=== PATIENT | male | born 1940 | race Caucasian/White ===

== ENCOUNTER → 2017-12-03 15:33 | Outpatient (CLI) | payer MEDICARE, SELFPAY ==
--- NOTE | 2017-12-03 | DI.RAD.S_ITS ---
PROCEDURE: XR HIP W PEL IF DONE LT 2V INDICATIONS: LEFT HIP PAIN TECHNIQUE: AP pelvis with lateral view(s) of the left hip. COMPARISON: None. FINDINGS: Bones: No fractures or dislocations. Pelvic ring appears intact. No suspicious bony lesions. Soft tissues: The visualized bowel gas pattern is normal. No suspicious soft tissue calcifications. IMPRESSION: Mild symmetric hip joint osteoarthritis, no trauma found. Dictated by: Torres Marin M.D. on 12/03/2017 at 16:37 Approved by: Torres Marin M.D. on 12/03/2017 at 16:37
== END ==
PROVIDERS: PCP Family Medicine; Visit Provider Family Medicine
DX: M25.552 Pain in left hip (principal); M16.12 Unilateral primary osteoarthritis, left hip
CPT/HCPCS: 73502

== ENCOUNTER 2018-01-06 10:26 | Emergency (ER) | payer MEDICARE, SELFPAY ==
[2018-01-06 10:32] VITALS: BP 128/55; PULSE 58; RESP 15; TEMP 36.5; O2SAT 97; BMI 25.8
--- NOTE | 2018-01-06 11:10 | DI.CT.S_ITS ---
PROCEDURE: CT HEAD/BRAIN WO CON INDICATIONS: confusion, fall 2 days TECHNIQUE: Noncontrast 4.5 mm thick angled axial sections acquired from the foramen magnum to the vertex, with coronal and sagittal reformats. For radiation dose reduction, the following was used: automated exposure control, adjustment of mA and/or kV according to patient size. COMPARISON: None. FINDINGS: Image quality: Excellent. CSF spaces: Basal cisterns are patent. No extra-axial fluid collections. Ventricles are moderately prominent. There is corresponding parenchymal volume loss. Brain: No midline shift. No intracranial masses or hemorrhage. Montesinos-white matter interface is normal. Subtle areas of low attenuation within the periventricular white matter of the supratentorial brain is present. Skull and face: Calvarium and visualized facial bones are intact, without suspicious lesions. Sinuses: Visualized sinuses and mastoids are clear. IMPRESSION: 1. No acute intracranial hemorrhage. 2. Moderate parenchymal volume loss and mild chronic small vessel ischemic changes. Dictated by: Mert Lainez M.D. on 01/06/2018 at 10:22 Approved by: Mert Lainez M.D. on 01/06/2018 at 10:29
[2018-01-06 12:00] LABS: Add Manual Diff / Slide Review NO; Basophils Percent Auto 0.3 % (0-2); Eosinophils Percent Auto 0.3 % (2-4); Hematocrit 45.6 % (41-53); Hemoglobin 15.7 g/dL (13.5-17.5); Lymphocytes Percent Auto 12.8 % (25-40); Mean Corpuscular HGB Conc 34.4 % (30-36); Mean Corpuscular Hemoglobin 31.6 PG (26-34); Mean Corpuscular Volume 91.7 fL (80-100); Monocytes Percent Auto 5.6 % (3-14); Neutrophils Absolute Auto 5700 /uL (3000-5900); Platelet Count 213 X10^3/uL (150-400); Red Blood Cell Count 4.97 X10^6/uL (4.5-5.9); Red Cell Distribution Width 13.2 % (11.6-14.8)
[2018-01-06 12:08] LABS: Alanine Aminotransferase 25 IU/L (21-72); Albumin 4.3 g/dL (3.5-5.0); Albumin Globulin Ratio 1.3 (1.0-2.8); Alkaline Phosphatase 148 U/L (38-126); Aspartate Aminotransferase 28 IU/L (17-59); Bilirubin Total 0.9 mg/dL (0.2-1.3); Blood Urea Nitrogen 23 mg/dL (9-20); Calcium 9.9 mg/dL (8.4-10.2); Carbon Dioxide 28 mmol/L (22-32); Chloride 101 mmol/L (98-107); Estimated Glomerular Filt Rate > 60.0 mL/min (>60); Globulin 3.4 g/dL (1.7-4.1); Glucose 106 mg/dL (80-110); HEMOLYSIS < 15 (0-50); Potassium 4.2 mmol/L (3.4-5.1); Sodium 141 mmol/L (137-145); Total Protein 7.7 g/dL (6.3-8.2)
[2018-01-06 12:33] VITALS: BP 124/71; PULSE 56; RESP 14; O2SAT 97
--- NOTE | 2018-01-06 13:08 | ED_ITS ---
HPI - Altered Mental Status General Chief Complaint: Altered Mental Status Stated Complaint: disoriented/abnormal for him x2 days Time Seen by Provider: 01/06/18 11:25 Source: patient and family Mode of arrival: ambulatory Limitations: no limitations History of Present Illness HPI narrative: Family states the patient has been confused for the last week or so, on and off. Patient was placed on Flexeril last week for a pulled muscle in his groin, and family states that the medication made the patient somewhat confused and less ?with it. They stop the Flexeril that 4 days ago, and patient seem to be a little bit better but then has worsened again over the last day. The family states that the patient is not as active as usual and is saying things that do not make sense. They have not noticed any focal neurologic deficits. Patient has had mildly decreased p.o. intake. Patient denies any complaints. He states he is not hurting and he is not short of breath. He does state that he feels ?strange?. No other complaints at this time. No dysuria. No vomiting or diarrhea. No weakness. Related Data Home Medications Medication Instructions Recorded Confirmed ondansetron 4 mg PO PRN PRN 01/07/18 01/07/18 sulfamethoxazole-trimethoprim 1 tab PO BID 01/07/18 01/07/18 Allergies Allergy/AdvReac Type Severity Reaction Status Date / Time No Known Drug Allergies Allergy Verified 01/07/18 15:17 Review of Systems Review of Systems All systems reviewed & are unremarkable except as noted in HPI and below Constitutional Denies chills, Denies fever(s), Denies lethargy and Denies weakness Eyes Denies change in vision, Denies eye discharge, Denies irritation and Denies loss of vision ENT Ears, Nose, Mouth, and Throat: Denies change in voice, Denies neck pain and Denies sore throat Cardiovascular Denies chest pain, Denies irregular heart rhythm, Denies lightheadedness, Denies palpitations, Denies dyspnea, Denies dyspnea on exertion and Denies orthopnea Respiratory Denies cough, Denies dyspnea, Denies dyspnea on exertion and Denies wheezing Gastrointestinal Gastrointestinal: Denies abdominal pain, Denies change in bowel habits, Denies diarrhea, Denies nausea and Denies vomiting Genitourinary Denies hematuria, Denies flank pain, Denies urinary incontinence and Denies urinary urgency Musculoskeletal Denies neck pain Integumentary/Breasts Denies pruritus, Denies erythema, Denies rash and Denies wounds Neurologic Reports confusion, Denies loss of vision and Denies weakness Psychiatric Denies anxiety, Reports confusion, Denies depression, Denies homicidal ideation and Denies suicidal ideation Endocrine Denies palpitations Hematologic/Lymphatic Denies easy bruising Allergic/Immunologic Denies wheezing Exam Initial Vital Signs Initial Vital Signs: Vital Signs Temperature 97.7 F 01/06/18 10:32 Pulse Rate 58 L 01/06/18 10:32 Respiratory Rate 15 01/06/18 10:32 Blood Pressure 128/55 L 01/06/18 10:32 Pulse Oximetry 97 01/06/18 10:32 Const General: cooperative and well developed Nutritional Appearance: well nourished Orientation: alert, awake, oriented x3 and not confused HENMT Head: normocephalic and atraumatic Ears: external ears normal and TM's normal bilaterally Nose: external nose normal and No nasal discharge Face and sinus: sinuses nontender, face symmetric, no sinus tenderness and No dry mucous membranes Mouth: oral mucosae normal and moist mucous membranes Teeth and gingiva: dentition normal Throat: tonsils normal and uvula midline Eyes General: appearance normal, both eyes and all related structures Eyelids: eyelids normal Conjunctivae: conjunctivae normal Sclera: sclerae normal Pupils: PERRL EOM: EOM intact bilaterally Neck Neck: normal visual inspection, trachea midline, No lymphadenopathy, No midline deformity and No JVD Lymphatic: No lymphedema Chest Chest: normal inspection of the chest Resp Effort & Inspection: normal respiratory effort, able to speak in complete sentences, no respiratory distress and no use of accessory muscles Auscultation: clear to auscultation bilaterally, no rales, no rhonchi and no wheezes Cardio Rate: regular rate Rhythm: regular rhythm Heart Sounds: no click, no gallops, no murmurs and no rubs Pulses: normal peripheral pulses GI Inspection: non-distended Palpation: soft, no hepatosplenomegaly, No guarding, No pulsatile mass and No tender Auscultation: normal bowel sounds Back/Spine/Pelvis Back: No CVA tenderness Cervical Spine: cervical ROM normal and No pain with cervical ROM Thoracic/Lumbar Spine: thoracic and lumbar spine normal to inspection Skin General: no rashes or lesions noted, No jaundice and No petechiae Neuro General: alert, gait normal and no focal motor deficits Cranial Nerves: CN's II-XI intact bilaterally Speech: speech normal Motor: muscle tone normal throughout and strength 5/5 throughout Sensory Exam: no sensory deficits noted Other: Patient is confused. He knows his name and he recognizes his family. He knows he is at the hospital, but thinks that I am a surgeon who operated on him. Extrem General: full ROM, no clubbing, cyanosis or edema, no pedal edema and no calf tenderness Psych Appearance: well kempt Mental Status: mental status grossly normal Attitude: cooperative Thought Content: normal and suicidality Judgment: judgment good Course Course Narrative: Patient was evaluated by myself in the emergency department, and worked up with head CT, labs and urinalysis. Urinalysis was mildly positive , and given the lack of other findings on workup, I felt that the patient should be treated for urinary tract infection, particularly since the symptoms patient is having can go along with this. Patient was started on antibiotics. I have advised the family that the culture will be back in the next 24 hr, and we will know for sure whether UTI the source of the patient's problems. At this point, however, given the patient's confusion and positive UA, antibiotics will be started. Orders Ordered: Discontinued Medications Trimethoprim/Sulfamethoxazole (Bactrim Ds) 1 tab PO NOW ONE Stop: 01/06/18 15:11 Last Admin: 01/06/18 15:31 Dose: 1 tab Vital Signs - 8 hr 01/06/18 10:32 01/06/18 12:33 Temperature 97.7 F Pulse Rate 58 L 56 L Respiratory Rate 15 14 Blood Pressure 128/55 L Blood Pressure [Left Arm] 124/71 Pulse Oximetry 97 97 MDM - Altered Mental Status Medical Records Attestation: I reviewed the patient's medical records. Lab Data Attestation: I reviewed the patient's lab results. Result diagrams: 01/06/18 11:49 01/06/18 11:49 Lab Results 01/06/18 01/06/18 01/06/18 Range/Units 11:49 11:49 13:19 WBC 7.0 (4.5-11.0) X10^3/uL RBC 4.97 (4.5-5.9) X10^6/uL Hgb 15.7 (13.5-17.5) g/dL Hct 45.6 (41-53) % MCV 91.7 (80-100) fL MCH 31.6 (26-34) PG MCHC 34.4 (30-36) % RDW 13.2 (11.6-14.8) % Plt Count 213 (150-400) X10^3/uL Neut % (Auto) 81.0 H (50-75) % Lymph % (Auto) 12.8 L (25-40) % [place] % (Auto) 5.6 (3-14) % Eos % (Auto) 0.3 L (2-4) % Baso % (Auto) 0.3 (0-2) % Neut # (Auto) 5700 (6709-5118) /uL Sodium 141 (137-145) mmol/L Potassium 4.2 (3.4-5.1) mmol/L Chloride 101 (98-107) mmol/L Carbon Dioxide 28 (22-32) mmol/L BUN 23 H (9-20) mg/dL Creatinine 1.00 (0.66-1.25) mg/dL Estimated GFR > 60.0 (>60) mL/min BUN/Creatinine Ratio 23.0 H (6-22) Glucose 106 (80-110) mg/dL Calcium 9.9 (8.4-10.2) mg/dL Total Bilirubin 0.9 (0.2-1.3) mg/dL AST 28 (17-59) IU/L ALT 25 (21-72) IU/L Alkaline Phosphatase 148 H (38-126) U/L Total Protein 7.7 (6.3-8.2) g/dL Albumin 4.3 (3.5-5.0) g/dL Globulin 3.4 (1.7-4.1) g/dL Albumin/Globulin Ratio 1.3 (1.0-2.8) Urine Color Yellow Urine Appearance Clear Urine pH 5.0 (4.5-8.0) Ur Specific [place] >=1.030 H (1.000-1.035) Urine Protein Trace H (Negative) Urine Glucose (UA) Negative (Normal) g/dL Urine Ketones 2+ H (NEGATIVE) Urine Occult Blood 2+ H (Negative) Urine Nitrate Negative (Negative) Urine Bilirubin Negative (NEGATIVE) Urine Urobilinogen 0.2 (0.2) E.U./dL Ur Leukocyte Esterase Negative (NEGATIVE) Urine RBC 5-10/hpf H (0-5/HPF) Urine WBC 5-10/hpf H (0-5/HPF) Ur Squamous Epith Cells 0-1 /hpf Urine Bacteria Few (2-10) H (None) Urine Mucus 3+ H (Negative) Ur Culture Indicated? Specimen cultured Micro UA Comment Not Reportable Imaging Data CT scan - head: Radiologist's impression: PROCEDURE: CT HEAD/BRAIN WO CON INDICATIONS: confusion, fall 2 days TECHNIQUE: Noncontrast 4.5 mm thick angled axial sections acquired from the foramen magnum to the vertex, with coronal and sagittal reformats. For radiation dose reduction, the following was used: automated exposure control, adjustment of mA and/or kV according to patient size. COMPARISON: None. FINDINGS: Image quality: Excellent. CSF spaces: Basal cisterns are patent. No extra-axial fluid collections. Ventricles are moderately prominent. There is corresponding parenchymal volume loss. Brain: No midline shift. No intracranial masses or hemorrhage. Montesinos-white matter interface is normal. Subtle areas of low attenuation within the periventricular white matter of the supratentorial brain is present. Skull and face: Calvarium and visualized facial bones are intact, without suspicious lesions. Sinuses: Visualized sinuses and mastoids are clear. IMPRESSION: 1. No acute intracranial hemorrhage. 2. Moderate parenchymal volume loss and mild chronic small vessel ischemic changes. Dictated by: Mert Lainez M.D. on 01/06/2018 at 10:22 Approved by: Mert Lainez M.D. on 01/06/2018 at 10:29 Discharge Plan Departure Patient Disposition: Home Clinical Impression: Acute UTI Discharge Date/Time: 01/06/18 15:55 Interventions: ED Discharge Assessment Last Done: 01/06/18 15:53 Instructions: DI for Urinary Tract Infection (UTI) Activity Restrictions/Additional Instructions: The labs looked good. The urinalysis was positive for a urinary tract infection , for which you have been started on antibiotics today. Please continue the antibiotics, as directed, until gone. Prescriptions: No Action sulfamethoxazole-trimethoprim 800-160 mg Tablet 1 tab PO BID RF: 0 ondansetron 4 mg Tablet,Disintegrating 4 mg PO PRN PRN (Reason: Nausea) RF: 0 Referrals: Vu Walker MD [Primary Care Provider] -
[2018-01-06 13:09] VITALS: BP 138/67
--- NOTE | 2018-01-06 13:23 | PC.NURSE ---
pt off balance, ambulated with one person assist, I set pt up to give clean catch urine, he used call light as instructed but couldn't figure out how to get his pants up, like he was confused why he was there.
[2018-01-06 13:30] VITALS: PULSE 54; O2SAT 100
[2018-01-06 13:45] LABS: Appearance Urine UA CLEAR; Bilirubin Urine UA NEGATIVE (NEGATIVE); Color Urine UA YELLOW; Glucose Urine UA NEGATIVE (Normal); Ketones Urine UA 2+ (NEGATIVE); Leukocyte Esterase Urine UA NEGATIVE (NEGATIVE); Nitrite Urine UA NEGATIVE (Negative); Occult Blood Urine UA 2+ (Negative); Protein Urine UA TRACE (Negative); Specific Gravity Urine UA >=1.030 (1.000-1.035); Urobilinogen Urine UA 0.2 E.U./dL (0.2)
[2018-01-06 13:53] LABS: Bacteria Urine Few (2-10); Culture Indicated Urine Specimen Cultured; Mucus Urine 3+ (Negative); RBC Urine 5-10/HPF (0-5/HPF); Squamous Epithelial Cell Urine 0-1 /HPF; WBC Urine 5-10/HPF (0-5/HPF)
[2018-01-06 14:37] VITALS: BP 127/77; PULSE 69; RESP 17; O2SAT 98
[2018-01-06 15:24] VITALS: BP 130/96; PULSE 67; RESP 16; O2SAT 99
[2018-01-06] MEDS: TRIMETH/SULFA 160/800 (DS) TABLET 1 TAB PO (15:31)
== END 2018-01-06 15:55 | disposition home or self-care (01) ==
PROVIDERS: Emergency Provider Emergency Medicine; Family Provider Family Medicine; PCP Family Medicine
DX: N39.0 Urinary tract infection, site not specified (principal)
CPT/HCPCS: 36415; 70450; 72195; 80053; 81001; 85025; 87086; 93005; 99283; 99285

== ENCOUNTER → 2018-01-06 15:43 | Outpatient (CLI) | payer MEDICARE, SELFPAY ==
--- NOTE | 2018-01-06 | DI.MRI.S_ITS ---
PROCEDURE: MR PELVIS WO CON INDICATIONS: CHRONIC LEFT GROIN PAIN TECHNIQUE: Noncontrast coronal T1 spin echo and STIR through the bony pelvis. Sagittal T2 FSE with fat saturation, oblique axial PD FSE and T2 FSE with fat saturation through the symphysis pubis. COMPARISON: [facility], CT, IVP (ABD & PEL WWO CONTRAST), 03/14/2015, 13:26. [facility], CR, XR HIP W PEL IF DONE LT 2V, 12/03/2017, 15:20. FINDINGS: Image quality: Excellent. There is diffuse loss of the normal marrow fat signal intensity within the lumbar spine, as well as the pelvis and proximal left femur. There are areas of marrow T2 hyperintensity and edema seen within the iliac wings bilaterally, the sacrum, and proximal left femur as well as lower lumbar spine in keeping with multiple osseous metastases. Abnormal signal may impinge on one of the left sacral neural foramen (image 12 series 6.) There is left-sided mural irregularity of gallbladder, with wall thickening and possible ulceration, which raises the possibility of bladder neoplasm although recommend correlation with cystoscopy. 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 Recommend further evaluation with whole-body bone scan. One of these lesions may impinge on the left sacral neural foramen and recommend correlation with clinical exam findings. Also, there is theoretical increased risk of pathologic fracture. Irregular thickening and possible ulceration of the left bladder wall. Recommend cystoscopy as this is suspicious for bladder neoplasm. Dictated by: Karthikeyan Barlow M.D. on 01/06/2018 at 16:57 Approved by: Karthikeyan Barlow M.D. on 01/06/2018 at 17:09
== END ==
PROVIDERS: Family Provider Family Medicine; PCP Family Medicine; Visit Provider Family Medicine
DX: R10.32 Left lower quadrant pain (principal); G89.29 Other chronic pain
CPT/HCPCS: 72195

== ENCOUNTER 2018-01-07 15:06 | Inpatient (IN) | payer MEDICARE, SELFPAY ==
--- NOTE | 2018-01-07 | DI.MRI.S_ITS ---
PROCEDURE: MR HEAD/BRAIN WO CON INDICATIONS: r/o HSV encephalitis TECHNIQUE: Non-contrast axial T1 spin echo, axial T2 fast spin echo, sagittal and axial FLAIR, coronal T2 fast spin echo, axial gradient echo, axial diffusion and ADC through the brain. COMPARISON: None. FINDINGS: Image quality: Given extreme patient motion artifact, the study is of markedly limited quality. Additionally, the study was terminated early due to patient agitation. CSF spaces: There visualized the ventricles demonstrate symmetric size and shape. There is likely central and peripheral volume loss slightly greater than expected for patient age. Brain: No findings to suggest increased restricted diffusion. There is no definite foci of increased T2/FLAIR signal hyperintensity within the temporal lobes were visualized. No large intracranial masses. Skull and face: Where visualized, the calvarial marrow signal and the orbits have a normal appearance. Sinuses: The sinuses and mastoid air cells are not well characterized but appear grossly clear. IMPRESSION: 1. Markedly limited study given patient's inability to hold still. The study was terminated early. 2. No increased T2/FLAIR signal within the temporal lobes to suggest HSV encephalitis. However, given the limited scope of the study, subtle findings could be missed. 3. No findings to suggest acute or subacute infarct. Dictated by: Archana Najera M.D. on 01/07/2018 at 20:29 Approved by: Archana Najera M.D. on 01/07/2018 at 20:33
[2018-01-07 15:06] VITALS: BP 143/62; PULSE 55; RESP 16; TEMP 37; O2SAT 97; BMI 25.8
--- NOTE | 2018-01-07 15:20 | ED.AMS ---
HPI - Altered Mental Status General Chief Complaint: Altered Mental Status Stated Complaint: SEMI UNRESPONSIVE Time Seen by Provider: 01/07/18 15:16 Source: family Mode of arrival: ambulatory Limitations: altered mental status Related Data Home Medications Medication Instructions Recorded Confirmed ondansetron 4 mg PO PRN PRN 01/07/18 01/07/18 sulfamethoxazole-trimethoprim 1 tab PO BID 01/07/18 01/07/18 Allergies Allergy/AdvReac Type Severity Reaction Status Date / Time No Known Drug Allergies Allergy Verified 01/07/18 15:17 Exam Initial Vital Signs Initial Vital Signs: Vital Signs Temperature 98.6 F 01/07/18 15:06 Pulse Rate 55 L 01/07/18 15:06 Respiratory Rate 16 01/07/18 15:06 Blood Pressure 143/62 H 01/07/18 15:06 Pulse Oximetry 97 01/07/18 15:06 Procedures Lumbar Puncture Patient Position: upright Skin Prep: Povidone-Iodine 1% and 0.5% Chlorhexidine/Alcohol Local Anesthetic: lidocaine 1% Amount of anesthesia used (mL): 4 Spinal Needle Gauge: 20G Interspace Used: L3-L4 Fluid Initially Obtained: clear Complications: none Course Course Narrative: Patient seemed worse today than he had yesterday, and I felt that he should have further investigation as to the cause of his altered mental status. I did confirm that his urine culture had been found to be preliminarily negative. Labs and lumbar puncture were performed to analyze cause of the patient's mental status change. He was given 2 L of normal saline in the emergency department which improved his mental status minimally. His workup As of transfer out of the emergency department was unremarkable, as was his workup yesterday. I spoke with Dr. Rebollar, as I felt the patient should be admitted for observation, and she did agree to admit the patient to her service. Orders Ordered: ED Orders 01/07/18 15:20 Complete Blood Count AUTO DIFF Stat Comprehensive Metabolic Panel Stat Lactate (Lactic Acid) Stat Troponin & CK Cardiac Panel Stat Urinalysis and Microscopic Stat 01/07/18 15:47 Ammonia (NH3) Stat Blood Culture Stat 01/07/18 17:35 [facility] Miscellaneous, Refrig Routine [facility] Miscellaneous, Refrig Routine [facility] Miscellaneous, Refrig Routine [facility] Miscellaneous, Refrig Routine 01/07/18 17:40 CSF culture Stat Cell Count w Diff CSF Stat Glucose CSF Stat Total Protein CSF Stat 01/07/18 18:32 Education, smoking cessation ONGOING 01/08/18 05:00 Complete Blood Count AUTO DIFF Routine Comprehensive Metabolic Panel Routine Prothrombin Time INR Routine Acetaminophen (Tylenol) 650 mg PO Q6HR PRN PRN Reason: As Needed for Fever/Mild Pain Docusate Sodium (Colace) 100 mg PO BID [facility] Enoxaparin Sodium (Lovenox) 40 mg SUBCUT DAILY [facility] Ceftriaxone Sodium/Dextrose (Rocephin) 2 gm in 50 mls @ 100 mls/hr IV Q24H [facility] Acyclovir 790 mg/ Dextrose 100 mls @ 100 mls/hr IV Q8H [facility] Dextrose/Sodium Chloride (Dextrose 5%-0.9% Ns) 1,000 mls @ 100 mls/hr IV CONT [facility] Ibuprofen (Advil) 600 mg PO Q6HR PRN PRN Reason: As Needed for Fever/Mild Pain Ketorolac Tromethamine (Toradol) 30 mg IV Q6HR [facility] Stop: 01/12/18 18:33 Ondansetron HCl (Zofran) 4 mg IV Q8HR PRN PRN Reason: Nausea And Vomiting Sennosides (Senna) 17.2 mg PO BEDTIME [facility] Discontinued Medications Sodium Chloride (Normal Saline 0.9%) 1,000 mls @ 1,000 mls/hr IV BOLUS ONE Stop: 01/07/18 16:19 Last Admin: 01/07/18 15:30 Dose: 1,000 mls/hr Sodium Chloride (Normal Saline 0.9%) 1,000 mls @ 1,000 mls/hr IV BOLUS ONE Stop: 01/07/18 17:48 Last Admin: 01/07/18 17:30 Dose: 1,000 mls/hr Lorazepam (Ativan) 0.5 mg IV NOW ONE Stop: 01/07/18 19:14 Vital Signs - 8 hr 01/07/18 15:06 01/07/18 16:00 01/07/18 17:00 Temperature 98.6 F Pulse Rate 55 L 50 L 55 L Respiratory Rate 16 12 14 Blood Pressure 143/62 H Blood Pressure [Right Arm] 146/71 H 136/64 Pulse Oximetry 97 99 91 01/07/18 18:29 Temperature 98.3 F Pulse Rate 59 L Respiratory Rate 20 Blood Pressure 128/59 L Blood Pressure [Right Arm] Pulse Oximetry 98 MDM - Altered Mental Status Medical Records Attestation: I reviewed the patient's medical records. Lab Data Attestation: I reviewed the patient's lab results. Result diagrams: 01/07/18 15:20 01/07/18 15:20 Lab Results 01/07/18 01/07/18 01/07/18 Range/Units 15:20 15:20 15:20 WBC 7.2 (4.5-11.0) X10^3/uL RBC 5.01 (4.5-5.9) X10^6/uL Hgb 15.6 (13.5-17.5) g/dL Hct 45.6 (41-53) % MCV 91.0 (80-100) fL MCH 31.1 (26-34) PG MCHC 34.2 (30-36) % RDW 13.0 (11.6-14.8) % Plt Count 245 (150-400) X10^3/uL Neut % (Auto) 61.5 (50-75) % Lymph % (Auto) 27.8 (25-40) % [place] % (Auto) 8.4 (3-14) % Eos % (Auto) 1.6 L (2-4) % Baso % (Auto) 0.7 (0-2) % Neut # (Auto) 4400 (6206-6275) /uL Sodium 142 (137-145) mmol/L Potassium 3.9 (3.4-5.1) mmol/L Chloride 102 (98-107) mmol/L Carbon Dioxide 26 (22-32) mmol/L BUN 21 H (9-20) mg/dL Creatinine 1.10 (0.66-1.25) mg/dL Estimated GFR > 60.0 (>60) mL/min BUN/Creatinine Ratio 19.1 (6-22) Glucose 97 (80-110) mg/dL Lactate 1.0 (0.7-2.1) mmol/L Calcium 9.8 (8.4-10.2) mg/dL Total Bilirubin 1.0 (0.2-1.3) mg/dL AST 38 (17-59) IU/L ALT 20 L (21-72) IU/L Alkaline Phosphatase 146 H (38-126) U/L Ammonia (9-30) umol/L Total Creatine Kinase 231 H (55-170) U/L CK-MB (CK-2) 3.58 H (<2.37) ng/mL CK-MB (CK-2) Rel Index 1.5 (1.5-5.0) % Troponin I < 0.012 (0.01-0.034) ng/mL Total Protein 7.6 (6.3-8.2) g/dL Albumin 4.4 (3.5-5.0) g/dL Globulin 3.2 (1.7-4.1) g/dL Albumin/Globulin Ratio 1.4 (1.0-2.8) CSF Tube Number CSF Volume CSF Appearance (Clear) CSF Color (Colorless) CSF WBC (0-5) MONO/uL CSF RBC RBC /uL CSF Glucose (40-70) mg/dL CSF Total Protein (12-60) mg/dL 01/07/18 01/07/18 Range/Units 15:47 17:35 WBC (4.5-11.0) X10^3/uL RBC (4.5-5.9) X10^6/uL Hgb (13.5-17.5) g/dL Hct (41-53) % MCV (80-100) fL MCH (26-34) PG MCHC (30-36) % RDW (11.6-14.8) % Plt Count (150-400) X10^3/uL Neut % (Auto) (50-75) % Lymph % (Auto) (25-40) % [place] % (Auto) (3-14) % Eos % (Auto) (2-4) % Baso % (Auto) (0-2) % Neut # (Auto) (6545-9271) /uL Sodium (137-145) mmol/L Potassium (3.4-5.1) mmol/L Chloride (98-107) mmol/L Carbon Dioxide (22-32) mmol/L BUN (9-20) mg/dL Creatinine (0.66-1.25) mg/dL Estimated GFR (>60) mL/min BUN/Creatinine Ratio (6-22) Glucose (80-110) mg/dL Lactate (0.7-2.1) mmol/L Calcium (8.4-10.2) mg/dL Total Bilirubin (0.2-1.3) mg/dL AST (17-59) IU/L ALT (21-72) IU/L Alkaline Phosphatase (38-126) U/L Ammonia 10.0 (9-30) umol/L Total Creatine Kinase (55-170) U/L CK-MB (CK-2) (<2.37) ng/mL CK-MB (CK-2) Rel Index (1.5-5.0) % Troponin I (0.01-0.034) ng/mL Total Protein (6.3-8.2) g/dL Albumin (3.5-5.0) g/dL Globulin (1.7-4.1) g/dL Albumin/Globulin Ratio (1.0-2.8) CSF Tube Number 4 CSF Volume 1.5 ml CSF Appearance Clear (Clear) CSF Color Colorless (Colorless) CSF WBC 12 H (0-5) MONO/uL CSF RBC 675 RBC /uL CSF Glucose 49 (40-70) mg/dL CSF Total Protein 126 H (12-60) mg/dL Point of Care Testing Glucose POC 84 Discharge Plan Departure Patient Disposition: Admitted As Inpatient Clinical Impression: Altered mental status Discharge Date/Time: 01/07/18 18:50 Interventions: ED Discharge Assessment Last Done: 01/07/18 17:58 Admit Date/Time: 01/07/18 17:42 Admit Provider: Sunitha Rebollar
[2018-01-07] MEDS: SODIUM CHLORIDE 0.9% 1,000 ML 1000 ML IV ×2 (15:30→17:30)
[2018-01-07 15:35] LABS: Add Manual Diff / Slide Review NO; Basophils Percent Auto 0.7 % (0-2); Eosinophils Percent Auto 1.6 % (2-4); Hematocrit 45.6 % (41-53); Hemoglobin 15.6 g/dL (13.5-17.5); Lymphocytes Percent Auto 27.8 % (25-40); Mean Corpuscular HGB Conc 34.2 % (30-36); Mean Corpuscular Hemoglobin 31.1 PG (26-34); Monocytes Percent Auto 8.4 % (3-14); Neutrophils Absolute Auto 4400 /uL (3000-5900); Neutrophils Percent Auto 61.5 % (50-75); Platelet Count 245 X10^3/uL (150-400); Red Blood Cell Count 5.01 X10^6/uL (4.5-5.9); White Blood Cell Count 7.2 X10^3/uL (4.5-11.0)
[2018-01-07 15:48] LABS: Alanine Aminotransferase 20 IU/L (21-72); Albumin 4.4 g/dL (3.5-5.0); Albumin Globulin Ratio 1.4 (1.0-2.8); Alkaline Phosphatase 146 U/L (38-126); Aspartate Aminotransferase 38 IU/L (17-59); BUN Creatinine Ratio 19.1 (6-22); Blood Urea Nitrogen 21 mg/dL (9-20); Calcium 9.8 mg/dL (8.4-10.2); Carbon Dioxide 26 mmol/L (22-32); Chloride 102 mmol/L (98-107); Creatine Kinase 231 U/L (55-170); Estimated Glomerular Filt Rate > 60.0 mL/min (>60); Globulin 3.2 g/dL (1.7-4.1); Glucose 97 mg/dL (80-110); HEMOLYSIS < 15 (0-50); Potassium 3.9 mmol/L (3.4-5.1); Sodium 142 mmol/L (137-145); Total Protein 7.6 g/dL (6.3-8.2)
[2018-01-07 16:00] VITALS: BP 146/71; PULSE 50; RESP 12; O2SAT 99
[2018-01-07 16:04] LABS: CKMB % Relative Index 1.5 % (1.5-5.0); Creatine Kinase MB 3.58 ng/mL (<2.37)
[2018-01-07 16:05] LABS: Troponin I < 0.012 ng/mL (0.01-0.034)
[2018-01-07 17:00] VITALS: BP 136/64; PULSE 55; RESP 14; O2SAT 91
[2018-01-07 18:15] VITALS: BMI 25.8
[2018-01-07 18:29] VITALS: BP 128/59; PULSE 59; RESP 20; TEMP 36.8; O2SAT 98
[2018-01-07 18:29] LABS: Appearance CSF Clear (Clear); CSF Tube Number 4; CSF Tube Volume 1.5 mL; Color CSF Colorless (Colorless)
[2018-01-07 18:30] LABS: Red Blood Cell CSF 675 RBC /uL; White Blood Cell CSF 12 MONO/uL (0-5)
--- NOTE | 2018-01-07 18:35 | PM.HP.1 ---
History of Present Illness Date Patient Seen: 01/07/18 Chief complaint: SEMI UNRESPONSIVE Narrative: Patient is a [age]-year-old male who was admitted to the hospital at this time for altered mental status. Patient was in his usual state of health until about 1 week ago. One month ago he sustained an injury to the groin. He had an x-ray and MRI which was essentially unremarkable. Patient was started on Flexeril about 1 week ago. Since taking the Flexeril he was noted to be more confused. He stopped the Flexeril on Saturday. Despite stopping the Flexeril he has had word-finding difficulty, confusion, been slow to respond, poor appetite, he has been flushed. The family believes he may have been febrile but did not take his temperature. He has had no nausea vomiting or diarrhea. He did have some dark stool. He has not eaten very much for the past 3 days. The patient was evaluated in the emergency room yesterday. He was started on Bactrim for presumed UTI. Urine culture has been negative. Patient was brought back to the hospital today for more confusion. He appears to be getting worse. The patient had a head CT which was negative. His lab studies are essentially unremarkable. The patient underwent a lumbar puncture which was significant for 675 RBCs with clear colorless fluid. He is admitted to the hospital for further evaluation. Patient History Medical History Groin injury (Acute) Family & Social History Tobacco & Substance use: Smoking Status Never smoker alcohol intake frequency other Substance Use Type does not use Meds Home Medications Medication Instructions Recorded Confirmed Type ondansetron 4 mg PO PRN PRN 01/07/18 01/07/18 History sulfamethoxazole-trimethoprim 1 tab PO BID 01/07/18 01/07/18 History Allergies Allergy/AdvReac Type Severity Reaction Status Date / Time No Known Drug Allergies Allergy Verified 01/07/18 15:17 Review of Systems Review of Systems All systems reviewed & are unremarkable except as noted in HPI and below Exam Vital Signs (past 8 hours): - 01/07/18 15:06 01/07/18 16:00 01/07/18 17:00 Temperature 98.6 F Pulse Rate 55 L 50 L 55 L Respiratory Rate 16 12 14 Blood Pressure 143/62 H Blood Pressure [Right Arm] 146/71 H 136/64 Pulse Oximetry 97 99 91 01/07/18 18:29 Temperature 98.3 F Pulse Rate 59 L Respiratory Rate 20 Blood Pressure 128/59 L Blood Pressure [Right Arm] Pulse Oximetry 98 Oxygen Delivery Method Room Air Narrative Exam Narrative: Pleasant male, who appears to be confused. He is slow to respond. HEENT, normocephalic atraumatic, extraocular muscles are intact, oropharynx reveals dry mucous membranes, neck is supple, there is no adenopathy, Lungs are clear to auscultation Cardiac exam: Regular rate and rhythm normal S1 and S2 with a 2/6 systolic ejection murmur Abdomen: Soft nontender nondistended without hepatosplenomegaly Extremities no edema Neuro exam his cranial nerves are intact, strength is symmetric and equal, sensation is grossly intact. The patient knows he is in the hospital, states he is in the emergency room. He knows that Adriano is the president. He know address but thinks it is 2007. He has no tics no obvious hallucination no tremor Objective Labs Result Diagrams: 01/07/18 15:20 01/07/18 15:20 Labs: Laboratory Results - last 24 hr 01/07/18 01/07/18 01/07/18 15:20 15:20 15:20 WBC 7.2 RBC 5.01 Hgb 15.6 Hct 45.6 MCV 91.0 MCH 31.1 MCHC 34.2 RDW 13.0 Plt Count 245 Neut % (Auto) 61.5 Lymph % (Auto) 27.8 [place] % (Auto) 8.4 Eos % (Auto) 1.6 L Baso % (Auto) 0.7 Neut # (Auto) 4400 Sodium 142 Potassium 3.9 Chloride 102 Carbon Dioxide 26 BUN 21 H Creatinine 1.10 Estimated GFR > 60.0 BUN/Creatinine Ratio 19.1 Glucose 97 Lactate 1.0 Calcium 9.8 Total Bilirubin 1.0 AST 38 ALT 20 L Alkaline Phosphatase 146 H Ammonia Total Creatine Kinase 231 H CK-MB (CK-2) 3.58 H CK-MB (CK-2) Rel Index 1.5 Troponin I < 0.012 Total Protein 7.6 Albumin 4.4 Globulin 3.2 Albumin/Globulin Ratio 1.4 CSF Tube Number CSF Volume CSF Appearance CSF Color CSF WBC CSF RBC 01/07/18 01/07/18 15:47 17:35 WBC RBC Hgb Hct MCV MCH MCHC RDW Plt Count Neut % (Auto) Lymph % (Auto) [place] % (Auto) Eos % (Auto) Baso % (Auto) Neut # (Auto) Sodium Potassium Chloride Carbon Dioxide BUN Creatinine Estimated GFR BUN/Creatinine Ratio Glucose Lactate Calcium Total Bilirubin AST ALT Alkaline Phosphatase Ammonia 10.0 Total Creatine Kinase CK-MB (CK-2) CK-MB (CK-2) Rel Index Troponin I Total Protein Albumin Globulin Albumin/Globulin Ratio CSF Tube Number 4 CSF Volume 1.5 ml CSF Appearance Clear CSF Color Colorless CSF WBC 12 H CSF RBC 675 Assessment & Plan (1) Groin injury: Problem details: Continue Tylenol and nonsteroidals Current visit: Yes Status: Acute (2) Acute metabolic encephalopathy: Problem details: Etiology of metabolic encephalopathy is unclear. Lumbar puncture concerning given the number of RBCs. Patient will have a head MRI in the morning. Will start him on IV hydration this evening. The patient will be started empirically on acyclovir and ceftriaxone. Will obtain HSV by PCR, will obtain PCR for bacterial stains as well. Will continue to follow him and monitor him closely. Will obtain ammonia level as well as ABG. Patient is a full code and will note that news record accordingly. Current visit: Yes Status: Acute
[2018-01-07 18:36] LABS: Glucose CSF 49 mg/dL (40-70); Total Protein CSF 126 mg/dL (12-60)
[2018-01-07] MEDS: LORazepam 2 MG/ML SYRINGE 0.5 MG IV (19:19)
[2018-01-07 19:56] LABS: Mononuclear WBC CSF 55 %; Polynuclear WBC CSF 3 %
[2018-01-07] MEDS: DEXTROSE 5%-0.9% NS 1,000 ML 100 ML IV (20:38)
[2018-01-07] MEDS: CEFTRIAXONE 2 GM/50 ML FROZ.PIGGY IV (20:38)
[2018-01-07] MEDS: ACYCLOVIR IV (21:20)
[2018-01-07] MEDS: DEXTROSE 5% IV (21:20)
[2018-01-07] MEDS: WATER IV (21:20)
--- NOTE | 2018-01-07 22:39 | PC.NURSE ---
01/07 2239; pt arrived to floor from ED, alert to self, date, home address and current president. Time, place and situation required re-orientation. Pt hard to redirect, has full strength and motor skills is impulsive and require bed alarm with frequent monitoring. Daughter in law Carrie who is an HEATER HELPER has offered to stay the night and help with 1:1 supervision as she did so the night prior when he was at home. Stating that he was up every 1.5hrs wondering around, trying to find the bathroom in his house. Pt was had a one time dose of Ativan prior MRI, no PO meds administered as pt wont maintain eye contact with arousal and daughter in law is unsure of pts oral capacity. up to bathroom twice this shift, voiding in toilet, needs physical guidance to restroom as pt is severely disoriented.
[2018-01-07 23:30] VITALS: BP 100/60; PULSE 61; RESP 16; TEMP 37.2; O2SAT 95
[2018-01-07] MEDS: KETOROLAC 30 MG/ML VIAL IV (23:39)
[2018-01-07 23:47] LABS: Bacteria Urine None Seen
[2018-01-07 23:58] LABS: Appearance Urine UA CLEAR; Bilirubin Urine UA NEGATIVE (NEGATIVE); Color Urine UA YELLOW; Glucose Urine UA NEGATIVE (Normal); Ketones Urine UA 1+ (NEGATIVE); Leukocyte Esterase Urine UA NEGATIVE (NEGATIVE); Nitrite Urine UA NEGATIVE (Negative); Occult Blood Urine UA 1+ (Negative); Protein Urine UA NEGATIVE (Negative); Specific Gravity Urine UA 1.025 (1.000-1.035); Urobilinogen Urine UA 0.2 E.U./dL (0.2)
[2018-01-08] VITALS (17 sets, daily range): BP systolic 68–116; BP diastolic 38–57; PULSE 45–56; RESP 15–20; TEMP 36.1–36.6; O2SAT 93–98
--- NOTE | 2018-01-08 | DI.MRI.S_ITS ---
PROCEDURE: MR HEAD/BRAIN W CON INDICATIONS: mental status changes, recent finding bone mets. TECHNIQUE: Postcontrast enhanced axial T1 sequences of the brain are performed. COMPARISON: [facility], , MR HEAD/BRAIN WO CON, 01/07/2018, 19:49. FINDINGS: Image quality: Excellent. There are innumerable small regions of nodular enhancement within the bilateral cerebral hemispheres, the right jacob, as well as the bilateral cerebellar hemispheres. There is a 10 mm diameter nodular region of enhancement at the anterior aspect of the right frontal lobe. There is a 10 mm diameter region of enhancement within the right anterolateral frontal calvarium. No midline shift. There is a 12 mm diameter region of enhancement within the right anterior parotid gland. IMPRESSION: 1. Innumerable small cerebral, pontine, and cerebellar metastases. 2. Right frontal calvarial metastases. 3. No midline shift. 4. Right anterior parotid gland mass. Dictated by: Geraldo Gayle M.D. on 01/08/2018 at 15:58 Approved by: Geraldo Gayle M.D. on 01/08/2018 at 16:02
--- NOTE | 2018-01-08 | DI.CT.S_ITS ---
PROCEDURE: CT ABDOMEN PELVIS W CON INDICATIONS: bone mets, looking for source TECHNIQUE: After the administration of oral and intravenous contrast, 5 mm thick sections acquired from the diaphragms to the symphysis. 5 mm thick coronal and sagittal reformats were performed. For radiation dose reduction, the following was used: automated exposure control, adjustment of mA and/or kV according to patient size. COMPARISON: [facility], CT, IVP (ABD & PEL WWO CONTRAST), 03/14/2015, 13:26. FINDINGS: Image quality: Excellent. ABDOMEN: Lung bases: No acute consolidation. There is scattered subsegmental atelectasis and/or scarring 5 mm subpleural posterior left basilar nodular density may represent scarring/atelectasis although indeterminate. Heart size is borderline enlarged. Solid organs: Liver is normal in size and enhancement. Gallbladder unremarkable. Biliary system is non-dilated. Pancreas enhances normally. Spleen is normal in size and enhancement. No adrenal nodules. Kidneys are normal in size and enhancement, without hydronephrosis. There are bilateral renal cysts, right much larger than left although grossly unchanged since 03/14/15. Age-indeterminate bilateral perinephric stranding. Peritoneum and bowel: Stomach, small bowel, and colon loops are normal in caliber and wall thickness. No free fluid or air. Colonic diverticulosis is seen without evidence of acute complication. Nodes and vessels: No retroperitoneal or mesenteric adenopathy. Aorta and inferior vena cava are normal in caliber. Miscellaneous: No ventral hernias. PELVIS: Genitourinary: Circumferential bladder wall thickening again with possible ulceration at the left aspect image 83 series 2. Prostate mildly enlarged. Miscellaneous: No inguinal hernias or adenopathy. Bones: There extensive osseous metastases involving the bony pelvis, visualized spine, left ninth rib (image 20 series 2). No compression fracture seen. IMPRESSION: Circumferential bladder wall thickening with focal left-sided mural lesion and possible ulceration. Findings concerning for bladder malignancy recommend cystoscopic correlation. Widespread osseous metastases. Partially nodular subpleural posterior left lower lobe lesion which is technically indeterminate although recommend attention on followup studies to exclude pulmonary metastasis. Mildly enlarged prostate. Dictated by: Karthikeyan Barlow M.D. on 01/08/2018 at 15:46 Approved by: Karthikeyan Barlow M.D. on 01/08/2018 at 16:03
--- NOTE | 2018-01-08 | DI.NM.S_ITS ---
PROCEDURE: NM BONE SCAN WHOLE BODY RADIOPHARMACEUTICAL: 22.4 mCi Tc-99m MDP IV. INDICATIONS: bone mets found on pelvic MR TECHNIQUE: Delayed whole-body scintigrams were obtained approximately 3-4 hours after intravenous injection of radiotracer. Anterior and posterior views were acquired from vertex to feet. . COMPARISON: [facility], CT, CT HEAD/BRAIN WO CON, 01/06/2018, 10:57. [facility], MR, MR HEAD/BRAIN WO CON, 01/07/2018, 19:49. [facility], MR, MR HEAD/BRAIN W CON, 01/07/2018, 19:49. [facility], MR, MR PELVIS WO CON, 01/06/2018, 15:54. [facility], CT, CT ABDOMEN PELVIS W CON, 01/08/2018, 15:22. FINDINGS: Extensive osseous metastatic disease is seen including calvarial lesions both anteriorly and posteriorly, elevated isotope uptake at the right maxilla, bilateral humeral diaphyseal lesions more easily seen on the left than the right, multiple bilateral rib lesions and probable scapular lesions inferiorly on the right and at the medial mid scapula on the left. Additionally, scattered foci of subtle and more evident elevated isotope uptake within the thoracic spine is present. Mild pelvic foci of elevated isotope uptake are present, and were better seen by pelvic MR examination 01/06/18. Additionally, left greater than right femoral metastatic disease can be seen extending into the distal diaphysis bilaterally. 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 The focus of uptake seen at the right maxilla may represent periodontal disease by positioning. Dictated by: Torres Marin M.D. on 01/10/2018 at 14:32 Approved by: Torres Marin M.D. on 01/10/2018 at 14:43
[2018-01-08 00:17] LABS: Culture Indicated Urine Cult Not Indicated; RBC Urine 1-5/HPF (0-5/HPF); WBC Urine 0-1/HPF (0-5/HPF)
[2018-01-08] MEDS: WATER IV ×2 (05:10→14:17)
[2018-01-08] MEDS: DEXTROSE 5% IV ×2 (05:10→14:17)
[2018-01-08] MEDS: ACYCLOVIR IV ×2 (05:10→14:17)
[2018-01-08] MEDS: KETOROLAC 30 MG/ML VIAL IV ×3 (06:04→19:05)
[2018-01-08 06:06] LABS: Add Manual Diff / Slide Review NO; Basophils Percent Auto 0.9 % (0-2); Hematocrit 39.9 % (41-53); Hemoglobin 13.7 g/dL (13.5-17.5); Lymphocytes Percent Auto 32.6 % (25-40); Mean Corpuscular HGB Conc 34.4 % (30-36); Mean Corpuscular Hemoglobin 31.4 PG (26-34); Mean Corpuscular Volume 91.4 fL (80-100); Monocytes Percent Auto 9.9 % (3-14); Neutrophils Absolute Auto 3300 /uL (3000-5900); Neutrophils Percent Auto 53.6 % (50-75); Platelet Count 205 X10^3/uL (150-400); Red Blood Cell Count 4.37 X10^6/uL (4.5-5.9); White Blood Cell Count 6.1 X10^3/uL (4.5-11.0)
[2018-01-08 06:07] LABS: INR 1.2 (0.9-1.3); Prothrombin Time 12.7 SECONDS (10.1-12.7)
[2018-01-08 06:13] LABS: Alanine Aminotransferase 27 IU/L (21-72); Albumin 3.3 g/dL (3.5-5.0); Albumin Globulin Ratio 1.2 (1.0-2.8); Alkaline Phosphatase 112 U/L (38-126); Aspartate Aminotransferase 30 IU/L (17-59); BUN Creatinine Ratio 16.7 (6-22); Bilirubin Total 0.6 mg/dL (0.2-1.3); Blood Urea Nitrogen 20 mg/dL (9-20); Calcium 8.9 mg/dL (8.4-10.2); Carbon Dioxide 28 mmol/L (22-32); Chloride 106 mmol/L (98-107); Estimated Glomerular Filt Rate 58.7 mL/min (>60); Globulin 2.8 g/dL (1.7-4.1); Glucose 95 mg/dL (80-110); HEMOLYSIS < 15 (0-50); Potassium 3.8 mmol/L (3.4-5.1); Sodium 144 mmol/L (137-145); Total Protein 6.1 g/dL (6.3-8.2)
--- NOTE | 2018-01-08 06:21 | PC.NURSE ---
hourly shift manager overview: 0630 Pt initially very confused at the start of the shift, unable to answer questions and needed a lot of queing, confused on how to use the bathroom and other ADL's. Grimaces with activity and movement, medicated with scheduled Toradol overnight. Pt has been able to rest most of the night. Daughter in law Carrie has stayed overnight. At appr 0445 NIH stroke score 1, noted to have LLE drift slight. Pts daughter in law was please with the improvement. Pt resting at this time, bed alarm on.
[2018-01-08] MEDS: SODIUM CHLORIDE 0.9% 1,000 ML 1000 ML IV ×2 (07:40→09:52)
[2018-01-08 08:55] LABS: Lactate (Lactic Acid) 1.1 mmol/L (0.7-2.1)
[2018-01-08] MEDS: DEXTROSE 5%-0.9% NS 1,000 ML 100 ML IV (08:58)
[2018-01-08 10:14] LABS: Procalcitonin < 0.05 ng/mL (<0.5)
--- NOTE | 2018-01-08 12:44 | PM.PN.1 ---
Subjective Date Patient Seen: 01/08/18 Time Patient Seen: 12:44 Interval history: I am assuming care of this patient at this point. I am his primary care provider and have been looking after him for some time. He has seen me over the last several weeks for a pain that developed in his left groin. Has developed after a swim when he changed his kicking pattern so thought to be more of a muscular strain. Was quite persistent though in quite painful, did an x-ray to see if there was any bony injury and that was pretty normal so after further monitoring arrange for an MRI to be done this last Saturday. Not sure we are looking for but the MR showed evidence of multiple metastatic bone lesions in the pelvis spine and proximal femur. Also a nerve root departing the sacrum was identified as significantly impinged on the left which might explain his more anterior pain. As for current admission he apparently had been seeming a little off for a while his thinks even a matter of weeks he had been a little confused at times but not others and then over the several days prior to admission he has been a little further off not drinking very much just sips here and there but some then over the last couple of days became far more confused. Came to the ER because of this he was markedly impaired. In the ER evaluated extensively with scans labs including LP, nothing standing out as an underlying cause current working diagnosis is a possible viral encephalitis. Overnight he has received IV fluids and is evidently much clearer today than he has been although still quite confused. So I see him for the 1st time around noon today his is present in the room as are his 2 sons so I explain the findings of the MRI and proposed a possible connection between metastasis of the bone and perhaps something in the brain. He did get an MR yesterday but he was moving so much that findings were of little help. One other finding on the MR from Saturday is an irregularity noted on the bladder wall that might suggest a neoplasm there. That could be a source for the bone Mets, they did not feel that there was significant change of the prostate, another possibility. Exam Vital Signs (past 8 hours): - 01/08/18 07:30 01/08/18 07:32 01/08/18 07:36 Temperature 97.6 F Pulse Rate 45 L 45 L 49 L Respiratory Rate 16 Blood Pressure 90/38 L 69/40 L 68/47 L Pulse Oximetry 96 11/21/18 07:40 01/08/18 07:52 01/08/18 08:11 Temperature Pulse Rate 46 L 46 L Respiratory Rate Blood Pressure 80/56 L 101/52 L Pulse Oximetry 94 94 94 01/08/18 08:15 01/08/18 09:01 01/08/18 10:18 Temperature Pulse Rate 46 L 45 L 52 L Respiratory Rate Blood Pressure 96/54 L 113/49 L 111/49 L Pulse Oximetry 95 01/08/18 10:45 01/08/18 11:19 Temperature 97.7 F Pulse Rate 49 L 52 L Respiratory Rate 16 Blood Pressure 91/55 L 103/44 L Pulse Oximetry 98 Oxygen Delivery Method Room Air Oxygen Flow Rate 0 Narrative Exam Narrative: He is awake and alert to sitting up in bed provides appropriate interaction by enlarge although seems a little confused and repetitive. That is not his baseline. HEENT unremarkable number cephalic atraumatic, neck is benign chest clear heart regular without murmur abdomen is soft nontender nondistended normoactive bowel tones extremities benign neurologically seems nonfocal. Objective Labs Result Diagrams: 01/08/18 05:44 01/08/18 05:44 Labs: Laboratory Results - last 24 hr 01/07/18 01/07/18 01/07/18 15:20 15:20 15:20 WBC 7.2 RBC 5.01 Hgb 15.6 Hct 45.6 MCV 91.0 MCH 31.1 MCHC 34.2 RDW 13.0 Plt Count 245 Neut % (Auto) 61.5 Lymph % (Auto) 27.8 [place] % (Auto) 8.4 Eos % (Auto) 1.6 L Baso % (Auto) 0.7 Neut # (Auto) 4400 PT INR Sodium 142 Potassium 3.9 Chloride 102 Carbon Dioxide 26 BUN 21 H Creatinine 1.10 Estimated GFR > 60.0 BUN/Creatinine Ratio 19.1 Glucose 97 Lactate 1.0 Calcium 9.8 Total Bilirubin 1.0 AST 38 ALT 20 L Alkaline Phosphatase 146 H Ammonia Total Creatine Kinase 231 H CK-MB (CK-2) 3.58 H CK-MB (CK-2) Rel Index 1.5 Troponin I < 0.012 Total Protein 7.6 Albumin 4.4 Globulin 3.2 Albumin/Globulin Ratio 1.4 Procalcitonin Urine Color Urine Appearance Urine pH Ur Specific [place] Urine Protein Urine Glucose (UA) Urine Ketones Urine Occult Blood Urine Nitrate Urine Bilirubin Urine Urobilinogen Ur Leukocyte Esterase Urine RBC Urine WBC Urine Bacteria Ur Culture Indicated? Micro UA Comment CSF Tube Number CSF Volume CSF Appearance CSF Color CSF WBC CSF RBC CSF Mononuclear WBCs CSF Polynuclear WBCs CSF Glucose CSF Total Protein 01/07/18 01/07/18 01/07/18 15:47 17:35 23:30 WBC RBC Hgb Hct MCV MCH MCHC RDW Plt Count Neut % (Auto) Lymph % (Auto) [place] % (Auto) Eos % (Auto) Baso % (Auto) Neut # (Auto) PT INR Sodium Potassium Chloride Carbon Dioxide BUN Creatinine Estimated GFR BUN/Creatinine Ratio Glucose Lactate Calcium Total Bilirubin AST ALT Alkaline Phosphatase Ammonia 10.0 Total Creatine Kinase CK-MB (CK-2) CK-MB (CK-2) Rel Index Troponin I Total Protein Albumin Globulin Albumin/Globulin Ratio Procalcitonin Urine Color Yellow Urine Appearance Clear Urine pH 6.0 Ur Specific [place] 1.025 Urine Protein Negative Urine Glucose (UA) Negative Urine Ketones 1+ H Urine Occult Blood 1+ H Urine Nitrate Negative Urine Bilirubin Negative Urine Urobilinogen 0.2 Ur Leukocyte Esterase Negative Urine RBC 1-5/hpf Urine WBC 0-1/hpf Urine Bacteria None seen Ur Culture Indicated? Cult not indicated Micro UA Comment Not Reportable CSF Tube Number 4 CSF Volume 1.5 ml CSF Appearance Clear CSF Color Colorless CSF WBC 12 H CSF RBC 675 CSF Mononuclear WBCs 55 CSF Polynuclear WBCs 3 CSF Glucose 49 CSF Total Protein 126 H 01/08/18 01/08/18 01/08/18 05:44 05:44 05:44 WBC 6.1 RBC 4.37 L Hgb 13.7 Hct 39.9 L MCV 91.4 MCH 31.4 MCHC 34.4 RDW 13.0 Plt Count 205 Neut % (Auto) 53.6 Lymph % (Auto) 32.6 [place] % (Auto) 9.9 Eos % (Auto) 3.0 Baso % (Auto) 0.9 Neut # (Auto) 3300 PT 12.7 INR 1.2 Sodium 144 Potassium 3.8 Chloride 106 Carbon Dioxide 28 BUN 20 Creatinine 1.20 Estimated GFR 58.7 L BUN/Creatinine Ratio 16.7 Glucose 95 Lactate Calcium 8.9 Total Bilirubin 0.6 AST 30 ALT 27 Alkaline Phosphatase 112 Ammonia Total Creatine Kinase CK-MB (CK-2) CK-MB (CK-2) Rel Index Troponin I Total Protein 6.1 L Albumin 3.3 L Globulin 2.8 Albumin/Globulin Ratio 1.2 Procalcitonin Urine Color Urine Appearance Urine pH Ur Specific [place] Urine Protein Urine Glucose (UA) Urine Ketones Urine Occult Blood Urine Nitrate Urine Bilirubin Urine Urobilinogen Ur Leukocyte Esterase Urine RBC Urine WBC Urine Bacteria Ur Culture Indicated? Micro UA Comment CSF Tube Number CSF Volume CSF Appearance CSF Color CSF WBC CSF RBC CSF Mononuclear WBCs CSF Polynuclear WBCs CSF Glucose CSF Total Protein 01/08/18 01/08/18 08:28 08:30 WBC RBC Hgb Hct MCV MCH MCHC RDW Plt Count Neut % (Auto) Lymph % (Auto) [place] % (Auto) Eos % (Auto) Baso % (Auto) Neut # (Auto) PT INR Sodium Potassium Chloride Carbon Dioxide BUN Creatinine Estimated GFR BUN/Creatinine Ratio Glucose Lactate 1.1 Calcium Total Bilirubin AST ALT Alkaline Phosphatase Ammonia Total Creatine Kinase CK-MB (CK-2) CK-MB (CK-2) Rel Index Troponin I Total Protein Albumin Globulin Albumin/Globulin Ratio Procalcitonin < 0.05 Urine Color Urine Appearance Urine pH Ur Specific [place] Urine Protein Urine Glucose (UA) Urine Ketones Urine Occult Blood Urine Nitrate Urine Bilirubin Urine Urobilinogen Ur Leukocyte Esterase Urine RBC Urine WBC Urine Bacteria Ur Culture Indicated? Micro UA Comment CSF Tube Number CSF Volume CSF Appearance CSF Color CSF WBC CSF RBC CSF Mononuclear WBCs CSF Polynuclear WBCs CSF Glucose CSF Total Protein Assessment & Plan (1) Acute metabolic encephalopathy: Problem details: Markedly improved today. Information regarding known evidence of metastatic disease in the bones does raise the question of whether there might be metastasis to the brain as a cause of this problem. Still considering the possibility of infection by bacterial or viral cause remains a possibility. Cultures and PCR for these are pending. Remains on acyclovir and antibacterial. Hydration seems to be helping as well continue that as well. Current visit: Yes Status: Acute (2) Altered mental status: Problem details: As above Qualifiers: Altered mental status type: unspecified Coma depth: Coma timing: Qualified Code(s): R41.82 - Altered mental status, unspecified Current visit: Yes Status: Acute (3) Acute UTI: Problem details: This could be a factor certainly in 1st item but not very clear was treated with antibiotics early on and there is even some question of whether some of the mental status issues were due to a reaction to those medications. Current visit: No Status: Acute (4) Lytic bone lesions on xray: Problem details: It is MRI, fairly extensive in the zone of coverage about the pelvis including the lower spine pelvis and proximal femurs. Has advised well arrange for a bone scan to evaluate this further. Current visit: Yes Status: Acute (5) Groin pain, chronic, left: Problem details: This was ongoing issue and now likely to be due to last item and possibly more of a neuropathic process as noted in that exam. Current visit: Yes Status: Acute (6) History of inguinal hernia repair: Problem details: Distant history Current visit: Yes Status: Acute Plan: Assessment/Plan Narrative: Will arrange for an MRI of the brain with contrast, to look for possible underlying causes of 1st item, will arrange for a CT of the abdomen and chest with contrast to look for possible primaries. Will arrange for a bone scan to look for other sites of metastasis. Will need evaluation by Urology as an outpatient to look at causes of the bladder changes found. Continue to follow labs.
--- NOTE | 2018-01-08 14:34 | PC.NURSE ---
Day Shift Arrived on shift and pt had low BP (see VS). Pt was laying in bed sleepy so attempted to arrouse pt and BP slightly increased however still low (80/56). Called Dr Rebollar and orders for NS bolus and labs obtained. 1L fluid in and BP increased. Spoke with Dr Shirley who took over and additional 1L NS infused as well. Pt also has low HR. EKG obtained and pt placed on tele, SB with prolonged QT. States asymptomatic when in bed. 700 ml urine out this shift. up to BR with 1 person assist. Pt states feels dizzy when up to bathroom. Bed alarm in place and family in room. MD kept informed of situation throughout shift. Per family, mentation greatly improved over yesterday and previously however still not back to baseline.
[2018-01-08] MEDS: ONDANSETRON 4 MG/2 ML INJ IV (16:21)
--- NOTE | 2018-01-08 16:30 | PT.IIE ---
Current Diagnoses Other chronic pain (01/07/18) Metabolic encephalopathy (01/07/18) Disorder of bone, unspecified (01/07/18) Urinary tract infection, site not specified (01/07/18) Left lower quadrant pain (01/07/18) Altered mental status, unspecified (01/07/18) Personal history of other diseases of the digestive system (01/07/18) Other specified postprocedural states (01/07/18) Medical History (Last Updated 01/07/18 @ 18:36 by Sunitha Rebollar MD) Groin injury (Acute) Physical Therapy Inpatient Evaluation/Re-Eval M1 PT/OT-IP Prior Functional Status Start: 01/08/18 16:12 Freq: NEEDED Status: Active Protocol: Document 01/08/18 16:30 AB (Rec: 01/08/18 17:22 AB [id number]) Medical Review Prior Functional Status Medical History Reviewed Yes Communication with confusion but able to make needs known Mobility and Gait per family: pt indpeendent with all mobilities and ambulation wihtout AD Prior Functional Level (Other details) Pt came in with AMS and per doctor's note has acute metabolic encephalopathy. CT shows: Widespread osseous metastases. brain MRI result: 1. Innumerable small cerebral, pontine, and cerebellar metastases. 2. Right frontal calvarial metastases. 3. No midline shift. 4. Right anterior parotid gland mass. Social History Household Members spouse Living Arrangements House Number of Floors (Floors) One Floor Number of Stairs To Enter/Railing? pt and spouse will stay at daughter's house upon d/c. info below is regarding to daughter's house; has ramp to enter and inside the house Home Environment Standard Height Toilet Walk in Shower Ramp Additional Social History Comment has a step in shower M2 PT-IP Current Condition Start: 01/08/18 16:12 Freq: NEEDED Status: Active Protocol: Document 01/08/18 16:30 AB (Rec: 01/08/18 17:22 AB [id number]) Physical Therapy Current Condition Current Condition Evaluation Date 01/08/18 Treatment Diagnosis AMS; difficulty in walking Onset Date 01/07/18 Precautions Other Precautions falls; BP M3 PT-IP Subjective Start: 01/08/18 16:12 Freq: NEEDED Status: Active Protocol: Document 01/08/18 16:30 AB (Rec: 01/08/18 17:22 AB [id number]) Subjective Physical Therapy Visit Type Type Initial Evaluation Visit Start Time 16:30 Visit Stop Time 15:05 Total Visit Minutes 35 Number of IP LITIGATION ASSOCIATE Visits 0 Physical Therapy Visit Comments Patient Comments pt initially refusing PT. family encouraged pt and agreed to do PT. Therapy Pain Assessment Pain Present Pain Present Denied Pain M4 PT-IP Mobility and Gait Start: 01/08/18 16:12 Freq: NEEDED Status: Active Protocol: Document 01/08/18 16:30 AB (Rec: 01/08/18 17:22 AB [id number]) PT-Bed Mobility Assessment Supine to Sit Supine to Sit Standby Assistance Sit to Supine Sit to Supine Standby Assistance Scooting Scooting to Edge of Bed Standby Assistance PT-Transfer Assessment Sit to and From Stand Sit to and from Stand Contact Guard Assistance Equipment Transfer Assistive Device Bed Rail Front Wheeled Walker Orthotic/Prosthetic Devices or Brace: No Transfers Transfer Destination Toilet Transfer Technique pt ambulated to the toilet Gait Assessment Gait Gait Assistance Required: Contact Guard Assist Minimum Assistance Distance (Feet) 12 Able to Maintain Weight Bearing Status Yes During Gait Assistive Devices Assistive Device Gait Belt Front Wheeled Walker Orthotic/Prosthetic Devices or Brace: No Gait Deviations General Gait Pattern Decreased Stride Length Decreased Feet Clearance Factors Limiting Gait Function Factors Limiting Gait Function Decreased Activity Tolerance Decreased Strength Difficulty Following Directions Poor Balance Poor Safety Awareness Comments Gait Comments pt is impulsive and with confusion; inconsistent with following one step commands. Pt ambulated to the toilet using FWW requiring CGA to min A and cues. requires assist with maneuvering FWW. pt completed sit to stand from the toilet CGa to min A using grab bar for assist and required assist with pants management. pt ambulated back in bed using FWW ~ 12 ft CGA to min A and cues. pt presents with unsteady gait with decrease DONATO. PT-Balance Assessment Sitting Balance and Reactions Static Sitting Balance Ability Good Dynamic Sitting Balance Ability Good Standing Balance and Reactions Static Standing Balance Ability Fair Dynamic Standing Balance Ability Fair Device Used FWW M5 PT-IP Objective Assessments Start: 01/08/18 16:12 Freq: NEEDED Status: Active Protocol: Document 01/08/18 16:30 AB (Rec: 01/08/18 17:22 AB [id number]) Orientation Orientation/Cognition Level of Alertness Confusional State Orientation Name Safety Awareness Decreased Safety Awareness Memory Description Short Term Impaired Senior Living Impaired Strength Lower Extremity Strength Assessment Within Functional Limits M6 PT-IP Treatment Start: 01/08/18 16:12 Freq: NEEDED Status: Active Protocol: Document 01/08/18 16:30 AB (Rec: 01/08/18 17:22 AB [id number]) Physical Therapy Treatment Education Education Provided Safety M7 PT-IP Assessment and Plan Start: 01/08/18 16:12 Freq: NEEDED Status: Active Protocol: Document 01/08/18 16:30 AB (Rec: 01/08/18 17:22 AB [id number]) PT Summary Assessment and Plan Potential Rehabilitation Potential Fair Status of Condition at Evaluation Evolving Summary Impairments Balance Cognition Bed Mobility Transfers Gait Assessment Summary pt requiring one person assist with mobility but requires max cues for safety. pt will require 24/7 assist at this time. d/c plan depending on progress and if pt will be able to provide necessary assistance. Caregiver training will be conducted when appropriate. Goals Bed Mobility Goal Standby Assistance Transfer Goal Standby Assistance Front Wheeled Walker Gait Goal Standby Assistance Front Wheel Walker Gait Distance 150 Days to Meet Goals 5 Frequency of Treatment Frequency Of Treatment Once a Day Treatment Plan Physical Therapy Treatment Plan Bed Mobility Training Transfer Training Gait Training Therapeutic Exercise Balance Retraining Discharge Planning Neuromuscular Re-ed Coordination Retraining Other Recommendations and Next Treatment ambulation Focus Recommendations To Nursing Amount of Assist Needed 1 Person Assist Discharge Recommendations PT Discharge Recommendations Home with 24/7 Assist Home Health SNF Rehab Other Discharge Recommendations SNF vs home with 24/7 and HHPT Equipment Needed for Home Before FWW:depending on progress Discharge
--- NOTE | 2018-01-08 18:25 | PM.PN.1 ---
Subjective Date Patient Seen: 01/08/18 Time Patient Seen: 18:26 Interval history: I stopped by to visit the patient and his family after results are available from the MRI of the head and CT of the chest and abdomen to go over those results. Patient is about the same still somewhat confused but awake and alert and appropriate somewhat redundant. I ask in reference to a CT and I found from 2 years ago about a bladder lesion found at that time. The CT was ordered by local urology and had recommended cystoscopy for further evaluation. I I did not find any records from Urology after that was done so I asked the patient and he does not recall a cystoscope being done but does remember the CT. Family includes 2 sons and [id number] believe. Exam Vital Signs (past 8 hours): - 01/08/18 10:45 01/08/18 11:19 01/08/18 16:07 Temperature 97.7 F 97.6 F Pulse Rate 49 L 52 L 54 L Respiratory Rate 16 18 Blood Pressure 91/55 L 103/44 L 116/57 L Pulse Oximetry 98 97 01/08/18 16:17 Temperature Pulse Rate Respiratory Rate Blood Pressure Pulse Oximetry 97 Oxygen Delivery Method Room Air Oxygen Flow Rate 0 Narrative Exam Narrative: No acute distress, I palpate the parotid glands and I do not detect any clear mass, balance is deferred MRI shows ?innumerable small metastasis throughout the brain?, a small lesion also in the right parotid. The CT shows a similar finding in the bladder has the recent MRI suggesting possible malignancy. Other organs and bowel are listed as normal in appearance. They mention a enlarged prostate but without comment of any concern. Objective Labs Result Diagrams: 01/08/18 05:44 01/08/18 05:44 Labs: Laboratory Results - last 24 hr 01/07/18 01/07/18 01/08/18 17:35 23:30 05:44 WBC 6.1 RBC 4.37 L Hgb 13.7 Hct 39.9 L MCV 91.4 MCH 31.4 MCHC 34.4 RDW 13.0 Plt Count 205 Neut % (Auto) 53.6 Lymph % (Auto) 32.6 Dodge % (Auto) 9.9 Eos % (Auto) 3.0 Baso % (Auto) 0.9 Neut # (Auto) 3300 PT INR Sodium Potassium Chloride Carbon Dioxide BUN Creatinine Estimated GFR BUN/Creatinine Ratio Glucose Lactate Calcium Total Bilirubin AST ALT Alkaline Phosphatase Total Protein Albumin Globulin Albumin/Globulin Ratio Procalcitonin Urine Color Yellow Urine Appearance Clear Urine pH 6.0 Ur Specific [place] 1.025 Urine Protein Negative Urine Glucose (UA) Negative Urine Ketones 1+ H Urine Occult Blood 1+ H Urine Nitrate Negative Urine Bilirubin Negative Urine Urobilinogen 0.2 Ur Leukocyte Esterase Negative Urine RBC 1-5/hpf Urine WBC 0-1/hpf Urine Bacteria None seen Ur Culture Indicated? Cult not indicated Micro UA Comment Not Reportable CSF Tube Number 4 CSF Volume 1.5 ml CSF Appearance Clear CSF Color Colorless CSF WBC 12 H CSF RBC 675 CSF Mononuclear WBCs 55 CSF Polynuclear WBCs 3 CSF Glucose 49 CSF Total Protein 126 H 01/08/18 01/08/18 01/08/18 05:44 05:44 08:28 WBC RBC Hgb Hct MCV MCH MCHC RDW Plt Count Neut % (Auto) Lymph % (Auto) [place] % (Auto) Eos % (Auto) Baso % (Auto) Neut # (Auto) PT 12.7 INR 1.2 Sodium 144 Potassium 3.8 Chloride 106 Carbon Dioxide 28 BUN 20 Creatinine 1.20 Estimated GFR 58.7 L BUN/Creatinine Ratio 16.7 Glucose 95 Lactate 1.1 Calcium 8.9 Total Bilirubin 0.6 AST 30 ALT 27 Alkaline Phosphatase 112 Total Protein 6.1 L Albumin 3.3 L Globulin 2.8 Albumin/Globulin Ratio 1.2 Procalcitonin Urine Color Urine Appearance Urine pH Ur Specific [place] Urine Protein Urine Glucose (UA) Urine Ketones Urine Occult Blood Urine Nitrate Urine Bilirubin Urine Urobilinogen Ur Leukocyte Esterase Urine RBC Urine WBC Urine Bacteria Ur Culture Indicated? Micro UA Comment CSF Tube Number CSF Volume CSF Appearance CSF Color CSF WBC CSF RBC CSF Mononuclear WBCs CSF Polynuclear WBCs CSF Glucose CSF Total Protein 01/08/18 08:30 WBC RBC Hgb Hct MCV MCH MCHC RDW Plt Count Neut % (Auto) Lymph % (Auto) [place] % (Auto) Eos % (Auto) Baso % (Auto) Neut # (Auto) PT INR Sodium Potassium Chloride Carbon Dioxide BUN Creatinine Estimated GFR BUN/Creatinine Ratio Glucose Lactate Calcium Total Bilirubin AST ALT Alkaline Phosphatase Total Protein Albumin Globulin Albumin/Globulin Ratio Procalcitonin < 0.05 Urine Color Urine Appearance Urine pH Ur Specific [place] Urine Protein Urine Glucose (UA) Urine Ketones Urine Occult Blood Urine Nitrate Urine Bilirubin Urine Urobilinogen Ur Leukocyte Esterase Urine RBC Urine WBC Urine Bacteria Ur Culture Indicated? Micro UA Comment CSF Tube Number CSF Volume CSF Appearance CSF Color CSF WBC CSF RBC CSF Mononuclear WBCs CSF Polynuclear WBCs CSF Glucose CSF Total Protein Assessment & Plan (1) Metastasis to brain: Problem details: Suspect that this is the primary cause of his altered mental status. Given the relatively negative workup otherwise, will stop the antibiotics. Will need to see if we can find a primary. 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 The total body bone scan is now scheduled for Saturday that may give us a sense of how extensive the bone Mets are. But we also need to identify a site where a biopsy could be done. Consider speaking with Radiology to get their take on options. Current visit: Yes Status: Acute (3) Lesion of bladder: Problem details: This is 1 area that is of some concern. And historically there was a lesion on the bladder 2 years ago and I am unable at this time to determine whether that was evaluated. From what I can tell the lesion now is somewhat more extensive, and could certainly suggest a possible primary for above. Current visit: Yes Status: Acute (4) Parotid mass: Problem details: This may be an incidental finding I could not detected on palpation but certainly another possible primary. There is also a small nodule in the left lung base but I suspect that is less likely to be of some concern. Current visit: Yes Status: Acute (5) Altered mental status: Problem details: Again I believe this most likely is due to the extensive metastasis as above. There are cultures pending for infectious causes but I will stop the antibiotics at this time given the likelihood of no Clear benefit. Qualifiers: Altered mental status type: unspecified Coma depth: Coma timing: Qualified Code(s): R41.82 - Altered mental status, unspecified Current visit: Yes Status: Acute Plan: Assessment/Plan Narrative: An extensive discussion about the above findings was completed with the patient and family all questions answered. Will continue other medications will add a PPI for GI protection especially as he is getting routine Ketoralac, which does seem to be helping his pain, but certainly is a risk factor for GI. Also provide some lorazepam at nursing suggestion in case there is issues of anxiety or agitation. Regrettably given this is the night before Thanksgiving and access to urology records and other information that may be of assistance will be difficult to get at least for 4 days. 45 min spent with patient and family.
[2018-01-08] MEDS: PANTOPRAZOLE 40 MG VIAL IV (19:05)
[2018-01-08] MEDS: DEXTROSE 5%-0.9% NS 1,000 ML 120 ML IV (21:03)
[2018-01-08] MEDS: LORazepam 2 MG/ML SYRINGE 0.5 MG IV (21:03)
--- NOTE | 2018-01-08 21:41 | PC.NURSE ---
Patient is alert and orientated to self, , some of situation and president. Patient believes it to be September but knows Thanksgiving is tomorrow. Patient is having difficulty following commands but can. Increased fidgeting as the benito has cont. Impulsive behavior of getting out of bed w/ needs to urinate. Freq. and urgent urination all evening long, voiding roughly 100-200 each time. Patient has poor PO intake but is receiving IV fluids. Patients ROSELIA (Carrie) is staying over this evening and has been vastly helpful w/ patient and patient care. Patient reports to nurse during shift assessment he is witnessing twinkles when he looks at people, also states floaters, at which resolved after a short while. Roughly around 2100 Patient states that he is witness mult. of this nurse while in room and as I approach closer to DIL standing in room our bodies merge into one. Visual checks done, PLERRA size 3mm. Patient is able to follow penlight half the time but gets distracted w/ talking and stops following. Patient reports witnessing vapor/smoke coming from the top of the penlight during assessment. Call light w/in reach, bed in low pos w/ side rails up and alarm active.
[2018-01-09] VITALS (7 sets, daily range): BP systolic 134–151; BP diastolic 57–86; PULSE 53–76; RESP 15–18; TEMP 36.5–36.9; O2SAT 93–97
[2018-01-09] MEDS: KETOROLAC 30 MG/ML VIAL IV ×3 (00:59→22:00)
--- NOTE | 2018-01-09 01:44 | PC.NURSE ---
NOC pt up to use urinal q1h or so and pt produces about 100-150ml each use. Urine has been straw colored with some sediment x2 and [id number] (Carrie) reports aura red blood in urine during shift change (I did not see it). Patient responds to name, but is unable to appropriately answer questions. Patient will mumble and talk jiberish for most of his answer and then will have moments of clarity. For example, BULMARO silvia reported the pt to be hallucinating after an administration of 0.5mg Ativan, and that pt reportedly saw spiders on the wall. When I asked the patient about his vision he said it's fine, but I see smoke and lots of women when I close my eyes. When asked if he can see the clock clearly he responded yes, but then proceeded to mumble about leaky water and vents. [id number] is concerned about the lack of information being passed down to them and would like copies of medical records; I informed her to have the pt's POA request them for their files. When I mentioned the pt's acute encephalapathy, DIL was concerns greatly since that was never communicated to her. The family is requesting a conversation with the patients doctor to learn more about the situation.
--- NOTE | 2018-01-09 02:26 | PC.NURSE ---
Addendum entered by Bella Tidwell R.N. 01/09/18 04:30: after pt voided 100 into urinal, and minimal stress incontinence into brief, post-void bladder scan resulted in 402ml residual. Patient is denying pain and bladder discomfort at this time. Original Note: BLADDER SCAN pt's DIL reporting new urgency and frequency issues with voiding. Patient's urgency made us too late to successfully measure pre-bladder scan, pt was incontinent in brief with a couple dribbles in urinal, bladder scan post incontinent void was 139ml.
[2018-01-09] MEDS: LORazepam 2 MG/ML SYRINGE 0.5 MG IV (03:01)
[2018-01-09] MEDS: DEXTROSE 5%-0.9% NS 1,000 ML 120 ML IV (05:21)
[2018-01-09 05:50] LABS: Add Manual Diff / Slide Review NO; Basophils Percent Auto 0.6 % (0-2); Eosinophils Percent Auto 3.2 % (2-4); Hematocrit 38.8 % (41-53); Hemoglobin 13.4 g/dL (13.5-17.5); Lymphocytes Percent Auto 20.9 % (25-40); Mean Corpuscular HGB Conc 34.5 % (30-36); Mean Corpuscular Hemoglobin 31.6 PG (26-34); Mean Corpuscular Volume 91.6 fL (80-100); Monocytes Percent Auto 10.9 % (3-14); Neutrophils Absolute Auto 4400 /uL (3000-5900); Neutrophils Percent Auto 64.4 % (50-75); Platelet Count 180 X10^3/uL (150-400); Red Blood Cell Count 4.24 X10^6/uL (4.5-5.9); Red Cell Distribution Width 12.8 % (11.6-14.8); White Blood Cell Count 6.8 X10^3/uL (4.5-11.0)
[2018-01-09 06:02] LABS: Alanine Aminotransferase 22 IU/L (21-72); Albumin 3.2 g/dL (3.5-5.0); Albumin Globulin Ratio 1.2 (1.0-2.8); Alkaline Phosphatase 106 U/L (38-126); Aspartate Aminotransferase 36 IU/L (17-59); Bilirubin Total 0.5 mg/dL (0.2-1.3); Blood Urea Nitrogen 15 mg/dL (9-20); Calcium 8.8 mg/dL (8.4-10.2); Carbon Dioxide 23 mmol/L (22-32); Chloride 111 mmol/L (98-107); Estimated Glomerular Filt Rate 45.4 mL/min (>60); Globulin 2.7 g/dL (1.7-4.1); Glucose 101 mg/dL (80-110); HEMOLYSIS < 15 (0-50); Potassium 3.7 mmol/L (3.4-5.1); Sodium 145 mmol/L (137-145); Total Protein 5.9 g/dL (6.3-8.2)
[2018-01-09] MEDS: DOCUSATE 100 MG CAPSULE PO (08:37)
[2018-01-09] MEDS: ENOXAPARIN 40 MG/0.4 ML SYRINGE SUBCUT (08:37)
[2018-01-09] MEDS: PANTOPRAZOLE 40 MG VIAL IV (09:30)
--- NOTE | 2018-01-09 10:32 | OT.IP.EVAL ---
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) Other chronic pain (01/07/18) Metabolic encephalopathy (01/07/18) Disease of salivary gland, unspecified (01/07/18) Disorder of bone, unspecified (01/07/18) Bladder disorder, unspecified (01/07/18) Urinary tract infection, site not specified (01/07/18) Left lower quadrant pain (01/07/18) Altered mental status, unspecified (01/07/18) Personal history of other diseases of the digestive system (01/07/18) Other specified postprocedural states (01/07/18) Past Medical History (Last Updated 01/07/18 @ 18:36 by Sunitha Rebollar MD) Groin injury (Acute) Occupational Therapy Inpatient Evaluation/Re-Eval M1 PT/OT-IP Prior Functional Status Start: 01/08/18 16:12 Freq: NEEDED Status: Active Protocol: Document 01/09/18 10:32 RUDY (Rec: 01/09/18 11:23 PJM [id number]) Medical Review Prior Functional Status Medical History Reviewed Yes Diet/Fluid Consistency Regular Communication WNL until 1 week ago per daughter in lawCarrie Mobility and Gait Pt independent with all mobilities and ambulation without AD Activities of Daily Living and IADL's Pt independent with all self care, IADLS, driving. 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 Prior Functional Level (Other details) Pt came in with AMS and per doctor's note has acute metabolic encephalopathy. CT shows: Widespread osseous metastases in spine,pelvis, 9th rib. Brain MRI result: 1. Innumerable small cerebral, pontine, and cerebellar metastases. 2. Right frontal calvarial metastases. 3. No midline shift. 4. Right anterior parotid gland mass. Primary source for mets to be determined: bladder vs parotid vs lung (less likely) Social History Household Members spouse Living Arrangements House Number of Floors (Floors) One Floor Number of Stairs To Enter/Railing? Pt and spouse will stay at son, daughter in law's house upon d/c. Info below is regarding to son's house; has ramp to enter Home Environment Standard Height Toilet Walk in Shower Ramp Employment Status Self-Employed M2 OT-IP Current Condition Start: 01/09/18 10:42 Freq: Status: Active Protocol: Document 01/09/18 10:32 PJM (Rec: 01/09/18 11:23 PJM [id number]) Occupational Therapy Current Condition Current Condition Evaluation Date 01/09/18 Treatment Diagnosis decreased self care,mobility, cognition w/new dx of cancer, primary source ? Diagnosis Onset Date 01/07/18 Post Operative Precautions Other Precautions high fall risk, impulsive, confusion, bone mets M3 OT- IP Subjective and Pain Start: 01/09/18 10:42 Freq: Status: Active Protocol: Document 01/09/18 10:32 PJM (Rec: 01/09/18 11:23 PJM [id number]) OT- Subjective Occupational Therapy Visit Type Type Initial Evaluation Visit Start Time 09:45 Visit Stop Time 10:32 Total Visit Minutes 47 Notes Pt's daughter in law, Carrie, observing this session and providing info re: prior level of function. Occupational Therapy Visit Comments Patient Comments Where is my other bed? I want to go there. Patient/Caregiver Goals unable to verbalize goal due to confusion OT Pain Assessment Pain When Pain Assessed After Treatment Pain Present Pain Present Denied Pain M4 OT- IP ADL's Start: 01/09/18 10:42 Freq: Status: Active Protocol: Document 01/09/18 10:32 PJM (Rec: 01/09/18 11:23 PJM [id number]) OT VNP-Bpsn-Ujoassd General Evaluation Self-Feeding Ability Minimal Assistance Areas Needing Assistance Bringing Utensil to Mouth Cutting Food Drinking From Cup/Glass Opening Containers Comments OT Self-Feeding Comments Daughter in law reports pt ate for first time in several days this AM. Pt able to feed self after set up with close SBA to min assist due to poor self monitoring with min to mod spilling noted. OT ADL-Grooming General Evaluation Grooming Ability Minimal Assistance Areas Needing Assistance Retrieving/Set-up of Grooming Items Combing/Brushing Hair Comments OT Grooming Comments Close CGA for balance while standing at sink with FWW to brush hair with fair thoroughness. OT ADL-Oral Care General Eval Oral Care Ability Minimal Assistance Areas of Assistance Brushing Teeth Devices Oral Care Devices Toothbrush Comments Oral Care Comments Standing at sink with close CGA, pt needing mod verbal cues and min assist with toothbrush setup. Difficulty problem solving and sequencing task in unfamiliar environment noted. OT ADL-Dressing General Eval Upper Body Dressing Ability Moderate Assistance Areas Needing Assistance Socks Comments OT Dressing Comments Pt needing verbal cues to identify which end of sock to start over foot. Needs assist to start sock over toe. Able to reach feet with difficulty seated EOB and needing close CGA for dynamic sitting balance EOB. OT ADL-Toileting Comments OT Toileting Comments did not occur this session OT ADL-Bathing Bathing Type Bathing Type Sponge Bath General Evaluation Bathing Ability Total Assistance Comments OT Bathing Comments by CONCRETE PIPE MAKING MACHINE OPERATOR M5 OT- IP IADL's Start: 01/09/18 10:42 Freq: Status: Active Protocol: Document 01/09/18 10:32 PJM (Rec: 01/09/18 11:23 PJ [id number]) OT-Instrumental Activities of Daily Living Deficits IADL Deficits Identified Deficits Home Safety Awareness Awareness of Need for Assistance at Home Decreased Awareness Ability to Problem Solve Emergency Unable to Problem Solve Situations Medication Management Medication Management Comments Pt took no RX meds prior to admit. Pt now needs total assist with medication management. Money Management Money Management Caregiver Provides Assistance Money Management Comments Pt independent and running his own business prior to admit. Pt now needs total assist. Meal Preparation Meal Preparation Comments total assist Rail Tractor Operator Rail Tractor Operator Comments total assist Driving Driving Comments total assist M6 OT- IP Functional Cognition Start: 01/09/18 10:42 Freq: Status: Active Protocol: Document 01/09/18 10:32 PJM (Rec: 01/09/18 11:23 PJ [id number]) Cognitive Factors Limiting Selfcare Function Cognitive Ability Level of Alertness Confusional State Patient Orientation Name Birthday Ability to Follow Commands Able to Follow One Step Commands with Increased Time Able to Follow One Step Commands with Repetition Memory Description Immediate Impaired Short Term Impaired Working Impaired Safety Awareness Decreased Recall of Precautions Decreased Ability to Apply Precautions Underestimates Need for Assistance Problem Solving Ability Unable to Identify Errors Needs Assist to Identify Solutions Executive Function Ability Unable to Hold Focus Unable to Switch Focus Unable to Filter Distractions Unable to Make Plans Unable to Organize Plans Unable to Remember Details Abstract Thinking Ability Unable to Make Generalizations Unable to Understand Generalizations Unable to Draw Logical Conclusions Unable to Apply Concepts to New Surroundings Cognitive Comments Cognitive Assessment Comments Pt drowsy when therapist arrived; apparently did not sleep much last night per daughter in law who was here with him. Pt oriented to self and family members names only. Pt generally cooperative and following one step commands with repetition and increased time; but unable to follow 2 step commands. Perseverative features and significantly impaired problem solving and sequencing noted during simple self care tasks. Pt impulsive with low frustration tolerance noted. OT- Vision and Hearing OT- Hearing Assessment OT- Hearing Assessment WFL OT- Vision Assessment Visual Acuity Glasses For Reading No Vision Aides At Hospital Visual Attentiveness Impaired Occular Pursuits Impaired Horizontal Visual Rincon WFL Diplopia Absent Vision Assessment Comments Pt has difficulty tracking in all planes due to decreased visual attentivenss. No nystagmus noted. Unable to formally test visual rincon due to confusion. No obvious visual spatial neglect noted. Pt denies diplopia. Pt able to read 1/2 print at 24 distance after significant processing delay. Pt unable to read wall clock due to confusion. No visual hallucinations reported this session; although these have been noted in the chart. Visual Perception: Pt able to name 3/5 simple shapes, confusing triangle and owen. Pt able to copy 1/5 (sen[place]) with impaired constructional praxis noted. Clock drawing severely impaired with pt unable to space numbers appropriately or draw hands. M7 OT- IP Mobility and Balance Start: 01/09/18 10:42 Freq: Status: Active Protocol: Document 01/09/18 10:32 PJM (Rec: 01/09/18 11:23 PJM [id number]) OT- Bed Mobility Assessment Rolling Type of Rolling Roll to Left Level of Assistance Contact Guard Assistance 1 Person Assistance Head of Bed Elevated Bedrails Supine to Sit Supine to Sit Assist Contact Guard Assistance 1 Person Assistance Head of Bed Elevated Bedrails Sit to Supine Sit to Supine Assist Contact Guard Assistance 1 Person Assistance Scooting Scooting to Edge of Bed Standby Assistance 1 Person Assistance OT-Transfer Assessment Sit to and From Stand Sit to and from Stand Contact Guard Assistance 1 Person Assistance Transfers Transfer Ability Contact Guard Assistance 1 Person Assistance Technique Transfer Destination Bed Transfer Technique Stand Step Pivot Devices Transfer Assistive Devices Gait Belt Front Wheeled Walker Comments Mobility Comments SBA of second person to assist with IV pole due to pt confusion OT- Gait Assessment Gait Gait Assistance Required: Contact Guard Assist Distance (Feet) 15 Assistive Devices Assistive Device Gait Belt Front Wheeled Walker Comments Gait Ability Comments unsteady with difficulty maneuvering FWW on turns and in tight spaces; tends to pick FWW up OT- Balance Assessment Sitting Balance and Reactions Static Sitting Balance Ability Fair Dynamic Sitting Balance Ability Poor Standing Balance and Reactions Static Standing Balance Ability Fair Dynamic Standing Balance Ability Poor M8 OT- IP Objective Assessments Start: 01/09/18 10:42 Freq: Status: Active Protocol: Document 01/09/18 10:32 PJM (Rec: 01/09/18 11:23 PJM [id number]) OT Gross Range of Motion Upper Extremity Range of Motion Assessment Within Functional Limits OT Strength Upper Extremity Strength Assessment Within Functional Limits Hand Forest Fire Prevention Manager Strength Hand Dominance Right Comments Strength Comments No obvious focal weakness. OT- Coordination Assessment Upper Extremity Finger to Nose Test Left UE Impaired Finger Tapping Test Left UE Impaired Comments Coordination Comments LUE gross and fine motor XOCHILT's significantly slower on L compared to R. R handwriting exhibits micrographia and is <25% legible. OT-Muscle Tone Assessment Muscle Tone WNL Yes OT Sensation Assessment Comments Summary Comments Difficult to formally assess due to confusion but pt detects light touch throughout BUE/hands. Edema Edema Absent M9 OT- IP Assessment and Plan Start: 01/09/18 10:42 Freq: Status: Active Protocol: Document 01/09/18 10:32 PJM (Rec: 01/09/18 11:23 PJM [id number]) OT Summary Assessment and Plan Potential Rehabilitation Potential Fair Analytic Complexity at Evaluation Moderate Summary OT Impairments Balance Coordination Functional Cognition Functional Mobility Self-Feeding Grooming Dressing Toileting Bathing Toilet Transfers Shower Transfers Assessment Summary Moderate complexity OT assessment completed due to pts complex medical status with further work up in progress regarding new cancer diagnosis. Pt has severely impaired functional cognition as noted above which results in performance deficits in all self care tasks and safety with all mobility. He requires constant 24/7 supervision at present. Recommend SNF at discharge due to high burden of care at present. Daughter in law reports pt's has health issues and cannot assist pt physically. Goals Self-Feeding Goal Standby Assistance Grooming Goal Standby Assistance Dressing Goal Standby Assistance Toileting Goal Standby Assistance Bathing Goal Minimal Assistance Toilet Transfer Goal Contact Guard Assistance Shower Transfer Goal Contact Guard Assistance Patient/Caregiver Education Goal Caregiver Independent Assisting Patient Days to Meet Goals 7 Frequency of Treatment Frequency Of Treatment Once a Day Treatment Plan OT Treatment Plan ADL Training Functional Cognition Training Functional Mobility Patient/Family Education Discharge Planning Discharge Recommendations OT Discharge Recommendations SNF Rehab
--- NOTE | 2018-01-09 11:42 | CM.DANOTE ---
Discharge Planning/Care Management DCP: assessment: case received yesterday, EMR reviewed. Due to caseload triage needs further assessment planned for today. Met now with pt, his son Arnoldo and his daughter in law Carrie (Carrie's will be in later.) Introduced self and role. Pt is a 77 year old male who admitted in the evening/01/07 to care of hospitalist team. Dr. Rebollar did the H&P. PCP: Dr. Walker. Payer: Medicare. Dr. Shirley/hospitalist yesterday and Dr. Walker conferred and noted that case should have been assigned to Dr. Walker. His extensive progress notes are now reviewed. Pt with a CT showing metastases to bone and brain/primary site unknown at this time. Bone scan is scheduled for tomorrow. Pt is having some confusion. Carrie confirms that his Malinda is the POA. She has some joint and back pain issues and pt was her primary caregiver. She reports [place] not be returning to the [place]. aCrrie notes there is a lot of family support. She has extensive experience with the hospice program and is aware that this may be one of the options but cautions that all this is so new, the whole family is reeling..... Assured her this was entirely appropriate and understandable and that the role of dc planning team would be to follow closely as the POC unfolded, taking direction from Dr. Walker and assisting with d/c issues and options. Requested that when the family is gathered a primary contact be assigned with name and contact number on white board in room. She was very agreeable to same. P: follow closely to assist as per above. CM Discharge Assessment Start: 01/09/18 11:40 Freq: Status: Active Protocol: Document 01/09/18 11:40 ITV (Rec: 01/09/18 11:42 ITV [id number]) Discharge Planning Assessment History Provided By Family Member Medical Record Prior Living Arrangements House Comment on [place] with his . Per family, they will not be returning there Household Members spouse Independent with ADL's Yes Is patient alert and oriented? Yes Whiteboard Updated in Patient Room with Yes name and ext. # of Tmr Teacher Review Status In Process Next Review Type Continued Stay Review
--- NOTE | 2018-01-09 12:04 | PT.IPTN ---
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) Other chronic pain (01/07/18) Metabolic encephalopathy (01/07/18) Disease of salivary gland, unspecified (01/07/18) Disorder of bone, unspecified (01/07/18) Bladder disorder, unspecified (01/07/18) Urinary tract infection, site not specified (01/07/18) Left lower quadrant pain (01/07/18) Altered mental status, unspecified (01/07/18) Personal history of other diseases of the digestive system (01/07/18) Other specified postprocedural states (01/07/18) Physical Therapy Treatment Note M2 PT-IP Current Condition Start: 01/08/18 16:12 Freq: NEEDED Status: Active Protocol: Document 01/08/18 16:30 AB (Rec: 01/08/18 17:22 AB [id number]) Physical Therapy Current Condition Current Condition Evaluation Date 01/08/18 Treatment Diagnosis AMS; difficulty in walking Onset Date 01/07/18 Precautions Other Precautions falls; BP M3 PT-IP Subjective Start: 01/08/18 16:12 Freq: NEEDED Status: Active Protocol: Document 01/09/18 11:58 [facility] (Rec: 01/09/18 12:04 [facility] [id number]) Subjective Physical Therapy Visit Type Type Treatment Note Visit Start Time 11:30 Visit Stop Time 11:53 Total Visit Minutes 23 Number of CALENDER ROLL OPERATOR Visits 0 Physical Therapy Visit Comments Patient Comments Agrees to get up Therapy Pain Assessment Pain Present Pain Present Denied Pain M4 PT-IP Mobility and Gait Start: 01/08/18 16:12 Freq: NEEDED Status: Active Protocol: Document 01/09/18 11:58 [facility] (Rec: 01/09/18 12:04 [facility] [id number]) PT-Bed Mobility Assessment Supine to Sit Supine to Sit Standby Assistance Scooting Scooting to Edge of Bed Standby Assistance PT-Transfer Assessment Sit to and From Stand Sit to and from Stand Standby Assistance Equipment Transfer Assistive Device Gait Belt Front Wheeled Walker Orthotic/Prosthetic Devices or Brace: No Comments Mobility Comments Pt stood to ambulate then stood again from chair to readjust Gait Assessment Gait Gait Assistance Required: Contact Guard Assist Minimum Assistance Distance (Feet) 300 Able to Maintain Weight Bearing Status Yes During Gait Assistive Devices Assistive Device Gait Belt Front Wheeled Walker Factors Limiting Gait Function Factors Limiting Gait Function Decreased Strength Poor Balance Poor Safety Awareness Comments Gait Comments Pt amb with FWW with max cueing to avoid computers in toribio and hitting his hands on wall as he ambulated. Cueing required to stay inside FWW and had one instance he tripped on FWW and required min A to maintain balance. He amb aout 5 ft in room without AD with 1 hand hold and CGA and pt reached for counter & bed during short amb period. PT-Balance Assessment Sitting Balance and Reactions Static Sitting Balance Ability Good Dynamic Sitting Balance Ability Good Standing Balance and Reactions Static Standing Balance Ability Fair Dynamic Standing Balance Ability Fair M5 PT-IP Objective Assessments Start: 01/08/18 16:12 Freq: NEEDED Status: Active Protocol: Document 01/08/18 16:30 AB (Rec: 01/08/18 17:22 AB [id number]) Orientation Orientation/Cognition Level of Alertness Confusional State Orientation Name Safety Awareness Decreased Safety Awareness Memory Description Short Term Impaired Sports Management Professor Impaired Strength Lower Extremity Strength Assessment Within Functional Limits M6 PT-IP Treatment Start: 01/08/18 16:12 Freq: NEEDED Status: Active Protocol: Document 01/09/18 11:58 [facility] (Rec: 01/09/18 12:04 [facility] [id number]) Physical Therapy Treatment Education Education Provided Safety M7 PT-IP Assessment and Plan Start: 01/08/18 16:12 Freq: NEEDED Status: Active Protocol: Document 01/09/18 11:58 [facility] (Rec: 01/09/18 12:04 [facility] [id number]) PT Summary Assessment and Plan Summary Progress Towards Goals Progressing Toward Goals Assessment Summary Pt is progressing towards goals, but is not safe to amb without someone with him at all times d/t poor safety awareness, dec balance & dec spacial awareness. Pt will require significant assistance for safety at d/c and would benefit from SNF rehab for balance & safety training. Frequency of Treatment Frequency Of Treatment Once a Day Treatment Plan Physical Therapy Treatment Plan Gait Training Therapeutic Exercise Balance Retraining Discharge Planning Neuromuscular Re-ed Other Recommendations and Next Treatment Standing balance & gait Focus Recommendations To Nursing Amount of Assist Needed 1 Person Assist Discharge Recommendations PT Discharge Recommendations SNF Rehab
--- NOTE | 2018-01-09 12:50 | PC.NURSE ---
Pt is hallucinating and seeing water on the ceiling and thinks that fruit tonyie is moving on tray. Pt has voided well. He has voided about 400cc this shift. Bladder scanned earlier and pt had about 150cc in his bladder. He is surrounded by family as is talking to family now.
--- NOTE | 2018-01-09 13:07 | P.PN_ITS ---
Subjective Date Patient Seen: 01/09/18 Time Patient Seen: 12:59 Interval history: Patient has had progressive hallucinations since last night and today. He has been and urinating frequently getting up every 15-30 minutes last night and urinating 125 cc with 90-350 cc postvoid residual. He is doing better today in terms of urination. He received Ativan last night in the evening as well as in the middle the night and it is felt that this is worsening. From a mental status point he was doing better yesterday morning and was clear and able to answer questions. He is now having visual and auditory hallucinations. He is having in on solicited startle response at times. This is new. He is a 1 person assist to get up. He is not having any pain. His antibiotics and antivirals were stopped last night when it was discovered that he had innumeral metastases to his brain. His cultures thus far are negative. He has a bone scan scheduled for the morning. He is working with physical therapy. He has not been eating but is now eating more regularly. Twelve point review of systems is otherwise negative No difficulty breathing No chest pain Exam Vital Signs (past 8 hours): - 01/09/18 06:05 01/09/18 07:35 Temperature 98.4 F Pulse Rate 53 L 76 Respiratory Rate 16 15 Blood Pressure 148/76 H 134/57 L Pulse Oximetry 94 96 Oxygen Delivery Method Room Air Oxygen Flow Rate 0 Narrative Exam Narrative: Afebrile, vital signs are stable The patient is unable to answer questions directly. He is able to describe the hallucinations that he is having and is easily redirected. He is not combative. HEENT is unremarkable Neck: Supple without adenopathy or thyromegaly or masses Chest: Clear to auscultation without wheezes rhonchi or crackles Cor: Regular rate and rhythm without murmur Abdomen: Positive bowel sounds, soft, nontender, nondistended Extremities: No edema, pulses intact Objective Labs Result Diagrams: 01/09/18 05:29 01/09/18 05:29 Labs: Laboratory Results - last 24 hr 01/09/18 01/09/18 05:29 05:29 WBC 6.8 RBC 4.24 L Hgb 13.4 L Hct 38.8 L MCV 91.6 MCH 31.6 MCHC 34.5 RDW 12.8 Plt Count 180 Neut % (Auto) 64.4 Lymph % (Auto) 20.9 L [place] % (Auto) 10.9 Eos % (Auto) 3.2 Baso % (Auto) 0.6 Neut # (Auto) 4400 Sodium 145 Potassium 3.7 Chloride 111 H Carbon Dioxide 23 BUN 15 Creatinine 1.50 H Estimated GFR 45.4 L BUN/Creatinine Ratio 10.0 Glucose 101 Calcium 8.8 Total Bilirubin 0.5 AST 36 ALT 22 Alkaline Phosphatase 106 Total Protein 5.9 L Albumin 3.2 L Globulin 2.7 Albumin/Globulin Ratio 1.2 Assessment & Plan Plan: Assessment/Plan Narrative: 77-year-old male admitted for metabolic encephalopathy of unclear etiology what appears to be secondary to metastatic cancer of unknown primary. Plan: Bone scan in a.m. Will discuss with Radiology and Urology to determine the best way to get a biopsy and then at that point will discuss with Oncology. Will stop Ativan as this seems to be causing more agitation and will give a trial of resperidone. Urine, blood, CSF cultures were all negative thus far. We will continue off antibiotics. We will continue off antivirals. Pending discussion tomorrow we will consider steroid for brain swelling and see if this helps with hallucinations. Family wanted to wait on this at this time. Will continue to monitor for infection. Assessment 2. Urinary difficulties Plan: Patient will not tolerate a Dill catheter He seems to be doing better today. We will stop his IV fluids. We will consider Flomax if his symptoms persist. We discussed code status and at this time they want him to be a full code but will discuss it further now that they have more information regarding the metastatic cancer.
[2018-01-09] MEDS: risperiDONE 0.25 MG TABLET PO ×2 (17:32→23:05)
[2018-01-09] MEDS: HALOPERIDOL 5 MG/ML VIAL 2.5 MG IV (23:51)
[2018-01-10 00:07] VITALS: BP 151/77; PULSE 96; RESP 16; TEMP 36.7; O2SAT 91
[2018-01-10] MEDS: KETOROLAC 30 MG/ML VIAL IV (05:28)
[2018-01-10 05:42] LABS: Add Manual Diff / Slide Review NO; Basophils Percent Auto 0.9 % (0-2); Hematocrit 38.4 % (41-53); Hemoglobin 13.2 g/dL (13.5-17.5); Lymphocytes Percent Auto 26.5 % (25-40); Mean Corpuscular HGB Conc 34.4 % (30-36); Mean Corpuscular Hemoglobin 31.2 PG (26-34); Mean Corpuscular Volume 90.8 fL (80-100); Monocytes Percent Auto 9.3 % (3-14); Neutrophils Absolute Auto 4000 /uL (3000-5900); Neutrophils Percent Auto 60.3 % (50-75); Platelet Count 178 X10^3/uL (150-400); Red Blood Cell Count 4.23 X10^6/uL (4.5-5.9); White Blood Cell Count 6.7 X10^3/uL (4.5-11.0)
[2018-01-10 05:48] LABS: Alanine Aminotransferase 25 IU/L (21-72); Albumin 3.4 g/dL (3.5-5.0); Albumin Globulin Ratio 1.3 (1.0-2.8); Alkaline Phosphatase 108 U/L (38-126); Aspartate Aminotransferase 37 IU/L (17-59); BUN Creatinine Ratio 8.6 (6-22); Bilirubin Total 0.8 mg/dL (0.2-1.3); Blood Urea Nitrogen 12 mg/dL (9-20); Calcium 8.9 mg/dL (8.4-10.2); Carbon Dioxide 25 mmol/L (22-32); Chloride 110 mmol/L (98-107); Estimated Glomerular Filt Rate 49.1 mL/min (>60); Globulin 2.7 g/dL (1.7-4.1); Glucose 90 mg/dL (80-110); HEMOLYSIS < 15 (0-50); Potassium 3.5 mmol/L (3.4-5.1); Sodium 144 mmol/L (137-145); Total Protein 6.1 g/dL (6.3-8.2)
[2018-01-10 06:00] VITALS: PULSE 55; RESP 18
[2018-01-10] MEDS: ENOXAPARIN 40 MG/0.4 ML SYRINGE SUBCUT (08:23)
[2018-01-10] MEDS: risperiDONE 0.25 MG TABLET PO (08:23)
[2018-01-10] MEDS: DOCUSATE 100 MG CAPSULE PO ×2 (08:23→22:42)
[2018-01-10] MEDS: PANTOPRAZOLE 40 MG VIAL IV (08:26)
[2018-01-10 09:35] VITALS: BP 137/66; PULSE 62; RESP 16; TEMP 36.4; O2SAT 96
--- NOTE | 2018-01-10 09:49 | PT.IPTN ---
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) Other chronic pain (01/07/18) Metabolic encephalopathy (01/07/18) Disease of salivary gland, unspecified (01/07/18) Disorder of bone, unspecified (01/07/18) Bladder disorder, unspecified (01/07/18) Urinary tract infection, site not specified (01/07/18) Left lower quadrant pain (01/07/18) Altered mental status, unspecified (01/07/18) Personal history of other diseases of the digestive system (01/07/18) Other specified postprocedural states (01/07/18) Physical Therapy Treatment Note M2 PT-IP Current Condition Start: 01/08/18 16:12 Freq: NEEDED Status: Active Protocol: Document 01/08/18 16:30 AB (Rec: 01/08/18 17:22 AB [id number]) Physical Therapy Current Condition Current Condition Evaluation Date 01/08/18 Treatment Diagnosis AMS; difficulty in walking Onset Date 01/07/18 Precautions Other Precautions falls; BP M3 PT-IP Subjective Start: 01/08/18 16:12 Freq: NEEDED Status: Active Protocol: Document 01/10/18 09:12 LJ (Rec: 01/10/18 09:49 LJ [id number]) Subjective Physical Therapy Visit Type Type Treatment Note Visit Start Time 09:12 Visit Stop Time 09:38 Total Visit Minutes 26 Notes Family in room with patient. Physical Therapy Visit Comments Patient Comments Pt states he will go out to the hallway and ambulate. Therapy Pain Assessment Pain Present Pain Present Allowed to Sleep M4 PT-IP Mobility and Gait Start: 01/08/18 16:12 Freq: NEEDED Status: Active Protocol: Document 01/10/18 09:12 LJ (Rec: 01/10/18 09:49 LJ [id number]) PT-Bed Mobility Assessment Supine to Sit Supine to Sit Standby Assistance Scooting Scooting to Edge of Bed Standby Assistance PT-Transfer Assessment Sit to and From Stand Sit to and from Stand Standby Assistance Equipment Transfer Assistive Device Gait Belt Front Wheeled Walker Orthotic/Prosthetic Devices or Brace: No Comments Mobility Comments Pt able to perform all bed mobility with SBA for cues and directions. Gait Assessment Gait Gait Assistance Required: Contact Guard Assist Minimum Assistance Distance (Feet) 420 Able to Maintain Weight Bearing Status Yes During Gait Assistive Devices Assistive Device Gait Belt Front Wheeled Walker Orthotic/Prosthetic Devices or Brace: No Gait Deviations General Gait Pattern Decreased Stride Length Decreased Feet Clearance Factors Limiting Gait Function Factors Limiting Gait Function Decreased Strength Poor Balance Poor Safety Awareness Comments Gait Comments Pt ambulates with mod cues to avoid computers and corners. Confusion on directional changes. States he is slightly dizzy when standing up which resolves quickly. Daughter-in- law followed with WC. Pt able to return to bed w/SBA for cueing directions. 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 Strength Lower Extremity Strength Assessment Within Functional Limits M6 PT-IP Treatment Start: 01/08/18 16:12 Freq: NEEDED Status: Active Protocol: Document 01/10/18 09:12 LJ (Rec: 01/10/18 09:49 LJ [id number]) Physical Therapy Treatment Education Education Provided Safety M7 PT-IP Assessment and Plan Start: 01/08/18 16:12 Freq: NEEDED Status: Active Protocol: Document 01/10/18 09:12 LJ (Rec: 01/10/18 09:49 LJ [id number]) PT Summary Assessment and Plan Potential Rehabilitation Potential Fair Status of Condition at Evaluation Evolving Summary Progress Towards Goals Progressing Toward Goals Assessment Summary Pt is progressing towards goals, but is not safe to amb without someone with him at all times d/t poor safety awareness, dec balance & dec spacial awareness. Pt will require significant assistance for safety at d/c and would benefit from SNF rehab for balance & safety training. Frequency of Treatment Frequency Of Treatment Once a Day Treatment Plan Physical Therapy Treatment Plan Gait Training Therapeutic Exercise Balance Retraining Discharge Planning Neuromuscular Re-ed Other Recommendations and Next Treatment Standing balance & gait Focus Recommendations To Nursing Amount of Assist Needed 1 Person Assist 2 Person Assist
--- NOTE | 2018-01-10 10:15 | OT.IP.TRT ---
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) Other chronic pain (01/07/18) Metabolic encephalopathy (01/07/18) Disease of salivary gland, unspecified (01/07/18) Disorder of bone, unspecified (01/07/18) Bladder disorder, unspecified (01/07/18) Urinary tract infection, site not specified (01/07/18) Left lower quadrant pain (01/07/18) Altered mental status, unspecified (01/07/18) Personal history of other diseases of the digestive system (01/07/18) Other specified postprocedural states (01/07/18) Occupational Therapy Treatment Note M2 OT-IP Current Condition Start: 01/09/18 10:42 Freq: Status: Active Protocol: Document 01/09/18 10:32 PJM (Rec: 01/09/18 11:23 PJM [id number]) Occupational Therapy Current Condition Current Condition Evaluation Date 01/09/18 Treatment Diagnosis decreased self care,mobility, cognition w/new dx of cancer, primary source ? Diagnosis Onset Date 01/07/18 Post Operative Precautions Other Precautions high fall risk, impulsive, confusion, bone mets M3 OT- IP Subjective and Pain Start: 01/09/18 10:42 Freq: Status: Active Protocol: Document 01/10/18 10:15 PJM (Rec: 01/10/18 10:18 PJM [id number]) OT- Subjective Occupational Therapy Visit Type Type Administrative Note Visit Start Time 10:15 Notes OT attempt. RN just giving pt Haldol prior to bone scan and requested OT hold at this time. Will attempt again as schedule and pt status permits M
[2018-01-10] MEDS: HALOPERIDOL 5 MG/ML VIAL 2.5 MG IV (10:17)
[2018-01-10 10:24] VITALS: O2SAT 97
--- NOTE | 2018-01-10 10:41 | PC.NURSE ---
Pt is mostly calm and does not appear to be hallucinating. Preparing for bone scan at 1100 hours - given haldol at 10:15 to make sure he can keep still for the scan.
--- NOTE | 2018-01-10 12:45 | CM.DPC ---
DCP: continued: Checked in with pt's family today and met his Malinda. DPOA paperwork is being prepared today and pt has had periods of lucidity where family feel he would be appropriate to sign the needed documents. Family asked about a notary. Spoke with Lupe in [facility]. She will be here today until 1500 and said she would be happy to come during those hours to assist pt and family with the notary process. Family was updated re this earlier but then pt did go down for bone scan. Family are aware that [facility] staff will not be available over the weekend but they have a backup with a aniyahtalawrence who lives in [place]. does say that they discussed ? of CPR with Dr. Srivastava and have now identified No CPR as best choice for pt. They are provided a POLST form for Dr. Bhatia to complete with them and they plan to let her know they would like No CPR to be in place in hospital [facility]. JESIKA Small is updated and will followup with Dr. Srivastava today. chaplain Deb Jeffers did stop by briefly to see family and patient and will continue to stop in prn and offer support as it seems appropriate. DCP team will continue to follow as the POC unfolds.
[2018-01-10 15:00] LABS: Carcinoembryonic Antigen 7.5 ng/mL (0.1-3.0)
--- NOTE | 2018-01-10 15:44 | PM.PN.1 ---
Subjective Date Patient Seen: 01/10/18 Time Patient Seen: 15:44 Interval history: Patient had severe agitation last night but responded well to Haldol 2.5 mg. He received another 2.5 mg today prior to his bone scan. He is doing much better. He is still urinating frequently but this did not interfere with his sleep last night once he receives the Haldol. He ate a full meal today which is the 1st time he has eaten this way and several days to possibly weeks. He is not complaining of any pain the groin area or any place else in his body. He denies any shortness of breath he denies any chest pain he denies any cough or problems with his bowels. [employer] systems is negative other than above No hematuria No blood loss from the intestines No headache No visual changes Still with visual hallucinations but less so than yesterday and less agitated and less auditory hallucinations as well. Less of a startle reflex. Exam Vital Signs (past 8 hours): - 01/10/18 09:35 01/10/18 10:24 Temperature 97.6 F Pulse Rate 62 Respiratory Rate 16 Blood Pressure 137/66 Pulse Oximetry 96 97 Oxygen Delivery Method Room Air Oxygen Flow Rate 0 Narrative Exam Narrative: Patient is alert and oriented to person and place but not to time. He is lying comfortably in hospital bed he is able to answer questions to some extent but certainly is not lucid. HEENT: Unremarkable Neck: Supple without adenopathy Chest: Clear to auscultation without wheezes Rhonchi or crackles Cor: Regular rate and rhythm without murmur Abdomen: Positive bowel sounds, soft, nontender, nondistended Extremities: No edema, pulses intact, DTRs are intact Objective Labs Result Diagrams: 01/10/18 05:23 01/10/18 05:23 Labs: Laboratory Results - last 24 hr 01/10/18 01/10/18 01/10/18 05:23 05:23 14:08 WBC 6.7 RBC 4.23 L Hgb 13.2 L Hct 38.4 L MCV 90.8 MCH 31.2 MCHC 34.4 RDW 13.0 Plt Count 178 Neut % (Auto) 60.3 Lymph % (Auto) 26.5 [place] % (Auto) 9.3 Eos % (Auto) 3.0 Baso % (Auto) 0.9 Neut # (Auto) 4000 Sodium 144 Potassium 3.5 Chloride 110 H Carbon Dioxide 25 BUN 12 Creatinine 1.40 H Estimated GFR 49.1 L BUN/Creatinine Ratio 8.6 Glucose 90 Calcium 8.9 Total Bilirubin 0.8 AST 37 ALT 25 Alkaline Phosphatase 108 Total Protein 6.1 L Albumin 3.4 L Globulin 2.7 Albumin/Globulin Ratio 1.3 Carcinoembryonic Ag 7.5 H Prostate Specific Ag 2.890 Assessment & Plan Plan: Assessment/Plan Narrative: 77-year-old male admitted for acute delirium who is presenting with 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 Patient's delirium has improved with the use of Risperdal and Haldol. Discussed since with Dr. Archana telles from Radiology and Dr. Romero from Medical Oncology see as well as Dr Penaloza from urology were done today. In reviewing the chart from the urologist in 2015, March patient underwent a cystoscopy which was normal and urine cytology which was negative. His digital rectal exam was normal at that time but there is no findings of a PSA. He did not have further follow-up there. Dr. Larry felt that he needed a biopsy to prove what type of cancer. He did not think it was likely bladder cancer but more likely of prostate cancer. He recommended discussing with Medical Oncology. I then discussed the case with Dr. Romero and during this time PSA came back normal and CEA was minimally elevated. He felt that there was likely a lesion in the sacrum that could be biopsied but Dr Najera but did not feel this was an appropriate spot to biopsy bc of adjacent nerves and vessels. So at this point we discussed transferred to [facility] continuing to manage here. After discussion with Dr. Lucas CURRY at she states that they would not do a biopsy over the weekend regardless. So at this point we will continue working to stabilize the delirium and plan for Oncology consult on Saturday with possible biopsy at that time. In the meantime I will increase his Risperdal to 0.5 mg twice daily. His pain is well controlled. His urine symptoms are well controlled since we stopped that a IV. Will consider Flomax to help with his urine symptoms if they progress or persist. Greater than 60 min spent in coordination of care with reviewing his chart, meeting with the patient and talking with the family and talking with multiple other physicians to determine a plan. We also discussed his code status and they prefer for him to be DNR and so we will change this in his chart as well. He will continue same other medications
[2018-01-10 19:02] VITALS: BP 148/65; PULSE 55; RESP 19; TEMP 36.8; O2SAT 97
--- NOTE | 2018-01-10 22:39 | PC.NURSE ---
SHFIT NOTE Received pt sleeping, pt's family at bedside prefers to allow pt to rest. assessment and VS deferred until pt awake. Ox1, pleasant and cooperative with care. pt does not appear to be hallucinating this shift. 1PA with FWW top ambulate to the bathroom. pt denies pain. bed alrm fro safety. son at bedside to assist with care and orientation. danilo light within reach.
[2018-01-10] MEDS: SODIUM CHLORIDE 0.9% FLUSH 10 ML IV (22:42)
[2018-01-10] MEDS: risperiDONE 0.25 MG TABLET 0.5 MG PO (22:42)
[2018-01-10] MEDS: SENNOSIDES 8.6 MG TABLET 17.2 MG PO (22:42)
[2018-01-10 22:48] VITALS: BP 148/75; PULSE 72; RESP 19; TEMP 36.6; O2SAT 95
[2018-01-11] VITALS (8 sets, daily range): BP systolic 138–159; BP diastolic 61–86; PULSE 49–75; RESP 16–18; TEMP 36.6–37.1; O2SAT 92–97
--- NOTE | 2018-01-11 | DI.CT.S_ITS ---
PROCEDURE: CT CHEST WO CON INDICATIONS: metastatic cancer, unknown primary TECHNIQUE: Noncontrast 5 mm thick sections acquired from the pulmonary apices to the posterior costophrenic angles. 7 mm thick coronal and sagittal MIP reformats were then acquired. For radiation dose reduction, the following was used: automated exposure control, adjustment of mA and/or kV according to patient size. COMPARISON: None. FINDINGS: Image quality: Excellent. Lungs and pleura: No acute air space opacities. No pneumothorax. Small right pleural effusion. 34 mm diameter spiculated density within the right apex. Mild air space opacity within the right upper lung. Central and peripheral airways are patent and normal in caliber. Mediastinum: Heart size is normal. Calcification of the coronary vasculature. No pericardial effusion. No mediastinal adenopathy by size criteria. Thoracic aorta and central pulmonary arteries are normal in size. Esophagus is normal in caliber. No hiatal hernia. Bones and chest wall: Multiple sclerotic foci within the mid and lower thoracic spine. No vertebral body compression fractures. No axillary or supraclavicular adenopathy by size criteria. Thyroid gland within normal limits on noncontrast imaging. Abdomen: Visualized upper abdominal solid organs and bowel loops appear normal in the absence of contrast. IMPRESSION: 1. Findings consistent with a right apical primary neoplasm, with surrounding post obstructive phenomenon. Small right pleural effusion. 2. Coronary artery disease. 3. Bony metastases. Dictated by: Geraldo Gayle M.D. on 01/11/2018 at 14:41 Approved by: Geraldo Gayle M.D. on 01/11/2018 at 14:42
[2018-01-11] MEDS: KETOROLAC 30 MG/ML VIAL IV (01:26)
[2018-01-11] MEDS: SODIUM CHLORIDE 0.9% FLUSH 10 ML IV ×3 (01:27→19:18)
[2018-01-11] MEDS: risperiDONE 0.25 MG TABLET 0.5 MG PO ×2 (09:27→19:17)
[2018-01-11] MEDS: ENOXAPARIN 40 MG/0.4 ML SYRINGE SUBCUT (09:28)
[2018-01-11] MEDS: PANTOPRAZOLE 40 MG VIAL IV (09:28)
--- NOTE | 2018-01-11 09:43 | PT.IPTN ---
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) Other chronic pain (01/07/18) Metabolic encephalopathy (01/07/18) Disease of salivary gland, unspecified (01/07/18) Disorder of bone, unspecified (01/07/18) Bladder disorder, unspecified (01/07/18) Urinary tract infection, site not specified (01/07/18) Left lower quadrant pain (01/07/18) Altered mental status, unspecified (01/07/18) Personal history of other diseases of the digestive system (01/07/18) Other specified postprocedural states (01/07/18) Physical Therapy Treatment Note M2 PT-IP Current Condition Start: 01/08/18 16:12 Freq: NEEDED Status: Active Protocol: Document 01/08/18 16:30 AB (Rec: 01/08/18 17:22 AB [id number]) Physical Therapy Current Condition Current Condition Evaluation Date 01/08/18 Treatment Diagnosis AMS; difficulty in walking Onset Date 01/07/18 Precautions Other Precautions falls; BP M3 PT-IP Subjective Start: 01/08/18 16:12 Freq: NEEDED Status: Active Protocol: Document 01/11/18 09:15 LJ (Rec: 01/11/18 09:43 LJ [id number]) Subjective Physical Therapy Visit Type Type Treatment Note Visit Start Time 09:08 Visit Stop Time 09:30 Total Visit Minutes 22 Notes Family in room. Physical Therapy Visit Comments Patient Comments Pt states he is not in any pain and is willing to ambulate Therapy Pain Assessment Pain When Pain Assessed During Mobility Pain Present Pain Present Denied Pain M4 PT-IP Mobility and Gait Start: 01/08/18 16:12 Freq: NEEDED Status: Active Protocol: Document 01/11/18 09:15 LJ (Rec: 01/11/18 09:43 LJ [id number]) PT-Bed Mobility Assessment Supine to Sit Supine to Sit Independent Scooting Scooting to Edge of Bed Independent PT-Transfer Assessment Sit to and From Stand Sit to and from Stand Standby Assistance Comments Mobility Comments Pt independent with all bed mobility. SBA for sit<>stand. Gait Assessment Gait Gait Assistance Required: Contact Guard Assist Distance (Feet) 340 Able to Maintain Weight Bearing Status Yes During Gait Assistive Devices Assistive Device Gait Belt Front Wheeled Walker Orthotic/Prosthetic Devices or Brace: No Gait Deviations General Gait Pattern Decreased Stride Length Decreased Feet Clearance Factors Limiting Gait Function Factors Limiting Gait Function Decreased Strength Poor Balance Comments Gait Comments Pt ambulates at normal pace w/ FWW. Improved navigation around obstacles. Pt advised to slow pace for safety M5 PT-IP Objective Assessments Start: 01/08/18 16:12 Freq: NEEDED Status: Active Protocol: Document 01/08/18 16:30 AB (Rec: 01/08/18 17:22 AB [id number]) Orientation Orientation/Cognition Level of Alertness Confusional State Orientation Name Safety Awareness Decreased Safety Awareness Memory Description Short Term Impaired [place] Impaired Strength Lower Extremity Strength Assessment Within Functional Limits M6 PT-IP Treatment Start: 01/08/18 16:12 Freq: NEEDED Status: Active Protocol: Document 01/11/18 09:15 LJ (Rec: 01/11/18 09:43 LJ [id number]) Physical Therapy Treatment Exercises Exercises Gluteal Sets Quad Sets Heel Slides Straight Leg Raises Education Education Provided Safety Other Treatments Other Treatment Performed mini sit ups in reclined position in bed. M7 PT-IP Assessment and Plan Start: 01/08/18 16:12 Freq: NEEDED Status: Active Protocol: Document 01/11/18 09:15 LJ (Rec: 01/11/18 09:43 LJ [id number]) PT Summary Assessment and Plan Potential Rehabilitation Potential Fair Status of Condition at Evaluation Evolving Summary Progress Towards Goals Progressing Toward Goals Assessment Summary Pt demonstrates improved navigation and safety awareness during ambulation. Returned to bed independently positioning himself. Left with son in room. Goals Bed Mobility Goal Standby Assistance Transfer Goal Standby Assistance Front Wheeled Walker Gait Goal Standby Assistance Front Wheel Walker Gait Distance 150 Days to Meet Goals 5 Frequency of Treatment Frequency Of Treatment Once a Day Treatment Plan Physical Therapy Treatment Plan Gait Training Therapeutic Exercise Balance Retraining Discharge Planning Neuromuscular Re-ed Other Recommendations and Next Treatment Standing balance-static and Focus dynamic. Recommendations To Nursing Amount of Assist Needed Standby Assistance Discharge Recommendations PT Discharge Recommendations SNF Rehab
--- NOTE | 2018-01-11 11:36 | OT.IP.TRT ---
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) Other chronic pain (01/07/18) Metabolic encephalopathy (01/07/18) Disease of salivary gland, unspecified (01/07/18) Disorder of bone, unspecified (01/07/18) Bladder disorder, unspecified (01/07/18) Urinary tract infection, site not specified (01/07/18) Left lower quadrant pain (01/07/18) Altered mental status, unspecified (01/07/18) Personal history of other diseases of the digestive system (01/07/18) Other specified postprocedural states (01/07/18) Occupational Therapy Treatment Note M2 OT-IP Current Condition Start: 01/09/18 10:42 Freq: Status: Active Protocol: Document 01/09/18 10:32 PJM (Rec: 01/09/18 11:23 PJM [id number]) Occupational Therapy Current Condition Current Condition Evaluation Date 01/09/18 Treatment Diagnosis decreased self care,mobility, cognition w/new dx of cancer, primary source ? Diagnosis Onset Date 01/07/18 Post Operative Precautions Other Precautions high fall risk, impulsive, confusion, bone mets M3 OT- IP Subjective and Pain Start: 01/09/18 10:42 Freq: Status: Active Protocol: Document 01/11/18 11:36 PJM (Rec: 01/11/18 11:59 PJM [id number]) OT- Subjective Occupational Therapy Visit Type Type Treatment Note Visit Start Time 11:22 Visit Stop Time 11:36 Total Visit Minutes 14 Notes Pt awake in recliner with multiple family members present. Occupational Therapy Visit Comments Patient/Caregiver Goals none verbalized this session OT Pain Assessment Pain When Pain Assessed After Treatment Pain Present Pain Present Denied Pain M4 OT- IP ADL's Start: 01/09/18 10:42 Freq: Status: Active Protocol: Document 01/11/18 11:36 PJM (Rec: 01/11/18 11:59 PJM [id number]) OT ADL-Grooming General Evaluation Grooming Ability Standby Assistance Areas Needing Assistance Retrieving/Set-up of Grooming Items Applying Deodorant Combing/Brushing Hair Shaving Comments OT Grooming Comments brought in pt's electric razor and pt able to use with min cues to turn on and off. Pt stood for total of 5 min at sink. Fair thoroughness with shaving. OT ADL-Oral Care General Eval Oral Care Ability Standby Assistance Areas of Assistance Retrieving/Set-Up of Items Devices Oral Care Devices Toothbrush Comments Oral Care Comments pt able to brush teeth with SBA at sink; no difficulty with sequencing today. OT ADL-Toileting Comments OT Toileting Comments pt declined this session M6 OT- IP Functional Cognition Start: 01/09/18 10:42 Freq: Status: Active Protocol: Document 01/11/18 11:36 PJM (Rec: 01/11/18 12:01 PJ [id number]) Cognitive Factors Limiting Selfcare Function Cognitive Ability Level of Alertness Alert Attention Span Ability Capable of Focused Attention Capable of Sustained Attention Ability to Follow Commands Able to Follow One Step Commands Cognitive Comments Cognitive Assessment Comments Pt alert with much improved attention/concentration and sequencing of self care tasks today. Pt much less impulsive. Demeanor calm and very cooperative. M7 OT- IP Mobility and Balance Start: 01/09/18 10:42 Freq: Status: Active Protocol: Document 01/11/18 11:36 PJM (Rec: 01/11/18 11:59 [facility] [id number]) OT-Transfer Assessment Sit to and From Stand Sit to and from Stand Standby Assistance 1 Person Assistance Transfers Transfer Ability Contact Guard Assistance 1 Person Assistance Technique Transfer Destination Chair Transfer Technique Stand Step Pivot Devices Transfer Assistive Devices Gait Belt Front Wheeled Walker Comments Mobility Comments Needs min cues to reach back for arm of chair when sitting. OT- Gait Assessment Gait Gait Assistance Required: Contact Guard Assist Distance (Feet) 15 Assistive Devices Assistive Device Gait Belt Front Wheeled Walker Comments Gait Ability Comments to sink and back with FWW with no LOB, less impulsive OT- Balance Assessment Sitting Balance and Reactions Static Sitting Balance Ability Good Standing Balance and Reactions Static Standing Balance Ability Good M9 OT- IP Assessment and Plan Start: 01/09/18 10:42 Freq: Status: Active Protocol: Document 01/11/18 11:36 PJM (Rec: 01/11/18 11:59 [facility] [id number]) OT Summary Assessment and Plan Summary OT Impairments Balance Functional Cognition Functional Mobility Dressing Toileting Bathing Toilet Transfers Shower Transfers Assessment Summary Per RN, pt on new medication strategy which appears effective as pt much calmer with much improved attention/concentration during self care tasks today. Pt much less impulsive. He denies any vision deficits or hallucinations. Pt CGA to close SBA for functional mobility and transfers with FWW. Fair thoroughness with shaving, good throughness with oral care. Pt requesting short session due to many family members present, some here from out of state. Will continue tx as per plan of care. Note that per chart notes, pt has biopsy pending for Saturday 01/13. Goals Self-Feeding Goal Standby Assistance Grooming Goal Standby Assistance Dressing Goal Standby Assistance Toileting Goal Standby Assistance Bathing Goal Minimal Assistance Toilet Transfer Goal Contact Guard Assistance Shower Transfer Goal Contact Guard Assistance Patient/Caregiver Education Goal Caregiver Independent Assisting Patient Days to Meet Goals 4 Frequency of Treatment Frequency Of Treatment Once a Day Treatment Plan OT Treatment Plan ADL Training Functional Cognition Training Functional Mobility Patient/Family Education Discharge Planning Discharge Recommendations OT Discharge Recommendations SNF Rehab
--- NOTE | 2018-01-11 12:06 | CM.DPC ---
DCP Cont: Met with patient and introduced self, pleasant. Had family in room who are supportive, has had friends visiting as well. Made self readily available should any resources be needed. was in room as well. Placed name on whiteboard in room. P: DCP to follow closely as plan unfolds. Will be available for resources if needed before discharge. Shelbi Landa RN/Supervisor [employer]
--- NOTE | 2018-01-11 13:40 | PM.PN.1 ---
Subjective Date Patient Seen: 01/11/18 Time Patient Seen: 13:41 Interval history: Patient is doing much better today. He had an uneventful night. He did not receive any as needed Haldol. He was able to sleep without difficulty. He is still urinating frequently every 2 hr but this is much improved from what it was previously. He is eating well and taking in fluids without difficulty. He denies any pain in the left groin. He denies any pain at all. He denies any difficulty breathing or chest pain or headaches or visual changes Twelve point review of systems is negative other than above Exam Vital Signs (past 8 hours): - 01/11/18 07:55 01/11/18 10:20 Temperature 97.8 F Pulse Rate 50 L Respiratory Rate 17 Blood Pressure 143/61 H Pulse Oximetry 96 94 Oxygen Delivery Method Room Air Oxygen Flow Rate 0 Narrative Exam Narrative: He is alert and oriented to person and place but not to time. He is more lucid and better able to follow conversation but still with word-finding difficulty and responses do not always pertain to subject matter that is being discussed HEENT: Unremarkable, mucous membranes moist and pink Neck: Supple without adenopathy, no thyromegaly, no bruit, no jugular venous distention Chest: Clear to auscultation bilaterally Cor: Regular rate and rhythm without murmur Abdomen: Positive bowel sounds, soft, nontender, nondistended, no hepatosplenomegaly Extremities: No edema, pulses intact, DTRs are intact Skin: No rashes Objective Labs Result Diagrams: 01/10/18 05:23 01/10/18 05:23 Labs: Laboratory Results - last 24 hr 01/10/18 14:08 Carcinoembryonic Ag 7.5 H Prostate Specific Ag 2.890 Assessment & Plan Plan: Assessment/Plan Narrative: 77-year-old male admitted due to acute delirium in which is thought to be secondary to 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 Unknown primary at this time. He has marked improvement with PT and OT and Risperdal. He is more lucid and less agitated. Plan: Continue same Risperdal with as needed Haldol if necessary although he has not needed that. Will continue with PT and OT Plan is that oncology will see him on Saturday We will discuss with Radiology about biopsy of 1 of the osseous metastases and if we are unable to do here at [facility] we will transferred to [facility] for biopsy on Saturday. Of note his PSA is negative which rules out the possibility of prostate cancer. He is not having any pain and we will stop the Toradol. We will reassess labs in a.m.. Assessment 2. Continue on same DVT prophylaxis Assessment 3. Continue on same GI prophylaxis Assessment 4. BPH Plan: Symptoms much better since we stopped IV fluids. Time Spent With Patient Time with patient: 25 - 35 minutes
--- NOTE | 2018-01-11 13:46 | P.PN_ITS ---
Subjective Date Patient Seen: 01/11/18 Time Patient Seen: 13:41 Interval history: Patient is doing much better today. He had an uneventful night. He did not receive any as needed Haldol. He was able to sleep without difficulty. He is still urinating frequently every 2 hr but this is much improved from what it was previously. He is eating well and taking in fluids without difficulty. He denies any pain in the left groin. He denies any pain at all. He denies any difficulty breathing or chest pain or headaches or visual changes Twelve point review of systems is negative other than above Exam Vital Signs (past 8 hours): - 01/11/18 07:55 01/11/18 10:20 Temperature 97.8 F Pulse Rate 50 L Respiratory Rate 17 Blood Pressure 143/61 H Pulse Oximetry 96 94 Oxygen Delivery Method Room Air Oxygen Flow Rate 0 Narrative Exam Narrative: He is alert and oriented to person and place but not to time. He is more lucid and better able to follow conversation but still with word- finding difficulty and responses do not always pertain to subject matter that is being discussed HEENT: Unremarkable, mucous membranes moist and pink Neck: Supple without adenopathy, no thyromegaly, no bruit, no jugular venous distention Chest: Clear to auscultation bilaterally Cor: Regular rate and rhythm without murmur Abdomen: Positive bowel sounds, soft, nontender, nondistended, no hepatosplenomegaly Extremities: No edema, pulses intact, DTRs are intact Skin: No rashes Objective Labs Result Diagrams: 01/10/18 05:23 01/10/18 05:23 Labs: Laboratory Results - last 24 hr 01/10/18 14:08 Carcinoembryonic Ag 7.5 H Prostate Specific Ag 2.890 Assessment & Plan Plan: Assessment/Plan Narrative: 77-year-old male admitted due to acute delirium in which is thought to be secondary to 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 Unknown primary at this time. He has marked improvement with PT and OT and Risperdal. He is more lucid and less agitated. Plan: Continue same Risperdal with as needed Haldol if necessary although he has not needed that. Will continue with PT and OT Plan is that oncology will see him on Saturday We will discuss with Radiology about biopsy of 1 of the osseous metastases and if we are unable to do here at [facility] we will transferred to [facility] for biopsy on Saturday. Of note his PSA is negative which rules out the possibility of prostate cancer. He is not having any pain and we will stop the Toradol. We will reassess labs in a.m.. Assessment 2. Continue on same DVT prophylaxis Assessment 3. Continue on same GI prophylaxis Assessment 4. BPH Plan: Symptoms much better since we stopped IV fluids. Time Spent With Patient Time with patient: 25 - 35 minutes
[2018-01-11] MEDS: DOCUSATE 100 MG CAPSULE PO (19:18)
[2018-01-11] MEDS: SENNOSIDES 8.6 MG TABLET 17.2 MG PO (19:18)
[2018-01-11] MEDS: IBUPROFEN 600 MG TABLET PO (21:59)
[2018-01-12] VITALS (9 sets, daily range): BP systolic 125–146; BP diastolic 60–93; PULSE 48–83; RESP 16–20; TEMP 36.7–37.6; O2SAT 92–96
[2018-01-12 06:16] LABS: Add Manual Diff / Slide Review NO; Basophils Percent Auto 0.9 % (0-2); Eosinophils Percent Auto 5.5 % (2-4); Hematocrit 38.3 % (41-53); Hemoglobin 13.3 g/dL (13.5-17.5); Lymphocytes Percent Auto 30.7 % (25-40); Mean Corpuscular HGB Conc 34.7 % (30-36); Mean Corpuscular Hemoglobin 31.6 PG (26-34); Mean Corpuscular Volume 91.2 fL (80-100); Monocytes Percent Auto 8.4 % (3-14); Neutrophils Absolute Auto 3400 /uL (3000-5900); Neutrophils Percent Auto 54.5 % (50-75); Platelet Count 193 X10^3/uL (150-400); Red Cell Distribution Width 13.1 % (11.6-14.8); White Blood Cell Count 6.2 X10^3/uL (4.5-11.0)
[2018-01-12 06:46] LABS: BUN Creatinine Ratio 14.2 (6-22); Blood Urea Nitrogen 17 mg/dL (9-20); Calcium 8.8 mg/dL (8.4-10.2); Carbon Dioxide 26 mmol/L (22-32); Chloride 109 mmol/L (98-107); Estimated Glomerular Filt Rate 58.7 mL/min (>60); Glucose 91 mg/dL (80-110); HEMOLYSIS < 15 (0-50); Potassium 3.6 mmol/L (3.4-5.1); Sodium 144 mmol/L (137-145)
[2018-01-12] MEDS: DOCUSATE 100 MG CAPSULE PO ×2 (08:41→20:54)
[2018-01-12] MEDS: ENOXAPARIN 40 MG/0.4 ML SYRINGE SUBCUT (08:41)
[2018-01-12] MEDS: risperiDONE 0.25 MG TABLET 0.5 MG PO ×2 (08:41→20:54)
[2018-01-12] MEDS: SODIUM CHLORIDE 0.9% FLUSH 10 ML IV ×2 (08:42→20:54)
[2018-01-12] MEDS: PANTOPRAZOLE 40 MG VIAL IV (08:42)
--- NOTE | 2018-01-12 09:49 | PT.IPTN ---
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) Other chronic pain (01/07/18) Metabolic encephalopathy (01/07/18) Disease of salivary gland, unspecified (01/07/18) Disorder of bone, unspecified (01/07/18) Bladder disorder, unspecified (01/07/18) Urinary tract infection, site not specified (01/07/18) Left lower quadrant pain (01/07/18) Altered mental status, unspecified (01/07/18) Personal history of other diseases of the digestive system (01/07/18) Other specified postprocedural states (01/07/18) Physical Therapy Treatment Note M2 PT-IP Current Condition Start: 01/08/18 16:12 Freq: NEEDED Status: Active Protocol: Document 01/08/18 16:30 AB (Rec: 01/08/18 17:22 AB [id number]) Physical Therapy Current Condition Current Condition Evaluation Date 01/08/18 Treatment Diagnosis AMS; difficulty in walking Onset Date 01/07/18 Precautions Other Precautions falls; BP M3 PT-IP Subjective Start: 01/08/18 16:12 Freq: NEEDED Status: Active Protocol: Document 01/12/18 09:05 CLB (Rec: 01/12/18 09:49 CLB [id number]) Subjective Physical Therapy Visit Type Type Treatment Note Visit Start Time 09:05 Visit Stop Time 09:20 Total Visit Minutes 15 Number of DELTA SYSTEM F[employer]ER Visits 3 Physical Therapy Visit Comments Patient Comments Pt agreeable to ambulate Therapy Pain Assessment Pain When Pain Assessed During Mobility Pain Present Pain Present Denied Pain M4 PT-IP Mobility and Gait Start: 01/08/18 16:12 Freq: NEEDED Status: Active Protocol: Document 01/12/18 09:05 CLB (Rec: 01/12/18 09:49 CLB [id number]) PT-Transfer Assessment Sit to and From Stand Sit to and from Stand Standby Assistance Equipment Transfer Assistive Device Gait Belt Front Wheeled Walker Orthotic/Prosthetic Devices or Brace: No Gait Assessment Gait Gait Assistance Required: Contact Guard Assist Distance (Feet) 340 Able to Maintain Weight Bearing Status Yes During Gait Assistive Devices Assistive Device Gait Belt Front Wheeled Walker Orthotic/Prosthetic Devices or Brace: No Gait Deviations General Gait Pattern Decreased Stride Length Decreased Feet Clearance Factors Limiting Gait Function Factors Limiting Gait Function Decreased Strength Poor Balance Comments Gait Comments Pt ambulated CGA with good pace and safety awareness. 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 M7 PT-IP Assessment and Plan Start: 01/08/18 16:12 Freq: NEEDED Status: Active Protocol: Document 01/12/18 09:05 CLB (Rec: 01/12/18 09:49 CLB [id number]) PT Summary Assessment and Plan Potential Rehabilitation Potential Fair Status of Condition at Evaluation Evolving Summary Progress Towards Goals Progressing Toward Goals Assessment Summary Pt continues to improve with balance and safety awareness when ambulating in toribio. Pt able to navigate hallway and find his way back to correct room. Goals Bed Mobility Goal Standby Assistance Transfer Goal Standby Assistance Front Wheeled Walker Gait Goal Standby Assistance Front Wheel Walker Gait Distance 150 Days to Meet Goals 5 Frequency of Treatment Frequency Of Treatment Once a Day Treatment Plan Physical Therapy Treatment Plan Gait Training Therapeutic Exercise Balance Retraining Discharge Planning Neuromuscular Re-ed Other Recommendations and Next Treatment Standing balance-static and Focus dynamic. Recommendations To Nursing Amount of Assist Needed Standby Assistance Discharge Recommendations PT Discharge Recommendations SNF Rehab
--- NOTE | 2018-01-12 12:22 | PM.PN.1 ---
Subjective Date Patient Seen: 01/12/18 Time Patient Seen: 12:23 Interval history: Patient in resting comfortably in bed with son at bedside. He had an uneventful night. He did have difficulty getting asleep and was not able to go to sleep until 3:00 a.m.. He has not had any visual or auditory hallucinations for probably greater than 18 hr. He has been taking Risperdal 0.5 mg twice daily and has not needed additional Haldol. He is: He is not agitated. He is getting more steady with ambulation with a walker and is wanting to get up and move. He is eating much better. He is stooling and urinating without problems. Twelve point review of systems is otherwise negative. Exam Vital Signs (past 8 hours): - 01/12/18 07:50 Temperature 98.7 F Pulse Rate 48 L Respiratory Rate 18 Blood Pressure 146/82 H Pulse Oximetry 96 Oxygen Delivery Method Room Air Oxygen Flow Rate 0 Narrative Exam Narrative: Patient is alert and oriented x3. He is sitting in hospital bed in no apparent distress Neck is supple without adenopathy or thyromegaly Chest: Clear to auscultation without wheezes rhonchi or crackles Cor: Regular rate and rhythm without murmur Extremities: No edema pulses intact Neurologic exam nonfocal Objective Labs Result Diagrams: 01/12/18 05:22 01/12/18 05:22 Labs: Laboratory Results - last 24 hr 01/12/18 01/12/18 05:22 05:22 WBC 6.2 RBC 4.20 L Hgb 13.3 L Hct 38.3 L MCV 91.2 MCH 31.6 MCHC 34.7 RDW 13.1 Plt Count 193 Neut % (Auto) 54.5 Lymph % (Auto) 30.7 [place] % (Auto) 8.4 Eos % (Auto) 5.5 H Baso % (Auto) 0.9 Neut # (Auto) 3400 Sodium 144 Potassium 3.6 Chloride 109 H Carbon Dioxide 26 BUN 17 Creatinine 1.20 Estimated GFR 58.7 L BUN/Creatinine Ratio 14.2 Glucose 91 Calcium 8.8 Assessment & Plan Plan: Assessment/Plan Narrative: 77-year-old male with metastatic cancer now with CT showing possible primary lung cancer. Metastases to the bone diffusely. Patient with mental status changes and encephalopathy secondary to metastases to the brain. Patient is showing marked improvement with Risperdal 0.5 mg twice daily. We will continue the same plan. Oncology has been consulted and will see him tomorrow hopefully in the morning. I have attempted to get in touch with Radiology to discuss possibility of biopsy but we will all me and discussed tomorrow to determine the plan. In the meantime will continue with the same medications . He will continue on the same Lovenox for DVT prophylaxis He will continue with the same Protonix for GI prophylaxis He will continue with the same Risperdal. He is not having any pain. He is continue with the same OT and PT
--- NOTE | 2018-01-12 12:48 | PC.NURSE ---
Day shift 0815: Pt assessed. Pt oriented to self and place. Pleasant at this time. Pt has a 1 cm red area on his right heel. Denies pain at this time.
--- NOTE | 2018-01-12 19:18 | PC.NURSE ---
1500- assumed care of pt from outgoing shift. Pt awake and alert. some disorientation with date/year. pt cooperative and uses call light. has family at bedside. up with sba with fww to br. pt does has minimal incontinence of bladder at this time. pt bed alarm on. side rails upx3 belongings and call light within reach. denies pain. will continue to monitor pt for safety.
--- NOTE | 2018-01-12 23:49 | PC.NURSE ---
Addendum entered by Tonya Villalobos R.N. 01/13/18 05:14: Denies any pain this morning. [id number] reports he fell asleep around 0130 tonight. Original Note: Addendum entered by Tonya Villalobos R.N. 01/13/18 00:58: Complains of 2/10 low back pain with movement; medicated with Ibuprofen. Original Note: Patient is alert and oriented except to day of week and year. Breath sounds CTA with RA sat of 94%. HRR but bradycardic at 54 bpm and elevated BP of 144/93. Denies nausea. BT present and abdomen is soft. Reports urinary frequency and sometimes urgency with incontinence so is wearing a brief but does use urinal to void. Up with walker and 1 assist. Independent with bed mobility. Denies any pain. Fall risk score is high and bed alarm is activated.
[2018-01-13] VITALS (9 sets, daily range): BP systolic 139–171; BP diastolic 61–80; PULSE 46–64; RESP 14–20; TEMP 36.9–37.1; O2SAT 94–98
--- NOTE | 2018-01-13 | DI.CT.S_ITS ---
PROCEDURE: CT BIOPSY BONE DEEP Sedation analgesia was not utilized. INDICATIONS: Metastatic cancer, likley from lung primry TECHNIQUE: The indications, alternatives, benefits, risks, and possible complications of the procedure were communicated to the patient. Informed written consent from the patient was obtained and placed in the chart. Continuous EKG and hemodynamic monitoring was started by trained personnel. The patient was brought to the CT suite and goldbeater spiral CT imaging was performed with localization grid. The appropriate site for percutaneous access to the biopsy target was marked, was prepped and draped sterilely, and was infused with local anaesthesia. Under CT guidance, a core biopsy trocar and needle set was advanced to the biopsy target, and specimen(s) were obtained. The trocar and needle were then removed, and the patient was sent for post-procedure monitoring. COMPARISON: [facility], , MR PELVIS WO CON, 01/06/2018, 15:54. FINDINGS: Biopsy site: Lateral border of the left sacral ala, abutting the posterior margin of the middle third of the left sacroiliac joint. Needle: 20 gauge Temno biopsy needle with introducer trocar. Number of passes: 5 Medications: None utilized Complications: None. IMPRESSION: Successful CT-guided biopsy of osteolytic lesion involving the posterolateral border of the left sacroiliac from posterior approach. The metastatic mass in that area, enhancing, was best visualized on prior recent CT and MR pelvic imaging. Samples were placed directly into formalin, and were provided to the clinical laboratory for histologic analysis and also immune marker analysis by the pathology department at the request of the oncologist caring for the patient.. Dictated by: Torres Marin M.D. on 01/13/2018 at 15:29 Approved by: Torres Marin M.D. on 01/13/2018 at 15:35
--- NOTE | 2018-01-13 | PATH_ITS ---
[facility] Accession Number: [id number] . 01 Material submitted: . SACROILI/RUL . 01 Clinical history: . RUL LUNG MASS, MANY METS, BX FROM L SI JOINT MARGIN OF SOFT TISSUE MET ERODING L SACRAL ALA. . 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 Please see comment. MRV/01/16/2018 . 02 Comment: As part of routine quality assurance manager, Dr. Suhas Terry also reviewed this case and agrees with the diagnosis. Dr. Turner gave preliminary results to Dr. Mohr on 01/15/[address] Walker regarding final results on 01/16/2018. Molecular studies will be ordered per the request of Dr. Mohr and the results reported as an addendum. . 02 Electronically signed: . Marielos Turner MD, Pathologist NPI- [id number] . 01 Gross description: . Received one formalin-filled container labeled with the patient's name and designated RUL lung mass are multiple conner-cerrato cylindrical shaped portions of tissue with average diameter of 0.1 cm and range in length from 0.1 to 0.3 cm. The specimen is filtered, wrapped and entirely submitted in one cassette. ([facility]:[id number]) /[facility] . 02 Microscopic: . Immunohistochemical stains were performed in order to characterize the cells of interest. All control stains showed appropriate reactivity. . RESULTS: Cytokeratin LAXMI: Positive. S100: Negative. Melan-A: Negative. GATA3: Negative. PSA: Negative. CDX2: Negative. Villin: Negative. CK7: Positive. CK20: Negative. TTF1: Positive. Napsin-A: Positive. . 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 . * This test was developed and its performance characteristics determined by [facility]. It has not been cleared or approved by the U.S. Food and Drug Administration. The FDA has determined that such clearance or approval is not necessary. This test is used for clinical purposes. It should not be regarded as investigational or for research. . 02 Pathologist provided ICD-10: C79.51 . 02 CPT . 832491, W75154, B31355 Specimen Comment: A duplicate report has been generated due to demographic updates. Performed at: [facility] [address] [address], [place], [place] [id number] MD Twan Dong MD Phone: [phone] Performed at: [facility] [address] [place] [id number] MD Marielos Turner MD Phone: [phone]
[2018-01-13] MEDS: IBUPROFEN 600 MG TABLET PO (00:56)
--- NOTE | 2018-01-13 09:01 | ONC.CONS ---
History of Present Illness - Data of Consult Patient: new to practice Consult date: 01/13/18 Requesting Physician: Gloria Mackenzie MD Primary Care Provider: Vu Walker MD - Consult Narrative Reason for consult: Metastatic cancer, most likely lung cancer Narrative: Ze Lord is a 77 year old male. I saw the patient in the Hospital at the request of Dr. Gloria Srivastava to evaluate the newly diagnosed metastatic cancer. Patient's son and patient's were present at the time of my encounter. According to patient and patient's family, patient had sustained a groin pull while swimming about 3 months ago. He had a lot of left groin pain since. Patient was having problems walking with unsteadiness at the time. The pain has been in the range of 8/10 in severity. Patient however is using only ibuprofen or Aleve for the pain control. About probably 1-2 weeks ago patient started to have confusion symptoms. Patient's son said his father seemed always dizzy and uneasy. He gait has been unstead, and had to hold on to things in order to keep balance. Patient denies any headache. Patient had a fall accident recently which unfortunately was unwitnessed. Patient had additional symptoms including hallucination, for example, stars over people's head, porcupine and auditory hallucination. He was admitted to the hospital on 01/07/2108 due to altered mental status. The head CT on the day of admission showed no acute intracranial hemorrhage but showed moderate parenchymal volume loss and mild chronic small vessel ischemic changes. MRI of the hip without contrast showed multiple marrow signal abnormalities in keeping with osseous metastasis involving the lower lumbar spine, pelvis and proximal femur. On 01/07/2018 patient underwent brain MRI with contrast. It showed innumerable small cerebral, pontine, cerebellar metastasis, as well as right frontal calvarial metastasis without midline shift, and a right anterior parotid gland mass. Bone scan showed extensive osseous metastatic disease involving the axial and appendicular skeleton. The focus of uptake seen at the right maxilla may represent periodontal disease by positioning. On 01/08/[address] scan of the abdomen and pelvis. It showed circumferential bladder wall thickening with focal left sided wll lesion and possible ulceration. It also showed the known widespread osseus metastasis. On 01/11/[address] scan of the chest without contrast. The scan showed a 34 mm diameter spiculated density within the right apex. No mediastinal adenopathy was noted. It showed bony metastasis. After hospitalization, patient was given Risperdal and Haldol. Patient's mental status has improved. Patient denies any fever or chills. He denies any headache throughout. He denies any shortness breath or chest pain. No nausea no vomiting. No diarrhea and no constipation. Patient did report gross hematuria in the past. Patient has been evaluated by urologist. Patient reports pain?: Yes - Pain Details Pain Intensity: 2 Pain Scale Used: Numeric (1 - 10) Home Medications and Allergies Home Medications Medication Instructions Recorded Confirmed Type ondansetron 4 mg PO PRN PRN 01/07/18 01/07/18 History sulfamethoxazole-trimethoprim 1 tab PO BID 01/07/18 01/07/18 History Allergies Allergy/AdvReac Type Severity Reaction Status Date / Time No Known Drug Allergies Allergy Verified 01/07/18 15:17 Medical History - Medical, Surgical, Family History Medical History: Medical History (Last Reviewed 01/13/18 @ 13:07 by Ryne Mohr MD) Urinary retention Groin injury Family History: Family History Mother Cancer Father Subdural hematoma - Social History Smoking Status: Never smoker Review of Systems All systems PM: reviewed and no additional remarkable complaints except as stated Exam Vital signs: Last Vital Signs Temp 98.6 F 01/13/18 07:45 Pulse 46 L 01/13/18 07:45 Resp 16 01/13/18 07:45 BP 153/67 H 01/13/18 07:45 Pulse Ox 98 01/13/18 07:45 ECOG 1 - Constitutional positive no acute distress, positive average body habitus, positive cooperative - Routine HEENT Exam Head: Present: normocephalic, atraumatic Eye: Present: EOMI, PERRL, normal accommodation. Absent: conjunctival icterus ENT: Present: mucous membranes moist - Routine Neck Exam Present: supple, full ROM. Absent: lymphadenopathy, thyromegaly - Routine Respiratory Exam Present: Clear to auscultation bilaterally. Absent: wheezes - Routine Cardiovascular Exam Present: RRR, S1, S2. Absent: murmur, gallop, rubs, S3 - Routine Abdominal Exam Present: soft, normoactive bowel sounds. Absent: tenderness, distended - Routine Extremities Exam Absent: edema, tenderness, joint swelling - Routine Neurological Exam Present: alert, oriented X3, CN II-XII intact. Absent: sensory deficit, motor deficit - Routine Psychiatric Exam Present: normal affect, normal thought process, cooperative, good insight, good judgment Results - Labs Laboratory Last Values WBC 6.2 X10^3/uL (4.5-11.0) 01/12/18 05:22 RBC 4.20 X10^6/uL (4.5-5.9) L 01/12/18 05:22 Hgb 13.3 g/dL (13.5-17.5) L 01/12/18 05:22 Hct 38.3 % (41-53) L 01/12/18 05:22 MCV 91.2 fL (80-100) 01/12/18 05:22 MCH 31.6 PG (26-34) 01/12/18 05:22 MCHC 34.7 % (30-36) 01/12/18 05:22 RDW 13.1 % (11.6-14.8) 01/12/18 05:22 Plt Count 193 X10^3/uL (150-400) 01/12/18 05:22 Neut % (Auto) 54.5 % (50-75) 01/12/18 05:22 Lymph % (Auto) 30.7 % (25-40) 01/12/18 05:22 [place] % (Auto) 8.4 % (3-14) 01/12/18 05:22 Eos % (Auto) 5.5 % (2-4) H 01/12/18 05:22 Baso % (Auto) 0.9 % (0-2) 01/12/18 05:22 Neut # (Auto) 3400 /uL (4825-2089) 01/12/18 05:22 PT 12.7 SECONDS (10.1-12.7) 01/08/18 05:44 INR 1.2 (0.9-1.3) 01/08/18 05:44 Sodium 144 mmol/L (137-145) 01/12/18 05:22 Potassium 3.6 mmol/L (3.4-5.1) 01/12/18 05:22 Chloride 109 mmol/L (98-107) H 01/12/18 05:22 Carbon Dioxide 26 mmol/L (22-32) 01/12/18 05:22 BUN 17 mg/dL (9-20) 01/12/18 05:22 Creatinine 1.20 mg/dL (0.66-1.25) 01/12/18 05:22 Estimated GFR 58.7 mL/min (>60) L 01/12/18 05:22 BUN/Creatinine Ratio 14.2 (6-22) 01/12/18 05:22 Glucose 91 mg/dL (80-110) 01/12/18 05:22 Lactate 1.1 mmol/L (0.7-2.1) 01/08/18 08:28 Calcium 8.8 mg/dL (8.4-10.2) 01/12/18 05:22 Total Bilirubin 0.8 mg/dL (0.2-1.3) 01/10/18 05:23 AST 37 IU/L (17-59) 01/10/18 05:23 ALT 25 IU/L (21-72) 01/10/18 05:23 Alkaline Phosphatase 108 U/L (38-126) 01/10/18 05:23 Ammonia 10.0 umol/L (9-30) 01/07/18 15:47 Total Creatine Kinase 231 U/L (55-170) H 01/07/18 15:20 CK-MB (CK-2) 3.58 ng/mL (<2.37) H 01/07/18 15:20 CK-MB (CK-2) Rel Index 1.5 % (1.5-5.0) 01/07/18 15:20 Troponin I < 0.012 ng/mL (0.01-0.034) 01/07/18 15:20 Total Protein 6.1 g/dL (6.3-8.2) L 01/10/18 05:23 Albumin 3.4 g/dL (3.5-5.0) L 01/10/18 05:23 Globulin 2.7 g/dL (1.7-4.1) 01/10/18 05:23 Albumin/Globulin Ratio 1.3 (1.0-2.8) 01/10/18 05:23 Carcinoembryonic Ag 7.5 ng/mL (0.1-3.0) H 01/10/18 14:08 Prostate Specific Ag 2.890 ng/mL (0.10-4.00) 01/10/18 14:08 Procalcitonin < 0.05 ng/mL (<0.5) 01/08/18 08:30 Urine Color Yellow 01/07/18 23:30 Urine Appearance Clear 01/07/18 23:30 Urine pH 6.0 (4.5-8.0) 01/07/18 23:30 Ur Specific Luck 1.025 (1.000-1.035) 01/07/18 23:30 Urine Protein Negative (Negative) 01/07/18 23:30 Urine Glucose (UA) Negative g/dL (Normal) 01/07/18 23:30 Urine Ketones 1+ (NEGATIVE) H 01/07/18 23:30 Urine Occult Blood 1+ (Negative) H 01/07/18 23:30 Urine Nitrate Negative (Negative) 01/07/18 23:30 Urine Bilirubin Negative (NEGATIVE) 01/07/18 23:30 Urine Urobilinogen 0.2 E.U./dL (0.2) 01/07/18 23:30 Ur Leukocyte Esterase Negative (NEGATIVE) 01/07/18 23:30 Urine RBC 1-5/hpf (0-5/HPF) 01/07/18 23:30 Urine WBC 0-1/hpf (0-5/HPF) 01/07/18 23:30 Urine Bacteria None seen (None) 01/07/18 23:30 Ur Culture Indicated? Cult not indicated 01/07/18 23:30 Micro UA Comment Not Reportable 01/07/18 23:30 CSF Tube Number 4 01/07/18 17:35 CSF Volume 1.5 ml 01/07/18 17:35 CSF Appearance Clear (Clear) 01/07/18 17:35 CSF Color Colorless (Colorless) 01/07/18 17:35 CSF WBC 12 MONO/uL (0-5) H 01/07/18 17:35 CSF RBC 675 RBC /uL 01/07/18 17:35 CSF Mononuclear WBCs 55 % 01/07/18 17:35 CSF Polynuclear WBCs 3 % 01/07/18 17:35 CSF Glucose 49 mg/dL (40-70) 01/07/18 17:35 CSF Total Protein 126 mg/dL (12-60) H 01/07/18 17:35 - Imaging Additional studies: Procedures CATARAC PHACOEMULS/ASPIR (08/16/09) INSERT LENS AT CATAR EXT (08/16/09) Phacoemulsification and aspiration of cataract (08/05/12) Assessment and Plan (1) Primary cancer of right upper lobe of lung Problem details: Presented with left groin pain x 3 months and confusion x 1-2 weeks and hospitalizaed. MRI pelvis on 01/07/2108: marrow signal abnormalities (osseous metastasis) involving the lower lumbar spine, pelvis and proximal femur. Brain MRI 01/07/2018: innumerable small cerebral, pontine, cerebellar metastasis, as well as right frontal calvarial metastasis without midline shift, and a right anterior parotid gland mass. Bone scan: extensive osseous metastatic disease involving the axial and appendicular skeleton. CT AP 01/08/2018: circumferential bladder wall thickening with focal left sided wall lesion and possible ulceration. It also showed the known widespread osseus metastasis. CT chest 01/11/2018: 34 mm diameter spiculated density within the right apex. No mediastinal adenopathy was noted. It showed bony metastasis. Assessment: The clinical presentation and the imaging studies are consistent with primary right upper lung malignancy with metastasis involving the multiple skeletal sites as well as brain. Patient has never smoked. Thus most likely the lung cancer is adenocarcinoma. I agree that the first step is tissue diagnosis. I explained to the patient and patient's son and the that the tissue diagnosis will provide us with more information regarding the prognosis and help guide treatment. For patient was never smoked, the likelihood of adenocarcinoma is high and it may harbor what we call targets. I talked with the patient that if there is any molecular target, it is possible to treat with tyrosine kinase inhibitors. Usually patient will respond to the treatment well. I also discussed with Dr. Phipps about the best route for biopsy. We reviewed the CT scan images on the computer screen The right upper lung lesion is at a location where it poses significant risk for biopsy. Therefore we agree that the left sacrum soft tissue mass could be the best site for obtaining tissue diagnosis. I also touched base with Dr. Srivastava and we both agree that the first step is to proceed with tissue diagnosis. I recommended that we start the patient on low-dose steroids dexamethasone 2 mg Q12H. And schedule follow-up with with me after discharge. Plan: 1. CT guided biopsy of sacrum lesion 2. Follow up with me after discharge (2) Altered mental status Assessment: The mental status changes most likely is related to the white spread intracranial metastasis, which is characterized by small but multiple lesions. No midline shift. Clinically he does not have headache symptoms. I think patient will benefit from low-dose dexamethasone for symptomatic treatment. I do not think that patient will need urgent radiation treatment. If the molecular studies for biopsy revealed any molecular targets, the brain metastasis will respond to targeted therapy. If no targets identified, he may respond to immunotherapy (check point inhibitor). However patient if develops significant symptoms, patient may need urgent radiation palliative therapy. Plan: Recommend dexamethasone 2 mg po q12h (3) Lesion of bladder Problem details: On CT scan, it showed wall thickening and a left bladder wall lesion. He also has past medical history of hematuira and urinary retention. Assessment and Plan: The bladder lesion needs further evaluation by urologist. It is somewhat concerning given the CT imaging report. But the evaluation with cystoscopy can be done as an outpatient in my opinion. (4) Parotid mass Assessment and Plan: Not sure the exact etiology and the relationship to the widely metastatic cancer as well as the bladder lesion. Patient will need continued active surveillance.
--- NOTE | 2018-01-13 09:36 | PT.IPTN ---
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) Other chronic pain (01/07/18) Metabolic encephalopathy (01/07/18) Disease of salivary gland, unspecified (01/07/18) Disorder of bone, unspecified (01/07/18) Bladder disorder, unspecified (01/07/18) Urinary tract infection, site not specified (01/07/18) Left lower quadrant pain (01/07/18) Altered mental status, unspecified (01/07/18) Personal history of other diseases of the digestive system (01/07/18) Other specified postprocedural states (01/07/18) Physical Therapy Treatment Note M2 PT-IP Current Condition Start: 01/08/18 16:12 Freq: NEEDED Status: Active Protocol: Document 01/08/18 16:30 AB (Rec: 01/08/18 17:22 AB [id number]) Physical Therapy Current Condition Current Condition Evaluation Date 01/08/18 Treatment Diagnosis AMS; difficulty in walking Onset Date 01/07/18 Precautions Other Precautions falls; BP M3 PT-IP Subjective Start: 01/08/18 16:12 Freq: NEEDED Status: Active Protocol: Document 01/13/18 09:10 CLB (Rec: 01/13/18 09:36 CLB [id number]) Subjective Physical Therapy Visit Type Type Treatment Note Visit Start Time 09:10 Visit Stop Time 09:25 Total Visit Minutes 15 Notes Son present 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 Physical Therapy Visit Comments Patient Comments Pt agreeable to ambulate Therapy Pain Assessment Pain When Pain Assessed During Mobility Pain Present Pain Present Denied Pain M4 PT-IP Mobility and Gait Start: 01/08/18 16:12 Freq: NEEDED Status: Active Protocol: Document 01/13/18 09:10 CLB (Rec: 01/13/18 09:36 CLB [id number]) PT-Bed Mobility Assessment Supine to Sit Supine to Sit Independent Sit to Supine Sit to Supine Independent Scooting Scooting to Edge of Bed Independent Scooting Up and Down in Bed Independent PT-Transfer Assessment Sit to and From Stand Sit to and from Stand Standby Assistance Equipment Transfer Assistive Device Gait Belt Front Wheeled Walker Orthotic/Prosthetic Devices or Brace: No Gait Assessment Gait Gait Assistance Required: Contact Guard Assist Distance (Feet) 420 Able to Maintain Weight Bearing Status Yes During Gait Assistive Devices Assistive Device Gait Belt Front Wheeled Walker Orthotic/Prosthetic Devices or Brace: No Gait Deviations General Gait Pattern Decreased Stride Length Decreased Feet Clearance Factors Limiting Gait Function Factors Limiting Gait Function Decreased Strength Poor Balance Comments Gait Comments Pt less steady today with lateral lean and minor LOB to right side during left turn in toribio. M5 PT-IP Objective Assessments Start: 01/08/18 16:12 Freq: NEEDED Status: Active Protocol: Document 01/08/18 16:30 AB (Rec: 01/08/18 17:22 AB [id number]) Orientation Orientation/Cognition Level of Alertness Confusional State Orientation Name Safety Awareness Decreased Safety Awareness Memory Description Short Term Impaired Skilled Nursing Impaired Strength Lower Extremity Strength Assessment Within Functional Limits M6 PT-IP Treatment Start: 01/08/18 16:12 Freq: NEEDED Status: Active Protocol: Document 01/11/18 09:15 LJ (Rec: 01/11/18 09:43 LJ [id number]) Physical Therapy Treatment Exercises Exercises Gluteal Sets Quad Sets Heel Slides Straight Leg Raises Education Education Provided Safety Other Treatments Other Treatment Performed mini sit ups in reclined position in bed. M7 PT-IP Assessment and Plan Start: 01/08/18 16:12 Freq: NEEDED Status: Active Protocol: Document 01/13/18 09:10 CLB (Rec: 01/13/18 09:36 CLB [id number]) PT Summary Assessment and Plan Potential Rehabilitation Potential Fair Status of Condition at Evaluation Evolving Summary Progress Towards Goals Progressing Toward Goals Assessment Summary Pt with minor LOB to right with left turn needing cues for posture and watching obstacles on right side. Goals Bed Mobility Goal Standby Assistance Transfer Goal Standby Assistance Front Wheeled Walker Gait Goal Standby Assistance Front Wheel Walker Gait Distance 150 Frequency of Treatment Frequency Of Treatment Once a Day Treatment Plan Physical Therapy Treatment Plan Gait Training Therapeutic Exercise Balance Retraining Discharge Planning Neuromuscular Re-ed Other Recommendations and Next Treatment Standing balance & gait Focus Recommendations To Nursing Amount of Assist Needed Standby Assistance Discharge Recommendations PT Discharge Recommendations SNF Rehab
[2018-01-13] MEDS: ENOXAPARIN 40 MG/0.4 ML SYRINGE SUBCUT (09:47)
[2018-01-13] MEDS: risperiDONE 0.25 MG TABLET 0.5 MG PO ×2 (09:48→20:34)
[2018-01-13] MEDS: DOCUSATE 100 MG CAPSULE PO ×2 (09:48→20:34)
[2018-01-13] MEDS: SODIUM CHLORIDE 0.9% FLUSH 10 ML IV (09:50)
--- NOTE | 2018-01-13 10:51 | PC.NURSE ---
Pt denies pain, appears calm with almost-baseline mentation (according to family). Seen by oncologist, Dr Mohr who is recommending biopsy of the pelvic region and to start on dexamethasone. Follow up with him as outpatient. O2 sats = 98% on RA. Bed alarm on and family in room with pt.
--- NOTE | 2018-01-13 12:45 | CM.DPC ---
DCP: continued: Case received, EMR for last 2 days reviewed and met with pt and his family. Oncologist Dr. Mohr had just been here and he is recommending a tissues biopsy: he notes that the primary source of the cancer is likely lung and that the type of cancer may tanisha itself to treatment. He and Dr. Srivastava will be discussing this today. DPOA paperwork has been completed, a notary/Lupe from [employer] Records was summoned and graciously agreed to come to the room and notarize the document. : Malinda is POA # 1. If she is unable to serve in this capacity POA #2 is son Arnoldo Lord. Original plus copies are now given to Malinda, one is to Medical Records. The other is placed into red folder/hard copy chart. Spoke then to Arnoldo and Malinda to get an idea of the eventual d/c disposition. They both said that a plan move in with family was not being considered at this time. Arnoldo acknowledges that at this point much is not known but at this point [facility] would be the preferred setting. (a family member is working now at [employer]) Explained the Medicare snf benefit and the financial issues with Medicare without a supplement. Arnoldo does not seem concerned and is very reassuring with his mother. Agreed to put in a referral to [facility]/done: Mirta will be reviewing with her team and will get back to us. P: remains in process and dependent on POC decisions: will continue to follow closely.
--- NOTE | 2018-01-13 13:40 | OT.IP.TRT ---
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) Other chronic pain (01/07/18) Metabolic encephalopathy (01/07/18) Disease of salivary gland, unspecified (01/07/18) Disorder of bone, unspecified (01/07/18) Bladder disorder, unspecified (01/07/18) Urinary tract infection, site not specified (01/07/18) Left lower quadrant pain (01/07/18) Altered mental status, unspecified (01/07/18) Personal history of other diseases of the digestive system (01/07/18) Other specified postprocedural states (01/07/18) Occupational Therapy Treatment Note M2 OT-IP Current Condition Start: 01/09/18 10:42 Freq: Status: Active Protocol: Document 01/09/18 10:32 PJM (Rec: 01/09/18 11:23 PJM [id number]) Occupational Therapy Current Condition Current Condition Evaluation Date 01/09/18 Treatment Diagnosis decreased self care,mobility, cognition w/new dx of cancer, primary source ? Diagnosis Onset Date 01/07/18 Post Operative Precautions Other Precautions high fall risk, impulsive, confusion, bone mets M3 OT- IP Subjective and Pain Start: 01/09/18 10:42 Freq: Status: Active Protocol: Document 01/13/18 13:43 PJM (Rec: 01/13/18 13:44 PJM [id number]) OT- Subjective Occupational Therapy Visit Type Type Administrative Note Visit Start Time 13:40 Notes OT attempt. Pt off floor at procedure. Will attempt again as schedule and pt status permit. No charge.
--- NOTE | 2018-01-13 14:54 | PC.NURSE ---
Pt went for bone biopsy and is now in bed lying flat as per instructions until 1600. Denies pain. Bed alarm activated.
--- NOTE | 2018-01-13 18:01 | PM.PN.1 ---
Subjective Date Patient Seen: 01/13/18 Time Patient Seen: 18:01 Interval history: Patient is resting in bed peacefully without any complaints well family is around bedside. Since I last saw the patient I have discussed with Oncology and Torres Marin in Radiology and they have spoken to each other and Oncology has consulted on patient. He subsequently underwent a biopsy of the sacral area and results are pending. It is suspected that he has a primary lung cancer and we will do molecular studies to check for sensitivities. Dr. unger is hopeful that he should respond well to treatment and patient is willing to consider this option. He continues to be unsteady and impulsive. He is not safe to be alone because of this. He needs assistance. Twelve point review of systems is otherwise negative No shortness of breath, no cough no dyspnea on exertion No lightheadedness No chest pain He is eating well without difficulty Normal stooling and urinating Exam Vital Signs (past 8 hours): - 01/13/18 10:38 01/13/18 13:28 01/13/18 14:23 Temperature 98.8 F Pulse Rate 57 L 64 Respiratory Rate 14 18 Blood Pressure 141/70 H 147/61 H Pulse Oximetry 98 96 96 01/13/18 16:17 Temperature 98.4 F Pulse Rate 54 L Respiratory Rate 18 Blood Pressure 139/79 Pulse Oximetry 94 Oxygen Delivery Method Room Air Oxygen Flow Rate 0 Narrative Exam Narrative: Alert and oriented x3 HEENT: Unremarkable Neck: Supple Chest: Clear to auscultation without wheezes rhonchi or crackles Cor: Regular rate and rhythm without murmur Abdomen: Positive bowel sounds, soft, nontender, nondistended Extremities: No edema pulses intact Objective Labs Result Diagrams: 01/12/18 05:22 01/12/18 05:22 Labs: Laboratory Results - last 24 hr 01/07/18 17:35 Ref Test (Refrig) Assessment & Plan Plan: Assessment/Plan Narrative: 77-year-old male with presumed primary lung cancer with widespread metastases to bone of the pelvis femur and innumerable metastases to the brain Plan: Appreciate Oncology and Radiology input Will await pathology results to determine treatment. Patient will follow up with Dr. unger next week in his office Based on his recommendations we will start dexamethasone 2 mg by mouth every 12 hr to see if this helps with some of the delirium and instability. Assessment 2. Delirium and hallucination secondary to metastases to the brain and well controlled with Risperdal Plan: Will continue Risperdal Will start dexamethasone. We discussed side effects and intended goal of treatment Assessment 3. DVT prophylaxis Plan: Continue Lovenox Assessment 4. GI prophylaxis Plan: Continue on pantoprazole Assessment 5. Disposition Anticipate discharge to skilled care facility for strengthening and help with balance. Patient's family is very supportive and they plan to stay with him while he is at the care facility but they do not feel it would be safe for him to go home to be with them because of risk for falls. The hopes will be after beginning treatment to get him back to his home [facility]. This however would be the long-term plan. In the short time he does need further physical therapy for strengthening and balance
[2018-01-13] MEDS: SENNOSIDES 8.6 MG TABLET 17.2 MG PO (20:34)
[2018-01-14] VITALS (8 sets, daily range): BP systolic 114–171; BP diastolic 58–83; PULSE 59–82; RESP 14–19; TEMP 36.4–37.2; O2SAT 91–97
[2018-01-14] MEDS: IBUPROFEN 600 MG TABLET PO (00:51)
--- NOTE | 2018-01-14 08:37 | PC.NURSE ---
Patient did not sleep well last night. Patients son asked me not to wake him. I left the breakfast tray in the room on the bedside table, let the son know that when his father woke up I could get him some food. RN notified. -RITA Conrad
[2018-01-14] MEDS: DEXAMETHASONE 1 MG TABLET 2 MG PO ×2 (10:10→17:19)
[2018-01-14] MEDS: ENOXAPARIN 40 MG/0.4 ML SYRINGE SUBCUT (10:11)
[2018-01-14] MEDS: PANTOPRAZOLE 40 MG TABLET PO (10:11)
[2018-01-14] MEDS: DOCUSATE 100 MG CAPSULE PO ×2 (10:11→21:22)
[2018-01-14] MEDS: risperiDONE 0.25 MG TABLET 0.5 MG PO ×2 (10:11→21:22)
--- NOTE | 2018-01-14 10:22 | PC.NURSE ---
Day shift son at bedside, pt sleeping this morning and son requested to let him sleep. around 1000b pt up and assisted to bathroom, sitting up in chair eating breakfast, son reports he was a little confused this morning after waking up but is clearning a little better now. alert to self and place. call light within reach and bed alarm for safety.
--- NOTE | 2018-01-14 10:58 | OT.IP.TRT ---
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 (01/07/18) Other chronic pain (01/07/18) Metabolic encephalopathy (01/07/18) Disease of salivary gland, unspecified (01/07/18) Disorder of bone, unspecified (01/07/18) Bladder disorder, unspecified (01/07/18) Urinary tract infection, site not specified (01/07/18) Left lower quadrant pain (01/07/18) Altered mental status, unspecified (01/07/18) Personal history of other diseases of the digestive system (01/07/18) Other specified postprocedural states (01/07/18) Occupational Therapy Treatment Note M2 OT-IP Current Condition Start: 01/09/18 10:42 Freq: Status: Active Protocol: Document 01/09/18 10:32 PJM (Rec: 01/09/18 11:23 PJM [id number]) Occupational Therapy Current Condition Current Condition Evaluation Date 01/09/18 Treatment Diagnosis decreased self care,mobility, cognition w/new dx of cancer, primary source ? Diagnosis Onset Date 01/07/18 Post Operative Precautions Other Precautions high fall risk, impulsive, confusion, bone mets M3 OT- IP Subjective and Pain Start: 01/09/18 10:42 Freq: Status: Active Protocol: Document 01/14/18 10:58 PJM (Rec: 01/14/18 17:05 PJM [id number]) OT- Subjective Occupational Therapy Visit Type Type Treatment Note Visit Start Time 10:38 Visit Stop Time 10:58 Total Visit Minutes 20 Notes Pt awake and alert in bed with son present. Occupational Therapy Visit Comments Patient Comments What would you like me to do? Patient/Caregiver Goals none verbalized this session OT Pain Assessment Pain When Pain Assessed After Treatment Pain Present Pain Present Denied Pain M4 OT- IP ADL's Start: 01/09/18 10:42 Freq: Status: Active Protocol: Document 01/14/18 10:58 PJM (Rec: 01/14/18 17:05 PJM [id number]) OT ADL-Grooming General Evaluation Grooming Ability Standby Assistance Areas Needing Assistance Combing/Brushing Hair Shaving OT ADL-Oral Care Comments Oral Care Comments pt decline this session OT ADL-Dressing General Eval Lower Body Dressing Ability Standby Assistance Areas Needing Assistance Socks Comments OT Dressing Comments Pt needs SBA for dynamic balance when reaching down to M6 OT- IP Functional Cognition Start: 01/09/18 10:42 Freq: Status: Active Protocol: Document 01/14/18 10:58 PJM (Rec: 01/14/18 17:05 [facility] [id number]) Cognitive Factors Limiting Selfcare Function Cognitive Ability Level of Alertness Alert Patient Orientation Name Place Attention Span Ability Capable of Focused Attention Ability to Follow Commands Able to Follow One Step Commands Safety Awareness Decreased Recall of Precautions Decreased Ability to Apply Precautions Underestimates Need for Assistance Cognitive Comments Cognitive Assessment Comments Pt alert pleasant and cooperative, but having trouble problem solving use of unfamiliar razor case and operating zipper on case. Performs very slowly with this task. OT- Vision and Hearing OT- Vision Assessment Visual Acuity WFL Glasses For Reading Vision Assessment Comments Pt able to read wall clock accurately this session without glasses. No obvious hallucinations. M7 OT- IP Mobility and Balance Start: 01/09/18 10:42 Freq: Status: Active Protocol: Document 01/14/18 10:58 PJM (Rec: 01/14/18 17:05 [facility] NR) OT- Bed Mobility Assessment Rolling Type of Rolling Roll to Left Level of Assistance Standby Assistance, flat bed, no rails 1 Person Assistance Supine to Sit Supine to Sit Assist Standby Assistance 1 Person Assistance Scooting Scooting to Edge of Bed Standby Assistance 1 Person Assistance OT-Transfer Assessment Sit to and From Stand Sit to and from Stand Contact Guard Assistance 1 Person Assistance Devices Transfer Assistive Devices Gait Belt Front Wheeled Walker OT- Gait Assessment Gait Gait Assistance Required: Contact Guard Assist Distance (Feet) 8 Assistive Devices Assistive Device Gait Belt Front Wheeled Walker Comments Gait Ability Comments Pt ambulated to sink, then P.T. arrived to walk with pt once he finished at sink. OT- Balance Assessment Sitting Balance and Reactions Static Sitting Balance Ability Good Dynamic Sitting Balance Ability Fair Standing Balance and Reactions Static Standing Balance Ability Good Dynamic Standing Balance Ability Fair M9 OT- IP Assessment and Plan Start: 01/09/18 10:42 Freq: Status: Active Protocol: Document 01/14/18 10:58 PJM (Rec: 01/14/18 17:05 [facility] [id number]) OT Summary Assessment and Plan Summary OT Impairments Balance Functional Cognition Functional Mobility Dressing Toileting Bathing Toilet Transfers Shower Transfers Assessment Summary Pt pleasant and cooperative today with no obvious hallucinations. Pt SBA with flat bed mobility, no rails and and SBA, but slow, with seated lower body dressing. Pt able to complete grooming standing at sink with close SBA and CGA for functional mobility. No loss of balance noted, but remains mildly unsteady. Pt performs all tasks slowly with decreased problem solving noted during simple self care tasks such as use of zipper on unfamiliar razor case. Pt needs min verbal cues to ensure task completion. Pt needs 24/ supervision for safety. Goals Self-Feeding Goal Standby Assistance Grooming Goal Standby Assistance Dressing Goal Standby Assistance Toileting Goal Standby Assistance Bathing Goal Minimal Assistance Toilet Transfer Goal Contact Guard Assistance Shower Transfer Goal Contact Guard Assistance Patient/Caregiver Education Goal Caregiver Independent Assisting Patient Days to Meet Goals 4 Frequency of Treatment Frequency Of Treatment Once a Day Treatment Plan OT Treatment Plan ADL Training Functional Cognition Training Functional Mobility Patient/Family Education Discharge Planning Discharge Recommendations OT Discharge Recommendations SNF Rehab
--- NOTE | 2018-01-14 11:43 | CM.DPC ---
Addendum entered by Milvia Tate LPN 01/14/18 17:08: Spoke with Dr. Walker this afternoon after he met with pt and the family. He is updated re the POC issues and options. [facility] is still considering and Rina will meet tomorrow at some point with DAVON Petty and Arnoldo, pt and any other family members for further discussion. Kriss GUTIERREZ has been identified as a Plan B at request of other son who stopped in for a tour. Discussed referral with their victim witness administrator Alexys as he has not been aware of what might be needed as part of their acceptance process in terms of financial issues related to Medicare and oncology treatment. Spoke also with Mirta [facility]. She says there is a type of billing that can occur if pt is under oncology chemotherapy treatment. Dr. Walker says any determination of treatment will be left to oncology (family had understood from Dr. Srivastava that pt might just go on oral agent treatment). DCP team will continue to follow. DAVON contact info in now on the WB in room. Arnoldo's cell: [phone] Original Note: DCP: continued. Discussed case with Mirta/DANIE now and went over Dr. Srivastava's note of yesterday 1800 with her. The [facility] team has not made a final decision re acceptance, they are also looking for the oncology plan so that they understand what the snf responsibilities might be to pt and his POC. Asked about an onsite visit by their DNS Rina and she agreed this would be helpful to see the pt in person and also to discuss the plan and various options with the family. P: remains in process. It would be helpful to discuss this case with the physician team but rounds have been primarily outside of CM hours thus far.
--- NOTE | 2018-01-14 13:35 | PM.PN.1 ---
Subjective Date Patient Seen: 01/14/18 Time Patient Seen: 13:36 Interval history: Met with patient, , and 2 sons this afternoon. They have remained very attentive they are spending every night with the patient and are very concerned about his status and prognosis, and treatment. Continues to be fairly confused although provided a pretty good a conversation for us today, and there is some concern about his safety being up and around being somewhat impulsive and unsteady with a risk for falls. So we are awaiting decision from local SNF as far as placement, but still no results yet time pathology from lesion biopsy from yesterday. So still little up in the air as far as where her going. Has also been noticing some vision changes describing times where it seems that his central vision blacks out, seeing something peripherally that disappears when he turns towards it. But also some rather vivid dreams Exam Vital Signs (past 8 hours): - 01/14/18 06:54 01/14/18 07:00 01/14/18 07:33 Temperature 98.2 F 98.2 F Pulse Rate 82 59 L Respiratory Rate 18 14 Blood Pressure 171/83 H 142/64 H Pulse Oximetry 97 93 95 01/14/18 11:34 Temperature 97.6 F Pulse Rate 61 Respiratory Rate 16 Blood Pressure 114/67 Pulse Oximetry 94 Oxygen Delivery Method Room Air Oxygen Flow Rate 0 Narrative Exam Narrative: Lying quietly in bed awake and alert appropriately interactive although at times somewhat confused. HEENT unremarkable pupils equal round and reactive to light. Neck is benign chest is clear heart regular without murmur abdomen soft nontender nondistended normoactive bowel tones extremities benign neurologically nonfocal except as above Objective Labs Result Diagrams: 01/12/18 05:22 01/12/18 05:22 Assessment & Plan (1) Primary cancer of right upper lobe of lung: Problem details: Current presumption of source of extensive metastasis. Awaiting pathology of a pelvic bone biopsy. Current visit: Yes Status: Acute (2) Metastasis to bone: Problem details: Presumed metastasis from above with path pending. No current pain issues. Current visit: No Status: Acute (3) Metastasis to brain: Problem details: Also assumed metastasis from 1st item, and still suspecting this as cause of his mental status. Current visit: No Status: Acute (4) Altered mental status: Problem details: Again I believe this most likely is due to the extensive metastasis as above. There was some concern it 1st that this might be infectious however cultures have all been negative and item above is more suspicious Qualifiers: Altered mental status type: unspecified Coma depth: Coma timing: Qualified Code(s): R41.82 - Altered mental status, unspecified Current visit: Yes Status: Acute (5) Lesion of bladder: Problem details: And this was a existing issue of some time ago not clear if it has contributed to above issues or not. Current visit: No Status: Acute (6) Parotid mass: Problem details: incidental findings on imaging. Current visit: No Status: Acute Plan: Assessment/Plan Narrative: For now awaiting pathology for a next step in treatment. Spoke with care management to indicate SNF placement is pending the cancer strategy somehow so placement is pending as well. Hopefully will have more information tomorrow to decide where to go from here. No other changes today. 45 min spent with the patient and family this afternoon.
--- NOTE | 2018-01-14 14:08 | PT.IPTN ---
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 (01/07/18) Other chronic pain (01/07/18) Metabolic encephalopathy (01/07/18) Disease of salivary gland, unspecified (01/07/18) Disorder of bone, unspecified (01/07/18) Bladder disorder, unspecified (01/07/18) Urinary tract infection, site not specified (01/07/18) Left lower quadrant pain (01/07/18) Altered mental status, unspecified (01/07/18) Personal history of other diseases of the digestive system (01/07/18) Other specified postprocedural states (01/07/18) Physical Therapy Treatment Note M2 PT-IP Current Condition Start: 01/08/18 16:12 Freq: NEEDED Status: Active Protocol: Document 01/08/18 16:30 AB (Rec: 01/08/18 17:22 AB [id number]) Physical Therapy Current Condition Current Condition Evaluation Date 01/08/18 Treatment Diagnosis AMS; difficulty in walking Onset Date 01/07/18 Precautions Other Precautions falls; BP M3 PT-IP Subjective Start: 01/08/18 16:12 Freq: NEEDED Status: Active Protocol: Document 01/14/18 10:55 CLB (Rec: 01/14/18 14:07 CLB [email or web address]) Subjective Physical Therapy Visit Type Type Treatment Note Visit Start Time 10:55 Visit Stop Time 11:13 Total Visit Minutes 18 Notes Pt up at sink with OT upon arrival. Number of WAREHOUSE ORDER PICKER Visits 5 Physical Therapy Visit Comments Patient Comments Pt agreeable to ambulate Therapy Pain Assessment Pain When Pain Assessed During Mobility Pain Present Pain Present Denied Pain M4 PT-IP Mobility and Gait Start: 01/08/18 16:12 Freq: NEEDED Status: Active Protocol: Document 01/14/18 10:55 CLB (Rec: 01/14/18 14:07 CLB [email or web address]) PT-Bed Mobility Assessment Sit to Supine Sit to Supine Independent Scooting Scooting Up and Down in Bed Independent PT-Transfer Assessment Sit to and From Stand Sit to and from Stand Standby Assistance Equipment Transfer Assistive Device Gait Belt Front Wheeled Walker Orthotic/Prosthetic Devices or Brace: No Gait Assessment Gait Gait Assistance Required: Contact Guard Assist Distance (Feet) 280 Able to Maintain Weight Bearing Status Yes During Gait Assistive Devices Assistive Device Gait Belt Front Wheeled Walker Orthotic/Prosthetic Devices or Brace: No Gait Deviations General Gait Pattern Decreased Stride Length Decreased Feet Clearance Factors Limiting Gait Function Factors Limiting Gait Function Decreased Strength Poor Balance Comments Gait Comments Pt required CGA with ambulation and cues to watch obstacles in toribio on left side . Pt ambulated w/o LOB. M5 PT-IP Objective Assessments Start: 01/08/18 16:12 Freq: NEEDED Status: Active Protocol: Document 01/08/18 16:30 AB (Rec: 01/08/18 17:22 AB [id number]) Orientation Orientation/Cognition Level of Alertness Confusional State Orientation Name Safety Awareness Decreased Safety Awareness Memory Description Short Term Impaired Web Programmer Impaired Strength Lower Extremity Strength Assessment Within Functional Limits M6 PT-IP Treatment Start: 01/08/18 16:12 Freq: NEEDED Status: Active Protocol: Document 01/14/18 10:55 CLB (Rec: 01/14/18 14:07 CLB [email or web address]) Physical Therapy Treatment Exercises Exercises Gluteal Sets Quad Sets Heel Slides Straight Leg Raises Education Education Provided Safety Other Treatments Other Treatment Performed Standing balance WBS EO/EC, NBS EO/EC, perturbation at shoulders, hips. M7 PT-IP Assessment and Plan Start: 01/08/18 16:12 Freq: NEEDED Status: Active Protocol: Document 01/14/18 10:55 CLB (Rec: 01/14/18 14:07 CLB [email or web address]) PT Summary Assessment and Plan Potential Rehabilitation Potential Fair Status of Condition at Evaluation Evolving Summary Progress Towards Goals Progressing Toward Goals Assessment Summary Pt required CGA and verbal cues to watch obstacles on left side with ambulation. Pt needs SBA for sit<>stand and is independent with bed mobility. Goals Bed Mobility Goal Standby Assistance Transfer Goal Standby Assistance Front Wheeled Walker Gait Goal Standby Assistance Front Wheel Walker Gait Distance 150 Days to Meet Goals 5 Frequency of Treatment Frequency Of Treatment Once a Day Treatment Plan Physical Therapy Treatment Plan Gait Training Therapeutic Exercise Balance Retraining Discharge Planning Neuromuscular Re-ed Other Recommendations and Next Treatment Standing balance & gait Focus Recommendations To Nursing Amount of Assist Needed Standby Assistance Discharge Recommendations PT Discharge Recommendations SNF Rehab
[2018-01-15] VITALS (9 sets, daily range): BP systolic 114–149; BP diastolic 58–76; PULSE 54–79; RESP 15–20; TEMP 36.5–36.8; O2SAT 94–99
[2018-01-15] MEDS: risperiDONE 0.25 MG TABLET 0.5 MG PO ×2 (08:16→20:27)
[2018-01-15] MEDS: IBUPROFEN 600 MG TABLET PO ×2 (08:16→20:27)
[2018-01-15] MEDS: PANTOPRAZOLE 40 MG TABLET PO (08:17)
[2018-01-15] MEDS: DOCUSATE 100 MG CAPSULE PO ×2 (08:17→20:27)
[2018-01-15] MEDS: ENOXAPARIN 40 MG/0.4 ML SYRINGE SUBCUT (08:17)
[2018-01-15] MEDS: DEXAMETHASONE 1 MG TABLET 2 MG PO ×2 (08:17→18:01)
--- NOTE | 2018-01-15 09:20 | OT.IP.TRT ---
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 (01/07/18) Other chronic pain (01/07/18) Metabolic encephalopathy (01/07/18) Disease of salivary gland, unspecified (01/07/18) Disorder of bone, unspecified (01/07/18) Bladder disorder, unspecified (01/07/18) Urinary tract infection, site not specified (01/07/18) Left lower quadrant pain (01/07/18) Altered mental status, unspecified (01/07/18) Personal history of other diseases of the digestive system (01/07/18) Other specified postprocedural states (01/07/18) Occupational Therapy Treatment Note M2 OT-IP Current Condition Start: 01/09/18 10:42 Freq: Status: Active Protocol: Document 01/09/18 10:32 PJM (Rec: 01/09/18 11:23 PJM [id number]) Occupational Therapy Current Condition Current Condition Evaluation Date 01/09/18 Treatment Diagnosis decreased self care,mobility, cognition w/new dx of cancer, primary source likely lung, biopsy results pending Diagnosis Onset Date 01/07/18 Post Operative Precautions Other Precautions high fall risk, impulsive, confusion, bone mets M3 OT- IP Subjective and Pain Start: 01/09/18 10:42 Freq: Status: Active Protocol: Document 01/15/18 10:20 PJM (Rec: 01/15/18 13:34 PJM [id number]) OT- Subjective Occupational Therapy Visit Type Type Treatment Note Visit Start Time 09:41 Visit Stop Time 10:20 Total Visit Minutes 39 Notes Pt awake and alert in bed with 2 sons and present this session. Occupational Therapy Visit Comments Patient Comments What are you here to do with me? OT Pain Assessment Pain When Pain Assessed After Treatment Pain Present Pain Present Pain Reported Location Lower Back Intensity 1 Description Aching Acute M4 OT- IP ADL's Start: 01/09/18 10:42 Freq: Status: Active Protocol: Document 01/15/18 10:20 PJM (Rec: 01/15/18 13:34 PJM [id number]) OT ADL-Grooming General Evaluation Grooming Ability Standby Assistance Areas Needing Assistance Retrieving/Set-up of Grooming Items Applying Deodorant Combing/Brushing Hair Comments OT Grooming Comments Pt needs intermittent min cues for next step of task to ensure completion. OT ADL-Oral Care General Eval Oral Care Ability Standby Assistance Areas of Assistance Brushing Teeth Devices Oral Care Devices Toothbrush Comments Oral Care Comments Pt needs max verbal cues and repetition x3 to understand function of unfamiliar faucet with electronic on/off switch. Pt began process of brushing teeth again after just completing task, until reminded he just finished that task. M6 OT- IP Functional Cognition Start: 01/09/18 10:42 Freq: Status: Active Protocol: Document 01/15/18 10:20 PJM (Rec: 01/15/18 13:34 PJ [id number]) Cognitive Factors Limiting Selfcare Function Cognitive Ability Level of Alertness Alert Patient Orientation Name Place Attention Span Ability Capable of Focused Attention Ability to Follow Commands Able to Follow One Step Commands Memory Description Immediate Impaired Short Term Impaired Safety Awareness Decreased Ability to Apply Precautions Problem Solving Ability Unable to Identify Errors Needs Assist to Identify Solutions Executive Function Ability Unable to Filter Distractions Unable to Organize Plans Unable to Remember Details Unable to Integrate Past Experience With Present Action Cognitive Comments Cognitive Assessment Comments Pt able to name 4/5 simple shapes and copied all of them accurately today. Pt able to draw clock with accurate number and hand placement today. Both these tasks are much improved compared to last assessment on 01/09/18 prior to start of Risperadol use. Pt able to write name with 90% legibility today. When asked to write his current address, he wrote his address from 30 yrs ago per . With min cues, pt able to recall current address . Mod cues for phone number. Perseverative features noted in writing. OT- Vision and Hearing OT- Vision Assessment Visual Acuity Glasses For Reading M7 OT- IP Mobility and Balance Start: 01/09/18 10:42 Freq: Status: Active Protocol: Document 01/15/18 10:20 PJM (Rec: 01/15/18 13:34 [facility] [id number]) OT- Bed Mobility Assessment Rolling Type of Rolling Roll to Left Level of Assistance Standby Assistance Supine to Sit Supine to Sit Assist Standby Assistance Scooting Scooting to Edge of Bed Standby Assistance OT-Transfer Assessment Sit to and From Stand Sit to and from Stand Contact Guard Assistance Transfers Transfer Ability Contact Guard Assistance Technique Transfer Destination Chair Devices Transfer Assistive Devices Gait Belt Front Wheeled Walker OT- Gait Assessment Gait Gait Assistance Required: Contact Guard Assist Distance (Feet) 15 Assistive Devices Assistive Device Gait Belt Front Wheeled Walker OT- Balance Assessment Sitting Balance and Reactions Static Sitting Balance Ability Good Dynamic Sitting Balance Ability Good Standing Balance and Reactions Static Standing Balance Ability Good M8 OT- IP Objective Assessments Start: 01/09/18 10:42 Freq: Status: Active Protocol: Document 01/09/18 10:32 PJM (Rec: 01/09/18 11:23 PJM [id number]) OT Gross Range of Motion Upper Extremity Range of Motion Assessment Within Functional Limits OT Strength Upper Extremity Strength Assessment Within Functional Limits Hand Inpatient Services Director Strength Hand Dominance Right Comments Strength Comments No obvious focal weakness. OT- Coordination Assessment Upper Extremity Finger to Nose Test Left UE Impaired Finger Tapping Test Left UE Impaired Comments Coordination Comments LUE gross and fine motor XOCHILT's significantly slower on L compared to R. R handwriting exhibits micrographia and is < 25% legible on 01/09/18. Improved to 90% legible on 01/15/18. OT-Muscle Tone Assessment Muscle Tone WNL Yes OT Sensation Assessment Comments Summary Comments Difficult to formally assess due to confusion but pt detects light touch throughout BUE/hands. Edema Edema Absent M9 OT- IP Assessment and Plan Start: 01/09/18 10:42 Freq: Status: Active Protocol: Document 01/15/18 10:20 PJM (Rec: 01/15/18 13:34 PJM [id number]) OT Summary Assessment and Plan Summary OT Impairments Balance Functional Cognition Functional Mobility Grooming Dressing Toileting Bathing Toilet Transfers Shower Transfers Assessment Summary Pt alert, pleasant and cooperative. Compared to pt status on 01/09/18, he demonstrates much improved performance today on simple constructional praxis task, copying 5/5 shapes accurately. Clock drawing now essentially intact. Handwriting improved from <25% to 90% legible. He is asking appropriate questions about his current medical status. However, pt still presents with significant immediate, short term and intermediate memory deficits that interfere with completion of simple self care tasks as noted above. Pt currently needs 24 hr assist for safety and supervision/cueing for all self care tasks and functional mobility. Recommend SNF at d/c for further subacute rehab services. Goals Self-Feeding Goal Standby Assistance Grooming Goal Standby Assistance Dressing Goal Standby Assistance Toileting Goal Standby Assistance Bathing Goal Minimal Assistance Toilet Transfer Goal Contact Guard Assistance Shower Transfer Goal Contact Guard Assistance Patient/Caregiver Education Goal Caregiver Independent Assisting Patient Days to Meet Goals 3 Frequency of Treatment Frequency Of Treatment Once a Day Treatment Plan OT Treatment Plan ADL Training Functional Cognition Training Functional Mobility Patient/Family Education Discharge Planning Discharge Recommendations OT Discharge Recommendations SNF Rehab
--- NOTE | 2018-01-15 09:25 | PM.PN.1 ---
Subjective Date Patient Seen: 01/15/18 Time Patient Seen: 09:25 Interval history: Seen again with and 2 sons, feels well, some pain at the biopsy site, but not otherwise. Reviewed PT and OT notes seems to be making some progress also reviewed the CM notes indicating 2 possibilities for SNF placement, which is pending treatment strategies per Oncology it seems, which is pending pathology which is pending. Reviewed all this with family and no changes made. They have had a chance to look at both possible SNF facilities and feel comfortable either way. Exam Vital Signs (past 8 hours): - 01/15/18 05:00 01/15/18 08:00 Temperature 97.7 F 98.2 F Pulse Rate 79 57 L Respiratory Rate 19 18 Blood Pressure 149/76 H 149/76 H Pulse Oximetry 96 94 Oxygen Delivery Method Room Air Oxygen Flow Rate 0 Narrative Exam Narrative: Awake alert and appropriate, no evident distress. Chest is clear heart regular without murmur abdomen extremities benign. Neurologically nonfocal. Objective Labs Result Diagrams: 01/12/18 05:22 01/12/18 05:22 Assessment & Plan (1) Primary cancer of right upper lobe of lung: Problem details: Current presumption of source of extensive metastasis. Still Awaiting pathology of a pelvic bone biopsy. Current visit: Yes Status: Acute (2) Metastasis to brain: Problem details: Also assumed metastasis from 1st item, and still suspecting this as cause of his mental status. Current visit: No Status: Acute (3) Metastasis to bone: Problem details: Presumed metastasis from above with path pending. No current pain issues. Current visit: No Status: Acute (4) Lytic bone lesions on xray: Problem details: Bone scan does indicate extensive lesions both upper and lower extremities. Current visit: No Status: Acute (5) Altered mental status: Problem details: Again I believe this most likely is due to the extensive metastasis as above. There was some concern it 1st that this might be infectious however cultures have all been negative and item above is more suspicious Qualifiers: Altered mental status type: unspecified Coma depth: Coma timing: Qualified Code(s): R41.82 - Altered mental status, unspecified Current visit: Yes Status: Acute (6) Parotid mass: Problem details: incidental findings on imaging. Current visit: No Status: Acute (7) Lesion of bladder: Problem details: I understand now that the lesion 1st noted 2 years ago had been evaluated and thought to be benign, still worth monitoring I believe. Current visit: No Status: Acute Plan: Assessment/Plan Narrative: At this point we are pending pathology report which would then guide Oncology, and with that information SNF can determine if this is an appropriate situation for them. Will check labs in the morning but no other changes at this time.
--- NOTE | 2018-01-15 10:40 | CM.DPC ---
Addendum entered by Shelbi Landa R.N. 01/15/18 11:28: Mirta and Ashly are here from [facility]. Discussed residential plan. Will be seeing patient now. Original Note: DCP Cont: Met with patient and family at bedside. Other family member had spent the night with patient. Did call [facility] prior to going into room, to get a time of arrival. Mirta stated that she would call this bottle caser back with time. Let family know this, since nurse will be coming over to evaluate patient. P: DCP to continue to follow closely. Will collaborate with [facility]. If he does not get accepted, will reach out to [facility], since they have referral as well. Shelbi Landa RN/Forensic Toxicologist
--- NOTE | 2018-01-15 11:10 | PT.IPTN ---
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 (01/07/18) Other chronic pain (01/07/18) Metabolic encephalopathy (01/07/18) Disease of salivary gland, unspecified (01/07/18) Disorder of bone, unspecified (01/07/18) Bladder disorder, unspecified (01/07/18) Urinary tract infection, site not specified (01/07/18) Left lower quadrant pain (01/07/18) Altered mental status, unspecified (01/07/18) Personal history of other diseases of the digestive system (01/07/18) Other specified postprocedural states (01/07/18) Physical Therapy Treatment Note M2 PT-IP Current Condition Start: 01/08/18 16:12 Freq: NEEDED Status: Active Protocol: Document 01/08/18 16:30 AB (Rec: 01/08/18 17:22 AB [id number]) Physical Therapy Current Condition Current Condition Evaluation Date 01/08/18 Treatment Diagnosis AMS; difficulty in walking Onset Date 01/07/18 Precautions Other Precautions falls; BP M3 PT-IP Subjective Start: 01/08/18 16:12 Freq: NEEDED Status: Active Protocol: Document 01/15/18 11:10 GGD (Rec: 01/15/18 11:31 GGD [id number]) Subjective Physical Therapy Visit Type Type Treatment Note Visit Start Time 10:45 Visit Stop Time 11:10 Total Visit Minutes 15 Number of AREA LOSS PREVENTION MANAGER Visits 6 Physical Therapy Visit Comments Patient Comments Pt want's to walk M4 PT-IP Mobility and Gait Start: 01/08/18 16:12 Freq: NEEDED Status: Active Protocol: Document 01/15/18 11:10 GGD (Rec: 01/15/18 11:31 GGD [id number]) PT-Transfer Assessment Sit to and From Stand Sit to and from Stand Standby Assistance Equipment Transfer Assistive Device Gait Belt Front Wheeled Walker Orthotic/Prosthetic Devices or Brace: No Transfers Transfer Destination Chair Transfer Ability Level of Assist Standby Assistance Gait Assessment Gait Gait Assistance Required: Contact Guard Assist Distance (Feet) 560 Able to Maintain Weight Bearing Status Yes During Gait Assistive Devices Assistive Device Gait Belt Front Wheeled Walker Orthotic/Prosthetic Devices or Brace: No Gait Deviations General Gait Pattern Decreased Stride Length Decreased Feet Clearance Lateral Trunk Lean Factors Limiting Gait Function Factors Limiting Gait Function Decreased Strength Poor Balance Comments Gait Comments Pt ambulated 500 feet with FWW and then 10 without assistive device with CGA. M5 PT-IP Objective Assessments Start: 01/08/18 16:12 Freq: NEEDED Status: Active Protocol: Document 01/08/18 16:30 AB (Rec: 01/08/18 17:22 AB [id number]) Orientation Orientation/Cognition Level of Alertness Confusional State Orientation Name Safety Awareness Decreased Safety Awareness Memory Description Short Term Impaired Configuration Release Manager Impaired Strength Lower Extremity Strength Assessment Within Functional Limits M6 PT-IP Treatment Start: 01/08/18 16:12 Freq: NEEDED Status: Active Protocol: Document 01/15/18 11:10 GGD (Rec: 01/15/18 11:31 GGD [id number]) Physical Therapy Treatment Exercises Exercises Ankle Pumps Gluteal Sets Seated Knee Flexion/Extension Education Education Provided Safety Other Treatments Other Treatment Performed Standing balance WBS EO/EC, NBS EO/EC, head turns M7 PT-IP Assessment and Plan Start: 01/08/18 16:12 Freq: NEEDED Status: Active Protocol: Document 01/15/18 11:10 GGD (Rec: 01/15/18 11:31 GGD [id number]) PT Summary Assessment and Plan Summary Assessment Summary Pt improving with mobility. He need cues to be aware of left side during gait. He had mild unsteadiness and increase DONATO with gait without assistive device. Frequency of Treatment Frequency Of Treatment Once a Day Treatment Plan Other Recommendations and Next Treatment Standing balance & gait Focus Recommendations To Nursing Amount of Assist Needed Standby Assistance Discharge Recommendations PT Discharge Recommendations SNF Rehab
--- NOTE | 2018-01-15 12:40 | CM.DPC ---
DCP Cont: Spoke to Mirta from [facility], regarding visit with her and DNS, Ashly. Stated that they could accept patient, could go tomorrow, but would be of advantage to know the treatment plan from oncology. Stated that this was discussed with family during visit. Stated that they could not provide chemo meds as well. Did state that patient could go to [facility] before pathology results are in. Stated that they would continue to look at notes. P: DCP to continue to follow closely, and look at treatment options. Can go to [facility] tomorrow, before biopsy results are in. Will collaborate with nursing as well to see when oncologist will be in to see patient. Shelbi Landa RN/Hearing Stenographer
--- NOTE | 2018-01-15 13:48 | CM.DPC ---
Addendum entered by Shelbi Landa R.N. 01/15/18 14:32: Met with and other son. They toured [facility], and liked the facility. They already received a phone call from [facility] stating that they could not accept with out a full treatment plan, so [facility] is their choice. Will be in touch with Dr. Walker regarding discharge. Original Note: DCP Cont: Met with patient's son regarding plan. Stated that he had a good meeting with [facility] staff. Discussed biopsy, as is still pending, along with treatment plan. Stated that patient could potentially go to [facility] tomorrow, but may depend on biopsy and treatment as well. Patient's son stated that Dr. Walker may have biopsy results today. P: DCP to continue to follow and collaborate with family on plan. Could potentially be discharged tomorrow to [facility] depending upon treatment plan. Shelbi Landa RN/Shipping Services Sales Representative
--- NOTE | 2018-01-15 16:51 | PC.NURSE ---
Student Nurse Mare Note: 1600: Patient is back in bed from sitting in the recliner. Patient is up with a one person assist, gait belt, and front wheel walker. Family in the room assisting with getting patient up to the bathroom when needed. Patient consumed guyanese fries that family brought in. Patient seemed slightly confused. When asked what year it was, patient stated it was 1979. Patient reports no pain at the moment. Resting comfortably in bed, bed is in low position, bed alarm on for patient safety, call light is within reach. Patient calls appropriately and is cooperative.
[2018-01-16 05:53] LABS: Add Manual Diff / Slide Review NO; Basophils Percent Auto 0.4 % (0-2); Eosinophils Percent Auto 0.5 % (2-4); Hematocrit 39.8 % (41-53); Hemoglobin 13.6 g/dL (13.5-17.5); Lymphocytes Percent Auto 20.8 % (25-40); Mean Corpuscular HGB Conc 34.2 % (30-36); Mean Corpuscular Hemoglobin 31.6 PG (26-34); Mean Corpuscular Volume 92.5 fL (80-100); Monocytes Percent Auto 6.2 % (3-14); Neutrophils Absolute Auto 6900 /uL (3000-5900); Neutrophils Percent Auto 72.1 % (50-75); Platelet Count 197 X10^3/uL (150-400); Red Cell Distribution Width 13.3 % (11.6-14.8); White Blood Cell Count 9.6 X10^3/uL (4.5-11.0)
[2018-01-16 05:58] LABS: Alanine Aminotransferase 37 IU/L (21-72); Albumin 3.6 g/dL (3.5-5.0); Albumin Globulin Ratio 1.2 (1.0-2.8); Alkaline Phosphatase 119 U/L (38-126); Aspartate Aminotransferase 29 IU/L (17-59); Bilirubin Total 0.4 mg/dL (0.2-1.3); Blood Urea Nitrogen 19 mg/dL (9-20); Calcium 9.1 mg/dL (8.4-10.2); Carbon Dioxide 24 mmol/L (22-32); Chloride 107 mmol/L (98-107); Estimated Glomerular Filt Rate > 60.0 mL/min (>60); Globulin 2.9 g/dL (1.7-4.1); Glucose 112 mg/dL (80-110); HEMOLYSIS < 15 (0-50); Potassium 4.2 mmol/L (3.4-5.1); Sodium 142 mmol/L (137-145); Total Protein 6.5 g/dL (6.3-8.2)
[2018-01-16 07:00] VITALS: BP 139/50; PULSE 54; RESP 18; TEMP 36.4; O2SAT 94
[2018-01-16 09:00] VITALS: O2SAT 94
--- NOTE | 2018-01-16 09:05 | P.DS_ITS ---
History of Present Illness Date Patient Seen: 01/16/18 Time Patient Seen: 09:04 Chief complaint: SEMI UNRESPONSIVE Narrative: See H&P. Was admitted due to altered mental status, however admitting physicians were unaware of a recent finding on MRI of the pelvis showing diffuse bony metastasis. So workup was for causes of altered mental status including labs, lumbar puncture, imaging, with the assumption that it was an infectious process. Discharge Providers Date of admission: 01/07/18 17:42 Primary care physician: Vu Walker MD Consults: 01/08/18 13:03 Consult to Physical Therapy Evaluate & Treat Comment: Physician Instructions: Evaluate and Treat 01/08/18 13:04 Consult to Occupational Therapy Evaluate & Treat Comment: Physician Instructions: Evaluate and treat 01/11/18 13:39 Consult to Oncology Routine Comment: Consulting Provider: Ryne Mohr Reason for consultation: metastatic cancer with unknown primary Has provider been notified: Yes Discharge provider: Vu Walker MD Discharge Date: 01/16/18 Summary Discharge Diagnosis: Presumed primary lung neoplasm Metastatic bone disease Metastatic brain disease Altered mental status presumed due to last item Urinary tract infection Bladder lesion found again with history of prior evaluation that found benign. Hospital Course: Was admitted initially with infectious treatment planned with both viral and bacterial coverage. Initial CT showed no evident changes in the head there is also an initial MRI of the head but due to movement artifact was of no real value. The 2nd hospital day though and another MRI was done which did show diffuse metastatic disease. A chest and abdomen CT also showed mass in the left upper quadrant of the lung which is suspected as the primary. Also a finding of urinary tract infection incidentally, which was treated. He had cleared mentally quite a bit by the 1st morning but still quite confused. About midway through the hospitalization he was started on dexamethasone to see if that might help with any brain issues, also on Risperdal to help with some behavioral issues, and has since really been quite stable still little confused still some issues with memory but maintaining appropriate interactions, and seemingly fairly nonfocal. He was visited by Oncology who have assisted in the workup. With the radiology's assistance a biopsy of the sacrum was done however results are still pending. So until results are available of further treatment is on hold and we have been waiting that process in anticipation of need to transfer to SNF for ongoing therapy. Patient's family has been very involved I believe someone staying with him every night, very attentive looking into nursing facilities and other factors to assist. One other thing was a history of bladder lesion from 2 years ago that was also considered as a possible contributor to his current hospitalization we have done some research into that in so far as we can tell that was evaluated 2 years ago thought to be benign, but may require some additional evaluation at some point. At this point patient is still rather weak and unsteady a little impulsive has been working with both physical and occupational therapy with some improvement over time. Anticipate continued same and likely home after short stay. Status at Discharge Cognitive/behavioral status at discharge: Improved from admission Functional status at discharge: uses cane/walker Overall status at discharge: patient is not back to baseline Time Spent with Patient Greater than 30 minutes Exam Vital Signs (past 8 hours): - 01/16/18 07:00 Temperature 97.6 F Pulse Rate 54 L Respiratory Rate 18 Blood Pressure 139/50 L Pulse Oximetry 94 Oxygen Delivery Method Room Air Oxygen Flow Rate 0 Objective Labs Result Diagrams: 01/16/18 05:14 01/16/18 05:14 Labs: Laboratory Results - last 24 hr 01/07/18 01/07/18 01/07/18 17:35 17:35 17:35 WBC RBC Hgb Hct MCV MCH MCHC RDW Plt Count Neut % (Auto) Lymph % (Auto) Cedar % (Auto) Eos % (Auto) Baso % (Auto) Neut # (Auto) Sodium Potassium Chloride Carbon Dioxide BUN Creatinine Estimated GFR BUN/Creatinine Ratio Glucose Calcium Total Bilirubin AST ALT Alkaline Phosphatase Total Protein Albumin Globulin Albumin/Globulin Ratio Ref Test (Refrig) 01/07/18 01/16/18 01/16/18 17:35 05:14 05:14 WBC 9.6 RBC 4.30 L Hgb 13.6 Hct 39.8 L MCV 92.5 MCH 31.6 MCHC 34.2 RDW 13.3 Plt Count 197 Neut % (Auto) 72.1 Lymph % (Auto) 20.8 L Cedar % (Auto) 6.2 Eos % (Auto) 0.5 L Baso % (Auto) 0.4 Neut # (Auto) 6900 H Sodium 142 Potassium 4.2 Chloride 107 Carbon Dioxide 24 BUN 19 Creatinine 1.00 Estimated GFR > 60.0 BUN/Creatinine Ratio 19.0 Glucose 112 H Calcium 9.1 Total Bilirubin 0.4 AST 29 ALT 37 Alkaline Phosphatase 119 Total Protein 6.5 Albumin 3.6 Globulin 2.9 Albumin/Globulin Ratio 1.2 Ref Test (Refrig) Discharge Plan Discharge Plan Patient Disposition: SNF Transfer to: [facility] Under care of provider: tigist Transportation: Wheelchair Consult as needed: Dental, Hearing, Mental health, Podiatry and Vision Discharge comment: fair health pending diagnosis and treatment of metastatic disease I certify the postop hospital snf care is medically necessary on a continuing basis for any conditions for which he/ she received care during this hospitalization.: Yes The receiving facility has agreed to accept transfer and provide medical treatment.: Yes Discharge Med Rec/Prescriptions Prescriptions: New acetaminophen 325 mg Tablet 650 mg PO Q6HR PRN (Reason: As Needed For Fever/Mild Pain) Qty: 50 RF: 0 risperidone [Risperdal] 0.25 mg Tablet 0.5 mg PO BID Qty: 60 RF: 0 dexamethasone 1 mg Tablet 2 mg PO BIDWM Qty: 60 RF: 0 pantoprazole 40 mg Tablet,Delayed Release (Dr/Ec) 40 mg PO 0900 Qty: 30 RF: 0 docusate sodium 100 mg Capsule 100 mg PO BID Qty: 60 RF: 0 ibuprofen 600 mg Tablet 600 mg PO Q6HR PRN (Reason: As Needed For Fever/Mild Pain) Qty: 60 RF: 0 Discontinued sulfamethoxazole-trimethoprim 800-160 mg Tablet 1 tab PO BID RF: 0 ondansetron 4 mg Tablet,Disintegrating 4 mg PO PRN PRN (Reason: Nausea) RF: 0 Follow up/Referrals: Vu Walker MD [Primary Care Provider] - Discharge Health Status Multidrug resistant organism: No MDRO MDRO Verified by culture: Yes Precautions: [place] Provider Discharge Instructions Diet: Diet as Tolerated Liquid consistency: Normal/Thin Food texture: Regular Other treatments: per oncology [facility] Reason for rehabilitation: Other Rehab type: Physical therapy and Occupational therapy Discharge Data Primary Care Provider: Vu Walker Attending Provider: Vu Walker Admit Date/Time: 01/07/18 17:42
[2018-01-16] MEDS: risperiDONE 0.25 MG TABLET 0.5 MG PO (09:07)
[2018-01-16] MEDS: PANTOPRAZOLE 40 MG TABLET PO (09:07)
[2018-01-16] MEDS: ENOXAPARIN 40 MG/0.4 ML SYRINGE SUBCUT (09:07)
[2018-01-16] MEDS: DEXAMETHASONE 1 MG TABLET 2 MG PO (09:08)
[2018-01-16 11:00] VITALS: BP 142/62; PULSE 60; RESP 18; TEMP 36.6; O2SAT 95
--- NOTE | 2018-01-16 11:30 | PT.IPTN ---
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 (01/07/18) Other chronic pain (01/07/18) Metabolic encephalopathy (01/07/18) Disease of salivary gland, unspecified (01/07/18) Disorder of bone, unspecified (01/07/18) Bladder disorder, unspecified (01/07/18) Urinary tract infection, site not specified (01/07/18) Left lower quadrant pain (01/07/18) Altered mental status, unspecified (01/07/18) Personal history of other diseases of the digestive system (01/07/18) Other specified postprocedural states (01/07/18) Physical Therapy Treatment Note M2 PT-IP Current Condition Start: 01/08/18 16:12 Freq: NEEDED Status: Active Protocol: Document 01/08/18 16:30 AB (Rec: 01/08/18 17:22 AB [id number]) Physical Therapy Current Condition Current Condition Evaluation Date 01/08/18 Treatment Diagnosis AMS; difficulty in walking Onset Date 01/07/18 Precautions Other Precautions falls; BP M3 PT-IP Subjective Start: 01/08/18 16:12 Freq: NEEDED Status: Active Protocol: Document 01/16/18 11:30 GGD (Rec: 01/16/18 12:13 GGD [id number]) Subjective Physical Therapy Visit Type Type Treatment Note Visit Start Time 11:15 Visit Stop Time 11:30 Total Visit Minutes 15 Number of INSTRUCTIONAL SUPPORT SPECIALIST Visits 7 Physical Therapy Visit Comments Patient Comments Pt states he is leaving today. M4 PT-IP Mobility and Gait Start: 01/08/18 16:12 Freq: NEEDED Status: Active Protocol: Document 01/16/18 11:30 GGD (Rec: 01/16/18 12:13 GGD [id number]) PT-Bed Mobility Assessment Supine to Sit Supine to Sit Independent Sit to Supine Sit to Supine Independent Scooting Scooting to Edge of Bed Independent Scooting Up and Down in Bed Independent PT-Transfer Assessment Sit to and From Stand Sit to and from Stand Standby Assistance Equipment Transfer Assistive Device Gait Belt Front Wheeled Walker Orthotic/Prosthetic Devices or Brace: No Transfers Transfer Destination Chair Transfer Ability Level of Assist Standby Assistance Gait Assessment Gait Gait Assistance Required: Contact Guard Assist Distance (Feet) 430 Able to Maintain Weight Bearing Status Yes During Gait Assistive Devices Assistive Device Gait Belt Front Wheeled Walker Orthotic/Prosthetic Devices or Brace: No Gait Deviations General Gait Pattern Decreased Stride Length Decreased Feet Clearance Lateral Trunk Lean Factors Limiting Gait Function Factors Limiting Gait Function Decreased Strength Poor Balance Comments Gait Comments Pt need CGA and mod cues for FWW management and unsteadiness with turns. M5 PT-IP Objective Assessments Start: 01/08/18 16:12 Freq: NEEDED Status: Active Protocol: Document 01/08/18 16:30 AB (Rec: 01/08/18 17:22 AB [id number]) Orientation Orientation/Cognition Level of Alertness Confusional State Orientation Name Safety Awareness Decreased Safety Awareness Memory Description Short Term Impaired Detention Impaired Strength Lower Extremity Strength Assessment Within Functional Limits M6 PT-IP Treatment Start: 01/08/18 16:12 Freq: NEEDED Status: Active Protocol: Document 01/16/18 11:30 GGD (Rec: 01/16/18 12:13 GGD [id number]) Physical Therapy Treatment Education Education Provided Safety Other Treatments Other Treatment Performed Standing balance WBS EO/EC, NBS EO/EC, head turns M7 PT-IP Assessment and Plan Start: 01/08/18 16:12 Freq: NEEDED Status: Active Protocol: Document 01/16/18 11:30 GGD (Rec: 01/16/18 12:13 GGD [id number]) PT Summary Assessment and Plan Summary Assessment Summary Pt had increase in unsteadiness with gait with turns. He is easily distracted and has increase in unsteadiness. Frequency of Treatment Frequency Of Treatment Once a Day Treatment Plan Other Recommendations and Next Treatment Standing balance & gait Focus Recommendations To Nursing Amount of Assist Needed Standby Assistance Discharge Recommendations PT Discharge Recommendations SNF Rehab
--- NOTE | 2018-01-16 15:14 | PC.NURSE ---
discharge Pt left in w/c with transporter from [facility]. Family presesnt and took pt's belongings with him as they also went over to [facility] with pt. Pt did not have IV in place this shift. Report called to [facility] prior to pt transfer. Pt left around 1520.
== END 2018-01-16 15:20 | DRG 478 ==
LOC: ED 15:16 → AC 17:42
PROVIDERS: Family Medicine; Internal Medicine; Admitting Provider Internal Medicine; Emergency Provider Emergency Medicine; Family Provider Family Medicine; PCP Family Medicine; Visit Provider Family Medicine
DX: C79.51 Secondary malignant neoplasm of bone (principal); C34.11 Malignant neoplasm of upper lobe, right bronchus or lung; C79.31 Secondary malignant neoplasm of brain; R44.3 Hallucinations, unspecified; N39.0 Urinary tract infection, site not specified; R40.2362 Coma scale, best motor response, obeys commands, at arrival to emergency department; R40.2132 Coma scale, eyes open, to sound, at arrival to emergency department; R40.2242 Coma scale, best verbal response, confused conversation, at arrival to emergency department; G89.3 Neoplasm related pain (acute) (chronic); R39.198 Other difficulties with micturition; N32.89 Other specified disorders of bladder
CPT/HCPCS: 20225; 36415; 36591; 62270; 70450; 70551; 70552; 71250; 72195; 74177; 77012; 78306; 80048; 80053; 81001; 82140; 82378; 82550; 82553; 82945; 82962; 83605; 84145; 84153; 84157; 84484; 85025; 85610; 87040; 87070; 87086; 87205; 88307; 88341; 88342; 89051; 93005; 96360; 96361; 97110; 97116; 97127; 97162; 97166; 97530; 97535; 99283; 99284; 99285; A9503; A9579; C9113; J0696; J1630; J1650; J1885; J2060; J2405; Q9967

== ENCOUNTER → 2018-01-20 08:35 | Outpatient (REF) | payer SELFPAY ==
[2018-01-07 18:15] VITALS: BMI 25.8
[2018-01-20 09:13] LABS: Add Manual Diff / Slide Review NO; Basophils Percent Auto 0.4 % (0-2); Eosinophils Percent Auto 1.9 % (2-4); Hematocrit 42.2 % (41-53); Hemoglobin 14.5 g/dL (13.5-17.5); Lymphocytes Percent Auto 26.4 % (25-40); Mean Corpuscular HGB Conc 34.3 % (30-36); Mean Corpuscular Hemoglobin 31.7 PG (26-34); Mean Corpuscular Volume 92.5 fL (80-100); Monocytes Percent Auto 8.1 % (3-14); Neutrophils Absolute Auto 5700 /uL (3000-5900); Neutrophils Percent Auto 63.2 % (50-75); Platelet Count 229 X10^3/uL (150-400); Red Blood Cell Count 4.57 X10^6/uL (4.5-5.9); Red Cell Distribution Width 13.4 % (11.6-14.8)
[2018-01-20 09:55] LABS: BUN Creatinine Ratio 18.2 (6-22); Blood Urea Nitrogen 20 mg/dL (9-20); Calcium 9.5 mg/dL (8.4-10.2); Carbon Dioxide 28 mmol/L (22-32); Chloride 102 mmol/L (98-107); Estimated Glomerular Filt Rate > 60.0 mL/min (>60); Glucose 90 mg/dL (80-110); HEMOLYSIS < 15 (0-50); Potassium 4.3 mmol/L (3.4-5.1); Sodium 142 mmol/L (137-145)
== END ==
LOC: LAB 08:35
PROVIDERS: Family Provider Family Medicine; PCP Family Medicine; Visit Provider Hospitalist
DX: C34.90 Malignant neoplasm of unspecified part of unspecified bronchus or lung (principal)
CPT/HCPCS: 36415; 80048; 85025; 99215

== ENCOUNTER 2018-02-20 11:50 | Day surgery (SDC) | payer MEDICARE, OTHER, SELFPAY ==
[2018-02-20] VITALS (7 sets, daily range): BP systolic 83–153; BP diastolic 48–76; PULSE 44–61; RESP 12–16; TEMP 36–36.7; O2SAT 98–99
--- NOTE | 2018-02-20 | DI.RAD.S_ITS ---
PROCEDURE: XR CHEST 1V INDICATIONS: PORT A CATH INSERTION TECHNIQUE: One view of the chest was acquired. COMPARISON: None. FINDINGS: Surgical changes and devices: Left chest wall Port-A-Cath tip is in SVC/right atrium. Lungs and pleura: No pleural effusions or pneumothorax. Mild pulmonary vascular congestion and mild interstitial pulmonary edema is seen. Underlying small patchy infiltrates in bilateral lung rincon cannot be excluded. Mediastinum: Mediastinal contours appear normal. Heart size is enlarged. Bones and chest wall: No suspicious bony lesions. Overlying soft tissues appear unremarkable. IMPRESSION: Port-A-Cath tip is in SVC/right atrium. Congestive changes and mild pulmonary edema, cannot rule out underlying patchy infiltrates. No pleural effusion or pneumothorax. Dictated by: Jayden Ordoñez M.D. on 02/20/2018 at 15:27 Approved by: Jayden Ordoñez M.D. on 02/20/2018 at 15:27
--- NOTE | 2018-02-20 12:35 | SUR.OPER ---
Supine on padded OR bed, head on pillow, arm padded and tucked at side, legs uncrossed, safety belt at thigh, tape over blanket over lower legs .
[2018-02-20] MEDS: LACTATED RINGERS 1,000 ML 42 ML IV (13:03)
--- NOTE | 2018-02-20 13:10 | PM.HP.1 ---
History of Present Illness Date Patient Seen: 02/20/18 Time Patient Seen: 13:10 Chief complaint: port cath placement [id number] Narrative: The patient is a gentleman with non-small cell cancer involving his right lung with mets to his brain. He has had a decrease in his mental function and is presently on dexamethasone. That helped initially but is no longer helping. He is to start some form of therapy and I have been asked to place a port. He is right-hand dominant. Tumor is on the right. Patient History Medical History Lung cancer metastatic to brain (Acute) Arthritis (Acute) Bradycardia (Acute) Cataract fragments in both eyes following surgery (Acute) Change in mental status (Acute) Constipation (Acute) Enlarged prostate (Acute) Groin injury (Acute) Headache (Acute) Hypotension (Acute) Nausea (Acute) Urinary retention (Acute) Surgical History H/O hernia repair (Acute ~2009) History of appendectomy (Acute ~1956) Family & Social History Family History: Reviewed 02/20/18 by Tyler Tinsley MD Social History: household members spouse Tobacco & Substance use: Smoking Status Never smoker alcohol intake current alcohol intake frequency a few times a week Substance Use Type does not use Meds Home Medications Medication Instructions Recorded Confirmed Type acetaminophen 650 mg PO Q6HR PRN #50 tab 01/16/18 02/20/18 Rx docusate sodium 100 mg PO BID #60 cap 01/16/18 02/20/18 Rx ibuprofen 600 mg PO Q6HR PRN #60 tab 01/16/18 02/20/18 Rx pantoprazole 40 mg PO 0900 #30 tab 01/16/18 02/20/18 Rx risperidone [Risperdal] 0.5 mg PO BID #60 tab 01/16/18 02/20/18 Rx magnesium hydroxide [Milk Of 30 ml PO DAILY PRN 01/23/18 02/20/18 History Magnesia Concentrated] nystatin 200,000 unit BUCCAL QID 01/23/18 02/20/18 History sennosides [senna] 4.3 mg PO BID 01/23/18 02/20/18 History prochlorperazine maleate 10 mg PO Q4H PRN 02/06/18 02/17/18 History [Compazine] dexamethasone 4 mg PO Q12H 02/17/18 02/20/18 History polyethylene glycol 3350 [Miralax] 17 g PO DAILY 02/17/18 02/20/18 History lactulose 20 g PO TID PRN #120 ml 02/20/18 Rx Allergies Allergy/AdvReac Type Severity Reaction Status Date / Time No Known Drug Allergies Allergy Verified 02/17/18 10:55 Review of Systems Review of Systems Discrete scarred [place]. No chest pain. Had had a cough. No black or bloody bowel movements. Exam Vital Signs (past 8 hours): - 02/20/18 12:35 Temperature 96.8 F L Pulse Rate 44 L Respiratory Rate 14 Blood Pressure 125/58 L Pulse Oximetry 98 Oxygen Delivery Method Room Air Narrative Exam Narrative: Around by wheelchair. Does not follow simple commands. Lungs are clear to auscultation. Heart regular rate and rhythm no murmur gallop. Abdomen is soft nontender without mass. No rashes on his chest wall. Neck is without mass. Assessment & Plan Plan: Assessment/Plan Narrative: Plan Port-A-Cath. I have discussed the rationale for the procedure and risks of bleeding, infection (which is an ongoing risk), DVT, arm swelling, pulmonary embolism , pneumothorax. All questions were answered. gave consent to proceed.
[2018-02-20] MEDS: CEFAZOLIN 2 GM/100 ML FROZ.PIGGY IV (13:17)
--- NOTE | 2018-02-20 13:17 | PM.PREOP ---
Pre-operative Note Interval Note History & Physical reviewed/Exam performed by Physician: Yes Changes to H&P: No
--- NOTE | 2018-02-20 13:19 | SUR.PREOP ---
pt to opd in w/c, assisted with getting dressed by nurses aide, transferred to bed with peter lift, assessment completed with help of sons and spouse, pt very sleepy, unable to answer most questions, pillow under knees , iv patent off to or
[2018-02-20] MEDS: LIDOCAINE 1% 30 ML INJ INJ (13:55)
[2018-02-20] MEDS: HEPARIN 5,000 UNIT, SODIUM CHLORIDE 0.9% 50 ML IV (13:58)
--- NOTE | 2018-02-20 14:33 | PM.OP.1 ---
Operative Date/Time/Diagnoses Date of procedure: 02/20/18 Time of procedure: 14:33 Pre-op diagnosis: Non-small cell lung cancer with metastatic disease to the brain Post-op diagnosis: same Procedure & Clinicians Procedure: Port-A-Cath placement left subclavian Same procedure as scheduled: Yes Indications: Need for IV access and blood draw potential Surgeon: Tyler Tinsley Click Yes if Unassisted: Yes Anesthesia Type: MAC +/- Operative Notes Closure Type: primary Specimen(s): none sent Implants & Drains: Port low-profile Estimated Blood Loss (mL): 20 Procedure in detail: Patient is placed supine on the operating room table and underwent monitored anesthesia care. He was felt to be high risk for general anesthesia. Patient was prepped and draped in the usual fashion. Local anesthetic was infiltrated in field block fashion beneath the left clavicle. A transverse incision was made and carried in the subcu and above the muscle. Needle was inserted on 1st attempt into the subclavian vein. Guidewire was passed the needle removed. Pocket was created to house the port. The port was placed in the pocket and tapered to what appeared to be appropriate length. The dilator and introducer were passed over the guidewire. The guidewire and dilator removed leaving the introducer in place. The catheter was passed through the introducer and peeled away leaving the catheter in the patient. Because the catheter appeared to be in a little bit far into the atrium I dissected further down on the pocket and moved the port down a little further before securing it to the chest wall with 2 0 silk. The subcu was closed with interrupted 3 0 Vicryl. The skin was closed running 4 0 Vicryl subcuticular stitches and exofil. Patient tolerated the procedure well. Chest x-ray ordered for the recovery area. Complications: none Condition: stable Disposition: PACU Plan for aftercare: Follow-up is needed
--- NOTE | 2018-02-20 15:52 | SUR.PHASEII ---
pt to ,opd at 1455 from pacu, family at side , no co's of pain or nausea, surgical site dci, daughter in law assisted patient with dressing at 1535, transferred to w/c with assistance at 1540
== END 2018-02-20 15:40 | disposition home or self-care (01) ==
PROVIDERS: PCP Family Medicine; Visit Provider Specialist
PROC: (CPT 36561; principal; 2018-02-20 12:45)
DX: C79.31 Secondary malignant neoplasm of brain (principal); Z45.2 Encounter for adjustment and management of vascular access device
CPT/HCPCS: 36561; 71045; 76000; 99215; C1788; J0690; J1644; J2704

== ENCOUNTER → 2018-03-03 15:00 | Oncology outpatient (ONC) | payer MEDICARE, OTHER, SELFPAY ==
--- NOTE | 2018-01-23 16:58 | P.PNONC_ITS ---
PN -Subjective Interval history: Mr. Ze Medina is, 77-year-old male was recently hospitalized at [facility] In Dec 2017 because of mental status changes with the manifestation of confusion, hallucination, and unsteadiness. MRI of the brain on 01/07/2018 showed innumerable small cerebral, pontine, cerebral a metastasis as well as right frontal calvarium metastasis without midline shift and a right anterior parotid gland mass. Bone scan showed extensive osseous metastatic disease involving the axial and appendicular skeleton. The focus of the uptake seen at the right maxilla was thought to represent periodontal disease by positioning. On 01/08/[address] scan of the abdomen pelvis that showed a circumferential bladder wall thickening with focal left-sided wall lesion and possible ulceration. It also showed the known widespread osseus metastasis. On 01/11/[address] of the chest without contrast. The scan showed a 34 mm diameter spiculated density within the right apex. No mediastinal lymphadenopathy was noted. Again it showed the known bony metastasis. I was consulted on 01/13/2018. After discussing with the radiologist Dr. Phipps we decided to proceed with sacrum lesion biopsy that was actually done on December. 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 Patient presented here today for post discharge follow-up. At present patient is SNIF. Patient came in here today accompanied by his , his son, and his daughter-in -law. The [id number] all happens to be a registered nurse. Patient is complaining of headache, every 5-6 days, not really frequent and 5/10 in intensity. He is having nausea and vomiting. He is taking zofran 4 mg q8h. He is also complaining of constipation. He is having a little shortness of breath, a little cough, but denies chest pain. He has some pain in the bones, including left femur and pelvis, more so after biopsy. His appetite is not good. After discharge, he has been more active and is getting PT/OT and is able to walk 200 feet. He is here today at the clinic in wheelchair. - Additional ROS All systems PM: reviewed and no additional remarkable complaints except as stated Home Medications and Allergies Home Medications Medication Instructions Recorded Confirmed Type acetaminophen 650 mg PO Q6HR PRN #50 tab 01/16/18 01/23/18 Rx dexamethasone 2 mg PO BIDWM #60 tab 01/16/18 01/23/18 Rx docusate sodium 100 mg PO BID #60 cap 01/16/18 01/23/18 Rx ibuprofen 600 mg PO Q6HR PRN #60 tab 01/16/18 01/23/18 Rx pantoprazole 40 mg PO 0900 #30 tab 01/16/18 01/23/18 Rx risperidone [Risperdal] 0.5 mg PO BID #60 tab 01/16/18 01/23/18 Rx acetaminophen 650 mg PO Q6H PRN 01/23/18 01/23/18 History magnesium hydroxide [Milk Of 30 ml PO DAILY PRN 01/23/18 01/23/18 History Magnesia Concentrated] nystatin 200,000 unit BUCCAL QID 01/23/18 01/23/18 History ondansetron HCl [Zofran] 4 mg PO TID PRN 01/23/18 01/23/18 History sennosides [senna] 4.3 mg PO BID 01/23/18 01/23/18 History Allergies Allergy/AdvReac Type Severity Reaction Status Date / Time No Known Drug Allergies Allergy Verified 01/07/18 15:17 Exam Vital signs: Last Vital Signs Temp 98.6 F 01/23/18 17:01 ECOG 1 Narrative: Constitutional: WDWN, NAD, average body habitus, well groomed, pleasant and cooperative. HEENT: NCAT, EOMI, PERRLA, anicteric sclera, no hearing difficulty; Oral mucus membrane moist and without ulcers. Neck: Supple, symmetrical, and tracheal midline; No palpable thyromegaly and no palpable lymph nodes. Respiratory: No use of accessory muscles. Clear to auscultation, and no wheezes or rales or rubs. Cardiovascular: Regular rate and rhythm, S1 and S2 normal, no murmurs gallops or rubs. No JVD. No pitting edema of lower extremities. Abdomen: Soft, nontender, non-distended, bowel sounds normal, no palpable organomegaly, no hernia, no palpable masses. Lower extremities: No palpable pedal edema. Lymphatic: no palpable lymph nodes in the neck, axillae, or groins. Musculoskeletal: normal gait and station, no clubbing, no cyanosis, no pitting edema. Skin: no rashes, no ulcers, no petechiae Neurological: Awake, and alert and oriented x3. But during conversation, he is not able to concentrate on the topic, and off-topic frequently. He is not able to answer questions correctly. CN II-XII grossly intact. No focal motor or sensory deficit. Results - Labs Reviewed. - Imaging Additional studies: Procedures CATARAC PHACOEMULS/ASPIR (08/16/09) Excision of Sacrum, Percutaneous Approach, Diagnostic (01/07/18) INSERT LENS AT CATAR EXT (08/16/09) Phacoemulsification and aspiration of cataract (08/05/12) Assessment and Plan (1) Non-small cell lung cancer with metastasis Problem details: Never smoker. Presented with after mental status with confusion and hallucination in 12/2017. Evidence of multiple brain metastasis on MRI of the brain 01/07/2018. Evidence of right upper lung spiculated 24 mm leison in the right apex on CT scan of the chest 01/12/2108. Widespresed osseous metasatis on CT/MRI. Biopsy of sacral lesion was consistnet with for primary lung cancer 01/13/2018. Assessment: I spent at least 30 min discussing with the patient, patient's son patient's and patient's [id number] who happens to be a registered nurse. 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 I explained that for patients who have never smoked, this is the most common type of lung cancer. And it is likelyh that his lung cancer may be positive for EGFR, ALK, ROS1, or other molecular mutations. We have already send off the biopsy sample for OmniSeq. The results are still pending. The molecular profiling will probably be available in about 1-2 weeks. I explained that the molecular profiling is critical in terms of treatment selection. If there is any molecular target, patient will be treated with tyrosine kinase inhibitors, and they usually work better than traditional standard chemotherapy. In adddition, the the molecular profiling will also help us decide if the patient is a good candidate for immunomonotherapy or combined immunochemotherapy. Patient and patient's family or voiced understanding. For bone metastasis, I talked with patient about the Xgeva is usually indicated. I talked with the patient and instructed them to see his dentist for clearance. I explained that Xgeva is associated with increased risk of osteonecrosis of the jaw. I also talked with the patient about the need for possible port for chemotherapy. However if the molecular study comes back positive, the port will not be necessary. Eventually we agreed that is better to have the port placed in preparation for possible chemotherapy. Patient currently resides in [facility]. Patient is having some headache I believe that is probably related to the intracranial metastasis as well as probably related to Zofran use patient has also constipation. I recommended that we stop Zofran and start using Compazine. Plan: 1. Pending molecular study OmniSeq of the sacral biopsy sample 2. Continue dexamethasone 2 mg q12h 3. Dental clearance for Xgeva 120 mg subQ monthly 4. Stop Zofran; Recommend Olanzapin 10 mg x30#, 1# daily for nausea or vomiting 5. Port placement referral 6. RTC in 2 week for follow up visit (2) Lesion of bladder Problem details: Had hematuria in the past. The bladder lesion noted for 2 years ago and had been evaluated be benign. However still need continued monitoring. Assessment and rosangela: Recommend further evaluation by urologist.
[2018-01-23 17:01] VITALS: TEMP 37
--- NOTE | 2018-01-27 13:18 | ONC.SCHED ---
JESSENIA [id number] [facility]
--- NOTE | 2018-01-28 13:35 | ONC.NAV ---
Description: Xsylviava Financial Assistance Activity: This AGRICULTURAL LENDER applied for co-pay financial assistance for pt through the [employer], however pt made too much money to qualify. Called and left a message for pt's , Juanis, explaining this. Encouraged her to call anytime should they need assistance.
--- NOTE | 2018-01-30 14:01 | PC.NURSE ---
PATH PROGRESS: OmniSeq Advanced Assay testing requisition was faxed on 01/17/18 after receiving an email from Dr. Turner on 01/16/[address] Mohr order the OmnVIRxSYS Advanced test based on the limited tissue available for testing. Today at 1235 I spoke with Antonietta at [facility] who informed me that they had [facility]. [facility] then suggested I call [employer] service (at [phone]) to check the status of the specimen. When I called [employer] service, I spoke with Yaneth who informed me that the patient isn't in the system. I then proceeded to call Dr. Turner at [phone] in which I informed her about the situation stated above. After talking with Dr. Turner, she suggested I email Isael Fuentes, our [facility]/OmniSeq testing rep and inform him of the situation.
--- NOTE | 2018-02-04 14:39 | PC.NURSE ---
PATH PROGRESS: I received an email from Isael Fuentes on Saturday (01/31) stating the OmniSeq results should be back the week of 02/10.
[2018-02-06 11:36] LABS: Add Manual Diff / Slide Review NO; Basophils Percent Auto 0.3 % (0-2); Hematocrit 44.9 % (41-53); Hemoglobin 15.4 g/dL (13.5-17.5); Lymphocytes Percent Auto 12.7 % (25-40); Mean Corpuscular HGB Conc 34.3 % (30-36); Mean Corpuscular Hemoglobin 31.6 PG (26-34); Mean Corpuscular Volume 92.3 fL (80-100); Neutrophils Absolute Auto 8800 /uL (1500-7000); Platelet Count 179 X10^3/uL (150-400); Red Blood Cell Count 4.87 X10^6/uL (4.5-5.9); Red Cell Distribution Width 14.1 % (11.6-14.8); White Blood Cell Count 10.9 X10^3/uL (4.5-11.0)
[2018-02-06 11:43] LABS: Alanine Aminotransferase 66 IU/L (21-72); Albumin Globulin Ratio 1.3 (1.0-2.8); Alkaline Phosphatase 154 U/L (38-126); Aspartate Aminotransferase 65 IU/L (17-59); Bilirubin Total 0.6 mg/dL (0.2-1.3); Blood Urea Nitrogen 24 mg/dL (9-20); Calcium 9.4 mg/dL (8.4-10.2); Carbon Dioxide 29 mmol/L (22-32); Chloride 99 mmol/L (98-107); Estimated Glomerular Filt Rate > 60.0 mL/min (>60); Glucose 122 mg/dL (80-110); HEMOLYSIS < 15 (0-50); Potassium 4.2 mmol/L (3.4-5.1); Sodium 139 mmol/L (137-145)
[2018-02-06 11:52] VITALS: BP 123/75; PULSE 55; RESP 18; TEMP 36.8; O2SAT 99
--- NOTE | 2018-02-06 12:28 | ONC.PN ---
PN -Subjective Interval history: 77-year-old gentleman with newly diagnosed metastatic adenocarcinoma of the lung. Metastasis involving brain as well as bone systems. He presents here today for scheduled follow-up visit. This case was discussed at our tumor board next Saturday. And the tumor board consensus is to follow-up on the OmniSeq molecular study results. If there is molecular target, patient should be treated with tyrosine kinase inhibitor. If no targets, patient is a good candidate for immuno/chemotherapy. And the Board agrees that the whole brain radiation should be reserved at this moment. Patient came in here today accompanied by his , his son, and his [id number]. Patient's family said that they have already got the dental clearance for treatment with Xgeva. Patient clinically is stable except that the mental status according to the patient's family is in and out and fluctuating quite a bit. He has a little bit more confused. Oncology History Mr. Ze Medina is, 77-year-old male was recently hospitalized at [facility] In Dec 2017 because of mental status changes with the manifestation of confusion, hallucination, and unsteadiness. MRI of the brain on 01/07/2018 showed innumerable small cerebral, pontine, cerebral a metastasis as well as right frontal calvarium metastasis without midline shift and a right anterior parotid gland mass. Bone scan showed extensive osseous metastatic disease involving the axial and appendicular skeleton. The focus of the uptake seen at the right maxilla was thought to represent periodontal disease by positioning. On 01/08/[address] scan of the abdomen pelvis that showed a circumferential bladder wall thickening with focal left-sided wall lesion and possible ulceration. It also showed the known widespread osseus metastasis. On 01/11/[address] of the chest without contrast. The scan showed a 34 mm diameter spiculated density within the right apex. No mediastinal lymphadenopathy was noted. Again it showed the known bony metastasis. I was consulted on 01/13/2018. After discussing with the radiologist Dr. Phipps we decided to proceed with sacrum lesion biopsy that was actually done on December. 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 - Patient Self-Reported Symptoms SR eye issues: Vision changes SR Cardiovascular issues: Dizzy/lightheaded SR Gastrointestinal issues: Nausea SR Genitourinary issues: Frequent urination, Incontinence SR Musculoskeletal issues: Joint pain or swelling, Muscle weakness, Muscle pain or cramps, Back or neck pain, Difficulty walking, Bone pain SR Neuro issues: Headache, Lightheaded/dizzy, Numbness or tingling, Tremors or shaking, Difficulty balancing - Additional ROS All systems PM: reviewed and no additional remarkable complaints except as stated Home Medications and Allergies Home Medications Medication Instructions Recorded Confirmed Type acetaminophen 650 mg PO Q6HR PRN #50 tab 01/16/18 01/23/18 Rx docusate sodium 100 mg PO BID #60 cap 01/16/18 01/23/18 Rx ibuprofen 600 mg PO Q6HR PRN #60 tab 01/16/18 01/23/18 Rx pantoprazole 40 mg PO 0900 #30 tab 01/16/18 01/23/18 Rx risperidone [Risperdal] 0.5 mg PO BID #60 tab 01/16/18 01/23/18 Rx acetaminophen 650 mg PO Q6H PRN 01/23/18 01/23/18 History magnesium hydroxide [Milk Of 30 ml PO DAILY PRN 01/23/18 01/23/18 History Magnesia Concentrated] nystatin 200,000 unit BUCCAL QID 01/23/18 01/23/18 History sennosides [senna] 4.3 mg PO BID 01/23/18 01/23/18 History dexamethasone 4 mg PO Q12H #60 tab 02/06/18 Rx prochlorperazine maleate PRN 02/06/18 History [Compazine] Allergies Allergy/AdvReac Type Severity Reaction Status Date / Time No Known Drug Allergies Allergy Verified 01/07/18 15:17 Exam Vital signs: Last Vital Signs Temp 98.2 F 02/06/18 11:52 Pulse 55 L 02/06/18 11:52 Resp 18 02/06/18 11:52 BP 123/75 02/06/18 11:52 Pulse Ox 99 02/06/18 11:52 ECOG 1 Narrative: Constitutional: WDWN, NAD, average body habitus, well groomed, cooperative, in wheelchair HEENT: NCAT, EOMI, PERRLA, anicteric sclera, no hearing difficulty; Oral mucus membrane moist and without ulcers. Neck: Supple, symmetrical, and tracheal midline; No palpable thyromegaly and no palpable lymph nodes. Respiratory: No use of accessory muscles. Clear to auscultation, and no wheezes or rales or rubs. Cardiovascular: Regular rate and rhythm, S1 and S2 normal, no murmurs gallops or rubs. No JVD. No pitting edema of lower extremities. Abdomen: Soft, nontender, non-distended, bowel sounds normal, no palpable organomegaly, no hernia, no palpable masses. Lower extremities: No palpable pedal edema. Lymphatic: no palpable lymph nodes in the neck, axillae, or groins. Musculoskeletal: normal gait and station, no clubbing, no cyanosis, no pitting edema. Skin: no rashes, no ulcers, no petechiae Neurological: Awake, and alert. During today's encounter, he was able to follow verbal commands most of the time. Again, off-topic frequently. CN II-XII grossly intact. No focal motor or sensory deficit. Results - Labs Laboratory Last Values WBC 10.9 X10^3/uL (4.5-11.0) 02/06/18 11:24 RBC 4.87 X10^6/uL (4.5-5.9) 02/06/18 11:24 Hgb 15.4 g/dL (13.5-17.5) 02/06/18 11:24 Hct 44.9 % (41-53) 02/06/18 11:24 MCV 92.3 fL (80-100) 02/06/18 11:24 MCH 31.6 PG (26-34) 02/06/18 11:24 MCHC 34.3 % (30-36) 02/06/18 11:24 RDW 14.1 % (11.6-14.8) 02/06/18 11:24 Plt Count 179 X10^3/uL (150-400) 02/06/18 11:24 Neut % (Auto) 80.0 % (50-75) H 02/06/18 11:24 Lymph % (Auto) 12.7 % (25-40) L 02/06/18 11:24 [place] % (Auto) 6.0 % (3-14) 02/06/18 11:24 Eos % (Auto) 1.0 % (2-4) L 02/06/18 11:24 Baso % (Auto) 0.3 % (0-2) 02/06/18 11:24 Neut # (Auto) 8800 /uL (7473-9189) H 02/06/18 11:24 Sodium 139 mmol/L (137-145) 02/06/18 11:24 Potassium 4.2 mmol/L (3.4-5.1) 02/06/18 11:24 Chloride 99 mmol/L (98-107) 02/06/18 11:24 Carbon Dioxide 29 mmol/L (22-32) 02/06/18 11:24 BUN 24 mg/dL (9-20) H 02/06/18 11:24 Creatinine 1.00 mg/dL (0.66-1.25) 02/06/18 11:24 Estimated GFR > 60.0 mL/min (>60) 02/06/18 11:24 BUN/Creatinine Ratio 24.0 (6-22) H 02/06/18 11:24 Glucose 122 mg/dL (80-110) H 02/06/18 11:24 Calcium 9.4 mg/dL (8.4-10.2) 02/06/18 11:24 Total Bilirubin 0.6 mg/dL (0.2-1.3) 02/06/18 11:24 AST 65 IU/L (17-59) H 02/06/18 11:24 ALT 66 IU/L (21-72) 02/06/18 11:24 Alkaline Phosphatase 154 U/L (38-126) H 02/06/18 11:24 Total Protein 7.0 g/dL (6.3-8.2) 02/06/18 11:24 Albumin 4.0 g/dL (3.5-5.0) 02/06/18 11:24 Globulin 3.0 g/dL (1.7-4.1) 02/06/18 11:24 Albumin/Globulin Ratio 1.3 (1.0-2.8) 02/06/18 11:24 - Imaging Additional studies: Procedures CATARAC PHACOEMULS/ASPIR (08/16/09) Excision of Sacrum, Percutaneous Approach, Diagnostic (01/07/18) INSERT LENS AT CATAR EXT (08/16/09) Phacoemulsification and aspiration of cataract (08/05/12) Assessment and Plan (1) Non-small cell lung cancer with metastasis Problem details: Never smoker. Presented with after mental status with confusion and hallucination in 12/2017. Evidence of multiple brain metastasis on MRI of the brain 01/07/2018. Evidence of right upper lung spiculated 24 mm leison in the right apex on CT scan of the chest 01/12/2108. Widespresed osseous metasatis on CT/MRI. Biopsy of sacral lesion was consistnet with for primary lung cancer 01/13/2018. Assessment: Today once again, I spent at least 20-30 minutes and discussed with the patient and patient's family about the importance of molecular studies. Patient is a never smoker and was diagnosed with adenocarcinoma of the lung with metastasis. It is highly likely that his cancer will harbor some molecular targets. And it will be worthwhile to wait for the final molecular study results. Patient said that he has already had the dental clearance, I will proceed with Xgeva injection today. Patient has already scheduled port placement on 02/20/2018. I talked with the patient that if the molecular study does not show any targets, patient will be a good candidate for chemoimmunotherapy. I talked about the chemoimmunotherapy with carboplatin/pemetrexed/pembrolizumab. I have tentatively schedule the chemotherapy to be started on 02/24/2018 unless the molecular study shows targetable molecular changes. I also talked about the role of whole brain radiation treatment. The current guidelines recommends that we delay the radiation of the whole brain as long as we can due to the devastating cognitive decline after the whole brain radiation treatment. Patient and patient's family or voiced understanding. Plan: 1. Pending molecular study OmniSeq of the sacral biopsy sample 2. Increase dexamethasone to 4 mg q12h 3. Xgeva 120 mg subQ x1 today 4. Vitamin B12 1000 mcg subQ x1 today 5. Port placement as scheduled 6. RTC 02/24/2018 for carbo/pem/pembro C1D1 (tentatively), CBC, CMP, TSH. (2) Lesion of bladder Problem details: Had hematuria in the past. The bladder lesion noted for 2 years ago and had been evaluated be benign. However still need continued monitoring. Assessment and rosangela: Recommend further evaluation by urologist.
[2018-02-06] MEDS: CYANOCOBALAMIN 1,000 MCG/ML VIAL 1000 MCG SUBCUT (12:36)
[2018-02-06] MEDS: DENOSUMAB 120 MG/1.7 ML VIAL SUBCUT (12:36)
--- NOTE | 2018-02-06 14:37 | ONC.SCHED ---
Treatment-Carboplatin/Pembrolizumab/Pemetrexed-Passes code correct with no LCD edits.
--- NOTE | 2018-02-10 08:39 | PC.NURSE ---
PATH PROGRESS: I spoke with Marine at [facility] this morning who informed me that the Innov-X SystemsiSeq Advance Assay results should be back between 02/17-02/20. I will call back next to week to verify this, as the patient has a follow-up here early to mid February.
--- NOTE | 2018-02-14 12:39 | ONC.NAV ---
Description: T/C re: cost of Xgeva Activity: Called pt's , Juanis, and left a message re: the out of pocket cost for Xgeva once Medicare had paid their portion, which at this time will be $4000 per month. Encouraged Juanis to call this AUTOMOTIVE PAINT TECHNICIAN to coordinate and assist with their financial concerns, as well as assist with any other resource/support needs that they may have.
[2018-02-20 11:01] VITALS: BP 104/65; PULSE 44; RESP 16; TEMP 36.8; O2SAT 100
--- NOTE | 2018-02-20 13:04 | ONC.NAV ---
Description: POLST, Financial Assistance Activity: Assisted pt/spouse with completing his POLST form, which he has indicated as NO CODE/NO CPR. Pt is scheduled to have his port placed directly after his provider visit today, however he is now demonstrating significant cognitive decline, presented as mostly flat in affect and was not able to follow the conversation that this COMP[employer]ER [employer] was having with his family-pt has known brain mets. Pt's provided 2-receipts for travel reimbursement, which this COMP[employer]ER [employer] will obtain checks for and send via mail by early next week. No additional needs indicated at this time. Updated the EMR with pt's code status.
--- NOTE | 2018-02-20 13:12 | ONC.APRN.PN ---
PN -Subjective Interval history: 77-year-old gentleman with newly diagnosed metastatic adenocarcinoma of the lung. Metastasis involving brain as well as bone systems. He presents here today for scheduled follow-up visit. This case was discussed at our tumor board next Saturday. And the tumor board consensus is to follow-up on the OmniSeq molecular study results. If there is molecular target, patient should be treated with tyrosine kinase inhibitor. If no targets, patient is a good candidate for immuno/chemotherapy. And the Board agrees that the whole brain radiation should be reserved at this moment. Patient came in here today accompanied by his and 2 sons. They are reporting deteriorating mental status?. Specifically they report increased fatigue he sleeps all day unless they wake him. Appetite has been very poor he also has difficulty swallowing. He has had some incontinence of bladder and bowel this is new. Family also reports he is not talking much. They are also requesting pain medication for bad headaches reporting they note the patient will be holding his head in his hands and looking uncomfortable. When asked he admits to headache. Currently he is receiving Tylenol 650 mg a.m. and p.m. along with dexamethasone 4 mg a.m. and p.m.. No nausea. No vomiting. Bowel movements have been in frequent he is taking daily EDEN and [place] family reports a BM maybe every 4-5 days. Fluid intake has been poor as well. Pt cannot ambulate alone he requires assistance. uses a walker in the house with a 2 person assist as well. Completely dependent upon others for all care, can follow simple commands. The patient is in a wheelchair. He is asleep for most of the visit. He does wake when I called his name. When I ask where he is he response ?hospital?. When I ask does he know why he is here today he response ?I have cancer?. When I ask if he has a headache now the patient states ?yes?. When I ask him to tell me is it a mild headache or a severe headache the patient shrugs his shoulders. When I ask the patient if he is hungry he does not respond. When I ask if he is thirsty he does not respond. he is able to tell me his and sons are present in the room today. He is scheduled to have port placed this afternoon, chemo scheduled to begin , we are still waiting for more specific molecular studies which will further guide his chemotherapy. Specifically we are waiting for Omniseq molecular studies results which might help identifying a targeted therapy. I have confimred today these results are not yet available. Family reports pt has not had any falls, no dizziness or lightheadedness. No seizures. No fainting episodes. No unexplained bleeding or bruising. Oncology History Mr. Ze Medina is, 77-year-old male was recently hospitalized at [facility] In Dec 2017 because of mental status changes with the manifestation of confusion, hallucination, and unsteadiness. MRI of the brain on 01/07/2018 showed innumerable small cerebral, pontine, cerebral a metastasis as well as right frontal calvarium metastasis without midline shift and a right anterior parotid gland mass. Bone scan showed extensive osseous metastatic disease involving the axial and appendicular skeleton. The focus of the uptake seen at the right maxilla was thought to represent periodontal disease by positioning. On 01/08/[address] scan of the abdomen pelvis that showed a circumferential bladder wall thickening with focal left-sided wall lesion and possible ulceration. It also showed the known widespread osseus metastasis. On 01/11/[address] of the chest without contrast. The scan showed a 34 mm diameter spiculated density within the right apex. No mediastinal lymphadenopathy was noted. Again it showed the known bony metastasis. I was consulted on 01/13/2018. After discussing with the radiologist Dr. Phipps we decided to proceed with sacrum lesion biopsy that was actually done on December. 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 - Patient Self-Reported Symptoms SR Constitution: Weight loss/gain, Fatigue/Malaise SR eye issues: Vision changes SR ears, nose, mouth, throat issues: Cough, Difficulty swallowing SR Cardiovascular issues: Dizzy/lightheaded SR Gastrointestinal issues: Constipation SR Genitourinary issues: Incontinence SR Musculoskeletal issues: Muscle weakness, Difficulty walking SR Neuro issues: Headache, Lightheaded/dizzy, Numbness or tingling, Tremors or shaking, Difficulty balancing Home Medications and Allergies Home Medications Medication Instructions Recorded Confirmed Type acetaminophen 650 mg PO Q6HR PRN #50 tab 01/16/18 02/20/18 Rx docusate sodium 100 mg PO BID #60 cap 01/16/18 02/20/18 Rx ibuprofen 600 mg PO Q6HR PRN #60 tab 01/16/18 02/20/18 Rx pantoprazole 40 mg PO 0900 #30 tab 01/16/18 02/20/18 Rx risperidone [Risperdal] 0.5 mg PO BID #60 tab 01/16/18 02/20/18 Rx magnesium hydroxide [Milk Of 30 ml PO DAILY PRN 01/23/18 02/20/18 History Magnesia Concentrated] nystatin 200,000 unit BUCCAL QID 01/23/18 02/20/18 History sennosides [senna] 4.3 mg PO BID 01/23/18 02/20/18 History prochlorperazine maleate 10 mg PO Q4H PRN 02/06/18 02/17/18 History [Compazine] dexamethasone 4 mg PO Q12H 02/17/18 02/20/18 History polyethylene glycol 3350 [Miralax] 17 g PO DAILY 02/17/18 02/20/18 History lactulose 20 g PO TID PRN #120 ml 02/20/18 Rx Allergies Allergy/AdvReac Type Severity Reaction Status Date / Time No Known Drug Allergies Allergy Verified 02/17/18 10:55 Exam - Constitutional positive no acute distress, positive chronically ill appearing, positive somnolent - Routine HEENT Exam Head: Present: normocephalic, atraumatic. Absent: facial swelling Eye: Present: EOMI, PERRL, normal accommodation, conjunctivae pink. Absent: conjunctival icterus, scleral injection, nystagmus ENT: Present: mucous membranes moist, oropharynx clear - Routine Neck Exam Present: supple. Absent: lymphadenopathy - Routine Respiratory Exam Present: Clear to auscultation bilaterally. Absent: rales, rhonchi, wheezes - Routine Cardiovascular Exam Present: RRR, S1, S2, bradycardia. Absent: murmur, gallop, rubs, JVD Comments: HR 45 at time of exam. - Routine Abdominal Exam Present: soft, normoactive bowel sounds. Absent: tenderness, distended, organomegaly - Routine Extremities Exam Absent: edema, calf tenderness - Routine Skin Exam Present: intact, normal turgor - Routine Neurological Exam Present: moving all extremities, facial asymmetry somnolent - Routine Psychiatric Exam Present: cooperative Results - Labs Laboratory Last Values WBC 10.9 X10^3/uL (4.5-11.0) 02/06/18 11:24 RBC 4.87 X10^6/uL (4.5-5.9) 02/06/18 11:24 Hgb 15.4 g/dL (13.5-17.5) 02/06/18 11:24 Hct 44.9 % (41-53) 02/06/18 11:24 MCV 92.3 fL (80-100) 02/06/18 11:24 MCH 31.6 PG (26-34) 02/06/18 11:24 MCHC 34.3 % (30-36) 02/06/18 11:24 RDW 14.1 % (11.6-14.8) 02/06/18 11:24 Plt Count 179 X10^3/uL (150-400) 02/06/18 11:24 Neut % (Auto) 80.0 % (50-75) H 02/06/18 11:24 Lymph % (Auto) 12.7 % (25-40) L 02/06/18 11:24 [place] % (Auto) 6.0 % (3-14) 02/06/18 11:24 Eos % (Auto) 1.0 % (2-4) L 02/06/18 11:24 Baso % (Auto) 0.3 % (0-2) 02/06/18 11:24 Neut # (Auto) 8800 /uL (4747-2545) H 02/06/18 11:24 Sodium 139 mmol/L (137-145) 02/06/18 11:24 Potassium 4.2 mmol/L (3.4-5.1) 02/06/18 11:24 Chloride 99 mmol/L (98-107) 02/06/18 11:24 Carbon Dioxide 29 mmol/L (22-32) 02/06/18 11:24 BUN 24 mg/dL (9-20) H 02/06/18 11:24 Creatinine 1.00 mg/dL (0.66-1.25) 02/06/18 11:24 Estimated GFR > 60.0 mL/min (>60) 02/06/18 11:24 BUN/Creatinine Ratio 24.0 (6-22) H 02/06/18 11:24 Glucose 122 mg/dL (80-110) H 02/06/18 11:24 Calcium 9.4 mg/dL (8.4-10.2) 02/06/18 11:24 Total Bilirubin 0.6 mg/dL (0.2-1.3) 02/06/18 11:24 AST 65 IU/L (17-59) H 02/06/18 11:24 ALT 66 IU/L (21-72) 02/06/18 11:24 Alkaline Phosphatase 154 U/L (38-126) H 02/06/18 11:24 Total Protein 7.0 g/dL (6.3-8.2) 02/06/18 11:24 Albumin 4.0 g/dL (3.5-5.0) 02/06/18 11:24 Globulin 3.0 g/dL (1.7-4.1) 02/06/18 11:24 Albumin/Globulin Ratio 1.3 (1.0-2.8) 02/06/18 11:24 - Imaging Additional studies: Procedures CATARAC PHACOEMULS/ASPIR (08/16/09) Excision of Sacrum, Percutaneous Approach, Diagnostic (01/07/18) INSERT LENS AT CATAR EXT (08/16/09) Phacoemulsification and aspiration of cataract (08/05/12) Assessment and Plan (1) Non-small cell lung cancer with metastasis Problem details: Never smoker. Presented with after mental status with confusion and hallucination in 12/2017. Evidence of multiple brain metastasis on MRI of the brain 01/07/2018. Evidence of right upper lung spiculated 24 mm leison in the right apex on CT scan of the chest 01/12/2108. Widespresed osseous metasatis on CT/MRI. Biopsy of sacral lesion was consistnet with for primary lung cancer 01/13/2018. Assessment: Patient is a 77-year-old male with recently confirmed metastatic adenocarcinoma of the lung. He has widespread metastases involving brain as well as bone. No organ involvement at this point. Family brings him today for acute urgent visit reporting progressively worsening cognitive decline. Specifically fatigue, talking less, reduced appetite. No longer able to ambulate on his own he requires 2 person assist. Completely dependent in all ADLs. No nausea, no vomiting. No vision changes. Family reports he admits to head pain and this does seem to be getting worse they would like pain medications increased. I do not think there is anything reversible on exam today and fortunately this is disease progression. Currently he is taking Tylenol 650 mg twice daily also dexamethasone 4 mg twice daily. I discussed with the patient I am happy to start him on morphine I do think it is appropriate in this case however this may cause further worsening fatigue. I do not think at this point in time decreasing dexamethasone will provide significant pain relief. Patient is opiate naive we will start morphine 5 mg every 4-6 hours as needed. Patient has Compazine at home if needed for nausea. Patient has an appointment this afternoon for implanted port placement appointment to initiate chemotherapy February 24, 2018. As noted previous we are still awaiting OmniSeq molecular studies, it would be very beneficial to this patient if we identified a specific target. Plan: 1. For worsening head pain increase tylenol to 1000mg BID. Cont Dex 4mg BID. Add morphine 5mg oral concentrate Q4-6 hrs PRN severe head pain. Add lactulose up to three times daily for constipation. I have reviewed possible side effects of morphine with the family. 1. Pending molecular study OmniSeq of the sacral biopsy sample 3. Xgeva 120 mg subQ monthly first dose was 02/06/2018 4. Vitamin B12 1000 mcg subQ first dose was 02/06/2018 5. Port placement scheduled for later today. 6. RTC 02/24/2018 for carbo/pem/pembro C1D1 (tentatively), CBC, CMP, TSH. (2) Lesion of bladder Problem details: Had hematuria in the past. The bladder lesion noted for 2 years ago and had been evaluated be benign. However still need continued monitoring. Assessment and rosangela: Recommend further evaluation by urologist. (3) Bradycardia Current visit: Yes Status: Acute Heart rate at time of exam today 45. Rhythm and rate are regular. Previous visit heart rate was 50-55. Medication list reviewed no obvious offenders. Patient is scheduled to have port placed today I placed a phone call to the OR informing them of bradycardia as patient was already late for surgical appointment and they did not want to initiate further evaluation here in the clinic. Family denies any cardiac history. As noted above no dizziness, lightheadedness, syncope, near syncope. - Time Spent with Patient 35 face to face w pt and family 10 mins review of notes consult imaging labs 5 mins dictation
--- NOTE | 2018-02-20 15:44 | PC.NURSE ---
PATH PROGRESS: Per Isael Fuentes at [facility], the testing required a variant confirmation and he expected the results would be back today. I emailed Isael just a few moments ago who informed me that the results are not yet back. He said he would check first thing tomorrow morning. I called Juanis (Ze' ) and informed her that I did not have the results, but they should be back tomorrow. I will give her a call tomorrow and let her know if we have the results.
--- NOTE | 2018-02-21 13:53 | PC.NURSE ---
PATH PROGRESS: Received the OmniSeq results today, I gave them to Letty to scan into the computer and put into Dr. Mohr's box. Also, I just got off the phone with Juanis, (Ze's ) informing her that we just received the OmniSeq results and that she can have a copy of them after Ze's appointment on Saturday.
--- NOTE | 2018-02-21 15:13 | ONC.SCHED ---
TREATMENT-RECHECKED PASSES CODE CORRECT WITH NO LCD EDITS
--- NOTE | 2018-02-24 08:38 | ONC.PN ---
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 He presents here today for scheduled follow-up visit. He presented with confusion, hallucination, and unsteadiness. MRI of the brain on 01/07/2018 showed innumerable small cerebral, pontine, cerebral a metastasis as well as right frontal calvarium metastasis without midline shift and a right anterior parotid gland mass. Bone scan showed extensive osseous metastatic disease involving the axial and appendicular skeleton. The focus of the uptake seen at the right maxilla was thought to represent periodontal disease by positioning. On 01/08/[address] scan of the abdomen pelvis that showed a circumferential bladder wall thickening with focal left-sided wall lesion and possible ulceration. It also showed the known widespread osseus metastasis. On 01/11/[address] of the chest without contrast. The scan showed a 34 mm diameter spiculated density within the right apex. No mediastinal lymphadenopathy was noted. Again it showed the known bony metastasis. I was consulted on 01/13/2018. After discussing with the radiologist Dr. Phipps we decided to proceed with sacrum lesion biopsy that was actually done on December. The pathology showed metastatic carcinoma, poorly differentiated, with an immunophenotype consistent with metastasis from primary pulmonary adenocarcinoma. This case was discussed at our tumor board next Saturday. And the tumor board consensus is to follow-up on the OmniSeq molecular study results. If there is molecular target, patient should be treated with tyrosine kinase inhibitor. If no targets, patient is a good candidate for immuno/chemotherapy. And the Board agrees that the whole brain radiation should be reserved at this moment. Today, he is in wheelchair accompanied by his two sons and his . Patient himself was not able to provide any meaningful information. Per patient's family, patient's cognitive functions are declining. Patient is not able to communicate with family members. However patient can selectively understand some of the commands. At home, patient is not able to walk by himself. But he is able to walk with a walker and assistance. During the day, he seems to be comfortable; however during the night patient tossed and turned. Family interpreted as the patient is in pain. Patient also has decreased p.o. intake. Family member is giving the patient protein shakes for nutritional support. Per family member, patient has had low-grade fever. 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 - Patient Self-Reported Symptoms SR Constitution: Weight loss/gain, Fatigue/Malaise SR eye issues: Vision changes SR ears, nose, mouth, throat issues: Cough, Difficulty swallowing SR Cardiovascular issues: Dizzy/lightheaded SR Gastrointestinal issues: Constipation SR Genitourinary issues: Incontinence SR Musculoskeletal issues: Muscle weakness, Difficulty walking SR Neuro issues: Headache, Lightheaded/dizzy, Numbness or tingling, Tremors or shaking, Difficulty balancing - Additional ROS All systems PM: reviewed and no additional remarkable complaints except as stated Home Medications and Allergies Home Medications Medication Instructions Recorded Confirmed Type acetaminophen 650 mg PO Q6HR PRN #50 tab 01/16/18 02/24/18 Rx docusate sodium 100 mg PO BID #60 cap 01/16/18 02/24/18 Rx ibuprofen 600 mg PO Q6HR PRN #60 tab 01/16/18 02/24/18 Rx pantoprazole 40 mg PO 0900 #30 tab 01/16/18 02/24/18 Rx risperidone [Risperdal] 0.5 mg PO BID #60 tab 01/16/18 02/24/18 Rx magnesium hydroxide [Milk Of 30 ml PO DAILY PRN 01/23/18 02/24/18 History Magnesia Concentrated] nystatin 200,000 unit BUCCAL QID 01/23/18 02/24/18 History sennosides [senna] 4.3 mg PO BID 01/23/18 02/24/18 History prochlorperazine maleate 10 mg PO Q4H PRN 02/06/18 02/24/18 History [Compazine] dexamethasone 4 mg PO Q12H 02/17/18 02/24/18 History polyethylene glycol 3350 [Miralax] 17 g PO DAILY 02/17/18 02/24/18 History lactulose 20 g PO TID PRN #120 ml 02/20/18 02/24/18 Rx oxycodone 5 mg PO Q4-6H PRN #10 tab 02/20/18 02/24/18 Rx morphine 5 mg PO Q4H PRN 02/24/18 02/24/18 History osimertinib 80 mg PO DAILY 30 Days #30 tab 02/24/18 Rx Allergies Allergy/AdvReac Type Severity Reaction Status Date / Time No Known Drug Allergies Allergy Verified 02/17/18 10:55 Exam Vital signs: Last Vital Signs Temp 98.2 F 02/20/18 11:01 Pulse 48 L 02/24/18 11:30 Resp 16 02/24/18 11:30 BP 131/87 02/24/18 11:30 Pulse Ox 100 02/24/18 11:30 ECOG 2 Narrative: Constitutional: WDWN, NAD, average body habitus, well groomed, cooperative, in wheelchair HEENT: NCAT, EOMI, PERRLA, anicteric sclera, no hearing difficulty; Oral mucus membrane DRY and without ulcers. Neck: Supple, symmetrical, and tracheal midline; No palpable thyromegaly and no palpable lymph nodes. Respiratory: No use of accessory muscles. Clear to auscultation, and no wheezes or rales or rubs. Cardiovascular: Regular rate and rhythm, S1 and S2 normal, no murmurs gallops or rubs. No JVD. No pitting edema of lower extremities. Abdomen: Soft, nontender, non-distended, bowel sounds normal, no palpable organomegaly, no hernia, no palpable masses. Lower extremities: No palpable pedal edema. Lymphatic: no palpable lymph nodes in the neck, axillae, or groins. Musculoskeletal: normal gait and station, no clubbing, no cyanosis, no pitting edema. Skin: no rashes, no ulcers, no petechiae Neurological: Awake, and alert. CN II-XII grossly intact. No focal motor or sensory deficit. unable to answer questions. follow verbal commands most of the time. Results - Labs Laboratory Last Values WBC 10.9 X10^3/uL (4.5-11.0) 02/06/18 11:24 RBC 4.87 X10^6/uL (4.5-5.9) 02/06/18 11:24 Hgb 15.4 g/dL (13.5-17.5) 02/06/18 11:24 Hct 44.9 % (41-53) 02/06/18 11:24 MCV 92.3 fL (80-100) 02/06/18 11:24 MCH 31.6 PG (26-34) 02/06/18 11:24 MCHC 34.3 % (30-36) 02/06/18 11:24 RDW 14.1 % (11.6-14.8) 02/06/18 11:24 Plt Count 179 X10^3/uL (150-400) 02/06/18 11:24 Neut % (Auto) 80.0 % (50-75) H 02/06/18 11:24 Lymph % (Auto) 12.7 % (25-40) L 02/06/18 11:24 [place] % (Auto) 6.0 % (3-14) 02/06/18 11:24 Eos % (Auto) 1.0 % (2-4) L 02/06/18 11:24 Baso % (Auto) 0.3 % (0-2) 02/06/18 11:24 Neut # (Auto) 8800 /uL (1746-0483) H 02/06/18 11:24 Sodium 139 mmol/L (137-145) 02/06/18 11:24 Potassium 4.2 mmol/L (3.4-5.1) 02/06/18 11:24 Chloride 99 mmol/L (98-107) 02/06/18 11:24 Carbon Dioxide 29 mmol/L (22-32) 02/06/18 11:24 BUN 24 mg/dL (9-20) H 02/06/18 11:24 Creatinine 1.00 mg/dL (0.66-1.25) 02/06/18 11:24 Estimated GFR > 60.0 mL/min (>60) 02/06/18 11:24 BUN/Creatinine Ratio 24.0 (6-22) H 02/06/18 11:24 Glucose 122 mg/dL (80-110) H 02/06/18 11:24 Calcium 9.4 mg/dL (8.4-10.2) 02/06/18 11:24 Total Bilirubin 0.6 mg/dL (0.2-1.3) 02/06/18 11:24 AST 65 IU/L (17-59) H 02/06/18 11:24 ALT 66 IU/L (21-72) 02/06/18 11:24 Alkaline Phosphatase 154 U/L (38-126) H 02/06/18 11:24 Total Protein 7.0 g/dL (6.3-8.2) 02/06/18 11:24 Albumin 4.0 g/dL (3.5-5.0) 02/06/18 11:24 Globulin 3.0 g/dL (1.7-4.1) 02/06/18 11:24 Albumin/Globulin Ratio 1.3 (1.0-2.8) 02/06/18 11:24 - Imaging Additional studies: Procedures CATARAC PHACOEMULS/ASPIR (08/16/09) Excision of Sacrum, Percutaneous Approach, Diagnostic (01/07/18) INSERT LENS AT CATAR EXT (08/16/09) Phacoemulsification and aspiration of cataract (08/05/12) Assessment and Plan (1) Non-small cell lung cancer with metastasis Problem details: Never smoker. Presented with after mental status with confusion and hallucination in 12/2017. Evidence of multiple brain metastasis on MRI of the brain 01/07/2018. Evidence of right upper lung spiculated 24 mm leison in the right apex on CT scan of the chest 01/12/2108. Widespresed osseous metasatis on CT/MRI. Biopsy of sacral lesion was consistnet with for primary lung cancer 01/13/2018. 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 Activating EGFR L858R mutation is identified. I talked with the patient that per guidelines, patient is a good candidate for small molecule inhibitor treatment. Immunotherapy is generally considered not effective in patients with EGFR mutations, and maybe detrimental. Cytoxic chemotherapy is less effective than targeted tyrosine kinase inhibitor. However patient may need chemotherapy if he is not responding to TKIs. Patient has intracranial metastasis. I would choose Osimertinib because it can cross the blood-brain barrier, and studies have shown good intracranial activity. Patient's declining mental status may be related to the progression of his intracranial disease. With treatment, he may get better. Meanwhile patient needs to continue dexamethasone at 4 mg every 12 hr. I do not think higher dosage of dexamethasone is needed at this moment. Plan: 1. NS 1000 cc iv one hour, patient has very poor po intake with slightly rising BUN level 2. Osimertinib 80 mg po daily, 30# with 12 refills. 3. Continue Xgeva 120 mg subQ monthly, first dose was 02/06/2018, next due 03/09/2018 4. Stop Vitamin B12 1000 mcg subQ which was started on 02/06/2018 (first dose) 5. RTC in 2 weeks for follow up visit, CBC, CMP. (2) Lesion of bladder Problem details: Had hematuria in the past. The bladder lesion noted for 2 years ago and had been evaluated be benign. However still need continued monitoring. Assessment and rosangela: Patient has already scheduled for cystoscopy. (3) Bradycardia Assessment and Plan: May be related to intracranial metastasis with elevated intracranial pressure. Patient currently is on dexamethasone that may be of some value. Patient does not have any chest pain or shortness of breath at this moment. I will continue current active surveillance.
[2018-02-24 10:39] LABS: Add Manual Diff / Slide Review NO; Basophils Percent Auto 0.5 % (0-2); Eosinophils Percent Auto 0.5 % (2-4); Hematocrit 48.1 % (41-53); Hemoglobin 16.7 g/dL (13.5-17.5); Lymphocytes Percent Auto 15.6 % (25-40); Mean Corpuscular HGB Conc 34.8 % (30-36); Mean Corpuscular Hemoglobin 32.2 PG (26-34); Mean Corpuscular Volume 92.8 fL (80-100); Monocytes Percent Auto 5.6 % (3-14); Neutrophils Absolute Auto 7300 /uL (1500-7000); Neutrophils Percent Auto 77.8 % (50-75); Platelet Count 155 X10^3/uL (150-400); Red Blood Cell Count 5.18 X10^6/uL (4.5-5.9); Red Cell Distribution Width 15.2 % (11.6-14.8); White Blood Cell Count 9.4 X10^3/uL (4.5-11.0)
[2018-02-24 10:51] LABS: Alanine Aminotransferase 31 IU/L (21-72); Albumin 3.9 g/dL (3.5-5.0); Albumin Globulin Ratio 1.3 (1.0-2.8); Alkaline Phosphatase 133 U/L (38-126); Aspartate Aminotransferase 24 IU/L (17-59); BUN Creatinine Ratio 26.7 (6-22); Bilirubin Total 0.9 mg/dL (0.2-1.3); Blood Urea Nitrogen 24 mg/dL (9-20); Calcium 8.5 mg/dL (8.4-10.2); Carbon Dioxide 26 mmol/L (22-32); Chloride 101 mmol/L (98-107); Estimated Glomerular Filt Rate > 60.0 mL/min (>60); Globulin 3.1 g/dL (1.7-4.1); Glucose 86 mg/dL (80-110); HEMOLYSIS < 15 (0-50); Potassium 4.5 mmol/L (3.4-5.1); Sodium 135 mmol/L (137-145)
[2018-02-24 11:30] VITALS: BP 131/87; PULSE 48; RESP 16; O2SAT 100
[2018-02-24] MEDS: SODIUM CHLORIDE 0.9% 1,000 ML 1000 ML IV (12:22)
--- NOTE | 2018-02-27 14:34 | ONC.NAV ---
Description: Financial Assistance: [employer] Activity: Faxed completed application forms to taper printed circuit layout for free medication request. Will update family once a determination of approval or denial has been made.
[2018-03-03] MEDS: SODIUM CHLORIDE 0.9% 1,000 ML 1000 ML IV (15:18)
[2018-03-03 15:25] VITALS: BP 122/67; PULSE 52; RESP 18; TEMP 36.6
--- NOTE | 2018-03-03 16:40 | PC.NURSE ---
PATIENT IN FOR FLUIDS DUE TO DECLINING CONDITION WITH DIFFICULTY SWALLOWING, DECREASED FLUID INTAKE AND CONCENTRATED URINE. IT WAS COMMUNICATED TO PATIENTS THAT THERE IS NOW A STANDING ORDER FOR FLUIDS UP TO 3X PER WEEK IF NEEDED AND THAT THEY SHOULD JUST CALL IN FOR AN APPOINTMENT. ALSO INFORMED PATIENT THAT WITH URGENT QUESTIONS FOR TRIAGE SHE SHOULD ASK [employer] APPRENTICE TO PUT HER ON HOLD AND PAGE THE TRIAGE NURSE. SHE WAS ALSO INFORMED THAT TRIAGE [email or web address] WILL BE CONTACTING THE DRUG COMPANY TO FIND OUT HOW PILL CAN BE TAKEN IN PATIENT WITH SWALLOWING DIFFICULTIES.
--- NOTE | 2018-03-04 12:07 | PC.NURSE ---
Called pt to instruct on how to take oral osimertinib. Left instructions on voicemail for Juanis and instructed her to call if she has any questions. Information for how to take medication was taken from [facility].
--- NOTE | 2018-03-07 14:44 | PC.NURSE ---
called to say that pt was still inpatient and was just coming back from OR after having a peg tube placed. He is scheduled to see Dr Mohr on Saturday but thought he would still be inpatient at that time and if they did D/C him they did not want to bring him back out for this appt. Dr. Mohr has agreed to see him today (03/07) after his last pt at 1600
== END ==
PROVIDERS: Family Provider Family Medicine; PCP Family Medicine; Visit Provider Internal Medicine Hematology & Oncology
DX: C34.11 Malignant neoplasm of upper lobe, right bronchus or lung (principal)
CPT/HCPCS: 36415; 80053; 84443; 85025; 96360; 96372; 99215; J0897; J3420

== ENCOUNTER 2018-03-04 15:32 | Inpatient (IN) | payer MEDICARE, OTHER, SELFPAY ==
[2018-03-04] VITALS (8 sets, daily range): BP systolic 114–140; BP diastolic 56–88; PULSE 51–88; RESP 13–18; TEMP 36.1–36.9; O2SAT 95–100; BMI 22.4
--- NOTE | 2018-03-04 15:46 | DI.RAD.S_ITS ---
PROCEDURE: XR PELVIS 1-2V INDICATIONS: pain, known cancer TECHNIQUE: Single frontal view of the pelvis acquired. COMPARISON: [facility], CT, CT BIOPSY BONE DEEP, 01/13/2018, 13:29. FINDINGS: Bones: No fractures or dislocations. No suspicious bony lesions. Soft tissues: Visualized bowel gas pattern is normal. No suspicious soft tissue calcifications. IMPRESSION: No trauma foun, no osteoblastic or lytic lesion seen. Depending on the clinical status followup by a nuclear medicine bone scan may be warranted in this clinical circumstance. Colon bowel loops overlying significant portions of the pelvis producing radiolucencies which could easily obscure visualization of an osteolytic lesion in the sacrum or iliac wings, greater on the left than the right. Dictated by: Torres Marin M.D. on 03/04/2018 at 16:28 Approved by: Torres Marin M.D. on 03/04/2018 at 16:29
--- NOTE | 2018-03-04 15:46 | DI.CT.S_ITS ---
PROCEDURE: CT HEAD/BRAIN WO CON INDICATIONS: change in consciousness, known mets to brain TECHNIQUE: Noncontrast 4.5 mm thick angled axial sections acquired from the foramen magnum to the vertex, with coronal and sagittal reformats. For radiation dose reduction, the following was used: automated exposure control, adjustment of mA and/or kV according to patient size. COMPARISON: [facility], MR, MR HEAD/BRAIN W CON, 01/07/2018, 19:49. [facility], CT, CT HEAD/BRAIN WO CON, 01/06/2018, 10:57. FINDINGS: Image quality: Diagnostic. CSF spaces: Basal cisterns are patent. No extra-axial fluid collections. The ventricles have increased in size in the interim. Specifically, the 3rd ventricle measures 1.5 cm in diameter (previously measuring 1.1 cm in diameter. The cerebral aqueduct appears to be patent. The 4th ventricle is within normal limits. Mild interval increase in prominence of lateral ventricles is also identified. There is corresponding parenchymal volume loss. Brain: No midline shift. No intracranial masses or hemorrhage. Montesinos-white matter interface is normal. The patient's known parenchymal metastases are not clearly evident on this exam. However, there is a subtle focus of increased density evident involving the right inferior frontal lobe (image 20, series 2). Areas of low-attenuation are seen within the periventricular and deep white matter of the supratentorial brain. Skull and face: Calvarium and visualized facial bones are intact, without suspicious lesions. Sinuses: Visualized sinuses and mastoids are clear. IMPRESSION: 1. No acute intracranial hemorrhage. 2. The patient's known metastatic lesions are not clearly evident on CT. 3. Moderate interval increase in size of the lateral and 3rd ventricles and is of uncertain etiology. MRI of the brain may be helpful for better evaluation. 4. Parenchymal volume loss and chronic small vessel ischemic changes. Dictated by: Mert Lainez M.D. on 03/04/2018 at 15:27 Approved by: Mert Lainez M.D. on 03/04/2018 at 15:31
--- NOTE | 2018-03-04 15:47 | DI.RAD.S_ITS ---
PROCEDURE: XR CHEST 1V INDICATIONS: short of breath known lung ca TECHNIQUE: One view of the chest was acquired. COMPARISON: [facility], CT, CT CHEST WO CON, 01/11/2018, 14:23. [facility], CR, XR CHEST 1V, 02/20/2018, 15:14. FINDINGS: Surgical changes and devices: Stable, Port-A-Cath from a left-sided approach extends into the atrial caval junction. Lungs and pleura: No pleural effusions or pneumothorax. Lungs are abnormal with a reduced inspiratory volume but also what appears to be a right mid and upper lobe pneumonia pattern, versus radiation pneumonitis. Superimposed at the right apex is a mass lesion previously documented by CT scanning. Mediastinum: Mediastinal contours appear normal. Heart size is normal. Bones and chest wall: No suspicious bony lesions. Overlying soft tissues appear unremarkable. IMPRESSION: Right mid and upper lobe pneumonia pattern, versus radiation pneumonitis. Please correlate clinically. This is the general area of a previously documented malignant mass measuring up to 3.4 cm at the right apex. Dominant Dictated by: Torres Marin M.D. on 03/04/2018 at 16:29 Approved by: Torres Marin M.D. on 03/04/2018 at 16:31
[2018-03-04] MEDS: SODIUM CHLORIDE 0.9% 1,000 ML 200 ML IV ×2 (16:06→22:38)
[2018-03-04] MEDS: MORPHINE 2 MG/ML INJ IV ×2 (16:07→18:43)
[2018-03-04 16:09] LABS: Add Manual Diff / Slide Review NO; Basophils Absolute Auto 0 /uL (0-100); Basophils Percent Auto 0.1 % (0-2); Eosinophils Absolute Auto 0 /uL (0-450); Eosinophils Percent Auto 0.1 % (2-4); Hematocrit 45.1 % (41-53); Hemoglobin 15.5 g/dL (13.5-17.5); Lymphocytes Absolute Auto 800 /uL (1100-4500); Mean Corpuscular HGB Conc 34.3 % (30-36); Mean Corpuscular Hemoglobin 31.9 PG (26-34); Mean Corpuscular Volume 93.1 fL (80-100); Monocytes Absolute Auto 400 /uL (0-900); Monocytes Percent Auto 4.7 % (3-14); Neutrophils Absolute Auto 8200 /uL (1500-7000); Neutrophils Percent Auto 87.1 % (50-75); Platelet Count 122 X10^3/uL (150-400); Red Blood Cell Count 4.84 X10^6/uL (4.5-5.9); Red Cell Distribution Width 15.4 % (11.6-14.8); White Blood Cell Count 9.5 X10^3/uL (4.5-11.0)
[2018-03-04 16:17] LABS: Prothrombin Time 11.6 SECONDS (10.1-12.7)
[2018-03-04 16:19] LABS: PTT Partial Thromboplastin Tim 23 SECONDS (26.4-36.2)
[2018-03-04 16:21] LABS: Alanine Aminotransferase 47 IU/L (21-72); Albumin 3.2 g/dL (3.5-5.0); Albumin Globulin Ratio 1.2 (1.0-2.8); Alkaline Phosphatase 126 U/L (38-126); Aspartate Aminotransferase 30 IU/L (17-59); BUN Creatinine Ratio 41.4 (6-22); Bilirubin Total 0.7 mg/dL (0.2-1.3); Blood Urea Nitrogen 29 mg/dL (9-20); Carbon Dioxide 24 mmol/L (22-32); Chloride 105 mmol/L (98-107); Estimated Glomerular Filt Rate > 60.0 mL/min (>60); Globulin 2.7 g/dL (1.7-4.1); Glucose 113 mg/dL (80-110); HEMOLYSIS < 15 (0-50); Potassium 4.5 mmol/L (3.4-5.1); Sodium 136 mmol/L (137-145); Total Protein 5.9 g/dL (6.3-8.2)
[2018-03-04 16:46] LABS: Lactate (Lactic Acid) 1.2 mmol/L (0.7-2.1)
[2018-03-04 16:47] LABS: Procalcitonin 0.06 ng/mL (<0.5)
--- NOTE | 2018-03-04 17:08 | DI.CT.S_ITS ---
PROCEDURE: CT ANGIO CHEST PE PROTOCOL INDICATIONS: hypoxia RUL pneumonia vs mass, known CA TECHNIQUE: After the administration of intravenous contrast, 2 mm thick sections acquired from the pulmonary apices to the posterior costophrenic angles. 3-dimensional maximum intensity projection (MIP) coronal and sagittal reformats were then acquired through the thorax. For radiation dose reduction, the following was used: automated exposure control, adjustment of mA and/or kV according to patient size. COMPARISON: [facility], CR, XR CHEST 1V, 03/04/2018, 16:01. [facility], CT, CT CHEST WO CON, 01/11/2018, 14:23. FINDINGS: Image quality: Excellent. Pulmonary arteries: There are small filling defects within segmental and segmental pulmonary arteries in the left lower lobe consistent with pulmonary embolism. No definite enlargement of the main pulmonary artery. There is slight leftward deviation of the interventricular septum which may reflect right heart strain. Lungs and pleura: Within the right upper lobe, there is a spiculated mass measuring up to approximately 3.1 x 2.5 cm, similar in size compared to the prior CT. There is increased adjacent septal thickening in the right upper lobe. There are also a few patchy peripheral indistinct airspace opacities in the right upper lobe which are increased from the prior study. There is a small pleural-based nodule anteriorly along the right middle lobe measuring up to 0.5 cm which appears slightly increased in prominence compared to the prior study although this may represent differences in slice acquisition. There is mild dependent atelectasis bilaterally. Indistinct on glass opacities with mild septal thickening are also noted diffusely suggestive of mild pulmonary edema. There are small bilateral pleural effusions. The trachea and central airways appear grossly patent. Mediastinum: Heart size is borderline enlarged, without pericardial effusion. Thoracic aorta is normal in caliber and enhancement. There are a few mildly enlarged mediastinal lymph nodes including a right paratracheal node measuring up to 1.2 cm as well as a large confluent right hilar lymph nodes. The findings appear slightly increased in prominence compared to the prior study although evaluation of the right hilum is limited on the previous CT secondary to absence of intravenous contrast. Esophagus is normal in caliber, with a small hiatal hernia. Bones and chest wall: Multiple lytic lesions are demonstrated within the visualized osseous structures including within the ribs, spine, left scapula, and right humerus. These appear slightly increased in size compared to the prior study. Ribs and thoracic spine appear intact throughout. Thyroid gland demonstrates no definite dominant nodules are. No axillary or supraclavicular adenopathy. Abdomen: Visualized upper abdomen demonstrates nodularity of hepatic contour. IMPRESSION: 1. Pulmonary embolism demonstrated within segmental and subsegmental pulmonary arteries in the left lower lobe. 2. Spiculated right apical mass consistent with history of lung cancer appears similar in size compared to the prior study. There is increased adjacent septal thickening which may represent lymphangitic carcinomatosis or possibly post radiation pneumonitis. Recommend correlation with clinical history. 3. Right hilar and mediastinal lymphadenopathy appears similar to slightly increased compared to the prior study. Findings are suggestive of metastatic disease. 4. Small bilateral pleural effusions. 5. Suggestion of mild pulmonary edema. 6. Diffuse osseous metastases appear increased compared to the prior study. Findings discussed with Dr. Roman on 03/04/18 at 5:55 PM. Dictated by: Twan Carey M.D. on 03/04/2018 at 17:44 Approved by: Twan Carey M.D. on 03/04/2018 at 17:57
--- NOTE | 2018-03-04 17:43 | ED_ITS ---
HPI - Neuro Symptoms/Deficit General Chief Complaint: Neuro Symptoms/Deficit Stated Complaint: Decreased LOC Time Seen by Provider: 03/04/18 15:46 Source: family and EMS Mode of arrival: EMS Limitations: no limitations History of Present Illness HPI Narrative: Patient is a 77-year-old male with known metastatic lung cancer. Presenting with significant decline in mental status. He was seen at oncology yesterday where he received IV fluids according to the daughter he was hungry and ate partial a hamburger last night. However today he has significant decline in mental status low-grade fever and not able to eat or drink anything today. Minimally arousable. He is a DNR. His she has noticed that his oxygen level has decreased slightly at home as well. 90-93% at rest. Also productive cough but unable to get much sputum out. Daughter is also notice some pain in his pelvis of well transferring him. Onset (ago): hour(s) Related Data Home Medications Medication Instructions Recorded Confirmed magnesium hydroxide [Milk Of 30 ml PO DAILY PRN 01/23/18 03/04/18 Magnesia Concentrated] nystatin 200,000 unit BUCCAL QID 01/23/18 03/04/18 sennosides [senna] 4.3 mg PO BID 01/23/18 03/04/18 prochlorperazine maleate 10 mg PO Q4H PRN 02/06/18 03/04/18 [Compazine] dexamethasone 4 mg PO Q12H 02/17/18 03/04/18 polyethylene glycol 3350 [Miralax] 17 g PO DAILY 02/17/18 03/04/18 Cbd 1 dose PO PRN PRN 03/04/18 03/04/18 acetaminophen 650 mg AL Q4H PRN 03/04/18 03/04/18 morphine 5 mg PO Q4H PRN 03/04/18 03/04/18 risperidone 0.5 mg PO BID 03/04/18 03/04/18 Previous Rx's Medication Instructions Recorded acetaminophen 650 mg PO Q6HR PRN #50 tab 01/16/18 docusate sodium 100 mg PO BID #60 cap 01/16/18 ibuprofen 600 mg PO Q6HR PRN #60 tab 01/16/18 pantoprazole 40 mg PO 0900 #30 tab 01/16/18 oxycodone 5 mg PO Q4-6H PRN #10 tab 02/20/18 osimertinib 80 mg PO DAILY 30 Days #30 tab 02/24/18 lactulose 20 g PO TID PRN #120 ml 02/25/18 morphine 5 mg PO Q4H PRN #60 ml 02/25/18 Allergies Allergy/AdvReac Type Severity Reaction Status Date / Time No Known Drug Allergies Allergy Verified 03/04/18 15:42 Review of Systems Review of Systems ROS Unobtainable: All systems reviewed & are unremarkable except as noted in HPI and below Constitutional Reports daytime sleepiness, Reports fatigue, Reports fever(s) and Reports poor appetite ENT Ears, Nose, Mouth, and Throat: Reports dry mouth Cardiovascular Denies chest pain, Denies irregular heart rhythm, Denies lightheadedness, Denies palpitations and Denies orthopnea Respiratory Reports as per HPI Gastrointestinal Gastrointestinal: Denies abdominal pain, Denies change in bowel habits, Denies diarrhea, Denies nausea and Denies vomiting Musculoskeletal Denies deformity and Denies numbness Comments: Pelvis and hip pain per daughter Integumentary/Breasts Denies pruritus, Denies erythema, Denies rash and Denies wounds Neurologic Denies numbness Endocrine Reports fatigue and Denies palpitations Hematologic/Lymphatic Denies easy bruising PFSH Medical History Arthritis (Acute) Bradycardia (Acute) Cataract fragments in both eyes following surgery (Acute) Change in mental status (Acute) Constipation (Acute) Enlarged prostate (Acute) Groin injury (Acute) Headache (Acute) Hypotension (Acute) Lung cancer metastatic to brain (Acute) Nausea (Acute) Urinary retention (Acute) Surgical History H/O hernia repair (Acute ~2009) History of appendectomy (Acute ~1956) Family History Mother Cancer Father Subdural hematoma Social History household members: spouse Smoking Status: Never smoker alcohol intake: current Exam Initial Vital Signs Initial Vital Signs: Vital Signs Temperature 98.5 F 03/04/18 15:42 Pulse Rate 58 L 03/04/18 15:42 Respiratory Rate 16 03/04/18 15:42 Blood Pressure 119/56 L 03/04/18 15:42 Pulse Oximetry 95 03/04/18 15:42 Const General: cooperative, No diaphoretic, frail appearing and ill appearing (Weak, minimally responsive to voice) Nutritional Appearance: malnourished Orientation: alert and awake Limitations: altered mental status [facility] Head: normal to inspection and normocephalic Eyes General: appearance normal, both eyes and all related structures Chest Chest: normal inspection of the chest and normal palpation of entire chest wall Resp Effort & Inspection: normal respiratory effort, decreased respiratory effort and not labored Auscultation: rales bilaterally, no rhonchi and no wheezes Cardio Rate: regular rate Rhythm: regular rhythm Heart Sounds: no click, no gallops, no murmurs and no rubs Pulses: normal peripheral pulses Skin General: no rashes or lesions noted, No jaundice and No petechiae Neuro General: alert and awake Course Orders Ordered: ED Orders 03/04/18 15:45 Complete Blood Count AUTO DIFF Stat Comprehensive Metabolic Panel Stat Partial Thromboplastin Time Stat Procalcitonin Stat Prothrombin Time INR Stat 03/04/18 15:46 CT head/brain wo con Stat XR pelvis 1-2V Stat 03/04/18 15:47 XR chest 1V Stat 03/04/18 16:25 Blood Culture Stat 03/04/18 16:28 Lactate (Lactic Acid) Stat 03/04/18 17:08 CT angio chest PE protocol Stat 03/04/18 18:19 Influenza A and B by PCR Rapid Stat 03/04/18 19:05 Urine Microscopic Stat Sodium Chloride (Normal Saline 0.9%) 1,000 mls @ 200 mls/hr IV CONT ERICA Last Admin: 03/04/18 16:06 Dose: 200 mls/hr Heparin Sodium/Dextrose (Heparin Drip) 25,000 unit in 500 mls @ 24.821 mls/hr IV CONT ERICA; Protocol Last Admin: 03/04/18 18:44 Dose: 18 units/kg/hr, 24.821 mls/hr Vancomycin HCl/Dextrose (Vancomycin) 1,000 mg in 200 mls @ 200 mls/hr IV NOW ONE Stop: 03/04/18 20:12 Piperacillin/Tazobactam/Dextrose (Zosyn) 3.375 gm in 50 mls @ 100 mls/hr IV NOW ONE Stop: 03/04/18 19:42 Discontinued Medications Morphine Sulfate (Morphine) 2 mg IV NOW ONE Stop: 03/04/18 16:07 Last Admin: 03/04/18 16:07 Dose: 2 mg Morphine Sulfate (Morphine) 2 mg IV NOW ONE Stop: 03/04/18 18:42 Last Admin: 03/04/18 18:43 Dose: 2 mg Vital Signs - 8 hr 03/04/18 15:42 03/04/18 16:30 03/04/18 18:11 Temperature 98.5 F Pulse Rate 58 L 51 L 57 L Respiratory Rate 16 Blood Pressure 119/56 L Blood Pressure [Left Arm] 114/56 L 124/70 Pulse Oximetry 95 97 98 03/04/18 18:40 Temperature Pulse Rate 88 Respiratory Rate 13 Blood Pressure Blood Pressure [Left Arm] 124/88 Pulse Oximetry 96 MDM - Neuro Symptoms/Deficit Lab Data Attestation: I reviewed the patient's lab results. Result diagrams: 03/04/18 15:45 03/04/18 15:45 Lab Results 03/04/18 03/04/18 03/04/18 Range/Units 15:45 15:45 15:45 WBC 9.5 (4.5-11.0) X10^3/uL RBC 4.84 (4.5-5.9) X10^6/uL Hgb 15.5 (13.5-17.5) g/dL Hct 45.1 (41-53) % MCV 93.1 (80-100) fL MCH 31.9 (26-34) PG MCHC 34.3 (30-36) % RDW 15.4 H (11.6-14.8) % Plt Count 122 L (150-400) X10^3/uL Neut % (Auto) 87.1 H (50-75) % Lymph % (Auto) 8.0 L (25-40) % Maverick % (Auto) 4.7 (3-14) % Eos % (Auto) 0.1 L (2-4) % Baso % (Auto) 0.1 (0-2) % Neut # (Auto) 8200 H (1301-9902) /uL Lymph # (Auto) 800 L (0181-1065) /uL Maverick # (Auto) 400 (0-900) /uL Eos # (Auto) 0 (0-450) /uL Baso # (Auto) 0 (0-100) /uL PT 11.6 (10.1-12.7) SECONDS INR 1.0 (0.9-1.3) APTT 23 L (26.4-36.2) SECONDS Sodium (137-145) mmol/L Potassium (3.4-5.1) mmol/L Chloride (98-107) mmol/L Carbon Dioxide (22-32) mmol/L BUN (9-20) mg/dL Creatinine (0.66-1.25) mg/dL Estimated GFR (>60) mL/min BUN/Creatinine Ratio (6-22) Glucose (80-110) mg/dL Lactate (0.7-2.1) mmol/L Calcium (8.4-10.2) mg/dL Total Bilirubin (0.2-1.3) mg/dL AST (17-59) IU/L ALT (21-72) IU/L Alkaline Phosphatase (38-126) U/L Total Protein (6.3-8.2) g/dL Albumin (3.5-5.0) g/dL Globulin (1.7-4.1) g/dL Albumin/Globulin Ratio (1.0-2.8) Procalcitonin 0.06 (<0.5) ng/mL 03/04/18 03/04/18 Range/Units 15:45 16:28 WBC (4.5-11.0) X10^3/uL RBC (4.5-5.9) X10^6/uL Hgb (13.5-17.5) g/dL Hct (41-53) % MCV (80-100) fL MCH (26-34) PG MCHC (30-36) % RDW (11.6-14.8) % Plt Count (150-400) X10^3/uL Neut % (Auto) (50-75) % Lymph % (Auto) (25-40) % Maverick % (Auto) (3-14) % Eos % (Auto) (2-4) % Baso % (Auto) (0-2) % Neut # (Auto) (8397-7382) /uL Lymph # (Auto) (4603-2445) /uL Maverick # (Auto) (0-900) /uL Eos # (Auto) (0-450) /uL Baso # (Auto) (0-100) /uL PT (10.1-12.7) SECONDS INR (0.9-1.3) APTT (26.4-36.2) SECONDS Sodium 136 L (137-145) mmol/L Potassium 4.5 (3.4-5.1) mmol/L Chloride 105 (98-107) mmol/L Carbon Dioxide 24 (22-32) mmol/L BUN 29 H (9-20) mg/dL Creatinine 0.70 (0.66-1.25) mg/dL Estimated GFR > 60.0 (>60) mL/min BUN/Creatinine Ratio 41.4 H (6-22) Glucose 113 H (80-110) mg/dL Lactate 1.2 (0.7-2.1) mmol/L Calcium 8.0 L (8.4-10.2) mg/dL Total Bilirubin 0.7 (0.2-1.3) mg/dL AST 30 (17-59) IU/L ALT 47 (21-72) IU/L Alkaline Phosphatase 126 (38-126) U/L Total Protein 5.9 L (6.3-8.2) g/dL Albumin 3.2 L (3.5-5.0) g/dL Globulin 2.7 (1.7-4.1) g/dL Albumin/Globulin Ratio 1.2 (1.0-2.8) Procalcitonin (<0.5) ng/mL Urine Dip Bedside Urine Glucose Negative Bedside Urine Bilirubin - Negative Bedside Urine Ketone - Negative Urine Specific Draper 1.025 Bedside Urine Occult Blood + Bedside Urine pH 6.0 Bedside Urine Protein +/- 15 Bedside Urine Urobilinogen +/- 1mg Bedside Urine Nitrite - Negative Bedside Urine Leukocytes +/- [address] scan - head: Radiologist's impression: PROCEDURE: CT HEAD/BRAIN WO CON INDICATIONS: change in consciousness, known mets to brain TECHNIQUE: Noncontrast 4.5 mm thick angled axial sections acquired from the foramen magnum to the vertex, with coronal and sagittal reformats. For radiation dose reduction, the following was used: automated exposure control, adjustment of mA and/or kV according to patient size. COMPARISON: [facility], MR, MR HEAD/BRAIN W CON, 01/07/2018, 19:49. [facility], CT, CT HEAD/BRAIN WO CON, 01/06/2018, 10:57. FINDINGS: Image quality: Diagnostic. CSF spaces: Basal cisterns are patent. No extra-axial fluid collections. The ventricles have increased in size in the interim. Specifically, the 3rd ventricle measures 1.5 cm in diameter (previously measuring 1.1 cm in diameter. The cerebral aqueduct appears to be patent. The 4th ventricle is within normal limits. Mild interval increase in prominence of lateral ventricles is also identified. There is corresponding parenchymal volume loss. Brain: No midline shift. No intracranial masses or hemorrhage. Montesinos-white matter interface is normal. The patient's known parenchymal metastases are not clearly evident on this exam. However, there is a subtle focus of increased density evident involving the right inferior frontal lobe (image 20, series 2). Areas of low-attenuation are seen within the periventricular and deep white matter of the supratentorial brain. Skull and face: Calvarium and visualized facial bones are intact, without suspicious lesions. Sinuses: Visualized sinuses and mastoids are clear. IMPRESSION: 1. No acute intracranial hemorrhage. 2. The patient's known metastatic lesions are not clearly evident on CT. 3. Moderate interval increase in size of the lateral and 3rd ventricles and is of uncertain etiology. MRI of the brain may be helpful for better evaluation. 4. Parenchymal volume loss and chronic small vessel ischemic changes. Dictated by: Mert Lainez M.D. on 03/04/2018 at 15:27 Chest x-ray: Radiologist's impression: PROCEDURE: XR CHEST 1V INDICATIONS: short of breath known lung ca TECHNIQUE: One view of the chest was acquired. COMPARISON: [facility], CT, CT CHEST WO CON, 01/11/2018, 14:23. [facility], CR, XR CHEST 1V, 02/20/2018, 15:14. FINDINGS: Surgical changes and devices: Stable, Port-A-Cath from a left-sided approach extends into the atrial caval junction. Lungs and pleura: No pleural effusions or pneumothorax. Lungs are abnormal with a reduced inspiratory volume but also what appears to be a right mid and upper lobe pneumonia pattern, versus radiation pneumonitis. Superimposed at the right apex is a mass lesion previously documented by CT scanning. Mediastinum: Mediastinal contours appear normal. Heart size is normal. Bones and chest wall: No suspicious bony lesions. Overlying soft tissues appear unremarkable. IMPRESSION: Right mid and upper lobe pneumonia pattern, versus radiation pneumonitis. Please correlate clinically. This is the general area of a previously documented malignant mass measuring up to 3.4 cm at the right apex. Dominant Dictated by: Torres Marin M.D. on 03/04/2018 at 16:29 pelvis XR: Radiologist's impression: PROCEDURE: XR PELVIS 1-2V INDICATIONS: pain, known cancer TECHNIQUE: Single frontal view of the pelvis acquired. COMPARISON: [facility], CT, CT BIOPSY BONE DEEP, 01/13/2018, 13:29. FINDINGS: Bones: No fractures or dislocations. No suspicious bony lesions. Soft tissues: Visualized bowel gas pattern is normal. No suspicious soft tissue calcifications. IMPRESSION: No trauma foun, no osteoblastic or lytic lesion seen. Depending on the clinical status followup by a nuclear medicine bone scan may be warranted in this clinical circumstance. Colon bowel loops overlying significant portions of the pelvis producing radiolucencies which could easily obscure visualization of an osteolytic lesion in the sacrum or iliac wings, greater on the left than the right. Dictated by: Torres Marin M.D. on 03/04/2018 at 16:28 CT PE: Radiologist's impression: PROCEDURE: CT ANGIO CHEST PE PROTOCOL INDICATIONS: hypoxia RUL pneumonia vs mass, known CA TECHNIQUE: After the administration of intravenous contrast, 2 mm thick sections acquired from the pulmonary apices to the posterior costophrenic angles. 3-dimensional maximum intensity projection (MIP) coronal and sagittal reformats were then acquired through the thorax. For radiation dose reduction, the following was used: automated exposure control, adjustment of mA and/or kV according to patient size. COMPARISON: [facility], CR, XR CHEST 1V, 03/04/2018, 16:01. [facility], CT, CT CHEST WO CON, 01/11/2018, 14:23. FINDINGS: Image quality: Excellent. Pulmonary arteries: There are small filling defects within segmental and segmental pulmonary arteries in the left lower lobe consistent with pulmonary embolism. No definite enlargement of the main pulmonary artery. There is slight leftward deviation of the interventricular septum which may reflect right heart strain. Lungs and pleura: Within the right upper lobe, there is a spiculated mass measuring up to approximately 3.1 x 2.5 cm, similar in size compared to the prior CT. There is increased adjacent septal thickening in the right upper lobe. There are also a few patchy peripheral indistinct airspace opacities in the right upper lobe which are increased from the prior study. There is a small pleural-based nodule anteriorly along the right middle lobe measuring up to 0.5 cm which appears slightly increased in prominence compared to the prior study although this may represent differences in slice acquisition. There is mild dependent atelectasis bilaterally. Indistinct on glass opacities with mild septal thickening are also noted diffusely suggestive of mild pulmonary edema. There are small bilateral pleural effusions. The trachea and central airways appear grossly patent. Mediastinum: Heart size is borderline enlarged, without pericardial effusion. Thoracic aorta is normal in caliber and enhancement. There are a few mildly enlarged mediastinal lymph nodes including a right paratracheal node measuring up to 1.2 cm as well as a large confluent right hilar lymph nodes. The findings appear slightly increased in prominence compared to the prior study although evaluation of the right hilum is limited on the previous CT secondary to absence of intravenous contrast. Esophagus is normal in caliber, with a small hiatal hernia. Bones and chest wall: Multiple lytic lesions are demonstrated within the visualized osseous structures including within the ribs, spine, left scapula, and right humerus. These appear slightly increased in size compared to the prior study. Ribs and thoracic spine appear intact throughout. Thyroid gland demonstrates no definite dominant nodules are. No axillary or supraclavicular adenopathy. Abdomen: Visualized upper abdomen demonstrates nodularity of hepatic contour. IMPRESSION: 1. Pulmonary embolism demonstrated within segmental and subsegmental pulmonary arteries in the left lower lobe. 2. Spiculated right apical mass consistent with history of lung cancer appears similar in size compared to the prior study. There is increased adjacent septal thickening which may represent lymphangitic carcinomatosis or possibly post radiation pneumonitis. Recommend correlation with clinical history. 3. Right hilar and mediastinal lymphadenopathy appears similar to slightly increased compared to the prior study. Findings are suggestive of metastatic disease. 4. Small bilateral pleural effusions. 5. Suggestion of mild pulmonary edema. 6. Diffuse osseous metastases appear increased compared to the prior study. Findings discussed with Dr. Roman on 03/04/18 at 5:55 PM. Dictated by: Twan Carey M.D. on 03/04/2018 at 17:44 MDM Narrative Medical decision making narrative: Patient is really not awake enough to swallow take any medications by mouth. She will need to be admitted for hydration and anticoagulation at this time. Still awaiting urinalysis. Family at bedside. Updated patient's test results. Agree with treatment plan. Dr. Mcduffie agrees with admission. Discharge Plan Departure Patient Disposition: Admitted As Inpatient Clinical Impression: Pulmonary embolism
[2018-03-04] MEDS: HEPARIN DRIP 25,000 UNIT/500 ML IV.SOLN 24.821 UNIT IV (18:44)
--- NOTE | 2018-03-04 19:07 | PC.NURSE ---
per daughter pt having decreased level of consciousness. [facility] recie[facility] iv fluids and ate part of a cheeseburger, as the day progressed pt became more tired, and less responsive. today pt unable to bear weight, pt not eating, pt not talking.
[2018-03-04] MEDS: PIPERACILLIN-TAZO 3.375 GM/50 ML FROZ.PIGGY IV (19:27)
[2018-03-04 19:41] LABS: Bacteria Urine Occasional (0-1); Culture Indicated Urine Specimen Cultured; RBC Urine 5-10/HPF (0-5/HPF); Squamous Epithelial Cell Urine 0-1 /HPF; WBC Urine 1-5/HPF (0-5/HPF)
[2018-03-04] MEDS: VANCOMYCIN 1,000 MG/200 ML FROZ.PIGGY 200 MG IV (19:58)
[2018-03-04 22:31] LABS: PTT Partial Thromboplastin Tim 63 SECONDS (26.4-36.2)
[2018-03-04] MEDS: DEXAMETHASONE 4 MG/ML VIAL IV (22:31)
[2018-03-04] MEDS: HEPARIN 5,000 UNIT/ML VIAL 5500 UNIT IV (22:33)
[2018-03-04 22:49] LABS: Influenza A and B by PCR Rapid Negative (Negative)
--- NOTE | 2018-03-04 23:49 | PC.NURSE ---
2030- Pt arrived to room 219 from ED via stretcher and transfer to bed via sliding board. Pt awake, but non responsive except for twice able to understand this writers question and answered with a head nod no. 91% 2L, desated to 88%, increased to 3L for 92%. Left upper chest deanna cath with NS @ 200 and heparin drip per protocol, LAC SL for ABO's. Inc B/B changed on arrival, daughter Carrie, reports inc loose stool at home x 2 days, scrotum dark pink, barrier cream to lo area. Q- 2hr turns. Carrie rooming in. Bed alarm on.
[2018-03-05] VITALS (8 sets, daily range): BP systolic 101–122; BP diastolic 45–62; PULSE 46–52; RESP 12–18; TEMP 36.2–36.7; O2SAT 95–98
--- NOTE | 2018-03-05 | DI.MRI.S_ITS ---
PROCEDURE: MR HEAD/BRAIN WO/W CON INDICATIONS: followup brain mets TECHNIQUE: Noncontrast axial T1 spin echo, axial T2 fast spin echo, sagittal and axial FLAIR, coronal T2 fast spin echo, axial gradient echo, axial diffusion and ADC through the brain. After the administration of contrast, axial and coronal T1 spin echo with fat saturation through the brain. COMPARISON: [facility], CT, CT BIOPSY BONE DEEP, 01/13/2018, 13:29. [facility], NM, NM BONE SCAN WHOLE BODY, 01/10/2018, 11:12. [facility], MR, MR HEAD/BRAIN WO CON, 01/07/2018, 19:49. [facility], MR, MR HEAD/BRAIN W CON, 01/07/2018, 19:49. FINDINGS: Image quality: Excellent. CSF spaces: Basal cisterns are patent. No extra-axial fluid collections. Ventricles are normal in size and shape. Brain: There are innumerable foci of abnormal enhancement involving both cerebral hemispheres and cerebellar hemispheres, as well as midbrain and jacob, consistent with intracranial metastases. Compared to the last exam on 01/07/2018, existing lesions are minimally changed in size. There are, however, multiple new lesions identified. No midline shift. No intracranial bleeds or masses. No abnormal intracranial enhancement. There is moderate cerebral volume loss for age. There is minimal periventricular white matter chronic small vessel ischemic change. The brainstem appears normal. Diffusion-weighted images demonstrate no acute ischemic insults. No chronic ischemic insults. Normal intravascular flow voids are present. Skull and face: There are several enhancing nodules in calvarium, consistent with worsening of osseous metastasis, minimally increased in size. For example, a 1.3 cm enhancing nodule in the right frontal bone previously measured 1.1 cm. Orbits appear normal. Sinuses: Sinuses and mastoids appear clear. IMPRESSION: 1. Slight interval progression of intracranial metastases. 2. Slight worsening of osseous metastases. Dictated by: Sachi Hoover M.D. on 03/05/2018 at 16:30 Approved by: Sachi Hoover M.D. on 03/05/2018 at 16:42
[2018-03-05] MEDS: SODIUM CHLORIDE 0.9% 1,000 ML 200 ML IV ×2 (02:02→07:15)
[2018-03-05 04:37] LABS: Hematocrit 41.6 % (41-53); Hemoglobin 14.3 g/dL (13.5-17.5)
[2018-03-05 04:38] LABS: Platelet Count 105 X10^3/uL (150-400)
[2018-03-05 04:59] LABS: PTT Partial Thromboplastin Tim > 400 SECONDS (26.4-36.2)
--- NOTE | 2018-03-05 05:20 | PC.NURSE ---
Shift note: Notified by lab that pt's PTT was >400. Called Dr Mcduffie to notify him of critical lab value and to get further instructions d/t value being larger than hospital protocol. He ordered that the drip be stopped for 2 hours ([id number]) and then be restarted 500 U/hr less which would be 14.8 U/hr when restarted. Information verified with coordinator and entered into orders. Heparin paused on APR and will be restarted at 0700. Dr Mcduffie also ordered a BMP to be done as well. Pt at this time appears to be resting comfortably.
[2018-03-05 05:33] LABS: BUN Creatinine Ratio 31.7 (6-22); Blood Urea Nitrogen 19 mg/dL (9-20); Carbon Dioxide 22 mmol/L (22-32); Chloride 107 mmol/L (98-107); Estimated Glomerular Filt Rate > 60.0 mL/min (>60); Glucose 120 mg/dL (80-110); HEMOLYSIS < 15 (0-50); Potassium 4.2 mmol/L (3.4-5.1); Sodium 134 mmol/L (137-145)
--- NOTE | 2018-03-05 09:37 | P.HP_ITS ---
History of Present Illness Date Patient Seen: 03/05/18 Time Patient Seen: 09:23 Chief complaint: Decreased LOC Narrative: 77-year-old male with a recent diagnosis of non-small cell lung carcinoma has been seen by Oncology, had a Port-A-Cath placed, and is anticipating treatment for the cancer. He had been up and around and be feeling fairly well and so the last several days and apparently became more weaker. It was still up and around some but yesterday morning was found to be really too weak and his mental status had declined so his route to the emergency room. Here he was evaluated and found to have a pulmonary embolus although maintaining oxygenation, not apparently complaining of any pain. Was found to be fairly unresponsive. So referred for further evaluation and treatment. I asked him today about code status he indicates a preference for attempted code, however in the past he has indicated with family's consent that no code status is preferred. Will need to review that. Family history does not contribute to the current hospitalization. Social history, retired well- supported by extended family. Patient History Medical History Arthritis (Acute) Bradycardia (Acute) Constipation (Acute) Enlarged prostate (Acute) Groin injury (Acute) Headache (Acute) Hypotension (Acute) Lung cancer metastatic to brain (Acute) Nausea (Acute) Urinary retention (Acute) Cataract fragments in both eyes following surgery (Chronic) Change in mental status (Inactive) Surgical History H/O hernia repair (Inactive ~2009) History of appendectomy (Inactive ~1956) Family & Social History Family History Mother Cancer Father Subdural hematoma Social History: household members spouse Safety & Behavioral: Feels Safe in Current Yes Environment Been Physically Hurt or No Threatened By a Person Suicidal Ideation Description None Tobacco & Substance use: Smoking Status Never smoker alcohol intake former alcohol intake frequency holiday/special occasion Substance Use Type does not use Meds Home Medications Medication Instructions Recorded Confirmed Type acetaminophen 650 mg PO Q6HR PRN #50 tab 01/16/18 03/04/18 Rx docusate sodium 100 mg PO BID #60 cap 01/16/18 03/04/18 Rx ibuprofen 600 mg PO Q6HR PRN #60 tab 01/16/18 03/04/18 Rx pantoprazole 40 mg PO 0900 #30 tab 01/16/18 03/04/18 Rx magnesium hydroxide [Milk Of 30 ml PO DAILY PRN 01/23/18 03/04/18 History Magnesia Concentrated] nystatin 200,000 unit BUCCAL QID 01/23/18 03/04/18 History sennosides [senna] 4.3 mg PO BID 01/23/18 03/04/18 History prochlorperazine maleate 10 mg PO Q4H PRN 02/06/18 03/04/18 History [Compazine] dexamethasone 4 mg PO Q12H 02/17/18 03/04/18 History polyethylene glycol 3350 [Miralax] 17 g PO DAILY 02/17/18 03/04/18 History oxycodone 5 mg PO Q4-6H PRN #10 tab 02/20/18 03/04/18 Rx osimertinib 80 mg PO DAILY 30 Days #30 tab 02/24/18 03/04/18 Rx lactulose 20 g PO TID PRN #120 ml 02/25/18 03/04/18 Rx morphine 5 mg PO Q4H PRN #60 ml 02/25/18 03/04/18 Rx Cbd 1 dose PO PRN PRN 03/04/18 03/04/18 History acetaminophen 650 mg CA Q4H PRN 03/04/18 03/04/18 History morphine 5 mg PO Q4H PRN 03/04/18 03/04/18 History risperidone 0.5 mg PO BID 03/04/18 03/04/18 History Allergies Allergy/AdvReac Type Severity Reaction Status Date / Time No Known Drug Allergies Allergy Verified 03/04/18 15:42 Review of Systems Review of Systems Patient is barely arousable but denies any pain, breathing issues nausea or other problems except generalized weakness. All systems reviewed & are unremarkable except as noted in HPI and below Constitutional Constitutional: Reports weakness Neurologic Neurologic: Reports confusion, Reports memory loss and Reports weakness Psychiatric Psychiatric: Reports confusion and Reports memory loss Exam Vital Signs (past 8 hours): - 03/05/18 05:35 03/05/18 07:25 03/05/18 07:40 Temperature 98.1 F Pulse Rate 52 L Respiratory Rate 16 Blood Pressure 117/62 Pulse Oximetry 98 96 97 03/05/18 07:45 Temperature 97.3 F L Pulse Rate 48 L Respiratory Rate 12 Blood Pressure 101/45 L Pulse Oximetry 95 Fraction of Inspired Oxygen 21 Oxygen Delivery Method Nasal Cannula Oxygen Flow Rate 0 Narrative Exam Narrative: Resting quietly in bed when I arrive eyes open to voice provides minimal responses the although appropriate. HEENT normocephalic atraumatic neck benign without jugular venous distention or bruit chest shows variable breath sounds diffusely heart regular somewhat slow but without murmur abdomen is soft nontender nondistended normoactive bowel tones extremities without edema pulses intact neurologically nonfocal. Objective Labs Result Diagrams: 03/05/18 04:20 03/05/18 04:20 Labs: Laboratory Results - last 24 hr 03/04/18 03/04/18 03/04/18 15:45 15:45 15:45 WBC 9.5 RBC 4.84 Hgb 15.5 Hct 45.1 MCV 93.1 MCH 31.9 MCHC 34.3 RDW 15.4 H Plt Count 122 L Neut % (Auto) 87.1 H Lymph % (Auto) 8.0 L [place] % (Auto) 4.7 Eos % (Auto) 0.1 L Baso % (Auto) 0.1 Neut # (Auto) 8200 H Lymph # (Auto) 800 L [place] # (Auto) 400 Eos # (Auto) 0 Baso # (Auto) 0 PT 11.6 INR 1.0 APTT 23 L Sodium Potassium Chloride Carbon Dioxide BUN Creatinine Estimated GFR BUN/Creatinine Ratio Glucose Lactate Calcium Total Bilirubin AST ALT Alkaline Phosphatase Total Protein Albumin Globulin Albumin/Globulin Ratio Procalcitonin 0.06 Urine RBC Urine WBC Ur Squamous Epith Cells Urine Bacteria Ur Culture Indicated? Influenza A & B (PCR) 03/04/18 03/04/18 03/04/18 15:45 16:28 18:50 WBC RBC Hgb Hct MCV MCH MCHC RDW Plt Count Neut % (Auto) Lymph % (Auto) [place] % (Auto) Eos % (Auto) Baso % (Auto) Neut # (Auto) Lymph # (Auto) [place] # (Auto) Eos # (Auto) Baso # (Auto) PT INR APTT Sodium 136 L Potassium 4.5 Chloride 105 Carbon Dioxide 24 BUN 29 H Creatinine 0.70 Estimated GFR > 60.0 BUN/Creatinine Ratio 41.4 H Glucose 113 H Lactate 1.2 Calcium 8.0 L Total Bilirubin 0.7 AST 30 ALT 47 Alkaline Phosphatase 126 Total Protein 5.9 L Albumin 3.2 L Globulin 2.7 Albumin/Globulin Ratio 1.2 Procalcitonin Urine RBC 5-10/hpf H Urine WBC 1-5/hpf Ur Squamous Epith Cells 0-1 /hpf Urine Bacteria Occasional (0-1) Ur Culture Indicated? Specimen cultured Influenza A & B (PCR) 03/04/18 03/04/18 03/05/18 22:00 22:11 04:20 WBC RBC Hgb Hct MCV MCH MCHC RDW Plt Count Neut % (Auto) Lymph % (Auto) [place] % (Auto) Eos % (Auto) Baso % (Auto) Neut # (Auto) Lymph # (Auto) [place] # (Auto) Eos # (Auto) Baso # (Auto) PT INR APTT 63 H D > 400 H* D Sodium Potassium Chloride Carbon Dioxide BUN Creatinine Estimated GFR BUN/Creatinine Ratio Glucose Lactate Calcium Total Bilirubin AST ALT Alkaline Phosphatase Total Protein Albumin Globulin Albumin/Globulin Ratio Procalcitonin Urine RBC Urine WBC Ur Squamous Epith Cells Urine Bacteria Ur Culture Indicated? Influenza A & B (PCR) Negative 03/05/18 03/05/18 04:20 04:20 WBC RBC Hgb 14.3 Hct 41.6 MCV MCH MCHC RDW Plt Count 105 L Neut % (Auto) Lymph % (Auto) [place] % (Auto) Eos % (Auto) Baso % (Auto) Neut # (Auto) Lymph # (Auto) [place] # (Auto) Eos # (Auto) Baso # (Auto) PT INR APTT Sodium 134 L Potassium 4.2 Chloride 107 Carbon Dioxide 22 BUN 19 Creatinine 0.60 L Estimated GFR > 60.0 BUN/Creatinine Ratio 31.7 H Glucose 120 H Lactate Calcium 7.0 L Total Bilirubin AST ALT Alkaline Phosphatase Total Protein Albumin Globulin Albumin/Globulin Ratio Procalcitonin Urine RBC Urine WBC Ur Squamous Epith Cells Urine Bacteria Ur Culture Indicated? Influenza A & B (PCR) Assessment & Plan (1) Lung cancer metastatic to brain: Problem details: This is problem 2., now believed to be a non-small cell also I believe with abdominal metastasis. Has Port-A-Cath in place with treatment plan. Uncertain fpc prognosis Current visit: No Status: Acute (2) Bradycardia: Problem details: Chronic. Current visit: No Status: Acute (3) Hypotension: Problem details: Runs some low chronically Current visit: No Status: Acute (4) Change in mental status: Problem details: Known brain Mets, CT yesterday did not show significant change our in the past MRI was required for that. Current visit: No Status: Inactive (5) History of appendectomy: Current visit: No Status: Inactive (6) H/O hernia repair: Current visit: No Status: Inactive (7) Cataract fragments in both eyes following surgery: Current visit: No Status: Chronic (8) Enlarged prostate: Current visit: No Status: Acute (9) Arthritis: Current visit: No Status: Acute (10) Pulmonary embolism: Problem details: This is diagnosis 1.. Acute onset minimal impact on oxygenation no apparent chest pain but perhaps triggered acute change in mental status. Anticoagulation has been started. Qualifiers: Acute cor pulmonale presence: without acute cor pulmonale Chronicity: acute Pulmonary embolism type: unspecified Qualified Code(s): I26.99 - Other pulmonary embolism without acute cor pulmonale Current visit: Yes Status: Acute (11) Metastasis to brain: Problem details: Also assumed metastasis from 1st item, and still suspecting this as cause of his mental status. Current visit: No Status: Acute (12) Metastasis to bone: Problem details: Presumed metastasis from above.. Current visit: No Status: Acute Plan: Assessment/Plan Narrative: Start treatment for pulmonary embolus, inform Oncology of his admission, need to review code status with patient and family. Quality VTE Deep Vein Thrombosis/Pulmonary Embolism Present on Admission: Yes
[2018-03-05] MEDS: DEXTROSE 5%-0.9% NS 1,000 ML 100 ML IV ×2 (11:42→22:57)
[2018-03-05] MEDS: MORPHINE 2 MG/ML INJ IV ×3 (11:49→22:58)
[2018-03-05 12:20] LABS: PTT Partial Thromboplastin Tim 154 SECONDS (26.4-36.2)
--- NOTE | 2018-03-05 13:58 | CM.DPNOTE ---
Brief Assessment Note: Patient is a 77 year old male who was admitted on 03/04/18 for Decreased LOC. Pt has MCR for insurance and his PCP is Dr. Walker. EMR was reviewed. Per MD, pt is an Oncology patient at baseline with brain, lung, and bone cancer with mets and ordered CONFIGURATION SPECIALIST swallow eval. Per ST, recommending pt remain NPO at this time due to his swallow issues and risks. Per RN, family pursuing tx options at this time and somewhat overwhelmed. SW attempted bedside assessment and d/c planning discussion but family overwhelmed by pt's medical needs and discussions for his plan of care and request SW to come back tomorrow once they have had a chance to further discuss pt's status. Pt was last admitted to [facility] in Dec [address] [facility] rehab at that time after brief discussion about possible Hospice and family and pt decided to pursue treatment at that time. SW needs unclear at this time. Goals of Care discussion with MD and Oncology and family/pt could be beneficial towards determining course of treatment or option of comfort. Plan: SW to follow closely tomorrow for discussion with family and pt and possible Goals of Care mtg to determine if pt would like to pursue treatment vs possible Comfort Care options. MARY Vega
--- NOTE | 2018-03-05 16:35 | ST.IPIE ---
Care Team Visit Care Team Role Provider Type Ryne Mohr MD Other Providers Physician Specialty: Oncology Address: [address] [place] [address], [id number] Email: Vu Walker MD Family Provider Physician Primary Care Provider Specialty: [facility] Practice Address: [address] [place] [address], [address] Email: [email or web address] Priscilla Roman DO Emergency Provider Physician Specialty: Emergency Medicine Address: [address] [place] [address], [id number] Email: Daniel Mcduffie MD Admit Provider Physician Attending Provider Specialty: [facility] Address: [address] [place] [address], [id number] Email: [email or web address] Current Diagnoses Malignant neoplasm of unspecified part of unspecified bronchus or lung (03/04/18) Secondary malignant neoplasm of brain (03/04/18) Secondary malignant neoplasm of bone (03/04/18) Cataract (lens) fragments in eye following cataract surgery, bilateral (03/04/18) Other pulmonary embolism without acute cor pulmonale (03/04/18) Hypotension, unspecified (03/04/18) Unspecified osteoarthritis, unspecified site (03/04/18) Benign prostatic hyperplasia without lower urinary tract symptoms (03/04/18) Bradycardia, unspecified (03/04/18) Altered mental status, unspecified (03/04/18) Personal history of other diseases of the digestive system (03/04/18) Acquired absence of other specified parts of digestive tract (03/04/18) Other specified postprocedural states (03/04/18) Past Medical History (Last Reviewed 03/04/18 @ 17:37 by Priscilla Roman DO) Arthritis (Acute Medical) Bradycardia (Acute Medical) Chronic. Constipation (Acute Medical) Enlarged prostate (Acute Medical) Groin injury (Acute Medical) Continue Tylenol and nonsteroidals Headache (Acute Medical) Hypotension (Acute Medical) Runs some low chronically Lung cancer metastatic to brain (Acute Medical) This is problem 2., now believed to be a non-small cell also I believe with abdominal metastasis. Has Port-A-Cath in place with treatment plan. Uncertain manager intermediate prognosis Nausea (Acute Medical) Urinary retention (Acute Medical) Cataract fragments in both eyes following surgery (Chronic Medical) Change in mental status (Inactive Medical) Known brain Mets, CT yesterday did not show significant change our in the past MRI was required for that. ST IP Initial Evaulation Report FORMER HAND Clinical Swallow Evaluation Start: 03/05/18 15:09 Freq: Status: Active Protocol: Document 03/05/18 15:09 DOLLY (Rec: 03/05/18 15:41 DOLLY [email or web address]) Clinical Swallow Evaluation Session Time Visit Start Time 13:05 Visit Stop Time 13:40 Total Visit Minutes [address] Vu Walker Reason for Referral Swallow evaluation Setting Assessment Location Acute Care Visit Type Note Type Initial Evaluation Next Note Type Next Note Type Treatment Note Patient Information Identification Type Name ID Card History 77-yr-old male with lung cancer metastatic to brain and possible abdominal metastasis . Pt has been followed by Home Health Speech Pathology until recently, when he was discharged from all skilled interventions but nursing, per family report. He had been consuming nectar-thick liquids and small amounts of pureed textures, mostly applesauce and pudding, most recently at home. Per family report, the pt has required much prompting for oral intake in the last few weeks and exhibits frequent coughing with intake, at which point the family stops intake and provides a break for the pt. Subjective Observations The pt was somnolent upon FORMER HAND' s arrival but did awake to verbal stimuli. His son and were present throughout the evaluation. The pt was mostly non-verbal until the end of the session when he did speak two 1- to 3-word utterances; otherwise, he communicated with head nod/ shake for yes/no. The pt agreed to trials of liquid and applesauce. Evaluation Liquids Trialed Acres Green Solids Trialed Puree Administration Type Tea Spoon Dependent Feeding Oral Impairment Severely Impaired Oral Phase Comments Unable to perform oral peripheral exam d/t pt weakness and inability to follow directions. Asked pt to open mouth for visual inspection, and pt opened and closed lips as if to take bolus from spoon. Pt does have natural dentition which appear to be in adequate condition for age. Palpation of larynx during swallow revealed delayed but complete hyolaryngeal elevation and excursion. Oral Prep Phase: Pt slowly but appropriately accepted trials from tsp. Occasional minimal interlabial escape observed without progression to anterior lip. Slow bolus manipulation and a/p propulsion secondary to significant general weakness, including oral musculature and overall alertness and attentiveness. Pt exhibited significant holding of both NTL and applesauce, perseverative munching observed with applesauce before and after swallow. Oral Swallow Phase: Swallow trigger delayed >30 sec, requiring multiple verbal prompts for swallow. Strongly suspect spillage to pharynx prior to swallow trigger, which places pt at high risk of aspiration. No significant oral residue observed with minimal 1/2 to 1 tsp size trials. Pharyngeal Impairment Severely Impaired Pharyngeal Phase Comments No immediate cough or throat clearing observed. Expiratory wheezing and audible/gurgly inhalation observed after trials. The pt exhibited significant wet cough ~5 minutes after intake. Silent aspiration is a strong possibility and cannot be ruled out without instrumental evaluation. The pt's cough was moderately strong but not productive. Findings Dysphagia Type Severe oropharyngeal Rehabilitation Potential Poor Impressions Dysphagia secondary to overall weakness and comorbidities. The pt is at very high risk of aspiration and not safe for oral intake at this time. Silent aspiration is a strong possibility and cannot be ruled out without instrumental evaluation, which the pt may not tolerate well at this time d/t weakness. Diet Recommendations Liquids Order NPO Diet Order NPO/Alternative Means of Nutrition/Hydration Medication Recommendations Not Recommended by Mouth Treatment Plan Appropriate for Therapy Yes Therapy Recommendations Ongoing assessment and pt/ family education Dysphagia Goals The pt will demonstrate swallow function/safety adequate to resume oral intake .
[2018-03-05] MEDS: DEXAMETHASONE 4 MG/ML VIAL IV (17:06)
--- NOTE | 2018-03-05 17:54 | PC.NURSE ---
Addendum entered by Katy Malone R.N. 03/05/18 22:05: Patient continue on RA, 97%. NO respiratory distress noted. Clear lung sounds to Left Upper and lower lobes, diminished to right. Continue on Heparin, obtained PTT results, please see Heparin Infusion Flow record. Administered 2000 Unit bolus and increased rate to 10 ml/hr (500 units/hr) as per protocol. No s/sx of bleeding. Dr. Kunz called regarding families concern regarding chemotherapy PO medication patient and the possibility to place NGT to admin medication. NO new orders obtained, continue NPO and aspiration precautions maintained. Daughter at bedside providing supportive care. Original Note: Mare shift note: Patient return from MRI of the head at 1550, upon arrival had an emesis episode, was placed on side position and suctioned orally. Transferred from rcarencro to bed, placed in high fowlers. High aspiration precautions continue. No change in respiratory effort, lung sounds, or saturation post event. Patient is attempting to answer questions asked but unable, noted very weak. Able to follow simple commands, such as squeeze hands. Unable to move upper and lower extremities but can wiggle fingers. Heparin drip infusing as ordered, PTT at 2000 to follow. continue NPO. Updated family regarding plan of care. Call light within reach. Monitoring closely.
[2018-03-05 20:19] LABS: PTT Partial Thromboplastin Tim 60 SECONDS (26.4-36.2)
[2018-03-05] MEDS: HEPARIN 5,000 UNIT/ML VIAL 2000 UNIT IV (20:57)
[2018-03-06] VITALS (10 sets, daily range): BP systolic 100–122; BP diastolic 48–63; PULSE 44–52; RESP 14–19; TEMP 36.1–36.7; O2SAT 91–97; BMI 22.4
--- NOTE | 2018-03-06 00:33 | DI.RAD.S_ITS ---
PROCEDURE: XR CHEST 1V INDICATIONS: Possible aspiration TECHNIQUE: One view of the chest was acquired. COMPARISON: [facility], CT, CT CHEST WO CON, 01/11/2018, 14:23. [facility], CT, CT ANGIO CHEST PE PROTOCOL, 03/04/2018, 17:16. [facility], CR, XR CHEST 1V, 03/04/2018, 16:01. [facility], CR, XR CHEST 1V, 02/20/2018, 15:14. FINDINGS: Surgical changes and devices: There is a Port-A-Cath on the left with the tip in the right atrium. Lungs and pleura: The right apical mass is not well seen probably partially obscured by the right medial clavicular head. There is right upper lobe infiltrate. There is interstitial infiltrates bilaterally. No pleural effusions or pneumothorax. Lungs are clear. Mediastinum: Mediastinal contours appear normal. Heart size is normal. Bones and chest wall: No suspicious bony lesions. Overlying soft tissues appear unremarkable. IMPRESSION: 1. Right upper lobe infiltrate may be pneumonia or pneumonitis. 2. Bilateral interstitial infiltrates suggesting a degree of pulmonary edema. 3. Right upper lobe mass seen on CT is poorly visualized, probably partially obscured by the right medial clavicular head. Dictated by: Sachi Hoover M.D. on 03/06/2018 at 8:58 Approved by: Sachi Hoover M.D. on 03/06/2018 at 9:03
[2018-03-06] MEDS: DEXAMETHASONE 4 MG/ML VIAL IV ×4 (00:37→18:35)
--- NOTE | 2018-03-06 01:48 | PC.NURSE ---
Shift note: Received pt from evening shift, pt reported to have diminished breath sounds on the right and had an episode of emesis post-MRI. During assessment found patient to be very course in upper airway and upper lobes. Pt unable to clear secretions on own as this RN was unable to wake pt to cough. ROSELIA Butler at bedside was concerned for the possibility of aspiration and that pt sounds wet when he breathes. Called Dr Kunz and reported findings and concerns of pt family member and requested atropine drops SL, a chest x-ray to r/o aspiration, Dr Kunz ordered both drops and x-ray and also ordered oxygen to be titrated for support. Atropine drops were not available in night pharmacy but will pass the order onto dayshift to make available to pt for increased secretions. Pt was unable to pass swallow study done yesterday so there is concern for ability to protect own airway. Currently using FLACC scale for pain, pt cannot make needs known but pt does respond to painful stimuli and will become restless. Will continue to monitor airway and needs for pain management.
[2018-03-06 02:41] LABS: PTT Partial Thromboplastin Tim 69 SECONDS (26.4-36.2)
[2018-03-06] MEDS: MORPHINE 2 MG/ML INJ IV ×5 (04:25→20:54)
[2018-03-06 05:27] LABS: Add Manual Diff / Slide Review NO; Basophils Absolute Auto 0 /uL (0-100); Basophils Percent Auto 0.3 % (0-2); Eosinophils Absolute Auto 0 /uL (0-450); Eosinophils Percent Auto 0.1 % (2-4); Hematocrit 40.3 % (41-53); Hemoglobin 13.7 g/dL (13.5-17.5); Lymphocytes Absolute Auto 600 /uL (1100-4500); Lymphocytes Percent Auto 8.6 % (25-40); Mean Corpuscular Hemoglobin 32.1 PG (26-34); Mean Corpuscular Volume 94.2 fL (80-100); Monocytes Absolute Auto 300 /uL (0-900); Monocytes Percent Auto 4.4 % (3-14); Neutrophils Absolute Auto 6500 /uL (1500-7000); Neutrophils Percent Auto 86.6 % (50-75); Platelet Count 107 X10^3/uL (150-400); Red Blood Cell Count 4.27 X10^6/uL (4.5-5.9); Red Cell Distribution Width 15.1 % (11.6-14.8); White Blood Cell Count 7.5 X10^3/uL (4.5-11.0)
[2018-03-06 05:40] LABS: Blood Urea Nitrogen 14 mg/dL (9-20); Calcium 6.9 mg/dL (8.4-10.2); Carbon Dioxide 24 mmol/L (22-32); Chloride 106 mmol/L (98-107); Estimated Glomerular Filt Rate > 60.0 mL/min (>60); Glucose 152 mg/dL (80-110); HEMOLYSIS < 15 (0-50); Potassium 4.1 mmol/L (3.4-5.1); Sodium 135 mmol/L (137-145)
[2018-03-06] MEDS: ATROPINE 1% OPHTH 2 DROPS SL (08:42)
--- NOTE | 2018-03-06 08:58 | PM.PN.1 ---
Subjective Date Patient Seen: 03/06/18 Time Patient Seen: 08:58 Interval history: Has not been arousing so readily this morning and only for briefer periods. Seems he had possible aspiration episode yesterday while at the MRI, also report from indicates should be remain NPO. Family is here 2 sons and and review all of status with them. They remained quite determined to have him start the oral treatment for his cancer, the Tagrisso. Exam Vital Signs (past 8 hours): - 03/06/18 04:42 03/06/18 07:55 Temperature 97.3 F L 97.4 F L Pulse Rate 44 L 46 L Respiratory Rate 17 14 Blood Pressure 117/53 L 108/48 L Pulse Oximetry 96 94 Fraction of Inspired Oxygen 21 Oxygen Delivery Method Nasal Cannula Oxygen Flow Rate 2 Narrative Exam Narrative: Lying quietly not responding to voice. HEENT unremarkable neck seems benign chest shows some crackles left base fairly clear in the right heart regular without murmur abdomen soft nondistended and normoactive bowel tones extremities benign neurologically difficult to evaluate. Objective Labs Result Diagrams: 03/06/18 05:14 03/06/18 05:14 Labs: Laboratory Results - last 24 hr 03/05/18 03/05/18 03/06/18 11:05 19:26 02:10 WBC RBC Hgb Hct MCV MCH MCHC RDW Plt Count Neut % (Auto) Lymph % (Auto) [place] % (Auto) Eos % (Auto) Baso % (Auto) Neut # (Auto) Lymph # (Auto) [place] # (Auto) Eos # (Auto) Baso # (Auto) APTT 154 H* D 60 H D 69 H D Sodium Potassium Chloride Carbon Dioxide BUN Creatinine Estimated GFR BUN/Creatinine Ratio Glucose Calcium 03/06/18 03/06/18 05:14 05:14 WBC 7.5 RBC 4.27 L Hgb 13.7 Hct 40.3 L MCV 94.2 MCH 32.1 MCHC 34.0 RDW 15.1 H Plt Count 107 L Neut % (Auto) 86.6 H Lymph % (Auto) 8.6 L [place] % (Auto) 4.4 Eos % (Auto) 0.1 L Baso % (Auto) 0.3 Neut # (Auto) 6500 Lymph # (Auto) 600 L [place] # (Auto) 300 Eos # (Auto) 0 Baso # (Auto) 0 APTT Sodium 135 L Potassium 4.1 Chloride 106 Carbon Dioxide 24 BUN 14 Creatinine 0.70 Estimated GFR > 60.0 BUN/Creatinine Ratio 20.0 Glucose 152 H Calcium 6.9 L Assessment & Plan (1) Non-small cell lung cancer with metastasis: Problem details: Will pursue treatment today starting with the Tagrisso tablet which we will dissolve per the manufacturers instructions and then down an NG tube. Current visit: No Status: Acute (2) Metastasis to brain: Problem details: Presumed testis is from above. MRI indicates slight interval progression of the metastatic lesion. His current mental status I believe is a consequence of that changes well. Not sure what it does to the prognosis but again will begin treatment as family requests. Current visit: No Status: Acute (3) Metastasis to bone: Problem details: Which is the suspected cause of a lot of his pain. He is getting periodic MS now seems to help. Current visit: No Status: Acute (4) Acute metabolic encephalopathy: Problem details: Seems a little worse today not sure how much of this is metabolic versus tumor related. Current visit: No Status: Acute (5) Pulmonary embolism: Problem details: Remains on anticoagulation will need to consider either Lovenox or warfarin for outpatient.. Qualifiers: Acute cor pulmonale presence: without acute cor pulmonale Chronicity: acute Pulmonary embolism type: unspecified Qualified Code(s): I26.99 - Other pulmonary embolism without acute cor pulmonale Current visit: Yes Status: Acute Quality VTE Deep Vein Thrombosis/Pulmonary Embolism Present on Admission: Yes
[2018-03-06] MEDS: DEXTROSE 5%-0.9% NS 1,000 ML 100 ML IV ×2 (09:04→18:40)
--- NOTE | 2018-03-06 09:26 | PC.NURSE ---
Day shift: This medical writer talked with Dr Walker about the insertion of NG tube at this point for this Pt. He is high aspiration risk and is unable to follow directions. MD said he will consult with surgery for PEG placement. Family still needs to be informed about these concerns. also was in agreement w/ this RN about the high risk of problems with NG placement at this time. Family at bedside. Call light in reach and family in room for support.
--- NOTE | 2018-03-06 10:15 | PC.NURSE ---
Day shift: Discussed with Pt's family the reasons for not placing NG tube toiday and placing the PRG tube FRANCA. Information packets printed out about PEG tubes and given to family.
--- NOTE | 2018-03-06 10:41 | CM.DPC ---
Ruchi from [facility] emailed to let us know patient is on service with them.
--- NOTE | 2018-03-06 14:12 | SLP.IPNOTE ---
Spoke with nursing who reports patient is awaiting PEG tube placement; therefore, speech therapy will discharge patient from services at this time.
[2018-03-06] MEDS: HEPARIN DRIP 25,000 UNIT/500 ML IV.SOLN 14.8 UNIT IV (16:17)
--- NOTE | 2018-03-06 18:04 | PC.NURSE ---
Addendum entered by Katy Malone R.N. 03/06/18 18:47: Turning patient every 2 hours and providing comfort care. Medicating with Morphine 2 mg IV as per FLACC scale as needed. Original Note: Mare shift note: 1630: Received call from Dr. Tinsley, states PEG procedure will not be performed today but tomorrow due to Heparin infusion. Notified patient and family regarding his decision. Called Dr. Walker to obtained further information regarding the Heparin infusion. Obtained order to Stop Heparin infusion at Midnight and to continue the labs in the morning PTT (0500). Patient and family updated.
--- NOTE | 2018-03-06 21:32 | PM.CN ---
History of Present Illness Date Patient Seen: 03/06/18 Time Patient Seen: 16:00 Chief complaint: Decreased LOC Reason for consult: Peg Requesting provider: Vu Walker Narrative: The patient is a gentleman who has stage IV lung cancer. Anemia no therapy has been planned but requires access to his stomach that is the pill as to be swallowed her given via NG or feeding tube. The patient is unable to eat at this time and is getting no nutrition. I was asked to place a feeding tube. He has had no abdominal operations. I am told that the medication can be partially dissolved in water but may not be able to fit through an NG tube. The patient is not able to make decisions for himself at this time. 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) Change in mental status (Inactive) Surgical History H/O hernia repair (Inactive ~2009) History of appendectomy (Inactive ~1956) Family History Mother Cancer Father Subdural hematoma Social History household members: spouse Smoking Status: Never smoker alcohol intake: former Meds Home Medications Medication Instructions Recorded Confirmed Type acetaminophen 650 mg PO Q6HR PRN #50 tab 01/16/18 03/04/18 Rx docusate sodium 100 mg PO BID #60 cap 01/16/18 03/04/18 Rx ibuprofen 600 mg PO Q6HR PRN #60 tab 01/16/18 03/04/18 Rx pantoprazole 40 mg PO 0900 #30 tab 01/16/18 03/04/18 Rx magnesium hydroxide [Milk Of 30 ml PO DAILY PRN 01/23/18 03/04/18 History Magnesia Concentrated] nystatin 200,000 unit BUCCAL QID 01/23/18 03/04/18 History sennosides [senna] 4.3 mg PO BID 01/23/18 03/04/18 History prochlorperazine maleate 10 mg PO Q4H PRN 02/06/18 03/04/18 History [Compazine] dexamethasone 4 mg PO Q12H 02/17/18 03/04/18 History polyethylene glycol 3350 [Miralax] 17 g PO DAILY 02/17/18 03/04/18 History oxycodone 5 mg PO Q4-6H PRN #10 tab 02/20/18 03/04/18 Rx osimertinib 80 mg PO DAILY 30 Days #30 tab 02/24/18 03/04/18 Rx lactulose 20 g PO TID PRN #120 ml 02/25/18 03/04/18 Rx morphine 5 mg PO Q4H PRN #60 ml 02/25/18 03/04/18 Rx Cbd 1 dose PO PRN PRN 03/04/18 03/04/18 History acetaminophen 650 mg VA Q4H PRN 03/04/18 03/04/18 History morphine 5 mg PO Q4H PRN 03/04/18 03/04/18 History risperidone 0.5 mg PO BID 03/04/18 03/04/18 History Allergies Allergy/AdvReac Type Severity Reaction Status Date / Time No Known Drug Allergies Allergy Verified 03/04/18 15:42 Review of Systems Review of Systems Patient unable to give. Exam Vital Signs (past 8 hours): - 03/06/18 15:00 03/06/18 15:45 03/06/18 19:42 Temperature 97.6 F Pulse Rate 49 L Respiratory Rate 18 Blood Pressure 122/58 L Pulse Oximetry 97 97 94 03/06/18 19:50 03/06/18 20:16 Temperature 98.0 F Pulse Rate 46 L Respiratory Rate 19 Blood Pressure 116/58 L Pulse Oximetry 97 94 Fraction of Inspired Oxygen 21 Oxygen Delivery Method Room Air Oxygen Flow Rate 1 Narrative Exam Narrative: Operative gentleman. Follow simple commands. Sometimes tries to answer questions. Lungs are actually fairly clear to auscultation but decreased on the right compared to the left. Heart regular rate and rhythm I do not appreciate a murmur gallop at this time. His abdomen is soft nontender without mass. Flat. No rashes of the abdominal wall. No hernias. Objective Labs Result Diagrams: 03/06/18 05:14 03/06/18 05:14 Labs: Laboratory Results - last 24 hr 03/06/18 03/06/18 03/06/18 02:10 05:14 05:14 WBC 7.5 RBC 4.27 L Hgb 13.7 Hct 40.3 L MCV 94.2 MCH 32.1 MCHC 34.0 RDW 15.1 H Plt Count 107 L Neut % (Auto) 86.6 H Lymph % (Auto) 8.6 L [place] % (Auto) 4.4 Eos % (Auto) 0.1 L Baso % (Auto) 0.3 Neut # (Auto) 6500 Lymph # (Auto) 600 L [place] # (Auto) 300 Eos # (Auto) 0 Baso # (Auto) 0 APTT 69 H D Sodium 135 L Potassium 4.1 Chloride 106 Carbon Dioxide 24 BUN 14 Creatinine 0.70 Estimated GFR > 60.0 BUN/Creatinine Ratio 20.0 Glucose 152 H Calcium 6.9 L Assessment & Plan Plan: Assessment/Plan Narrative: Patient with 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 I recently placed a port in his left subclavian. I talked to his and kids about placement of a PEG. I described the procedure and how it is done as a somewhat blind procedure. I talked to them about the risks of bleeding infection possible injury to nearby organs which could be lethal. I compared this to an NG tube and the advantages disadvantages. All questions were answered. The family wished that I proceed. Unfortunately the patient is presently on heparin drip. It has to be stopped several hours before I can proceed. Therefore we will perform the procedure tomorrow.
[2018-03-07] VITALS (21 sets, daily range): BP systolic 92–137; BP diastolic 51–79; PULSE 40–64; RESP 7–19; TEMP 36–36.8; O2SAT 87–99
[2018-03-07] MEDS: SODIUM CHLORIDE 0.9% FLUSH 10 ML IV ×2 (00:06→05:40)
[2018-03-07] MEDS: DEXAMETHASONE 4 MG/ML VIAL IV ×4 (00:06→18:21)
--- NOTE | 2018-03-07 00:39 | PC.NURSE ---
Heparin drip stopped @ 0000. Pt. still not responding verbally, but able to follow simple commands. NO S/S of pain noted, when brief was changed & repositioned to his lt. side. Will cont. POC & monitor.
[2018-03-07] MEDS: ATROPINE 1% OPHTH 2 DROPS SL ×5 (03:56→22:15)
[2018-03-07] MEDS: MORPHINE 2 MG/ML INJ IV ×6 (03:56→22:16)
[2018-03-07] MEDS: DEXTROSE 5%-0.9% NS 1,000 ML 100 ML IV ×2 (04:48→18:20)
--- NOTE | 2018-03-07 05:46 | PC.NURSE ---
Dluvorew-cv-sko Carrie requested to pre medicate pt. before changing his brief & turning pt. 2 mg. of MS admin. IVP. Will cont. POC & monitor.
[2018-03-07 06:20] LABS: Add Manual Diff / Slide Review NO; Basophils Absolute Auto 0 /uL (0-100); Basophils Percent Auto 0.1 % (0-2); Eosinophils Absolute Auto 0 /uL (0-450); Eosinophils Percent Auto 0.1 % (2-4); Hematocrit 38.8 % (41-53); Hemoglobin 13.8 g/dL (13.5-17.5); Lymphocytes Absolute Auto 700 /uL (1100-4500); Lymphocytes Percent Auto 9.2 % (25-40); Mean Corpuscular HGB Conc 35.5 % (30-36); Mean Corpuscular Hemoglobin 32.6 PG (26-34); Mean Corpuscular Volume 91.9 fL (80-100); Monocytes Absolute Auto 400 /uL (0-900); Monocytes Percent Auto 5.1 % (3-14); Neutrophils Absolute Auto 6300 /uL (1500-7000); Neutrophils Percent Auto 85.5 % (50-75); Platelet Count 114 X10^3/uL (150-400); Red Blood Cell Count 4.22 X10^6/uL (4.5-5.9); Red Cell Distribution Width 15.1 % (11.6-14.8); White Blood Cell Count 7.4 X10^3/uL (4.5-11.0)
[2018-03-07 06:32] LABS: BUN Creatinine Ratio 23.3 (6-22); Blood Urea Nitrogen 14 mg/dL (9-20); Carbon Dioxide 21 mmol/L (22-32); Chloride 109 mmol/L (98-107); Estimated Glomerular Filt Rate > 60.0 mL/min (>60); Glucose 144 mg/dL (80-110); HEMOLYSIS < 15 (0-50); Sodium 135 mmol/L (137-145)
[2018-03-07 08:42] LABS: PTT Partial Thromboplastin Tim 24 SECONDS (26.4-36.2)
--- NOTE | 2018-03-07 08:56 | P.PN_ITS ---
Subjective Date Patient Seen: 03/07/18 Time Patient Seen: 08:52 Interval history: Unresponsive this morning. [id number] who spends the night with explains that he has been pretty stable occasionally responsive but sometimes not coherent. Always denying any pain. But evidently in pain whenever he is moved so MS continues. Also using some atropine for secretion control and that seems to be helping as well. She requests that no consideration for SNF be made that family really wants patient to be discharged home. She feels they can handle a kangaroo pump for nutrition and any medications, also requesting oxygen which should be necessary. Anticipating home health as well. Exam Vital Signs (past 8 hours): - 03/07/18 03:30 03/07/18 07:00 03/07/18 07:49 Temperature 97.9 F 97.4 F L Pulse Rate 64 45 L Respiratory Rate 18 14 Blood Pressure 137/79 115/62 Pulse Oximetry 95 96 96 Fraction of Inspired Oxygen 21 Oxygen Delivery Method Nasal Cannula Oxygen Flow Rate 2 Narrative Exam Narrative: Lying quietly in bed eyes are open most of the time but does not respond to voice, except he does respond to requests for breaths. HEENT unremarkable neck is benign chest shows coarse rhonchi in the right fairly clear on the left heart regular without murmur abdomen soft nontender nondistended normoactive bowel tones extremities benign neurologically seems nonfocal otherwise. Objective Labs Result Diagrams: 03/07/18 05:48 03/07/18 05:48 Labs: Laboratory Results - last 24 hr 03/07/18 03/07/18 03/07/18 05:48 05:48 05:48 WBC 7.4 RBC 4.22 L Hgb 13.8 Hct 38.8 L MCV 91.9 MCH 32.6 MCHC 35.5 RDW 15.1 H Plt Count 114 L Neut % (Auto) 85.5 H Lymph % (Auto) 9.2 L [place] % (Auto) 5.1 Eos % (Auto) 0.1 L Baso % (Auto) 0.1 Neut # (Auto) 6300 Lymph # (Auto) 700 L [place] # (Auto) 400 Eos # (Auto) 0 Baso # (Auto) 0 PT 12.0 INR 1.0 APTT Sodium 135 L Potassium 4.0 Chloride 109 H Carbon Dioxide 21 L BUN 14 Creatinine 0.60 L Estimated GFR > 60.0 BUN/Creatinine Ratio 23.3 H Glucose 144 H Calcium 7.0 L 03/07/18 05:48 WBC RBC Hgb Hct MCV MCH MCHC RDW Plt Count Neut % (Auto) Lymph % (Auto) [place] % (Auto) Eos % (Auto) Baso % (Auto) Neut # (Auto) Lymph # (Auto) [place] # (Auto) Eos # (Auto) Baso # (Auto) PT INR APTT 24 L D Sodium Potassium Chloride Carbon Dioxide BUN Creatinine Estimated GFR BUN/Creatinine Ratio Glucose Calcium Assessment & Plan (1) Pneumonia: Problem details: Is in need of oxygen at this time which he was not on admission despite the finding of pulmonary embolus, he does seem to be developing more mucus although can control that very well. Chest x-ray does suggest possible pneumonia although white count has been normal and there has been no fever seems appropriate to treat. Current visit: Yes Status: Acute (2) Non-small cell lung cancer with metastasis: Problem details: The NG tube ID a failed just was not appropriate so we have General surgery involved to place a PEG to which should be amenable to the the treatment with the tagrisso, that will be placed today and probably need 24 hr before we can use it so 1st dose will be tomorrow. Order for that is written. Current visit: No Status: Acute (3) Metastasis to brain: Problem details: Recent MRI did suggest some progression of this. May be contributing to his mental status. The pneumonia though may be a factor as well so another reason to treat that. Current visit: No Status: Acute (4) Altered mental status: Problem details: Again I believe this most likely is due to the extensive metastasis as above. See above will treat for pneumonia and in case that is a factor. Qualifiers: Altered mental status type: unspecified Coma depth: Coma timing: Qualified Code(s): R41.82 - Altered mental status, unspecified Current visit: No Status: Acute (5) Metastasis to bone: Problem details: Which is the suspected cause of a lot of his pain. He is getting periodic MS now seems to help. Current visit: No Status: Acute (6) Pulmonary embolism: Problem details: Remains on anticoagulation will need to consider either Lovenox or warfarin for outpatient.. Qualifiers: Acute cor pulmonale presence: without acute cor pulmonale Chronicity: acute Pulmonary embolism type: unspecified Qualified Code(s): I26.99 - Other pulmonary embolism without acute cor pulmonale Current visit: Yes Status: Acute (7) Malnutrition, calorie: Problem details: Has been NPO largely since admission nutritional status is becoming a factor peg tube will be helpful in that regard anticipating tube feeds that should be able to go home with him. Current visit: Yes Status: Acute Plan: Assessment/Plan Narrative: Treat as above, following labs, if all goes well with tube feeds perhaps home later in the weekend. Again family has no interest in SNF and should be able to provide support at home, likely with home health. Quality VTE Deep Vein Thrombosis/Pulmonary Embolism Present on Admission: Yes
[2018-03-07] MEDS: CEFTRIAXONE 1 GM/50 ML FROZ.PIGGY IV ×2 (09:06→21:12)
--- NOTE | 2018-03-07 11:15 | PC.NURSE ---
Day shift: Per Lena charge poster. Call from Dr Retana office ok to place Dill cath at this time. Will request that Dill placed by surgery when Pt is under anesthesia. Family memebers aware of this and agree that it will be better for the Pt and his skin. They also will want him to go home with Dill in place.
--- NOTE | 2018-03-07 11:20 | PC.NURSE ---
Day shift: Unable to perform NIH stroke scale assessment at this time. Pt does open eyes to touch and sound but does not respond to directions. Unable to move all extremities. He does say words at times but they are difficult to understand.
--- NOTE | 2018-03-07 12:54 | PC.NURSE ---
Day shift: Pt leaving unit for PEG tub placement at this time. 1300. SL. Family in room.
[2018-03-07] MEDS: LACTATED RINGERS 1,000 ML 42 ML IV (13:14)
[2018-03-07] MEDS: CEFAZOLIN 2 GM/100 ML FROZ.PIGGY IV (13:22)
--- NOTE | 2018-03-07 13:24 | SUR.OPER ---
SUPINE ON BED.
--- NOTE | 2018-03-07 13:28 | PM.PREOP ---
Pre-operative Note Interval Note History & Physical reviewed/Exam performed by Physician: Yes Changes to H&P: No
--- NOTE | 2018-03-07 14:01 | PM.OP.ENDO ---
Operative Date/Time/Diagnoses Date of procedure: 03/07/18 Time of procedure: 14:05 Pre-op diagnosis: Inability to eat. Stage IV lung cancer with metastatic disease to the brain. Needs access for p.o. immunotherapy. Post-op diagnosis: same Procedure & Clinicians Study performed: Placement of PEG percutaneous endoscopic gastrostomy tube Same procedure as scheduled: Yes Indications: See preop diagnosis Surgeon: Tyler Tinsley Procedure Notes SCOAP/Timeout: Performed Procedure in detail: The patient was placed on his bed in the OR. He was supine is. He underwent general endotracheal anesthesia. A Dill catheter was inserted at the request of the floor. A bite block was inserted and an endoscope inserted through it into the esophagus. The esophagus had a lot of mucoid tissue in it but otherwise was unremarkable. The stomach insufflated well. It was rich in what appeared to be gastric fundic polyps. The pyloric channel was narrowed. I was able to pass through it however into the duodenum. The duodenum was unremarkable to the 3rd part. The scope was brought back into the stomach in the point of maximal light intensity and indentation of the stomach with palpation of the abdominal wall were noted. This was a just to the left midline in the upper abdomen. This was also it below the costal margin. The area was prepped and draped. Local anesthetic infiltrated. A small transverse incision was made in the skin in needle inserted on 1st attempt through the abdominal wall into the stomach. The needle was removed leaving a catheter in place. Guidewire was passed through the catheter and grasped with a snare. The snare scope and guidewire were pulled out through the mouth. The says tube was attached to the guidewire at the mouth and and then pulling at the abdominal wall and the guidewire and catheter were pulled down through the mouth esophagus and stomach and pulled up and the flange on the PEG was seated against the abdominal wall stomach wall the scope was reinserted to confirm a correct positioning. The tube was secured with a rubber bumper. It was taped into place. Patient tolerated the procedure well. Scope withdrawal time: Not applicable Sedation minutes: 0 (General anesthesia) Findings: other findings (Peg in good condition. Gastric fundic polyps) Specimen(s): none sent Complications: none Recommendations: Other recommendation (Feeding tube protocol.) Follow up: as needed Disposition: PACU
--- NOTE | 2018-03-07 14:28 | SUR.PHASEI ---
1410 prolonged exhale, rhonchi in ivette lungs. Dr. Tinsley notified, vvo for oral suction. Oral suction done x2, with small amt of yellow secretions.
--- NOTE | 2018-03-07 14:33 | SUR.PHASEI ---
Pt opening eyes to voice. O2 sa 98% ra. Denied pain. Occasional apnic pauses.
--- NOTE | 2018-03-07 14:40 | SUR.PHASEI ---
Report called to Terry Paredes.
--- NOTE | 2018-03-07 14:57 | SUR.PHASEI ---
Pt transferred to the floor, report to [facility]. VS stable. Lt chest port patent, iv fuids infusing tko. Pt opened mouth when asked. Abd farooqg cdi. Dill patent.
--- NOTE | 2018-03-07 14:58 | PC.NURSE ---
patient back to from recovery at 1440. opens mouth per rn request for monitor temperature. vss w/ hr 40's as per baseline. sat 97% on ra. family at bedside. drsg to peg tube site cdi. no outward signs or symptoms of pain.
--- NOTE | 2018-03-07 15:00 | SUR.PHASEI ---
Patient loc back to preop status
--- NOTE | 2018-03-07 15:17 | CM.DPC ---
DCP Cont: Checked in with patient and family. Patient sleeping. Wojcefsm-sz-hqo, Carrie, and and her son, at patient's bedside. Patient had Peg tube placed today. Family is not wanting patient to go to skilled. Wishes are for patient to go home, and they wish to manage pump/tube feedings. Also, according to Dr. Walker's recent note, Home health will be ordered for when patient is ready to be discharged home. Will have provider sign face to face when available. Anticipate that patient will be here for a few days. [facility] Called to confirm. Asked to have Fauzia, at oncology come over and meet with family, but she was not in office today. P: DCP to continue to assess and follow closely. Will monitor progress here in hospital, and will be an available resource for patient and family. Will pursue getting face to face signed by provider. Shelbi Landa RN/[employer]
[2018-03-07 16:06] LABS: PTT Partial Thromboplastin Tim 22 SECONDS (26.4-36.2)
--- NOTE | 2018-03-07 17:41 | P.PNONC_ITS ---
PN -Subjective Interval history: Mr. Ze Medina is a 77 year old man, never-smoker, whom I have been following in my clinic for metastatic adenocarcinoma of the right lung, which was diagnosed on 01/13/2018. Patient has multiple intracranial metastasis, and extensive widespread osseus metastasis while the primary tumor site was in the right upper lung. Biopsy samples from the sacral metastasis confirmed the diagnosis. 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 TKI Osimertinib was ordered and patient' s family received the medication delivery on 03/04/2018. However just hours before the delivery of the medicatoin, he was hospitalized due to worsening mental status changes, difficulty swallowing and some shortness of breath. CTA on 03/04/2018 showed evidence of pulmonary embolism within subsegmental and segmental pulmonary arteries in the left lower lobe in addition to the known spiculated right apical mass consistent with previous known history of lung cancer. There is also right hilar and mediastinal lymphadenopathy which appeared to slightly increased. Brain MRI on 03/05/2018 showed slight interval progression of intracranial metastasis and slight worsening of osseus metastasis. Patient was appropriately started on anticoagulation with heparin drip. Today, patient underwent PEG tube insertion. Patient's son and [id number] have contacted the manufacturing company of Osimertinib. They were told that Osimertinib can be dissolved in 15 cc of water and give through the NG tube or PEG tube. - Additional ROS All systems PM: reviewed and no additional remarkable complaints except as stated Home Medications and Allergies Home Medications Medication Instructions Recorded Confirmed Type acetaminophen 650 mg PO Q6HR PRN #50 tab 01/16/18 03/04/18 Rx docusate sodium 100 mg PO BID #60 cap 01/16/18 03/04/18 Rx ibuprofen 600 mg PO Q6HR PRN #60 tab 01/16/18 03/04/18 Rx pantoprazole 40 mg PO 0900 #30 tab 01/16/18 03/04/18 Rx magnesium hydroxide [Milk Of 30 ml PO DAILY PRN 01/23/18 03/04/18 History Magnesia Concentrated] nystatin 200,000 unit BUCCAL QID 01/23/18 03/04/18 History sennosides [senna] 4.3 mg PO BID 01/23/18 03/04/18 History prochlorperazine maleate 10 mg PO Q4H PRN 02/06/18 03/04/18 History [Compazine] dexamethasone 4 mg PO Q12H 02/17/18 03/04/18 History polyethylene glycol 3350 [Miralax] 17 g PO DAILY 02/17/18 03/04/18 History oxycodone 5 mg PO Q4-6H PRN #10 tab 02/20/18 03/04/18 Rx osimertinib 80 mg PO DAILY 30 Days #30 tab 02/24/18 03/04/18 Rx lactulose 20 g PO TID PRN #120 ml 02/25/18 03/04/18 Rx morphine 5 mg PO Q4H PRN #60 ml 02/25/18 03/04/18 Rx Cbd 1 dose PO PRN PRN 03/04/18 03/04/18 History acetaminophen 650 mg DC Q4H PRN 03/04/18 03/04/18 History morphine 5 mg PO Q4H PRN 03/04/18 03/04/18 History risperidone 0.5 mg PO BID 03/04/18 03/04/18 History Allergies Allergy/AdvReac Type Severity Reaction Status Date / Time No Known Drug Allergies Allergy Verified 03/04/18 15:42 Exam Vital signs: Last Vital Signs Temp 97.9 F 03/07/18 17:40 Pulse 56 L 03/07/18 17:40 Resp 16 03/07/18 17:40 BP 127/72 03/07/18 17:40 Pulse Ox 98 03/07/18 18:01 ECOG 1 Narrative: Constitutional: sleeping, not answering questions, thorat gurgling heard. Patient is getting morphine every 2 hours HEENT: anicteric sclera, Neck: Supple, symmetrical, and tracheal midline; No palpable thyromegaly and no palpable lymph nodes. Respiratory: coarse rhonchi both lungs Cardiovascular: RRR. Abdomen: Soft. PEG tube noted. Lower extremities: No palpable pedal edema. Neurological: drowsy, sleeping, not able to exam. Results - Labs Laboratory Last Values WBC 7.4 X10^3/uL (4.5-11.0) 03/07/18 05:48 RBC 4.22 X10^6/uL (4.5-5.9) L 03/07/18 05:48 Hgb 13.8 g/dL (13.5-17.5) 03/07/18 05:48 Hct 38.8 % (41-53) L 03/07/18 05:48 MCV 91.9 fL (80-100) 03/07/18 05:48 MCH 32.6 PG (26-34) 03/07/18 05:48 MCHC 35.5 % (30-36) 03/07/18 05:48 RDW 15.1 % (11.6-14.8) H 03/07/18 05:48 Plt Count 114 X10^3/uL (150-400) L 03/07/18 05:48 Neut % (Auto) 85.5 % (50-75) H 03/07/18 05:48 Lymph % (Auto) 9.2 % (25-40) L 03/07/18 05:48 [place] % (Auto) 5.1 % (3-14) 03/07/18 05:48 Eos % (Auto) 0.1 % (2-4) L 03/07/18 05:48 Baso % (Auto) 0.1 % (0-2) 03/07/18 05:48 Neut # (Auto) 6300 /uL (2175-0917) 03/07/18 05:48 Lymph # (Auto) 700 /uL (6710-3666) L 03/07/18 05:48 [place] # (Auto) 400 /uL (0-900) 03/07/18 05:48 Eos # (Auto) 0 /uL (0-450) 03/07/18 05:48 Baso # (Auto) 0 /uL (0-100) 03/07/18 05:48 PT 12.0 SECONDS (10.1-12.7) 03/07/18 05:48 INR 1.0 (0.9-1.3) 03/07/18 05:48 APTT 22 SECONDS (26.4-36.2) L D 03/07/18 15:38 Sodium 135 mmol/L (137-145) L 03/07/18 05:48 Potassium 4.0 mmol/L (3.4-5.1) 03/07/18 05:48 Chloride 109 mmol/L (98-107) H 03/07/18 05:48 Carbon Dioxide 21 mmol/L (22-32) L 03/07/18 05:48 BUN 14 mg/dL (9-20) 03/07/18 05:48 Creatinine 0.60 mg/dL (0.66-1.25) L 03/07/18 05:48 Estimated GFR > 60.0 mL/min (>60) 03/07/18 05:48 BUN/Creatinine Ratio 23.3 (6-22) H 03/07/18 05:48 Glucose 144 mg/dL (80-110) H 03/07/18 05:48 Lactate 1.2 mmol/L (0.7-2.1) 03/04/18 16:28 Calcium 7.0 mg/dL (8.4-10.2) L 03/07/18 05:48 Total Bilirubin 0.7 mg/dL (0.2-1.3) 03/04/18 15:45 AST 30 IU/L (17-59) 03/04/18 15:45 ALT 47 IU/L (21-72) 03/04/18 15:45 Alkaline Phosphatase 126 U/L (38-126) 03/04/18 15:45 Total Protein 5.9 g/dL (6.3-8.2) L 03/04/18 15:45 Albumin 3.2 g/dL (3.5-5.0) L 03/04/18 15:45 Globulin 2.7 g/dL (1.7-4.1) 03/04/18 15:45 Albumin/Globulin Ratio 1.2 (1.0-2.8) 03/04/18 15:45 Procalcitonin 0.06 ng/mL (<0.5) 03/04/18 15:45 Urine RBC 5-10/hpf (0-5/HPF) H 03/04/18 18:50 Urine WBC 1-5/hpf (0-5/HPF) 03/04/18 18:50 Ur Squamous Epith Cells 0-1 /hpf 03/04/18 18:50 Urine Bacteria Occasional (0-1) (None) 03/04/18 18:50 Ur Culture Indicated? Specimen cultured 03/04/18 18:50 Influenza A & B (PCR) Negative (Negative) 03/04/18 22:00 - Imaging Additional studies: Procedures CATARAC PHACOEMULS/ASPIR (08/16/09) Excision of Sacrum, Percutaneous Approach, Diagnostic (01/07/18) INSERT LENS AT CATAR EXT (08/16/09) Phacoemulsification and aspiration of cataract (08/05/12) Assessment and Plan (1) Non-small cell lung cancer with metastasis Assessment and Plan: Mr. Kunz time since 77 with diagnosis of metastatic adenocarcinoma of the right lung with EGFR [id number] (L858R) mutation. He has extensive metastasis involving the brain as well as white spread skeletal metastasis. His current mental status changes most likely is related to the intracranial metastasis. It is known that the patient with EGFR L858R mutation can respond quickly to tyrosine kinase inhibitors. I would recommend that we start the treatment as soon as possible. The medication Osimertinib is known to transverse the blood brain barrier and exhibit the same effect as the peripheral metastasis. I touched base with Dr. Tinsley about the use of the PEG tube. Per Dr. Tinsley , it will be okay to give small volume with medication, but no more than 50 cc. I also touched base with the on-call nurse Sunitha about the administering the medication. Patient's son will go back home and bring this medication 3 doses to start with. The medication will be given 80 mg once a day.
[2018-03-07] MEDS: TAGRISSO 1 EACH TUBE (18:21)
[2018-03-07] MEDS: HEPARIN DRIP 25,000 UNIT/500 ML IV.SOLN 14.8 UNIT IV (21:16)
--- NOTE | 2018-03-07 23:38 | PC.NURSE ---
1530: Pt opens eyes to voice/light touch. Does not verbally respond. FLACC 0. IV fluids started by samir RN. Assisted to reposition, family at bedside. LS coarse through out, intermittent cough. RA 95%. Abd soft, PEG tube dressing c/d/i. Tele on. Dill patent. 1715: Oncology MD Mohr at bedside. Wants to start TAGRISSO med tonight via peg tube. MD Tinsley paged to see if this was possible-Laureano dixon'marija one time use of PEG tonight for this med, no more than 50mls total. Pt family brought in med/pt tolerated well. Reiger also at bedside during this time. Clarified with him and MD Tinsley on when to start heparin drip. Orders to start at 2100 at previous setting 14.8ml/hr, and NO bolus tonight due to patients post-op status. 2100: Heparin started. PTT ordered for 0300. 2220: FLACC 2, medicated w/2mg IV morphine. Brief/underpad changed, lo care done, barrier cream to bottom/scrotum-redness present. Assisted to reposition. Family member in room overnight.
[2018-03-08] VITALS (8 sets, daily range): BP systolic 105–132; BP diastolic 47–66; PULSE 46–74; RESP 16–19; TEMP 36.3–36.7; O2SAT 94–97
[2018-03-08] MEDS: DEXAMETHASONE 4 MG/ML VIAL IV ×5 (00:03→23:59)
[2018-03-08] MEDS: MORPHINE 2 MG/ML INJ IV ×3 (00:53→17:28)
[2018-03-08 03:23] LABS: PTT Partial Thromboplastin Tim 62 SECONDS (26.4-36.2)
[2018-03-08 03:25] LABS: Blood Urea Nitrogen 15 mg/dL (9-20); Carbon Dioxide 22 mmol/L (22-32); Chloride 108 mmol/L (98-107); Estimated Glomerular Filt Rate > 60.0 mL/min (>60); Glucose 152 mg/dL (80-110); HEMOLYSIS < 15 (0-50); Potassium 4.1 mmol/L (3.4-5.1); Sodium 135 mmol/L (137-145)
[2018-03-08 03:28] LABS: Add Manual Diff / Slide Review NO; Basophils Absolute Auto 0 /uL (0-100); Basophils Percent Auto 0.1 % (0-2); Eosinophils Absolute Auto 0 /uL (0-450); Hemoglobin 13.8 g/dL (13.5-17.5); Lymphocytes Absolute Auto 500 /uL (1100-4500); Lymphocytes Percent Auto 7.5 % (25-40); Mean Corpuscular HGB Conc 35.3 % (30-36); Mean Corpuscular Hemoglobin 32.5 PG (26-34); Monocytes Absolute Auto 300 /uL (0-900); Monocytes Percent Auto 4.4 % (3-14); Neutrophils Absolute Auto 6100 /uL (1500-7000); Platelet Count 111 X10^3/uL (150-400); Red Blood Cell Count 4.24 X10^6/uL (4.5-5.9); Red Cell Distribution Width 15.1 % (11.6-14.8); White Blood Cell Count 6.9 X10^3/uL (4.5-11.0)
[2018-03-08] MEDS: DEXTROSE 5%-0.9% NS 1,000 ML 100 ML IV (05:30)
[2018-03-08] MEDS: CEFTRIAXONE 1 GM/50 ML FROZ.PIGGY IV ×2 (08:54→20:13)
[2018-03-08 09:59] LABS: PTT Partial Thromboplastin Tim 81 SECONDS (26.4-36.2)
[2018-03-08] MEDS: ENOXAPARIN 80 MG/0.8 ML SYRINGE SUBCUT ×2 (10:08→20:13)
[2018-03-08] MEDS: ATROPINE 1% OPHTH 2 DROPS SL (10:59)
--- NOTE | 2018-03-08 13:31 | PM.PN.1 ---
Subjective Date Patient Seen: 03/08/18 Time Patient Seen: 09:41 Interval history: Patient seen in follow-up of multiple issues including metastatic gwi-hxknk-ftes lung cancer and altered mental status pneumonia and PE. No other significant new changes. Patient maybe woke up a little bit more. Got morphine prior to me coming. Son feels as if he is about the same. Really has not been conversant. Does seem to wake up and respond to simple commands. Has not been mobilizing. Started his medicine yesterday. G-tube was placed yesterday. Exam Vital Signs (past 8 hours): - 03/08/18 08:00 Temperature 97.5 F L Pulse Rate 49 L Respiratory Rate 16 Blood Pressure 132/66 Pulse Oximetry 95 Fraction of Inspired Oxygen 21 Oxygen Delivery Method Room Air Oxygen Flow Rate 0 Narrative Exam Narrative: Elderly male with his eyes awake in no acute distress that I can ascertain. Not responsive to questioning. HEENT exam appears normal. No oral lesions. Lungs are clear. Heart regular rate and rhythm. Abdomen is benign. Is moving all 4 extremities but minimally. No verbal responses. Objective Labs Result Diagrams: 03/08/18 03:07 03/08/18 03:07 Labs: Laboratory Results - last 24 hr 03/07/18 03/08/18 03/08/18 15:38 03:07 03:07 WBC 6.9 RBC 4.24 L Hgb 13.8 Hct 39.0 L MCV 92.0 MCH 32.5 MCHC 35.3 RDW 15.1 H Plt Count 111 L Neut % (Auto) 88.0 H Lymph % (Auto) 7.5 L [place] % (Auto) 4.4 Eos % (Auto) 0.0 L Baso % (Auto) 0.1 Neut # (Auto) 6100 Lymph # (Auto) 500 L [place] # (Auto) 300 Eos # (Auto) 0 Baso # (Auto) 0 APTT 22 L D Sodium 135 L Potassium 4.1 Chloride 108 H Carbon Dioxide 22 BUN 15 Creatinine 0.60 L Estimated GFR > 60.0 BUN/Creatinine Ratio 25.0 H Glucose 152 H Calcium 7.0 L 03/08/18 03/08/18 03:07 09:20 WBC RBC Hgb Hct MCV MCH MCHC RDW Plt Count Neut % (Auto) Lymph % (Auto) [place] % (Auto) Eos % (Auto) Baso % (Auto) Neut # (Auto) Lymph # (Auto) [place] # (Auto) Eos # (Auto) Baso # (Auto) APTT 62 H D 81 H* D Sodium Potassium Chloride Carbon Dioxide BUN Creatinine Estimated GFR BUN/Creatinine Ratio Glucose Calcium Assessment & Plan Plan: Assessment/Plan Narrative: Pulmonary embolus. Patient will be switched to Lovenox. Long-term treatment is unclear. Some will depend on response to new Oncology medication. Will hold Coumadin for now. If things do not traveler changer the next week will be switching to hospice and will be discontinuing treatment. Pneumonia. On Rocephin. Will continue for now. Switch to oral when we get an idea of when will be going home. Metabolic encephalopathy. Almost certainly secondary to metastatic disease to brain. Probably not helping with different medication were giving for pain control. Oncologist is expecting this to improve will see how things go over the next 48 hr. Non-small cell lung cancer with diffuse metastatic disease. Will have to see what responses to new medication. Certainly seems somewhat dire but will follow with oncologist. Pain control as needed. Inability to swallow. Probably combination of metastatic disease and weakness. Peg tube was placed. Should be able to begin feeds this evening. After 24 hr was what her surgeons recommended. Will start tube feeds as per dietitian. Malnutrition. CC inability to swallow but should be covered with tube feeds. Not sure how long will want to do this. DVT prophylaxis on Lovenox. GI prophylaxis will hold for now. Disposition. Long discussion with social service and son. Plan is to mobilize him to his son's house with care by his daughter in law who is a nurse. Home health will need to be reinstated gated that had been previously on their has hospital bed. Will see how response to medication and tube feeding is going. Anticipate discharge early next week. Time Spent With Patient Time with patient: Greater than 35 minutes Quality VTE Deep Vein Thrombosis/Pulmonary Embolism Present on Admission: Yes
--- NOTE | 2018-03-08 14:12 | CM.DPC ---
DCP Cont: Spoke to Dr. Mcduffie briefly about patient this morning. He stated that patient will probably be ending up on Hospice, but family want to try this chemo medication to see if this will help slow down the Cancer. Patient has lung cancer that has metastisized to bone/brain. He is getting Morphine for discomfort. Oncologist was in to see patient. He is getting a chemo medication placed in his Peg Tube, and has been consulting with Dr. Bueno. Patient is non-responsive. Met briefly with son and patient's in room. Patient sleeping. Discussed home care. Is noted that [facility] has patient currently on their roster. Discussed needs at home. Patient is immobile, but son asked about a hoier lift. Let him know that this would need to be obtained by a vendor, such as [employer]. [id number] also wants patient to go home on oxygen. This would also need a prescription as well. Confirmed with physical therapy team that a prescription for hoier/oxygen, would need to be obtained. May ask for respiratory therapy order as well, to note need for oxygen. Explained to family that patient would need to be transported home via ambulance/BLS as well. They continue to hope that there will be a change in his status with this chemo medication. Have continued to reach out to family for any needs or questions that they may have. P: DCP to continue to follow closely. Will see how he does with this medication, and if his condition improves. Family want home health, for they want to continue treatment. Hospice may also be an option if patient does not improve, and continues to decline. Shelbi Landa RN/Mail Technician
--- NOTE | 2018-03-08 15:18 | CM.DPC ---
DCP Cont: Called [facility], and inquired to assistant education director nurse, Fiordaliza, if patient was on their service. She stated that she only had access to her patients, but his name sounded familiar when case was mentioned. Updated her on situation of possibility of going home next week, with new Peg tube. Stated that family had mentioned that Feli was his nurse. Stated to go ahead and fax information on patient. May be a resumption, but could have Dr. Mcduffie sign face to face regardless. Sent over notes, face sheet, updated note from today. P: DCP to continue to follow closely. Will continue to monitor progress and reach out to family. Will confer with Dr. Mcduffie tomorrow, and may ask for resp therapy consult for home oxygen. Shelbi Landa RN/Stereo Operator
--- NOTE | 2018-03-08 16:40 | P.PN_ITS ---
Subjective Date Patient Seen: 03/08/18 Time Patient Seen: 11:19 Interval history: The patient is post the PEG placement. He is not very alert but that is his baseline. He received a dose of immunotherapy yesterday via his NG tube. This was cautiously done with small volumes. Does not complain of pain. Exam Vital Signs (past 8 hours): - 03/08/18 10:15 03/08/18 11:00 Temperature 98 F Pulse Rate 46 L Respiratory Rate 16 Blood Pressure 118/53 L Pulse Oximetry 95 97 Fraction of Inspired Oxygen 21 Oxygen Delivery Method Room Air Oxygen Flow Rate 0 Narrative Exam Narrative: His abdomen is soft there is no tenderness with fairly vigorous exam. Gastrostomy drainage is nonbloody non bilious. There is almost nothing in the stomach. Objective Labs Result Diagrams: 03/08/18 03:07 03/08/18 03:07 Labs: Laboratory Results - last 24 hr 03/08/18 03/08/18 03/08/18 03:07 03:07 03:07 WBC 6.9 RBC 4.24 L Hgb 13.8 Hct 39.0 L MCV 92.0 MCH 32.5 MCHC 35.3 RDW 15.1 H Plt Count 111 L Neut % (Auto) 88.0 H Lymph % (Auto) 7.5 L [place] % (Auto) 4.4 Eos % (Auto) 0.0 L Baso % (Auto) 0.1 Neut # (Auto) 6100 Lymph # (Auto) 500 L [place] # (Auto) 300 Eos # (Auto) 0 Baso # (Auto) 0 APTT 62 H D Sodium 135 L Potassium 4.1 Chloride 108 H Carbon Dioxide 22 BUN 15 Creatinine 0.60 L Estimated GFR > 60.0 BUN/Creatinine Ratio 25.0 H Glucose 152 H Calcium 7.0 L 03/08/18 09:20 WBC RBC Hgb Hct MCV MCH MCHC RDW Plt Count Neut % (Auto) Lymph % (Auto) [place] % (Auto) Eos % (Auto) Baso % (Auto) Neut # (Auto) Lymph # (Auto) [place] # (Auto) Eos # (Auto) Baso # (Auto) APTT 81 H* D Sodium Potassium Chloride Carbon Dioxide BUN Creatinine Estimated GFR BUN/Creatinine Ratio Glucose Calcium Assessment & Plan Plan: Assessment/Plan Narrative: Doing well postop placement of PEG. We will begin using the tube we are now about 20 hr post procedure. Will start with D10 W and switch if he tolerates this for 8 hr to Jevity as recommended by the professor of biology. Quality VTE Deep Vein Thrombosis/Pulmonary Embolism Present on Admission: Yes
[2018-03-08] MEDS: TAGRISSO 1 EACH TUBE (17:05)
[2018-03-08] MEDS: PANTOPRAZOLE 40 MG VIAL IV (17:15)
[2018-03-08] MEDS: SCOPOLAMINE 1 PATCH TOP (18:00)
[2018-03-08] MEDS: fentaNYL 25 MCG/PATCH TOP (19:24)
[2018-03-09] VITALS (13 sets, daily range): BP systolic 109–128; BP diastolic 60–70; PULSE 50–63; RESP 13–18; TEMP 36.4–37.2; O2SAT 92–96
[2018-03-09] MEDS: ATROPINE 1% OPHTH 2 DROPS SL ×2 (00:21→12:21)
[2018-03-09 05:59] LABS: Add Manual Diff / Slide Review NO; Basophils Absolute Auto 0 /uL (0-100); Basophils Percent Auto 0.1 % (0-2); Eosinophils Absolute Auto 0 /uL (0-450); Hematocrit 41.3 % (41-53); Hemoglobin 14.5 g/dL (13.5-17.5); Lymphocytes Absolute Auto 600 /uL (1100-4500); Lymphocytes Percent Auto 6.6 % (25-40); Mean Corpuscular HGB Conc 35.2 % (30-36); Mean Corpuscular Hemoglobin 32.2 PG (26-34); Mean Corpuscular Volume 91.6 fL (80-100); Monocytes Absolute Auto 400 /uL (0-900); Monocytes Percent Auto 4.9 % (3-14); Neutrophils Absolute Auto 8000 /uL (1500-7000); Neutrophils Percent Auto 88.4 % (50-75); Platelet Count 127 X10^3/uL (150-400); Red Blood Cell Count 4.51 X10^6/uL (4.5-5.9); Red Cell Distribution Width 15.3 % (11.6-14.8)
[2018-03-09 06:05] LABS: Alanine Aminotransferase 70 IU/L (21-72); Albumin 2.6 g/dL (3.5-5.0); Alkaline Phosphatase 155 U/L (38-126); Aspartate Aminotransferase 40 IU/L (17-59); BUN Creatinine Ratio 25.7 (6-22); Bilirubin Total 0.7 mg/dL (0.2-1.3); Blood Urea Nitrogen 18 mg/dL (9-20); Calcium 7.1 mg/dL (8.4-10.2); Carbon Dioxide 21 mmol/L (22-32); Chloride 107 mmol/L (98-107); Estimated Glomerular Filt Rate > 60.0 mL/min (>60); Globulin 2.5 g/dL (1.7-4.1); Glucose 134 mg/dL (80-110); HEMOLYSIS < 15 (0-50); Potassium 3.9 mmol/L (3.4-5.1); Sodium 134 mmol/L (137-145); Total Protein 5.1 g/dL (6.3-8.2)
[2018-03-09] MEDS: DEXAMETHASONE 4 MG/ML VIAL IV ×4 (06:20→23:59)
[2018-03-09 09:22] LABS: PTT Partial Thromboplastin Tim 37 SECONDS (26.4-36.2)
[2018-03-09] MEDS: CEFTRIAXONE 1 GM/50 ML FROZ.PIGGY IV ×2 (09:42→21:26)
[2018-03-09] MEDS: PANTOPRAZOLE 40 MG VIAL IV (09:43)
[2018-03-09] MEDS: SODIUM CHLORIDE 0.9% FLUSH 10 ML IV ×2 (09:43→23:59)
[2018-03-09] MEDS: ENOXAPARIN 80 MG/0.8 ML SYRINGE SUBCUT ×2 (09:43→21:27)
--- NOTE | 2018-03-09 11:51 | PM.PN.1 ---
Subjective Date Patient Seen: 03/09/18 Time Patient Seen: 11:51 Interval history: Patient seen in follow-up of metabolic encephalopathy and metastatic non-small cell cancer. Family feels as if maybe the medication change last night made things worse. More somnolent today. Still seems to be in pain. Really no other significant change. Exam Vital Signs (past 8 hours): - 03/09/18 04:45 03/09/18 05:46 03/09/18 09:40 Temperature 98.0 F 97.8 F Pulse Rate 60 50 L Respiratory Rate 15 16 Blood Pressure 127/67 117/60 Pulse Oximetry 94 94 03/09/18 11:18 Temperature Pulse Rate Respiratory Rate Blood Pressure Pulse Oximetry 92 Fraction of Inspired Oxygen 21 Oxygen Delivery Method Room Air Oxygen Flow Rate 0 Narrative Exam Narrative: Alert elderly male sleeping peacefully in no acute distress. Lungs with diffuse mild rhonchi. No egophony no other change. No retractions. Good air exchange. Heart regular rate and rhythm. Abdomen is soft positive bowel sounds nontender G-tube seems to be working well. Objective Labs Result Diagrams: 03/09/18 05:23 03/09/18 05:23 Labs: Laboratory Results - last 24 hr 03/09/18 03/09/18 03/09/18 05:23 05:23 09:00 WBC 9.0 RBC 4.51 Hgb 14.5 Hct 41.3 MCV 91.6 MCH 32.2 MCHC 35.2 RDW 15.3 H Plt Count 127 L Neut % (Auto) 88.4 H Lymph % (Auto) 6.6 L [place] % (Auto) 4.9 Eos % (Auto) 0.0 L Baso % (Auto) 0.1 Neut # (Auto) 8000 H Lymph # (Auto) 600 L [place] # (Auto) 400 Eos # (Auto) 0 Baso # (Auto) 0 APTT 37 H D Sodium 134 L Potassium 3.9 Chloride 107 Carbon Dioxide 21 L BUN 18 Creatinine 0.70 Estimated GFR > 60.0 BUN/Creatinine Ratio 25.7 H Glucose 134 H Calcium 7.1 L Total Bilirubin 0.7 AST 40 ALT 70 Alkaline Phosphatase 155 H Total Protein 5.1 L Albumin 2.6 L Globulin 2.5 Albumin/Globulin Ratio 1.0 Assessment & Plan Plan: Assessment/Plan Narrative: Non-small cell lung cancer. Not seeing a great change but question whether or not medication changes made a difference. Otherwise appears to be at least stable at this point it appears as if will have to give it some more time. Hopefully we can get him home in the next 2 or 3 days but will need to be a little more stable before then. Will need to have his medication setup better. We will see how he responds to discontinuation of fentanyl and oxycodone and morphine which he was using at home. We will see how that goes. Pulmonary embolus. I think we will discontinue Lovenox. No changes otherwise. If the Miracle happens any improves will switch to Coumadin sometime in that process. Pneumonia. Community-acquired versus aspiration. Unable to completely determined. On antibiotics. Will continue for now. Consider switch to p.o. on discharge improved Metabolic encephalopathy. How much of this is metastatic and how much of this is now medication required. We had a long discussion with [id number] that pain control may cause fatigue and it may be a difficult and fine line to walk. We will switch off of medications as in problem 1. And see how he does on little concerned that unless he responds medically to the new medication this may be his baseline. But she understands. Questions answered. Inability to swallow. G-tube appears to be functioning. Malnutrition. CC inability to swallow but should be covered with tube feeds. Continue DVT prophylaxis on Lovenox. GI prophylaxis will hold for now. Disposition. May be making some decisions in the next couple days. Will need him to wake up a little bit before he goes home. If not will have to discuss whether not he needs to go to residential or home. We will see what happens over the next 24 hr. Quality VTE Deep Vein Thrombosis/Pulmonary Embolism Present on Admission: Yes
--- NOTE | 2018-03-09 12:19 | CM.DPC ---
DCP Cont: Spoke to Dr. Mcduffie about patient. Had him sign face to face for home health, for is not clear if still under [facility]. Mentioned oxygen, but patient has good oxygen saturation, and would not qualify for oxygen. Mentioned this to respiratory therapy team during rounds, and they also stated that they could not order oxygen for him, if sats are within normal limits. Patient continues to be somulent at this time. Had Dr. Mcduffie also sign BLS form, for when he transfers, will need to go by ambulance. Family remains hopeful that patient will improve with this medication that was prescribed by oncologist. Dr. Mcduffie may also be tapering down pain medications, since patient has been non-responsive. Dr. Mcduffie stated in note that patient needs to be more awake before discharge happens. P: DCP to follow closely. This is a challenging case. Family want patient to go home, but patient remains unresponsive. They want to continue with treatments, versus Hospice. Will continue to be available for any resources that family may need. May reach out to MARY Cage in Oncology, tomorrow. Shelbi Landa RN/Mh Teacher
[2018-03-09] MEDS: OXYCODONE 5 MG/5 ML ORAL SOLUTION PO ×2 (12:20→17:35)
--- NOTE | 2018-03-09 15:56 | P.PN_ITS ---
Subjective Date Patient Seen: 03/09/18 Time Patient Seen: 15:00 Interval history: Patient tolerating feeding tube according to nurses. Patient' s says he is a little less alert today. Exam Vital Signs (past 8 hours): - 03/09/18 09:40 03/09/18 11:18 03/09/18 12:00 Temperature 97.8 F 98.9 F Pulse Rate 50 L 54 L Respiratory Rate 16 16 Blood Pressure 117/60 109/60 Pulse Oximetry 94 92 92 Fraction of Inspired Oxygen 21 Oxygen Delivery Method Room Air Oxygen Flow Rate 0 Narrative Exam Narrative: Vital signs etc noted. Abdomen is soft with no obvious tenderness. Little distended. Objective Labs Result Diagrams: 03/09/18 05:23 03/09/18 05:23 Labs: Laboratory Results - last 24 hr 03/09/18 03/09/18 03/09/18 05:23 05:23 09:00 WBC 9.0 RBC 4.51 Hgb 14.5 Hct 41.3 MCV 91.6 MCH 32.2 MCHC 35.2 RDW 15.3 H Plt Count 127 L Neut % (Auto) 88.4 H Lymph % (Auto) 6.6 L [place] % (Auto) 4.9 Eos % (Auto) 0.0 L Baso % (Auto) 0.1 Neut # (Auto) 8000 H Lymph # (Auto) 600 L [place] # (Auto) 400 Eos # (Auto) 0 Baso # (Auto) 0 APTT 37 H D Sodium 134 L Potassium 3.9 Chloride 107 Carbon Dioxide 21 L BUN 18 Creatinine 0.70 Estimated GFR > 60.0 BUN/Creatinine Ratio 25.7 H Glucose 134 H Calcium 7.1 L Total Bilirubin 0.7 AST 40 ALT 70 Alkaline Phosphatase 155 H Total Protein 5.1 L Albumin 2.6 L Globulin 2.5 Albumin/Globulin Ratio 1.0 Assessment & Plan Plan: Assessment/Plan Narrative: Will advanced diet. Unfortunately I cannot pull up the dietary note as the computer keeps resecting its list before I can find it. After 5 different approaches I finally abandoned the attempt to find it. My recollection is that he was to receive 63 cc an hour with 1500 cc of flush. That has been ordered. Will also order Dulcolax suppository now. Quality VTE Deep Vein Thrombosis/Pulmonary Embolism Present on Admission: Yes
[2018-03-09] MEDS: TAGRISSO 1 EACH TUBE (17:08)
[2018-03-09] MEDS: BISACODYL 10 MG SUPP PR (17:26)
[2018-03-10] VITALS (10 sets, daily range): BP systolic 106–119; BP diastolic 57–65; PULSE 44–55; RESP 15–18; TEMP 35.9–37.4; O2SAT 94–98
--- NOTE | 2018-03-10 01:51 | PC.NURSE ---
Addendum entered by Tonya Villalobos R.N. 03/10/18 05:14: Residual 0. Patient again moaning and states he is hurting but unable to rate severity; medicated with Morphine. Original Note: Addendum entered by Tonya Villalobos R.N. 03/10/18 03:19: Discussed use to Tagrisso with night pharmacy who stated this is a neoplastic drug requiring chemo precautions. Family member in room states they were told the medication required no precautions so will maintain chemo precautions tonight and clarify with oncology department in the morning. Repositioned and patient moaning loudly when repositioned so medicated with Oxycodone elixer via PEG. Family requests Atropine drops due to moist cough so medicated as requested. Original Note: Patient opens eyes when spoken to and responds to some questions albeit delayed in responses. Was able to tell RN his name, birthdate and that he is in [place] but did not responde to other questions. Breath sounds CTA with RA sat of 98%. Has moist sounding, non-productive cough. HRR but bradycardic at 46 bpm. PEG tube intact with 5cc residual. Tube feeding infusing at 63cc/h with 250cc water flush q4h. PEG dressing is CDI. Needs to be repositioned q2h as not moving himself. Indwelling catheter is patent with clear yellow urine in bag. Denied pain when asked and FLACC score also 0. High fall risk per RN discretion so bed alarm is activated.
[2018-03-10] MEDS: OXYCODONE 5 MG/5 ML ORAL SOLUTION PO ×4 (03:13→19:05)
[2018-03-10] MEDS: ATROPINE 1% OPHTH 2 DROPS SL ×3 (03:13→17:47)
[2018-03-10] MEDS: MORPHINE 10 MG/0.5 ML ORAL SYRINGE 5 MG PO (04:54)
[2018-03-10] MEDS: SODIUM CHLORIDE 0.9% FLUSH 10 ML IV ×2 (06:12→17:58)
[2018-03-10] MEDS: DEXAMETHASONE 4 MG/ML VIAL IV ×3 (06:12→17:47)
--- NOTE | 2018-03-10 09:03 | CM.DPC ---
Addendum entered by Shelbi Landa R.N. 03/10/18 11:51: MARY Cage from [facility] came over to see patient and family. She stated, family still want everything done. They are also planning on giving patient injection for bone loss. She had emphasized with family that patient does not qualify for home oxygen. She stated that family, including daughter in law, have some unrealistic expectations. Patient has been having some apnea, is semi-responsive. They still plan on taking patient home if he becomes more alert. Oncology wants to wait a couple more days to see if this chemo medication shows sign of improvement for patient. [facility] called back, and stated that to rent oxygen concentrator, would cost $200.00 a month. To rent a hoier, would be $125.00 a month, but patient at this time is not able to get out of bed. Will continue to follow closely. Original Note: DCP Cont: Reached out to MARY Cage at oncology. Asked if she could come over and see patient and visit with family. Let her know, patient has been declining, but family have hopes for home. She stated that she would update Dr. Mohr, and would come over and see patient. Spoke to Ruchi at [facility]. She stated that patient is still on their service, therefor, he would be a resumption of care. She stated that patient has been declining under their care, and Hospice had been mentioned before, which they declined. Discussed update, with Peg tube. She stated that he can continue on their service. Let her know that we would keep her updated, and send notes when close to discharge. Would only need a resumption order. P: DCP to continue to follow closely. Shelbi Landa RN/Vice President Network Development
[2018-03-10] MEDS: PANTOPRAZOLE 40 MG VIAL IV (09:24)
[2018-03-10] MEDS: ENOXAPARIN 80 MG/0.8 ML SYRINGE SUBCUT ×2 (09:24→22:02)
[2018-03-10] MEDS: CEFTRIAXONE 1 GM/50 ML FROZ.PIGGY IV ×2 (09:27→22:01)
[2018-03-10] MEDS: SODIUM CHLORIDE 0.9% 250 ML 21 ML IV (09:27)
--- NOTE | 2018-03-10 10:33 | PC.NURSE ---
Day shift: Per oncology MD Dr Mohr Pt's CA medication is NOT A CHEMO MED. Took chemo cart away.
--- NOTE | 2018-03-10 11:17 | PC.NURSE ---
Day shift: Per nutrition person Jeveti at 83 ml/hr and Q4 hour H2O flush 150 ml. Family aware of this now as well.
[2018-03-10 11:51] LABS: PTT Partial Thromboplastin Tim 57 SECONDS (26.4-36.2)
--- NOTE | 2018-03-10 12:57 | PM.PN.1 ---
Subjective Date Patient Seen: 03/10/18 Time Patient Seen: 12:58 Interval history: Seen with and son. They provide most of the information. He is able to open eyes in response to voice but no other response. By report the nursing was able to find him able to say his name and where he was earlier this morning, and perhaps a bit more alert overall but mostly sleeping. See that oncology visited the patient today seemed pleased by the results, do not see a note yet. Exam Vital Signs (past 8 hours): - 03/10/18 07:59 03/10/18 08:00 03/10/18 11:47 Temperature 98.9 F 99.3 F Pulse Rate 55 L 49 L Respiratory Rate 18 16 Blood Pressure 117/65 114/59 L Pulse Oximetry 97 97 95 Fraction of Inspired Oxygen 21 Oxygen Delivery Method Room Air Oxygen Flow Rate 0 Narrative Exam Narrative: Lying quietly in bed briefly responds to voice with eyes but no verbal responses. He does respond to requests for breath. HEENT unremarkable neck is benign chest is clear heart has a regular rate and rhythm without murmur abdomen is soft nontender nondistended normoactive bowel tones extremities benign neurologically benign Objective Labs Result Diagrams: 03/09/18 05:23 03/09/18 05:23 Labs: Laboratory Results - last 24 hr 03/10/18 11:30 APTT 57 H D Assessment & Plan (1) Non-small cell lung cancer with metastasis: Problem details: Now I think on day 3 of the oral treatment. Not sure I can see a lot of difference but perhaps slightly improvement. Current visit: No Status: Acute (2) Metastasis to brain: Problem details: Suspect this is the primary cause for his current mental status hoping that will improve as above. Current visit: No Status: Acute (3) Metastasis to bone: Problem details: Which is the suspected cause of a lot of his pain. He is getting periodic oxycodone per tube now seems to help. Current visit: No Status: Acute (4) Lytic bone lesions on xray: Problem details: Bone scan does indicate extensive lesions both upper and lower extremities. Current visit: No Status: Acute (5) Groin pain, chronic, left: Problem details: This was ongoing issue and now likely to be due to last item and possibly more of a neuropathic process as noted in that exam. Current visit: No Status: Acute (6) Altered mental status: Problem details: Again I believe this most likely is due to the extensive metastasis as above. See above will treat for pneumonia and in case that is a factor. Qualifiers: Altered mental status type: unspecified Coma depth: Coma timing: Qualified Code(s): R41.82 - Altered mental status, unspecified Current visit: No Status: Acute (7) Pulmonary embolism: Problem details: Remains on anticoagulation now on Lovenox Qualifiers: Acute cor pulmonale presence: without acute cor pulmonale Chronicity: acute Pulmonary embolism type: unspecified Qualified Code(s): I26.99 - Other pulmonary embolism without acute cor pulmonale Current visit: Yes Status: Acute (8) Pneumonia: Problem details: Is in need of oxygen at this time which he was not on admission despite the finding of pulmonary embolus, he does seem to be developing more mucus although can control that very well. Chest x-ray does suggest possible pneumonia although white count has been normal and there has been no fever seems appropriate to treat. Qualifiers: Pneumonia type: Aspiration pneumonia type: Laterality: Lung location: Current visit: Yes Status: Acute (9) Malnutrition, calorie: Problem details: Now on tube feeds through PEG, which also offers a access point for medications. Current visit: Yes Status: Acute Plan: Assessment/Plan Narrative: Family seems comfortable with the idea of him being home they feel they can manage the tube feed, they have a hospital bed, they are little concerned about management of secretions and maybe something additionally will need home. Hoping will see some significant improvement over the next day or so if he is able to manage his airway better that will certainly help things. Continue to follow labs. Will put an order for home health, which was not placed before, with but they can evaluate him a new. Quality VTE Deep Vein Thrombosis/Pulmonary Embolism Present on Admission: Yes
--- NOTE | 2018-03-10 15:32 | ONC.NAV ---
Description: Care Coordination Activity: Met with pt's , dtr-in-law and son to check-in re: care planning needs, financial questions they had re: funding for Xgeva, and continued goals for care. Pt was found to be non-responsive, demonstrating periods of apnea throughout this visit. Discussed this OIL GAUGER [facility] [place] tomorrow to determine how much is left in pt's pasha for the Xgeva. Will plan to request to apply for another pasha if he doesn't have enough to cover for the next few months. Family are clear about their goals to continue aggressive oncologic treatment as long as pt can tolerate and show benefit from it. They are tentatively planning to take pt home after the next 2-3 days, with Home Health in place, however this will depend on pt's functional status and ability to show some improvement. He demonstrates an EGOG performance status of 4: Completely disabled; cannot carry out any self-care, totally confined to bed and/or chair. Dr. Mohr met with the family this morning, and remains hopeful that pt can still benefit from the newly added oncology medication, Tagrisso. Plan: This OIL GAUGER will plan to f/u with pt's tomorrow re: funding for the Xgeva, and continued plan for discharge.
[2018-03-10] MEDS: TAGRISSO 1 EACH TUBE (18:53)
--- NOTE | 2018-03-10 18:53 | PC.NURSE ---
Addendum entered by Sandra Monsalve R.N. 03/10/18 20:23: 0 residual prior to medication. Original Note: 1830- Pt unresponsive, but opens eyes to any sound, and will took deep breathes when asked. PEG tube site drsg CDI, PEG tube patent and infusing 1.2 jevity @ 83, with 150mL water flush Q-4hrs. Pt own pill, tagrisso, was found in pharmacy and given at 1900. Left chest deanna cath HL. Medicated pt with oxycodone 5mg elixir per pt grimicing and moaning when touching shoulders and turning. 95%RA, LS with right side wheezes and crackles to bases bilat. Dill patent and draining clear drk orangish urine, brief for inc bowel. Family in room, bed alarm on.
[2018-03-11] VITALS (8 sets, daily range): BP systolic 95–120; BP diastolic 51–63; PULSE 45–61; RESP 15–19; TEMP 36.6–36.9; O2SAT 94–96
[2018-03-11] MEDS: DEXAMETHASONE 4 MG/ML VIAL IV ×4 (00:31→16:25)
[2018-03-11] MEDS: SODIUM CHLORIDE 0.9% FLUSH 10 ML IV ×4 (00:32→21:14)
[2018-03-11] MEDS: OXYCODONE 5 MG/5 ML ORAL SOLUTION PO ×4 (01:40→13:00)
--- NOTE | 2018-03-11 02:02 | PC.NURSE ---
Addendum entered by Tonya Villalobos R.N. 03/11/18 06:22: Medicated around 0520 for FLACC score of 4. Currently appears comfortable with FLACC of 0. Original Note: Patient is non verbal tonight but will indicate yes/no to some questions by nodding/shaking head. Does moan with touch/movement so medicated with Oxycodone for FLACC of 2. Breath sounds coarse but CTA with RA sat of 96%. HRR. BT present and abdomen is soft; reportedly had liquid stools yesterday. PEG tube intact with tube feeding infusing at 83cc/h with 150cc water flush q4h; had 5cc residual. PEG dressing is CDI. Indwelling catheter is patent; urine clear, dark yellow. Is repositioned q2h as not able to move himself. Bed alarm for safety. [id number], Carrie rooming in.
[2018-03-11 06:35] LABS: Add Manual Diff / Slide Review NO; Basophils Absolute Auto 0 /uL (0-100); Basophils Percent Auto 0.2 % (0-2); Eosinophils Absolute Auto 0 /uL (0-450); Eosinophils Percent Auto 0.1 % (2-4); Hematocrit 38.3 % (41-53); Hemoglobin 13.3 g/dL (13.5-17.5); Lymphocytes Absolute Auto 500 /uL (1100-4500); Lymphocytes Percent Auto 5.2 % (25-40); Mean Corpuscular HGB Conc 34.8 % (30-36); Mean Corpuscular Hemoglobin 32.2 PG (26-34); Mean Corpuscular Volume 92.6 fL (80-100); Monocytes Absolute Auto 400 /uL (0-900); Monocytes Percent Auto 4.7 % (3-14); Neutrophils Absolute Auto 7900 /uL (1500-7000); Neutrophils Percent Auto 89.8 % (50-75); Platelet Count 88 X10^3/uL (150-400); Red Blood Cell Count 4.13 X10^6/uL (4.5-5.9); Red Cell Distribution Width 15.2 % (11.6-14.8); White Blood Cell Count 8.8 X10^3/uL (4.5-11.0)
[2018-03-11 06:40] LABS: BUN Creatinine Ratio 36.7 (6-22); Blood Urea Nitrogen 22 mg/dL (9-20); Calcium 7.1 mg/dL (8.4-10.2); Carbon Dioxide 25 mmol/L (22-32); Chloride 101 mmol/L (98-107); Estimated Glomerular Filt Rate > 60.0 mL/min (>60); Glucose 201 mg/dL (80-110); HEMOLYSIS < 15 (0-50); Sodium 132 mmol/L (137-145)
--- NOTE | 2018-03-11 08:36 | P.PN_ITS ---
Subjective Date Patient Seen: 03/11/18 Time Patient Seen: 08:30 Interval history: Met with patient and review chart. Patient is resting comfortably in hospital bed stable on room air. He is in no apparent distress. He does not speak to me but he is able to follow commands when asked him to take a deep inspiration. There is no evidence of pain Twelve point review of systems is negative. This is per review with nursing staff as patient is not able to give history. Exam Vital Signs (past 8 hours): - 03/11/18 01:17 03/11/18 05:00 03/11/18 07:53 Temperature 98.0 F 97.9 F 97.8 F Pulse Rate 61 54 L 50 L Respiratory Rate 15 16 18 Blood Pressure 113/52 L 120/59 L 107/51 L Pulse Oximetry 96 96 96 03/11/18 08:07 Temperature Pulse Rate Respiratory Rate Blood Pressure Pulse Oximetry 94 Fraction of Inspired Oxygen 21 Oxygen Delivery Method Room Air Oxygen Flow Rate 0 Narrative Exam Narrative: Afebrile vital signs are stable Neck is supple without masses Chest: Decreased breath sounds bilateral bases with scattered rhonchi left lung field Cor: Regular rate and rhythm with distant S1 and S2 Extremities: Warm, no edema Objective Labs Result Diagrams: 03/11/18 06:27 03/11/18 06:27 Labs: Laboratory Results - last 24 hr 03/10/18 03/11/18 03/11/18 11:30 06:27 06:27 WBC 8.8 RBC 4.13 L Hgb 13.3 L Hct 38.3 L MCV 92.6 MCH 32.2 MCHC 34.8 RDW 15.2 H Plt Count 88 L Neut % (Auto) 89.8 H Lymph % (Auto) 5.2 L [place] % (Auto) 4.7 Eos % (Auto) 0.1 L Baso % (Auto) 0.2 Neut # (Auto) 7900 H Lymph # (Auto) 500 L [place] # (Auto) 400 Eos # (Auto) 0 Baso # (Auto) 0 APTT 57 H D Sodium 132 L Potassium 4.0 Chloride 101 Carbon Dioxide 25 BUN 22 H Creatinine 0.60 L Estimated GFR > 60.0 BUN/Creatinine Ratio 36.7 H Glucose 201 H Calcium 7.1 L Assessment & Plan Plan: Assessment/Plan Narrative: 77-year-old male with lung cancer metastatic to brain and bone currently ongoing oral chemotherapy through PEG tube Assessment 1. Metabolic encephalopathy without change suspect secondary to metastatic lung cancer to the brain as well as a narcotic use for pain Plan: Electrolytes stable. Will continue to monitor Assessment 2. Wtg-hqbyg-rraz lung cancer with metastases to brain and bone Plan: Continue with oral chemotherapy per Oncology Continue with oxycodone elix as needed for pain Will plan for discharge home tomorrow with device for suction of secretions in the oropharynx. Will continue with Jevity PEG tube feedings Assessment 3. Community-acquired pneumonia Plan: Continue with antibiotics current, IV ceftriaxone Assessment 4. Pulmonary embolus. Stable without oxygen requirement currently not treating Plan: Continue the same. Continue off Lovenox for now. Quality VTE Deep Vein Thrombosis/Pulmonary Embolism Present on Admission: Yes
[2018-03-11] MEDS: ATROPINE 1% OPHTH 2 DROPS SL ×3 (08:57→21:16)
[2018-03-11] MEDS: PANTOPRAZOLE 40 MG VIAL IV (08:57)
[2018-03-11] MEDS: CEFTRIAXONE 1 GM/50 ML FROZ.PIGGY IV ×2 (08:59→21:11)
--- NOTE | 2018-03-11 10:56 | PC.NURSE ---
Day shift: Verbal order from Dr Bhatia for Jevitiy 1.2 at 83 ml/hr and 150ml h2o flush Q4 hours. That order placed in APR.
--- NOTE | 2018-03-11 13:31 | ONC.NAV ---
Description: Care Coordination/Financial Assistance for Xgeva Activity: This CHUCKER met with pt's , son and mozltaet-if-lrs to continue care coordination planning and teaching re: planning to take pt home on Home Health services. Pt was found to be semi-conscious, unable to indicate understanding of what was being discussed. He remains total care, ECOG performance status-4. Pt's indicates that they are anxious to get him home, although it will be hard. CHUCKER shared that his funding through the [employer] has not yet been accessed by [facility] for his last Xgeva shot, and thus still showing that his pasha is at $5000. However, after it has been billed, it will have only $1000 remaining, and at that time they can choose to re-apply for more funding. CHUCKER also answered the dtr-in-law's question about their wanting to purchase Xgeva out of pocket with a coupon and bring it in to [facility], which is fine, as long as they tell the therapeutic assistant that they have it when they arrive to our infusion clinic. Plan: CHUCKER will monitor and provide assistance as needed as pt transitions back home.
--- NOTE | 2018-03-11 15:32 | CM.DANOTE ---
Addendum entered by MARY Araya 03/11/18 15:55: Call from [facility]: able to accept patient, but need documentation regarding patients medical needs for tube feeding for longer than 90 days and documentation surrounding the necessity of the kangaroo pump (if not gravity or bolise). Also Fibersource will be used instead of Jevity. Original Note: DCP/cont Met with son regarding home with tube feedings. Son feels confident between his who is a RN, himself and HH they will be able to manage patients care. Called and updated [facility]/Ruchi on patient's care. Faxed formula and referral to [facility] for Tube feeding needs. Need to know coverage on tube feedings and kangaroo pump. [facility]/ Bhargav was in to see patient/family. Plan: Home with [facility]/RN with tube feedings. Need to follow up with [facility] regarding cost of feedings/pump.
[2018-03-11] MEDS: TAGRISSO 1 EACH TUBE (16:25)
[2018-03-11] MEDS: OXYCODONE 5 MG/5 ML ORAL SOLUTION 10 MG PO ×2 (17:26→21:36)
--- NOTE | 2018-03-11 19:52 | PC.NURSE ---
Pt unresponsive, but will open eyes to sound. PEG tube drsg CDI, tube patent, infusing Jevity 2.1 @83/hr with 150 water flush Q-4hr, with 0 residual @ 1900, prior to start new feeding. 1147mL jevity 2.1 volume in, with 300mL water flush. 95% RA, ronchi wheezes throughout lung rincon, mouth breathing, difficultly clearing secretions, RT to suction via NG. Dill patent and draining clear dark orang-shannen urine. Left chest deanna cath Hep loc. Wearing brief for inc bowel. Repositioning Q-2hr. Bed alarm on, family in room.
[2018-03-11] MEDS: DOCUSATE 100 MG CAPSULE PO (21:12)
[2018-03-11] MEDS: ENOXAPARIN 80 MG/0.8 ML SYRINGE SUBCUT (21:12)
[2018-03-12] VITALS (10 sets, daily range): BP systolic 109–118; BP diastolic 54–64; PULSE 39–52; RESP 16–18; TEMP 36.3–36.9; O2SAT 93–97
[2018-03-12] MEDS: DEXAMETHASONE 4 MG/ML VIAL IV ×2 (00:26→06:03)
[2018-03-12] MEDS: OXYCODONE 5 MG/5 ML ORAL SOLUTION 10 MG PO ×2 (04:19→08:29)
--- NOTE | 2018-03-12 05:01 | PC.NURSE ---
director television [id number]: Assumed care of pt with safe hand off. Safety checks done. Pt opens eyes to voice but is intermittent in following commands. Pt repositioned every 2 hours. 0400: Pt given some PO pain medication via feeding tube r/t moaning and groining while being repositioned. Daughter in law requested 7.5 mg given instead of the full 10 mg. Asked if there were AM labs. No labs ordered currently.
[2018-03-12] MEDS: CEFTRIAXONE 1 GM/50 ML FROZ.PIGGY IV ×2 (08:43→22:26)
[2018-03-12] MEDS: ENOXAPARIN 80 MG/0.8 ML SYRINGE SUBCUT (08:44)
[2018-03-12] MEDS: PANTOPRAZOLE 40 MG VIAL IV (08:44)
[2018-03-12] MEDS: DOCUSATE 100 MG CAPSULE PO (08:44)
--- NOTE | 2018-03-12 10:28 | CM.DPC ---
Addendum entered by Shelbi Landa R.N. 03/12/18 13:36: Spoke to Bhargav at [facility]. Stated that regarding tube feeding nutrition, this would be 20% co-pay. In this perspective, the cost would be approximately $61.00 a month. There would also be a one time nursing charge of $125.00. Bhargav stated that he would let family know. It looks like patient will not be discharging today. He will be getting continuous Morphine, and they will be attempting a Scopalamine patch for his secretions. According to Dr. Walker's note, patient has had stable O2 sats, and heart rate. Patient's family was discussed options regarding discharge by nurse, Rachael, and questions were addressed with Dr. Walker at visit. Original Note: DCP: Checked in with patient, unresponsive, was having some periods of apnea, according to son. at bedside as well. Daughter, in-law Carrie, has been very involved. Called Bhargav at [facility], to follow up on plan. Stated, that most likely, Medicare will not pay for pump, but gravity. He is looking into this. the goal of [facility] is to come and do teaching on feedings for the family. Also, they have a wallpaper cleaner involved for caloric contents as well. P: DCP to follow closely. Plan is for home, will have tube feedings in the home. [facility] ordered as well, and will also have [facility] health as well. Shelbi Landa RN/Personnel Manager
--- NOTE | 2018-03-12 12:28 | PC.NURSE ---
Pt opens eyes to voice but is non verbal and follows no commands. He quickly falls back to sleep. RR is 5-7 breaths per minute with periods of apnea. O2 sats are 95% on RA. He appears to be in no apparent distress. Pt has been administered 7.5mg Oxycodone as requested by his hbwmiono-gz-oid as she feels 10mg makes him overly sedated. She explained to this nurse that the family is looking for signs of neurologic improvement. She further explained that oncology has prescribed a medication that may improve this patients disease process and give him more time to live. Pts and son have expressed concern over taking patient home and providing him the heavy care he needs when [employer]en[employer] is at work during the day. 3 possible options for discharge have been discussed with them as follows: Plan A: Pt is discharged home with continuation of present care (and Home Health) in hopes that he regains some neurological baseline with the aid of oncology medication. The pt's family will commit to his heavy care at home and has set a one month goal for regaining baseline before considering hospice. Plan B: Pt is made comfort care here in the hospital with plans for possible discharge to home or facility with hospice, if length of survival allows. Plan C: Pt discharges home with Hospice and pts family provide his care with Hospice guidance. Dr. Walker has rounded at the bedside with this pt's family in attendance to discuss these options. Dr. Walker has plans to write orders to add continuous morphine DATASTAGE DEVELOPER to aid the work of breathing and for better pain control as well as scopolomine patch for managment of oral secretions. Warfarin therapy for further PE prevention is to start tonight with Lovenox to bridge. Close monitoring of pt's INR will need to take place with tube feeding as there is Vitamin K in the Jevity tube feed. Dr. Walker is aware.
--- NOTE | 2018-03-12 13:01 | PM.PN.1 ---
Subjective Date Patient Seen: 03/12/18 Time Patient Seen: 13:02 Interval history: Eye is open throughout visit but no response to questions does move from face to face does respond to requests for breath but nothing else. Patient's son and [id number] are present in the room. They provide most interactions today. Nursing indicates some episodes of apnea although is maintaining good oxygen saturation, blood pressure has been maintained heart rate has been low but otherwise seems to be pretty stable. Family indicates no further interaction and their experience. They are looking at home as a primary choice, they have a hospital bed they can set up with the tube feeds will have home health nursing available and [id number] who is an SPECIAL FORCES ENGINEER SERGEANT, so IV via port will be in place if necessary. Still looking at streamlining care as much as possible before discharge. And again oncology is anticipating that the current medication will have a significant impact eventually, they have indicated as soon as a matter of days or apparently up to 3-4 weeks. So little hard to say what to expect a specially with very little impact so far. Exam Vital Signs (past 8 hours): - 03/12/18 07:00 03/12/18 08:00 03/12/18 09:05 Temperature 97.4 F L Pulse Rate 45 L Respiratory Rate 16 18 Blood Pressure 118/55 L Pulse Oximetry 95 95 97 Fraction of Inspired Oxygen 21 Oxygen Delivery Method Room Air Oxygen Flow Rate 0 Narrative Exam Narrative: Lying quietly in bed no acute distress but unresponsive. Eyes open. Extraocular movements intact CHATA, neck benign chest rhonchorous heart regular slow abdomen soft extremities benign neurologically seems nonfocal. Seems to wince whenever he coughs but has a fairly readily breath consistent with poor mucus management. Several apnea spells are witnessed although he sits there with eyes open during the episodes Objective Labs Result Diagrams: 03/11/18 06:27 03/11/18 06:27 Assessment & Plan (1) Non-small cell lung cancer with metastasis: Problem details: Now I think on day 3 of the oral treatment. Not sure I can see a lot of difference but perhaps slightly improvement. Current visit: No Status: Acute (2) Metastasis to bone: Problem details: Which is the suspected cause of a lot of his pain. He is getting periodic oxycodone per tube now seems to help. Will restart MS continuous through FRAME BUILDER looking for better pain control. Current visit: No Status: Acute (3) Metastasis to brain: Problem details: Suspect this is the primary cause for his current mental status hoping that will improve as above. Current visit: No Status: Acute (4) Altered mental status: Problem details: Again I believe this most likely is due to the extensive metastasis as above. See above will treat for pneumonia and in case that is a factor. Qualifiers: Altered mental status type: unspecified Coma depth: Coma timing: Qualified Code(s): R41.82 - Altered mental status, unspecified Current visit: No Status: Acute (5) Bradycardia: Problem details: Running generally in the 40s and 50s Current visit: No Status: Chronic (6) Pneumonia: Problem details: O2 demand has improved is now on room air, continues IV antibiotics seems improved. Qualifiers: Pneumonia type: Aspiration pneumonia type: Laterality: Lung location: Current visit: Yes Status: Acute (7) Malnutrition, calorie: Problem details: Now on tube feeds through PEG, which also offers a access point for medications. Current visit: Yes Status: Acute (8) Witnessed episode of apnea: Problem details: Has had several with nursing indicating only 5-7 rest some minute although he is maintaining good oxygenation. Does suggest a potential issue with central apnea caused by above. Discussed how this might affect prognosis the patient's family Current visit: Yes Status: Acute Plan: Assessment/Plan Narrative: Few modifications today including switching to a scopolamine patch see if that works better firm secretions than the drops, will add continuous morphine for better pain control and perhaps more comfortable breathing, will add milk of magnesia for better bowel control. But of lengthy discussion about prognosis and different outcomes. 45 min spent with patient and family today. Quality VTE Deep Vein Thrombosis/Pulmonary Embolism Present on Admission: Yes
--- NOTE | 2018-03-12 13:11 | P.PN_ITS ---
Subjective Date Patient Seen: 03/12/18 Time Patient Seen: 13:02 Interval history: Eye is open throughout visit but no response to questions does move from face to face does respond to requests for breath but nothing else. Patient's son and [id number] are present in the room. They provide most interactions today. Nursing indicates some episodes of apnea although is maintaining good oxygen saturation, blood pressure has been maintained heart rate has been low but otherwise seems to be pretty stable. Family indicates no further interaction and their experience. They are looking at home as a primary choice, they have a hospital bed they can set up with the tube feeds will have home health nursing available and [id number] who is an STAFFING SPECIALIST, so IV via port will be in place if necessary. Still looking at streamlining care as much as possible before discharge. And again oncology is anticipating that the current medication will have a significant impact eventually, they have indicated as soon as a matter of days or apparently up to 3-4 weeks. So little hard to say what to expect a specially with very little impact so far. Exam Vital Signs (past 8 hours): - 03/12/18 07:00 03/12/18 08:00 03/12/18 09:05 Temperature 97.4 F L Pulse Rate 45 L Respiratory Rate 16 18 Blood Pressure 118/55 L Pulse Oximetry 95 95 97 Fraction of Inspired Oxygen 21 Oxygen Delivery Method Room Air Oxygen Flow Rate 0 Narrative Exam Narrative: Lying quietly in bed no acute distress but unresponsive. Eyes open. Extraocular movements intact CHATA, neck benign chest rhonchorous heart regular slow abdomen soft extremities benign neurologically seems nonfocal. Seems to wince whenever he coughs but has a fairly readily breath consistent with poor mucus management. Several apnea spells are witnessed although he sits there with eyes open during the episodes Objective Labs Result Diagrams: 03/11/18 06:27 03/11/18 06:27 Assessment & Plan (1) Non-small cell lung cancer with metastasis: Problem details: Now I think on day 3 of the oral treatment. Not sure I can see a lot of difference but perhaps slightly improvement. Current visit: No Status: Acute (2) Metastasis to bone: Problem details: Which is the suspected cause of a lot of his pain. He is getting periodic oxycodone per tube now seems to help. Will restart MS continuous through SALAD MAKER looking for better pain control. Current visit: No Status: Acute (3) Metastasis to brain: Problem details: Suspect this is the primary cause for his current mental status hoping that will improve as above. Current visit: No Status: Acute (4) Altered mental status: Problem details: Again I believe this most likely is due to the extensive metastasis as above. See above will treat for pneumonia and in case that is a factor. Qualifiers: Altered mental status type: unspecified Coma depth: Coma timing: Qualified Code(s): R41.82 - Altered mental status, unspecified Current visit: No Status: Acute (5) Bradycardia: Problem details: Running generally in the 40s and 50s Current visit: No Status: Chronic (6) Pneumonia: Problem details: O2 demand has improved is now on room air, continues IV antibiotics seems improved. Qualifiers: Pneumonia type: Aspiration pneumonia type: Laterality: Lung location: Current visit: Yes Status: Acute (7) Malnutrition, calorie: Problem details: Now on tube feeds through PEG, which also offers a access point for medications. Current visit: Yes Status: Acute (8) Witnessed episode of apnea: Problem details: Has had several with nursing indicating only 5-7 rest some minute although he is maintaining good oxygenation. Does suggest a potential issue with central apnea caused by above. Discussed how this might affect prognosis the patient's family Current visit: Yes Status: Acute Plan: Assessment/Plan Narrative: Few modifications today including switching to a scopolamine patch see if that works better firm secretions than the drops, will add continuous morphine for better pain control and perhaps more comfortable breathing, will add milk of magnesia for better bowel control. But of lengthy discussion about prognosis and different outcomes. 45 min spent with patient and family today. Quality VTE Deep Vein Thrombosis/Pulmonary Embolism Present on Admission: Yes
[2018-03-12] MEDS: MAGNESIUM HYDROXIDE 30 ML UDC PO (14:24)
[2018-03-12] MEDS: SCOPOLAMINE 1 PATCH TOP (14:24)
[2018-03-12] MEDS: TAGRISSO 1 EACH TUBE (18:31)
[2018-03-12] MEDS: WARFARIN 5 MG TABLET PO (18:31)
[2018-03-12] MEDS: DEXAMETHASONE 4 MG/ML VIAL PO (20:02)
[2018-03-12] MEDS: MORPHINE PCA 30 MG/30 ML PCA.VIAL IV (22:23)
[2018-03-12] MEDS: SODIUM CHLORIDE 0.9% 250 ML 21 ML IV (22:27)
--- NOTE | 2018-03-12 22:31 | PC.NURSE ---
PM shift Pt has been mostly minimally responsive with staff interactions. Will open eyes and appears to keep eye contact, but very little interaction with staff. Grimacing/calling out noted with turning and cares, discussed CLAY PROCESSING FACTORY WORKER and if family (daughter) felt as though this had been effective, and if the PRN break through dosing was needed. CLAY PROCESSING FACTORY WORKER runing at 1mg/hr. Daughter feels pain is acute, and there was a significant time between getting off the PO oxycodone and switching to CLAY PROCESSING FACTORY WORKER. Medicated for turning and cares, and much smoother, Pt appears quiet comfortable. RR has been variable, between 10-20+ breaths/min. Pts period of apnea, do not appear to coincide with narcotic use. Pt noted with eye contact with staff and pink MM, significant apea noted. Spo2 on RA stable, 90+ % Family having aura discusion about POC and comfort measures/hospice care ect. Made available for questions or concerns. Educated with meds during shift. Family is very involved in care. [id number]-Daughter MEDICAL IMAGING TECHNOLOGIST, has spoken with a member of Hospice and they would be willing to accept a patient on a CLAY PROCESSING FACTORY WORKER and TF, per daughter. Discussed at length options and outcome goals for hospice. Will address in Am with CM/care team.
[2018-03-13] VITALS (10 sets, daily range): BP systolic 95–119; BP diastolic 47–70; PULSE 43–49; RESP 10–20; TEMP 36.3–37.3; O2SAT 93–96
--- NOTE | 2018-03-13 | DI.RAD.S_ITS ---
PROCEDURE: XR CHEST 1V INDICATIONS: Possible aspiration TECHNIQUE: One view of the chest was acquired. COMPARISON: [facility], CT, CT ANGIO CHEST PE PROTOCOL, 03/04/2018, 17:16. [facility], CT, CT CHEST WO CON, 01/11/2018, 14:23. [facility], CR, XR CHEST 1V, 02/20/2018, 15:14. [facility], CR, XR CHEST 1V, 03/06/2018, 1:06. [facility], CR, XR CHEST 1V, 03/04/2018, 16:01. FINDINGS: Surgical changes and devices: Chest from left-sided approach extensive normal position to the atrial caval junction.. Lungs and pleura: No pleural effusions or pneumothorax. Lungs are abnormal with chronic interstitial prominence, and the previously identified apical right lung mass is poorly visualized by plain film. Most recently it was well visualized by CT scanning 03/04/18.. Mediastinum: Mediastinal contours appear normal. Heart size is normal. Bones and chest wall: No suspicious bony lesions. Overlying soft tissues appear unremarkable. IMPRESSION: C no sign of aspiration or consolidative pneumonia. hronic mild interstitial prominence stable over time,, likely resulting from prior smoking history. Dictated by: Torres Marin M.D. on 03/13/2018 at 10:06 Approved by: Torres Marin M.D. on 03/13/2018 at 10:08
[2018-03-13] MEDS: ENOXAPARIN 80 MG/0.8 ML SYRINGE 70 MG SUBCUT ×2 (00:33→09:35)
[2018-03-13] MEDS: DEXAMETHASONE 4 MG/ML VIAL PO (00:34)
[2018-03-13 05:48] LABS: Prothrombin Time 11.4 SECONDS (10.1-12.7)
[2018-03-13 05:52] LABS: Hematocrit 40.1 % (41-53); Mean Corpuscular HGB Conc 34.9 % (30-36); Mean Corpuscular Hemoglobin 32.4 PG (26-34); Mean Corpuscular Volume 92.6 fL (80-100); Platelet Count 61 X10^3/uL (150-400); Red Blood Cell Count 4.33 X10^6/uL (4.5-5.9); Red Cell Distribution Width 15.7 % (11.6-14.8); White Blood Cell Count 9.8 X10^3/uL (4.5-11.0)
[2018-03-13 05:55] LABS: Add Manual Diff / Slide Review YES
[2018-03-13] MEDS: DEXAMETHASONE 4 MG TABLET PO ×3 (06:22→17:24)
[2018-03-13] MEDS: MORPHINE PCA 30 MG/30 ML PCA.VIAL IV ×3 (06:26→21:36)
--- NOTE | 2018-03-13 06:47 | PC.NURSE ---
NOC Shift: Pt remains minimally non-responsive, opens eyes only to stimulus, care. Moans only. On MS gtt via RUMPER for comfort, boluses given intermittantly for care given. Pt has poor secretion management, and cough requires RT NTT SXN prn for coarse throughout Rhonci. Pt has stable sats on room air. At 0400 RT NTT SXN pt for thick yellow secretions that she believes to be tube feeds. SXN canister at bedside has not been emptied for and it also has residual yellow substance inside canister. Daughter at bedside states that a RT on had SXN'd pt and also made the comment that the yellow secretions was aspirated tube feeds. At this time tube feeds are held and PEG tube flushed, clamped. Both times residuals checked amts less than 5mls. Pt sats have never dropped below 92% on room air throughout shift, when in a awakened state pt seems to be attmepting to cough or clear oral secretions from throat, and he will not allow yanker SXN to pass his mouth. Unclear as to whether or not pt is really apirating TF's, but pt remained stable for the rest of shift so MD was not notified, will discuss in AM. Daughter wants TF's held at this time. Pt head needs to remain elevated to keep airway clear. DNR.
[2018-03-13 07:02] LABS: Neutrophils Absolute Manual 8820 /uL (3000-5900); Total Cells Counted 100
[2018-03-13 07:04] LABS: Anisocytosis 1+; Platelet Estimate Decreased on smear
--- NOTE | 2018-03-13 08:14 | CM.DPC ---
Addendum entered by Shelbi Landa R.N. 03/13/18 10:51: Flor at [facility]osp[facility] stated that Shae will be here at approximately 1:00 to meet with family for informational visit. Dr. Walker was here seeing patient, and is aware of Hospice consult. Stated that patient could potentially be discharged tomorrow, but will also depend upon Hospice. Spoke to Bhargav at [facility]. He stated that they are the pharmacy for hospice, and they would contact for supplies, so this would not change. Let Bhargav know that this heel caser would update him on Hospice, and the plan. Original Note: DCP Cont: Spoke to Flor at [facility] . She stated that family had called and wanted an informational visit. She is requesting that notes be sent over on patient. Asked [facility] to send notes over to them. They will then contact this heel caser on a time of the visit. P: DCP to follow closely. Notes will be faxed over to [facility]osp[facility]. Shelbi Landa RN/Hoop Driving Machine Operator
--- NOTE | 2018-03-13 09:20 | PM.PN.1 ---
Subjective Date Patient Seen: 03/13/18 Time Patient Seen: 09:20 Interval history: Minimally responsive this morning. Seen only with [id number], who apprise status. Apparently yesterday afternoon he became much more alert responding appropriately with 1 or 2 words certainly as bright as he has been for many days. The apnea that had been witnessed yesterday seems to have cleared. But according to [id number] family has been reconsidering overall strategies. They have contacted hospice to seem willing to participate even if he continues on the cancer medication, as they would perhaps consider that more of a palliative rather than curative treatment. So they could help with many aspects of care including management of his pain, morphine drip and the like. The thought now is to give him 2 weeks with the cancer medication if it makes no difference in that time, then withdrawal of care. Seems family really needs to have at least that time to feel confident that they have done everything possible. Also with the visit today is RT who indicate that perhaps with a recent suctioning attempt there was some emesis and possible aspiration wondering if a chest x-ray is appropriate. They will be working on modifying suction. Exam Vital Signs (past 8 hours): - 03/13/18 01:32 03/13/18 04:00 03/13/18 05:00 Temperature 99.0 F Pulse Rate 49 L Respiratory Rate 16 Blood Pressure 114/55 L Pulse Oximetry 95 96 93 03/13/18 08:00 Temperature 99.1 F Pulse Rate 46 L Respiratory Rate 10 L Blood Pressure 101/47 L Pulse Oximetry 93 Fraction of Inspired Oxygen 21 Oxygen Delivery Method Room Air Oxygen Flow Rate 0 Narrative Exam Narrative: Lying quietly in no evident distress very slight response to voice chest shows diffuse rhonchi heart regular without murmur abdomen soft nondistended normal bowel tones extremities benign neurologic seems benign and nonfocal. Objective Labs Result Diagrams: 03/13/18 05:27 03/11/18 06:27 Labs: Laboratory Results - last 24 hr 03/13/18 03/13/18 05:27 05:27 WBC 9.8 RBC 4.33 L Hgb 14.0 Hct 40.1 L MCV 92.6 MCH 32.4 MCHC 34.9 RDW 15.7 H Plt Count 61 L Neut % (Auto) Not Reportable Lymph % (Auto) Not Reportable White % (Auto) Not Reportable Eos % (Auto) Not Reportable Baso % (Auto) Not Reportable Lymph # (Auto) Not Reportable White # (Auto) Not Reportable Baso # (Auto) Not Reportable Total Counted 100 Seg Neutrophils % 87.0 H Band Neutrophils % 3.0 Lymphocytes % (Manual) 2.0 L Atypical Lymphs % 1.0 H Monocytes % (Manual) 5.0 Metamyelocytes % 2.0 H Neutrophils # (Manual) 8820 H Platelet Estimate Decreased on smear RBC Morphology See below Anisocytosis 1+ H PT 11.4 INR 1.0 Assessment & Plan (1) Non-small cell lung cancer with metastasis: Problem details: Now on day 6 of oral treatment, with a brief episode of some brighter mental status yesterday although short-lived, uncertain what it indicates for the future. Family seems to be a little more willing to consider options to long-term care, see above, seen prepared now to the treatment 2 more weeks hopefully at home than to see if further treatment is indicated at that time. So will pursue that, including hospice consult. Possibly home tomorrow. Current visit: No Status: Acute (2) Metastasis to brain: Problem details: Suspect this is the primary cause for his current mental status , brief respite perhaps yesterday will continue to follow. Current visit: No Status: Acute (3) Metastasis to bone: Problem details: Which is the suspected cause of a lot of his pain. He is getting periodic oxycodone per tube now seems to help. Will restart MS continuous through SUPERVISOR FABRICATION DEPARTMENT looking for better pain control. Seems to be working better with less side effect than the oxycodone. Current visit: No Status: Acute (4) Pulmonary embolism: Problem details: Remains on anticoagulation now on Lovenox, started Coumadin yesterday. Qualifiers: Acute cor pulmonale presence: without acute cor pulmonale Chronicity: acute Pulmonary embolism type: unspecified Qualified Code(s): I26.99 - Other pulmonary embolism without acute cor pulmonale Current visit: Yes Status: Acute (5) Pneumonia: Problem details: O2 demand has improved is now on room air, continues IV antibiotics seems improved. Qualifiers: Pneumonia type: Aspiration pneumonia type: Laterality: Lung location: Current visit: Yes Status: Acute (6) Witnessed episode of apnea: Problem details: Several events yesterday apparently non so far today Current visit: Yes Status: Acute (7) At risk for aspiration: Problem details: New finding today more related to suctioning so may not be a true risk. Current visit: Yes Status: Acute Plan: Assessment/Plan Narrative: Will get a chest x-ray to check on status after last item, will ask for a hospice consult to discuss options with patient's family. We will prepare for possible home discharge soon. Continue to follow labs continue other treatments. Quality VTE Deep Vein Thrombosis/Pulmonary Embolism Present on Admission: Yes
--- NOTE | 2018-03-13 09:27 | P.PN_ITS ---
Subjective Date Patient Seen: 03/13/18 Time Patient Seen: 09:20 Interval history: Minimally responsive this morning. Seen only with daughter-in -law, who apprise status. Apparently yesterday afternoon he became much more alert responding appropriately with 1 or 2 words certainly as bright as he has been for many days. The apnea that had been witnessed yesterday seems to have cleared. But according to [id number] family has been reconsidering overall strategies. They have contacted hospice to seem willing to participate even if he continues on the cancer medication, as they would perhaps consider that more of a palliative rather than curative treatment. So they could help with many aspects of care including management of his pain, morphine drip and the like. The thought now is to give him 2 weeks with the cancer medication if it makes no difference in that time, then withdrawal of care. Seems family really needs to have at least that time to feel confident that they have done everything possible. Also with the visit today is RT who indicate that perhaps with a recent suctioning attempt there was some emesis and possible aspiration wondering if a chest x-ray is appropriate. They will be working on modifying suction. Exam Vital Signs (past 8 hours): - 03/13/18 01:32 03/13/18 04:00 03/13/18 05:00 Temperature 99.0 F Pulse Rate 49 L Respiratory Rate 16 Blood Pressure 114/55 L Pulse Oximetry 95 96 93 03/13/18 08:00 Temperature 99.1 F Pulse Rate 46 L Respiratory Rate 10 L Blood Pressure 101/47 L Pulse Oximetry 93 Fraction of Inspired Oxygen 21 Oxygen Delivery Method Room Air Oxygen Flow Rate 0 Narrative Exam Narrative: Lying quietly in no evident distress very slight response to voice chest shows diffuse rhonchi heart regular without murmur abdomen soft nondistended normal bowel tones extremities benign neurologic seems benign and nonfocal. Objective Labs Result Diagrams: 03/13/18 05:27 03/11/18 06:27 Labs: Laboratory Results - last 24 hr 03/13/18 03/13/18 05:27 05:27 WBC 9.8 RBC 4.33 L Hgb 14.0 Hct 40.1 L MCV 92.6 MCH 32.4 MCHC 34.9 RDW 15.7 H Plt Count 61 L Neut % (Auto) Not Reportable Lymph % (Auto) Not Reportable [place] % (Auto) Not Reportable Eos % (Auto) Not Reportable Baso % (Auto) Not Reportable Lymph # (Auto) Not Reportable [place] # (Auto) Not Reportable Baso # (Auto) Not Reportable Total Counted 100 Seg Neutrophils % 87.0 H Band Neutrophils % 3.0 Lymphocytes % (Manual) 2.0 L Atypical Lymphs % 1.0 H Monocytes % (Manual) 5.0 Metamyelocytes % 2.0 H Neutrophils # (Manual) 8820 H Platelet Estimate Decreased on smear RBC Morphology See below Anisocytosis 1+ H PT 11.4 INR 1.0 Assessment & Plan (1) Non-small cell lung cancer with metastasis: Problem details: Now on day 6 of oral treatment, with a brief episode of some brighter mental status yesterday although short-lived, uncertain what it indicates for the future. Family seems to be a little more willing to consider options to long- term care, see above, seen prepared now to the treatment 2 more weeks hopefully at home than to see if further treatment is indicated at that time. So will pursue that, including hospice consult. Possibly home tomorrow. Current visit: No Status: Acute (2) Metastasis to brain: Problem details: Suspect this is the primary cause for his current mental status , brief respite perhaps yesterday will continue to follow. Current visit: No Status: Acute (3) Metastasis to bone: Problem details: Which is the suspected cause of a lot of his pain. He is getting periodic oxycodone per tube now seems to help. Will restart MS continuous through PROFESSOR OF GENETICS looking for better pain control. Seems to be working better with less side effect than the oxycodone. Current visit: No Status: Acute (4) Pulmonary embolism: Problem details: Remains on anticoagulation now on Lovenox, started Coumadin yesterday. Qualifiers: Acute cor pulmonale presence: without acute cor pulmonale Chronicity: acute Pulmonary embolism type: unspecified Qualified Code(s): I26.99 - Other pulmonary embolism without acute cor pulmonale Current visit: Yes Status: Acute (5) Pneumonia: Problem details: O2 demand has improved is now on room air, continues IV antibiotics seems improved. Qualifiers: Pneumonia type: Aspiration pneumonia type: Laterality: Lung location: Current visit: Yes Status: Acute (6) Witnessed episode of apnea: Problem details: Several events yesterday apparently non so far today Current visit: Yes Status: Acute (7) At risk for aspiration: Problem details: New finding today more related to suctioning so may not be a true risk. Current visit: Yes Status: Acute Plan: Assessment/Plan Narrative: Will get a chest x-ray to check on status after last item, will ask for a hospice consult to discuss options with patient's family. We will prepare for possible home discharge soon. Continue to follow labs continue other treatments. Quality VTE Deep Vein Thrombosis/Pulmonary Embolism Present on Admission: Yes
[2018-03-13] MEDS: CEFTRIAXONE 1 GM/50 ML FROZ.PIGGY IV ×2 (09:35→20:26)
[2018-03-13] MEDS: PANTOPRAZOLE 40 MG VIAL IV (09:36)
--- NOTE | 2018-03-13 14:14 | CM.DPC ---
DCP Cont: Shae from [facility] came by care management office. She received signed consents. Patient will continue with current treatments, feedings. Updated MARY Cage at [facility]. She stated that insurance will not cover chemo meds on hospice, but family may be using medications that they had already paid for. Focus will be palliative care. Shae at hospice will check with Flor to find out when they will be able to open patient. Shae was given a copy of NICK and DAVON paperwork. She stated that equipment will be sent to home tomorrow. They will also be using a CAD pump. Let her know that Bhargav at [facility] was originally going to send a nurse out. She stated that they would contact him regarding feeding supplies. This case resolution specialist called Bhargav at [facility] and gave him an update that patient would be opening to hospice. Will await call from Flor from [facility] to find out when nurse would be going out to open patient, in this perspective, this could delay discharge. Patient should be discharged withing next couple of days by BLS transport. Hospice will be overseeing feedings, and will ensure that family knows how to use equipment. Spoke to Flor, and she stated that they could possibly open the patient on Saturday. Hospice provider will be contacting Dr. Walker, for this case resolution specialist informed her that it is not the hospitalist, but Dr. Walker who is managing care, along with oncology. P: DCP to follow closely. Plan is for home on Hospice, when all equipment is put into place. Shelbi Landa RN/Publishing Manager
[2018-03-13] MEDS: TAGRISSO 1 EACH TUBE (17:24)
[2018-03-13] MEDS: MORPHINE 2 MG/ML INJ 1 MG IV ×2 (17:46→19:20)
[2018-03-13] MEDS: SODIUM CHLORIDE 0.9% 250 ML 21 ML IV (17:46)
[2018-03-13] MEDS: APIXABAN 5 MG TABLET 10 MG PO (21:29)
[2018-03-13] MEDS: MORPHINE 10 MG/0.5 ML ORAL SYRINGE 5 MG PO (21:37)
[2018-03-13] MEDS: MAGNESIUM HYDROXIDE 30 ML UDC PO (21:38)
[2018-03-14] VITALS: BP 106/54; PULSE 40; RESP 10; TEMP 36.9; O2SAT 94
[2018-03-14] MEDS: MORPHINE 2 MG/ML INJ IV ×8 (00:56→23:53)
[2018-03-14 01:08] VITALS: O2SAT 93
--- NOTE | 2018-03-14 01:34 | PC.NURSE ---
Addendum entered by Oumou Eaton R.N. 03/14/18 06:10: Over course of shift have titrated continuous morphine TRAFFIC SUPERINTENDENT to 3mg/hr for comfort. Pt still exhibiting painful response to stimulus including to positional changes that concerns family therefore titrate up per request for maximum comfort. Pt still maintaining sats > 93% on RA with 4-6 breaths per minute with 25-35 second pauses between breathing cycles. HR between 32-42bpm. Family has been performing care on patient at this time and can make needs known. Original Note: Shift Note: Received pt from evening shift. During shift report, family requested that feeding be stopped and that dexamethason and antibiotics also be held. During assessment, of patient requested that patient be made comfort care only and to have MD wallpaper consultant made aware so that pain management can be a priority. This RN called Dr Srivastava who agreed to comfort care and to stop all orders not related to comfort which were d/c'd. Changed order for TRAFFIC SUPERINTENDENT to be titrated up to a maximum of 5mg/hr for comfort. Family at bedside to make needs known of patient. Pt unresponsive except to painful stimulus. Lung sounds are rhonchi throughout with periods of apnea up to 20 seconds. Bowel sounds are hypoactive. No mottling noted at this time.
[2018-03-14] MEDS: MORPHINE PCA 30 MG/30 ML PCA.VIAL IV ×3 (06:08→22:05)
--- NOTE | 2018-03-14 09:13 | PM.PN.1 ---
Subjective Date Patient Seen: 03/14/18 Time Patient Seen: 09:13 Interval history: Family present today including son and [id number], apparently in consultation last night at term and that comfort care was most appropriate. On-call MD was consulted and medications were changed as result. Has remained on morphine with a variable drip but all the other medications have been stopped. Request of RN to add a lorazepam. There have been no further episodes of his awakening/verbal interactions from a couple of days ago and in fact has only seemed progressively worse over this last 24 hr especially. Apnea spells have returned, as high as 35 sec in duration he is still opening eyes but not clearly seen. And certainly no responses. asks if I feel this is an appropriate decision, and certainly as I see the patient today and given his course since admission, even in spite of the wish full thinking Oncology and the hope that the medication would help I do not think that it has made any significant benefit, and now the patient seems several more likely to pass rather soon. Reviewed in fact that given how advanced disease was at diagnosis including wide metastasis, it seems that the damage has already been in on treatment. So I concurred with the decision for comfort care, and reviewed with that meant. Also a mention that after our discussion yesterday about planning for home discharge, Hospice, I did talk to hospice MD about care planning. But pretty evident that he is unlikely to leave the hospital. Exam Vital Signs (past 8 hours): Fraction of Inspired Oxygen 21 Oxygen Delivery Method Room Air Oxygen Flow Rate 0 Narrative Exam Narrative: Found lying quietly on his back not moving mouth open. I do see a few apnea episodes during my visit. To my voice he does open his eyes at 1st unable to look towards me, but later he does seem to look towards me although item get a sense that he is seeing me and again no response. Chest seems fairly normal heart regular although slow abdomen extremities neurological all seem benign, except for the change in level of consciousness. Objective Labs Result Diagrams: 03/13/18 05:27 03/11/18 06:27 Assessment & Plan (1) Non-small cell lung cancer with metastasis: Problem details: Seems progressive especially I believe with the brain metastasis with worsening status over time. Treatment has been terminated at family's request. Current visit: No Status: Acute (2) Metastasis to brain: Problem details: Again this seems to be progressing, and seems unlikely to improve. Current visit: No Status: Acute (3) Metastasis to bone: Problem details: Seems to be providing level of comfort. Still on morphine IV Current visit: No Status: Acute (4) Altered mental status: Problem details: Continues to progress again I think due tumor impact. Qualifiers: Altered mental status type: unspecified Coma depth: Coma timing: Qualified Code(s): R41.82 - Altered mental status, unspecified Current visit: No Status: Acute (5) Pulmonary embolism: Problem details: I had after discussion with pharmacy yesterday determine to switch him to 1 of the maneuver anticoagulants for this but again due to this decision to go to comfort care we have stopped all anticoagulation. Qualifiers: Acute cor pulmonale presence: without acute cor pulmonale Chronicity: acute Pulmonary embolism type: unspecified Qualified Code(s): I26.99 - Other pulmonary embolism without acute cor pulmonale Current visit: Yes Status: Acute (6) Pneumonia: Problem details: Had completed a full course of antibiotics so that was stopped yesterday no evidence of persistence. Qualifiers: Pneumonia type: Aspiration pneumonia type: Laterality: Lung location: Current visit: Yes Status: Acute (7) Witnessed episode of apnea: Problem details: Has resumed this and I have even more consistently and longer-term than previously possibly this is further indication of failing treatment and poor prognosis. Current visit: Yes Status: Acute (8) At risk for aspiration: Problem details: Continues NPO. Current visit: Yes Status: Acute (9) Malnutrition, calorie: Problem details: Now on tube feeds through PEG, which also offers a access point for medications. Current visit: Yes Status: Acute (10) Need for comfort care: Problem details: I believe it is a very appropriate decision at this point. I think even if he did see some improvement with medication after some time of additional treatment there is likely to be significant impairment that Kenan would not be acceptable to the patient. So will withdraw most care leaving only comfort issues, adding lorazepam. Do not anticipate the patient leaving the hospital. Current visit: Yes Status: Acute (11) Bradycardia: Problem details: Running generally in the 40s and 50s Current visit: No Status: Chronic Quality VTE Deep Vein Thrombosis/Pulmonary Embolism Present on Admission: Yes
[2018-03-14] MEDS: SODIUM CHLORIDE 0.9% 250 ML 21 ML IV (09:18)
--- NOTE | 2018-03-14 10:58 | PC.NURSE ---
Pt resting in bed, resps are shallow 10-12 with frequent pauses between 20-40 seconds. Skin is warm without signs of mottling. Family asked for Pt not to be turned until the rest of the family is present in case Pt expires with turning. Pt appears comfortable at this time. Family denies needs at this time and has a comfort cart in the room.
[2018-03-14] MEDS: LORazepam 2 MG/ML SYRINGE 1 MG IV ×4 (12:12→23:53)
--- NOTE | 2018-03-14 16:10 | CM.DPC ---
DCP/cont Overnight patient's family decided to make patient comfort care only. Patient remains on morphine with a variable drip but all the other medications have been stopped. Per Dr. Walker patient unlikely to leave hospital. Call from Hospice/[facility]: Family had declined equipment delivery reporting they expected patient to at . [facility] wanted to know if they should try for delivery tomorrow but at this time SW unable to determine. Informed [facility] if decision needed to be made now for delivery then would recommend equipment delivery put on hold. SW attemped to meet with family and was told by family friend that spouse and DIL were finally sleeping and they were to not be interrupted. SW attempted to return a few hours later and family requested we talk tomorrow as they were waiting on more family to arrive. Call from [facility]ottie: updated Lottie on patient's prognosis. Plan: Home with Hospice vs at . SW to closely follow.
[2018-03-14] MEDS: MORPHINE 10 MG/0.5 ML ORAL SYRINGE 5 MG PO (22:02)
--- NOTE | 2018-03-14 22:09 | PC.NURSE ---
Patient is peacefully resting with family at bedside. Patient has JUICE PACKAGING MACHINES SETTER of Morphine, increased w/ day nurse to 5mg going at basal rate. Family (daughter in low Carrie) is very insistent that patient get Morphine 2mg every hour along w/ Ativan. Patient maintains to be bradycardia which is baseline. However patients family states HR has been spiking into the 80's, however this nurse has yet to witness HR spike. Patient has apnic moments, rattle has increased in sound, and modeling has taken place in bilat. hands. DIL is asking for this nurse to call provider to get orders or PRN breakthrough Morphine changed from 2mg q2hr to q1hr and Ativan 1mg q4hr to q1hr. Did do some suggestions regarding Ativan that it may not be increased to q1hr but provider may approve the q2hr. Call placed to Aaron asking for new orders at which they were approved, see MAR for details. Encouraged family to let nurse know if any of them need anything.
[2018-03-15] MEDS: MORPHINE 2 MG/ML INJ IV ×3 (01:00→13:34)
--- NOTE | 2018-03-15 02:26 | PC.NURSE ---
Addendum entered by Oumou Eaton R.N. 03/15/18 06:06: Pt has been unchanged in status for the remainder of the shift and has not required additional boluses of Morphine beyond continuous morphine drip of 7mg/hr. Original Note: Shift Note: Received pt from evening shift. Continuous morphine REVENUE INSPECTOR @ 5mg/hr, family anxious at bedside concerned with pain management. Previous shift received modified orders for 1mg Ativan Q2 hours, boluses of Morphine 2mg Q1 hr per Dr Walker at change of shift. Pt given Ativan 1mg and Morphine 2mg per MAR at 2353, Morphine 2mg per MAR at 0100, Morphine 2mg per MAR at 0208. Family approached this RN stating that they felt he's in a good place now and wanted to continue with this dose. Asked family if they would be comfortable with REVENUE INSPECTOR being titrated up to amount versus every hour administration, family in agreement if MD orders. Called Dr Walker who ordered REVENUE INSPECTOR to be titrated up to 7mg/hr per request of family. REVENUE INSPECTOR titrated up per REVENUE INSPECTOR management on worklist with sophia CANCHOLA. At this time patient supine in bed, demonstrating Raphael-Hogue respiratory pattern, does not appear to be in distress, family declined physical assessment. ROSELIA Butler approached this RN about the possibility of pt being transferred home in the AM on hospice, this RN stated that it was a conversation to have in the morning with care team as unsure about possibility. Family to notify RN if pt passes and they acknowledge. Will continue to monitor as necessary.
[2018-03-15] MEDS: MORPHINE PCA 30 MG/30 ML PCA.VIAL IV (06:02)
[2018-03-15] MEDS: SCOPOLAMINE 1 PATCH TOP (10:49)
--- NOTE | 2018-03-15 10:57 | CM.DPC ---
DCP/Discharge Met with family: they are wishing to discharge home with hospice today. They feel patient's pain is being manage and would like transfer to occur today. Dr. Wong agreeable to discharge. Called Hospice/[facility]: able to get equipment delivered today and will have nurse open for admit on Saturday at 1000. program coordinator executive education/Radha to set up BLS transportation for later on this evening. Plan: Patient to discharge home w/ hospice via BLS today vs .
--- NOTE | 2018-03-15 11:10 | PC.NURSE ---
Pt's breathing is very shallow. Mottling is noted to bilateral hands. He is unresponsive. No physical assessment is done per family request. A 100mcg Fentanyl patch is applied as prescribed to pts anterior shoulder. A new scopolomine patch is replaced behind pt's left ear. RAILROAD DISPATCHER of morphine is running a continuous dose as prescribed. Carrie, this pts daughter in law, wants to provide majority of pts care. She has given him a bed bath this am. Family members are at the bedside.
--- NOTE | 2018-03-15 12:16 | PM.DS.1 ---
History of Present Illness Chief complaint: Decreased LOC Narrative: See H&P Discharge Providers Date of admission: 03/04/18 19:19 Primary care physician: Vu Walker MD Consults: 03/05/18 09:38 Consult to Oncology Routine Comment: Consulting Provider: Ryne Mohr Reason for consultation: In form of patient's admission Has provider been notified: No 03/05/18 11:19 Consult to Speech Therapy Evaluate & Treat Comment: Physician Instructions: Evaluate and treat 03/06/18 08:56 Consult to Dietitian, Adult Routine Comment: Reason For Exam: NPO, nutrtion options, will have NG 03/10/18 13:07 Consult to Home Health Routine Comment: Reason For Exam: Multiple treatment issues 03/13/18 09:19 Consult to Hospice Referral Routine Comment: Family is leaning, not committed to this yet. 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 Hospital Course: Patient carries the diagnosis of cancer that has been followed by Oncology treatment had been proposed and provided before he was able to the take any in an oral tablet form, he developed rather substantial weakness dyspnea and eventually some mental status changes. He was brought to the emergency room and evaluated found to have a pulmonary embolus although maintaining oxygenation and his mental status was markedly impaired. He was awakened provided some interactions at 1st and intermittently through to the 1st half of the hospitalization but became less so essentially unresponsive during the latter part. There was a period of some hypoxia and suspected pneumonia that was treated the hypoxia improved. He also had some rather marked. It is of apnea intermittently during the last few days. He was unable to manage his secretions or swallow safely so he he was kept NPO which created a problem as far as access for the cancer medication. Considered NG tube but had seemed less practical so General surgery was kind enough to id provide the services of an peg tube that allowed access for both nutrition and medications. So week ago he was started on the oral cancer medication as well as nutrition I continued that for the next several days without significant changes. Oncology did advise that it could be as few as a couple of days or perhaps up to a couple weeks to see any significant change with the medication but continued to be helpful that that would occur. But by a 2 days ago he seemed to be only deteriorating further with more apnea less responsive and family discussed that evening apparently about long-term consequences. They have been hoping to get him home with ventrally but he was too seeming so poorly that they are requested a withdrawal of care and could her to comfort care only. So that was done that night and more completely the next morning we might find his medications again more towards comfort stopping any curative treatments. He seemed to be struggling a bit at times but met medications were modified. Family continued to be quite certain that the he was not going to survive much longer so were comfortable with him in the hospital. Late last night however he apparently got quite a bit more agitated and some level of discomfort so his morphine dosing was increased towards better comfort and that seemed to calm him quite a bit and in some ways seemed is in somewhat less immediate peril, so when I arrived this morning for rounds the [id number] who has been the primary spokesman for the last couple of days, indicated that since he seemed somewhat better, even as they know he still did not have long to go, they hoped to get him home for his final period. So arrangements were made. Would not have been my recommendation given his rather fragile nature not sure quite how he will manage in the transfer. But arrangements were made. Hospice has already been consulted and they say they will be able to participate starting Saturday or in 2 days so some medications will be provided for the interim. Status at Discharge Cognitive/behavioral status at discharge: Markedly impaired Functional status at discharge: bed bound Overall status at discharge: patient is not back to baseline Time Spent with Patient Greater than 30 minutes Exam Vital Signs (past 8 hours): Fraction of Inspired Oxygen 21 Oxygen Delivery Method Room Air Oxygen Flow Rate 0 Narrative Exam Narrative: Lying quietly unresponsive. Chest fairly clear abdomen soft neurologically unresponsive. Objective Labs Result Diagrams: 03/13/18 05:27 03/11/18 06:27 Discharge Plan Discharge Plan Patient Disposition: Hospice - Home Discharge comment: Anticipating demise at home Discharge Med Rec/Prescriptions Prescriptions: New scopolamine base [Transderm-Scop] 1 mg over 3 days Patch 3 Day 1 patch Topical Q72H Qty: 5 RF: 0 lorazepam 2 mg/mL concentrate 2 mg SL BID-TID PRN (Reason: anxiety) Qty: 30 RF: 0 lorazepam 2 mg/mL concentrate 2 mg SL BID-TID PRN (Reason: anxiety) Qty: 30 RF: 0 morphine concentrate 20 mg/mL syringe 10 mg SL Q4H PRN (Reason: pain) Qty: 5 RF: 0 Continue acetaminophen 650 mg suppository 650 mg NJ Q4H PRN (Reason: pain) RF: 0 morphine 5 mg/mL Solution 5 mg PO Q4H PRN (Reason: cancer pain) Qty: 60 RF: 0 Discontinued sennosides [senna] 8.6 mg Tablet 4.3 mg PO BID RF: 0 nystatin 100,000 unit/mL Suspension 200,000 unit BUCCAL QID RF: 0 magnesium hydroxide [Milk Of Magnesia Concentrated] 2,400 mg/10 mL Suspension 30 ml PO DAILY PRN (Reason: Constipation) RF: 0 prochlorperazine maleate [Compazine] 10 mg Tablet 10 mg PO Q4H PRN (Reason: Nausea) RF: 0 osimertinib 80 mg Tablet 80 mg PO DAILY 30 Days Qty: 30 RF: 12 lactulose 20 gram/30 mL Solution 20 g PO TID PRN (Reason: Constipation) Qty: 120 RF: 2 polyethylene glycol 3350 [Miralax] 17 gram Powder In Packet 17 g PO DAILY RF: 0 dexamethasone 4 mg tablet 4 mg PO Q12H RF: 0 oxycodone 5 mg tablet 5 mg PO Q4-6H PRN (Reason: pain) Qty: 10 RF: 0 acetaminophen 325 mg Tablet 650 mg PO Q6HR PRN (Reason: As Needed For Fever/Mild Pain) Qty: 50 RF: 0 pantoprazole 40 mg Tablet,Delayed Release (Dr/Ec) 40 mg PO 0900 Qty: 30 RF: 0 docusate sodium 100 mg Capsule 100 mg PO BID Qty: 60 RF: 0 ibuprofen 600 mg Tablet 600 mg PO Q6HR PRN (Reason: As Needed For Fever/Mild Pain) Qty: 60 RF: 0 morphine 10 mg/5 mL solution 5 mg PO Q4H PRN (Reason: cancer pain) RF: 0 risperidone 0.5 mg tablet 0.5 mg PO BID RF: 0 Cbd 1 dose PO PRN PRN (Reason: pain) RF: 0 Follow up/Referrals: Vu Walker MD [Primary Care Provider] - Provider Discharge Instructions Diet: Nothing by Mouth Visit Report/Discharge Packet Instructions: How to Care for Your PEG Tube, Percutaneous Endoscopic Gastrostomy, DI for Percutaneous Endoscopic Gastrostomy, Scopolamine Transdermal Patch Discharge Data Primary Care Provider: Vu Walker Attending Provider: Daniel Mcduffie Admit Date/Time: 03/04/18 19:19 Quality VTE Deep Vein Thrombosis/Pulmonary Embolism Present on Admission: Yes
--- NOTE | 2018-04-21 14:54 | ONC.NAV ---
Patient on 03/18/18, per [facility] report.
== END 2018-03-15 13:51 | disposition hospice, home (50) | DRG 175 ==
LOC: ED 18:22 → AC 19:20
PROVIDERS: Specialist; Admitting Provider Family Medicine; Emergency Provider Emergency Medicine; Family Provider Family Medicine; PCP Family Medicine; Visit Provider Family Medicine
PROC: 0DH63UZ Insertion of Feeding Device into Stomach, Percutaneous Approach (ICD-10-PCS; CPT 43246; principal; 2018-03-07 12:45)
DX: I26.99 Other pulmonary embolism without acute cor pulmonale (principal); J18.9 Pneumonia, unspecified organism; G92 Toxic encephalopathy; C34.91 Malignant neoplasm of unspecified part of right bronchus or lung; C79.51 Secondary malignant neoplasm of bone; C79.31 Secondary malignant neoplasm of brain; E46 Unspecified protein-calorie malnutrition; I95.9 Hypotension, unspecified; R00.1 Bradycardia, unspecified; R13.10 Dysphagia, unspecified; Z68.23 Body mass index [BMI] 23.0-23.9, adult; T40.605A Adverse effect of unspecified narcotics, initial encounter
CPT/HCPCS: 36415; 36591; 43246; 70450; 70552; 71045; 71275; 72170; 80048; 80053; 81003; 81015; 83605; 84145; 85014; 85018; 85025; 85049; 85610; 85730; 87040; 87086; 87400; 92610; 94760; 94762; 94799; 96360; 96365; 96366; 96367; 96375; 96376; 99214; 99221; 99231; 99233; 99285; 99291; C9113; J0330; J0690; J1100; J1642; J1644; J1650; J2060; J2270; J2543; J2704; J3370; Q9967